=== PATIENT | female | born 1970 | race Caucasian/White ===

== ENCOUNTER → 2016-11-06 | Outpatient (REF) ==
[~2016-11-06] MED LIST: AMOX500C2; AMOX500C2 PO; BUPR150T PO; CYCL10TA9 PO; D-3; DICL75TA2 PO; DILT120C PO; ESTR-2 PO; ESTR0.5T3 PO; FLUO20CA42; FLUO40CA PO; GABA-488 PO; HCT25T; HCT25T PO; HYDR-3720 PO; HYDR1TAB; LORA0.5T PO; MELO15TA39 PO; NAPR-243; NAPR-243 PO; PRD20T; PRD20T PO; VENL75CA93 PO; VITA150T
--- NOTE | 2016-11-06 10:30 | Diagnostic Imaging Report ---
INDICATION: Right wrist pain. COMPARISON: None. FINDINGS: 3 views of the right wrist demonstrate no acute fracture or dislocation. There are no focal osseous lesions. No avascular necrosis is seen. The visualized soft tissue structures are unremarkable. The pronator fat pad is not displaced. There are no radio opaque foreign bodies. IMPRESSION: 1. No acute fracture or dislocation in the right wrist. Dictated by: Dictated on workstation # [id number]
== END | disposition home or self-care (01) ==
LOC: OCC 09:42
PROVIDERS: ATTEND Family Medicine
CPT/HCPCS: 73110

== ENCOUNTER 2017-02-06 15:11 | Outpatient (RCR) | payer OTHER | END 2017-02-19 10:50 | disposition home or self-care (01) | PROVIDERS: ATTEND Family Medicine | DX: M25.531 Pain in right wrist (principal) ==

== ENCOUNTER → 2017-02-25 | Outpatient (CLI) | payer OTHER ==
--- NOTE | 2017-02-26 12:22 | Diagnostic Imaging Report ---
EXAMINATION: Bilateral screening mammogram with a Computer Aided Detection (CAD) system. INDICATION: Screening. PERSONAL HISTORY: No current complaints stated on the questionnaire. COMPARISON: 06/28/2015. FINDINGS: The breasts are composed of scattered fibroglandular densities. There are scattered benign-appearing calcifications. Allowing for technique and positional differences, no suspicious change is seen. IMPRESSION: No significant change. ACR BI-RADS Category 2: Benign findings. Result letter will be mailed to the patient. Note: At least 10% of breast cancer is not imaged by mammography. Dictated by: Dictated on workstation # [id number]
== END ==
LOC: RAD 08:22
PROVIDERS: ATTEND Nurse Practitioner Community Health
DX: Z12.31 Encounter for screening mammogram for malignant neoplasm of breast (principal)
CPT/HCPCS: 77067

== ENCOUNTER → 2017-06-09 | Outpatient (CLI) | payer OTHER ==
[~2017-06-09] MED LIST changes: +IOHEXOL 350 MG/ML 100 ML (OMNIPAQUE 350) VIAL IV ONE; +NS 100 ML (IVPB) BAG IV ONE
--- NOTE | 2017-06-09 12:31 | Diagnostic Imaging Report ---
PROCEDURE: CT abdomen and pelvis with and without contrast. TECHNIQUE: Precontrast acquisitions were acquired through the abdomen and pelvis. Multiple contiguous axial images were obtained through the abdomen and pelvis after the administration of intravenous contrast. INDICATION: Hematuria. 100 mL of Omnipaque 350 is administered intravenously. FINDINGS: The lung bases appear clear. The liver, the spleen, the pancreas, and the adrenal glands appear unremarkable. The kidneys have symmetric enhancement and contrast excretion. The unenhanced phase demonstrates calcifications in the pelvis which appear to be related to the right adnexa and hysterectomy bed with no definite stone identified. No hydronephrosis. The urinary bladder appears unremarkable. In the left adnexa, there is a cystic lesion measuring 2.3 x 1.7 x 1.9 cm with no enhancing component evident. This is presumably a dominant follicle or simple cyst arising from the left ovary. Surgical clips and evidence of surgery utilizing a mesh seen anterior and inferior to the urinary bladder could relate to pelvic floor reinforcement surgery. Correlate with surgical history. Cholecystectomy clips are seen. The appendix is normal. There is no bowel obstruction. There is a peripherally calcified well-defined lesion seen within the anterior aspect of the omentum in the upper pelvis measuring 1.5 x 1.7 x 1.8 cm. No definite internal enhancement is seen. This could be sequela of prior injury or infection with no definite aggressive component or solid mass seen. The abdominal aorta is normal in caliber. No para-aortic significantly enlarged lymph node is seen. No pelvic lymphadenopathy. No significant free fluid or fluid collection in the abdomen or pelvis is seen. The osseous structures demonstrate degenerative changes in the lumbar spine and SI joints. IMPRESSION: 1. No urinary tract stones or hydronephrosis. No suspicious mass seen. 2. A 2.3 cm left adnexal fluid attenuation lesion is likely an ovarian cyst or dominant follicle. 3. A 1.8 cm peripherally calcified circumscribed lesion along the anterior aspect of the omentum noted in the upper pelvis is likely sequela of prior injury or fat necrosis in the omentum. Dictated by: Dictated on workstation # [id number]
== END ==
LOC: RAD 08:10
PROVIDERS: ATTEND Urology
DX: R19.09 Other intra-abdominal and pelvic swelling, mass and lump (principal); R31.9 Hematuria, unspecified
CPT/HCPCS: 74178

== ENCOUNTER → 2019-06-07 | Outpatient (CLI) | payer OTHER ==
[~2019-06-07] MED LIST changes: +BUPR100T15 PO; +ESTR0.62 PO; +HYDR-3816 PO; -IOHEXOL 350 MG/ML 100 ML (OMNIPAQUE 350) VIAL IV ONE; -NS 100 ML (IVPB) BAG IV ONE; +SERT50TA9 PO
--- NOTE | 2019-06-07 15:00 | Diagnostic Imaging Report ---
INDICATION: Routine screening. COMPARISON: 02/25/2017 and 03/01/2015. TECHNIQUE: 2D and 3D bilateral screening mammography was performed with CAD. FINDINGS: Scattered fibroglandular densities are identified bilaterally. There are benign calcifications within both breasts. No mass or malignant appearing microcalcifications are seen. The axillae are unremarkable. IMPRESSION: No mammographic features suspicious for malignancy are identified. ACR BI-RADS Category 2: Benign findings. Result letter will be mailed to the patient. Note: At least 10% of breast cancer is not imaged by mammography. Dictated by: Dictated on workstation # [id number]
== END ==
LOC: RAD 14:13
PROVIDERS: ATTEND Nurse Practitioner
DX: Z12.31 Encounter for screening mammogram for malignant neoplasm of breast (principal)
CPT/HCPCS: 77067

== ENCOUNTER 2019-06-09 05:42 | Outpatient (CLI) | payer OTHER ==
[~2019-06-09] VITALS: Ht 157.5 cm; Wt 98.6 kg
[~2019-06-09 05:42] MED LIST changes: -BUPR100T15 PO; -ESTR0.62 PO; -HYDR-3816 PO; -SERT50TA9 PO
[2019-06-09] MEDS ORDERED: SERT50TA9 PO (09:05)
[2019-06-09] MEDS ORDERED: BUPR100T15 PO (09:05)
[2019-06-09] MEDS ORDERED: HYDR-3816 PO (09:05)
[2019-06-09] MEDS ORDERED: ESTR0.62 PO (09:05)
== END 2019-06-09 09:06 | disposition home or self-care (01) ==
LOC: PREOP 05:42
PROVIDERS: ATTEND Surgery
DX: Z01.818 Encounter for other preprocedural examination (principal)

== ENCOUNTER 2019-06-11 10:16 | Day surgery (SDC) | payer OTHER ==
[~2019-06-11] VITALS: Ht 157.5 cm; Wt 98.6 kg
[2019-06-11] VITALS (13 sets, daily range): BP systolic 109–145; BP diastolic 56–85
[~2019-06-11 10:16] MED LIST changes: +BUPR100T15 PO; +ESTR0.62 PO; +HYDR-3816 PO; +SERT50TA9 PO
[2019-06-11] MEDS ORDERED: NS IV 500 ML 500 ML ONE (10:19)
--- NOTE | 2019-06-11 10:29 | Progress Note-Pre Operative ---
Pre-Operative Progress Note H&P Reviewed The H&P was reviewed, patient examined and no changes noted. Date Seen by Provider: Jun 11, 2019 Time Seen by Provider: 10:25 Date H&P Reviewed: Jun 11, 2019 Time H&P Reviewed: :25 Pre-Operative Diagnosis: diarrhea, rectal bleed ERUM BARRETO MD Jun 11, 2019 10:29
--- NOTE | 2019-06-11 10:29 | Conscious Sedation/ASA ---
Conscious Sedation Pre-Proced Time 10:25 ASA Score 2 For ASA 3 and 4: Consider anesthesia and medical clearance. Also, for patients with a history of failed moderate sedation consider anesthesia. Airway Lungs Heart ASA score ASA 1: a normal healthy patient ASA 2: a patient with a mild systemic disease (mid diabetes, controlled hypertension, obesity ASA 3: a patient with a severe systemic disease that limits activity (angina, COPD, prior Myocardial infarction) ASA 4: a patient with an incapacitating disease that is a constant threat to life (CHF, renal failure) ASA 5: a moribund patient not expected to survive 24 hrs. (ruptured aneurysm) ASA 6: a declared brain- patient whose organs are being harvested. For emergent operations, add the letter E after the classification Mallampati Classification Grade 2 Sedation Plan Analgesia, Amnesia, Plan communicated to team members, Discussed options with patient/fam, Discussed risks with patient/fam The patient is an appropriate candidate to undergo the planned procedure, sedation, and anesthesia. The patient immediately re-assessed prior to indication. ERUM BARRETO MD Jun 11, 2019 10:29
[2019-06-11] MEDS ORDERED: HYDROcodone/APAP 5 MG/325 MG (LORTAB) TAB PO PRN (10:30)
[2019-06-11] MEDS ORDERED: ACETAMINOPHEN 325 MG TABLET PO PRN (10:30)
[2019-06-11] MEDS ORDERED: ONDANSETRON 4 MG/2 ML (SDV) Z0FRAN IVP PRN (10:30)
[2019-06-11] MEDS ORDERED: morphine INJ 10 MG/ML 1ML (SYR OR VIAL) IVP PRN ×2 (10:30)
[2019-06-11] MEDS ORDERED: fentaNYL INJECTION 100 MCG/2 ML AMP IVP ONE (10:30)
--- NOTE | 2019-06-11 10:31 | Discharge Inst-Surgical ---
D/C Lap Instructions-ESTEVAN Follow Up Activity as tolerated High Fiber Diet 25g or more per day Avoid Alcohol, Caffeine, Spicy [place] and Acid foods. Drink 64 fluid oz or more of fluids per day. Symptoms to Report: Fever over 101 degree F, Nausea/Vomiting If any problems/questions: Contact your physician or go to Emergency Room ERUM BARRETO MD Jun 11, 2019 10:31
[2019-06-11] MEDS ORDERED: MIDAZOLAM 5 MG/5 ML (VERSED) VIAL ONE ×2 (10:37)
[2019-06-11] MEDS ORDERED: fentaNYL INJECTION 100 MCG/2 ML AMP ONE ×2 (10:37→11:04)
[2019-06-11] MEDS: MIDAZOLAM 5 MG/5 ML (VERSED) VIAL IV PRN ×5 (10:42→10:59)
[2019-06-11] MEDS ORDERED: NS IV 500 ML 500 ML IV SCH (10:45)
[2019-06-11] MEDS ORDERED: LIDOCAINE JELLY 2% 6 ML SYRINGE ONE (10:46)
[2019-06-11] MEDS ORDERED: ONDANSETRON 4 MG/2 ML (SDV) Z0FRAN ONE (11:50)
--- NOTE | 2019-06-11 20:45 | OPERATIVE REPORT ---
DATE OF SERVICE: 06/11/2019 ATTENDING LICENSING ANALYST: [facility]. PREOPERATIVE DIAGNOSES: Persistent diarrhea, rectal bleed. POSTOPERATIVE DIAGNOSIS: Mild acute on chronic stage II external and internal hemorrhoids, remainder of the colon and rectum were normal. There were no mucosal inflammatory changes, no polyps as well as no active bleeding identified. PROCEDURE PERFORMED: Colonoscopy. SURGEON: Erum Barreto MD. ANESTHESIA: Conscious sedation. ESTIMATED BLOOD LOSS: Minimal. FINDINGS: Mild acute on chronic stage II external and internal hemorrhoids, remainder of the colon and rectum were normal. There were no mucosal inflammatory changes, no polyps as well as no active bleeding identified. DISPOSITION: The patient tolerated the procedure well. INDICATIONS: The patient is a 49-year-old female referred over to us for a colonoscopy. She states she has had issues with diarrhea; however, she states that this occurred after her laparoscopic cholecystectomy. She reports that in the past 3-4 months, this has worsened. She has also noticed red blood per rectum, which was self-limited and in small amounts on the toilet tissue. She has not had a colonoscopy up to this point in her life. She also does not report any family history of colon cancer. She does have some risk factors for hypermotility including medications as well as a previous history of smoking. DESCRIPTION OF PROCEDURE: The patient was brought to the endoscopy suite, laid in the left lateral decubitus position. After adequate IV pain and sedative medications and conscious sedation anesthesia, a digital rectal examination was performed. There was mild acute on chronic stage II external and internal hemorrhoids, not actively edematous nor inflamed and no bleeding. Normal sphincter tone was felt and no palpable masses. The endoscope was then intubated in the anus and rectum gently insufflated. The endoscope was then advanced to the valves of [place] of the rectum with no polyps or any neoplasms identified. We then proceeded through the sigmoid colon where no diverticulosis identified. The endoscope was then advanced to the remainder of the descending, transverse and ascending colon to the cecum. These segments were normal. There were no polyps or any neoplasms identified throughout the colon or rectum as well as no mucosal inflammatory changes as well as no active bleeding. The endoscope was then slowly withdrawn while taking a second look and suctioning residual air with no additional findings. The patient tolerated the procedure well. We will recommend conservative medical therapy with the necessary lifestyle and diet accommodation including taking in small and more frequent meals, avoidance of eating at night as well as head elevation while lying supine. She also needs to avoid caffeinated beverages, spicy, greasy and acidic foods as well as to avoid spicy, greasy and acidic foods. We are unsure if this hypermotility and diarrhea secondary to post-prandial hypermotility from a bile acid secretion and we will proceed with a trial of cholestyramine 4 grams packet on a b.i.d. basis. Job ID: [id number] DocumentID: [id number] Dictated Date: 06/11/2019 11:18:54 Shot Examiner Date: 06/11/2019 20:44:56 Dictated By: ERUM BARRETO MD
== END 2019-06-11 12:20 | disposition home or self-care (01) ==
LOC: ENDO 10:16
PROVIDERS: ATTEND Surgery
DX: K64.1 Second degree hemorrhoids (principal); K64.8 Other hemorrhoids; K92.1 Melena; R19.7 Diarrhea, unspecified; F32.9 Major depressive disorder, single episode, unspecified; M19.90 Unspecified osteoarthritis, unspecified site; Z90.49 Acquired absence of other specified parts of digestive tract; Z98.51 Tubal ligation status; Z90.710 Acquired absence of both cervix and uterus; Z87.891 Personal history of nicotine dependence; Z79.891 Long term (current) use of opiate analgesic; Z79.899 Other long term (current) drug therapy; Z83.3 Family history of diabetes mellitus; Z83.2 Family history of diseases of the blood and blood-forming organs and certain disorders involving the immune mechanism; Z82.49 Family history of ischemic heart disease and other diseases of the circulatory system

== ENCOUNTER → 2019-07-22 | Outpatient (CLI) | payer OTHER ==
--- NOTE | 2019-07-22 15:31 | Diagnostic Imaging Report ---
PROCEDURE: MRI lumbar spine. TECHNIQUE: Multiplanar, multisequence MRI of the lumbar spine was performed without contrast. INDICATION: Low back pain and bilateral leg tingling and numbness. COMPARISON: No prior studies are available for comparison. FINDINGS: Curvature of the lumbar spine is normal. There is minimal retrolisthesis of L1 on L2 and L2 on L3 as well as L4 on L5 and L5 on S1. The vertebral body heights are maintained. No marrow signal abnormality or acute compression fracture is seen. There is generalized degenerative disc disease with loss of height and signal intensity of all lumbar discs compatible with degenerative change. The conus is unremarkable at the T12-L1 level. T12-L1: Central canal is widely patent. Neural foramina are patent. L1-2: Broad-based disc/osteophyte complex and facet changes are noted. Central canal remains widely patent. There does appear to be [id number] left neural foraminal narrowing due to disc/osteophyte complex. L2-L3: Broad-based disc/osteophyte complex indents the ventral thecal sac. Central canal is patent but there is significant narrowing of bilateral lateral recesses. There is also mild bilateral neural foraminal narrowing. L3-L4: Broad-based disc/osteophyte complex and facet changes are noted. Central canal is patent but there is significant narrowing of bilateral lateral recesses. Moderate bilateral neural foraminal stenosis is noted. L4-L5: Broad-based disc/osteophyte complex significantly narrows bilateral lateral recesses. Central canal is widely patent. There is moderate bilateral neural foraminal stenosis. L5-S1: Broad-based disc/osteophyte complex indents the ventral thecal sac. There is significant narrowing of bilateral lateral recesses as well as significant bilateral neural foraminal stenosis. Paraspinous tissues are unremarkable. IMPRESSION: Multilevel lumbar spondylosis with multilevel lateral recess and neural foraminal stenosis described level by level above. No central canal stenosis is seen. No acute compression fracture is identified. Dictated by: Dictated on workstation # [id number]
== END ==
LOC: RAD 14:33
PROVIDERS: ATTEND Nurse Practitioner Community Health
DX: M48.07 Spinal stenosis, lumbosacral region (principal); M47.816 Spondylosis without myelopathy or radiculopathy, lumbar region; M51.36 Other intervertebral disc degeneration, lumbar region
CPT/HCPCS: 72148

== ENCOUNTER 2019-07-25 22:24 | Emergency (ER) | payer OTHER ==
[~2019-07-25] VITALS: Ht 160 cm; Wt 96.6 kg
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
[2019-07-25] MEDS ORDERED: RX-HYDROCODONE/APAP 5/325 MG #4 TAB PK PO PRN (23:15)
[2019-07-25] MEDS ORDERED: BACITRACIN OINTMENT 28 GM TUBE ONE (23:21)
[2019-07-25 23:26] VITALS: BP 151/89
[2019-07-26] MEDS ORDERED: BACITRACIN OINTMENT 28 GM TUBE TOP SCH (09:00)
== END 2019-07-25 23:27 | disposition home or self-care (01) ==
LOC: EDUNIT# 22:24 → ER 22:25
DX: T22.232A Burn of second degree of left upper arm, initial encounter (principal); T31.0 Burns involving less than 10% of body surface; K21.9 Gastro-esophageal reflux disease without esophagitis; J45.909 Unspecified asthma, uncomplicated; F32.9 Major depressive disorder, single episode, unspecified; Z87.891 Personal history of nicotine dependence; Z90.710 Acquired absence of both cervix and uterus; Z98.51 Tubal ligation status; X15.3XXA Contact with hot saucepan or skillet, initial encounter
CPT/HCPCS: 99283

== ENCOUNTER 2020-02-24 02:52 | Emergency (ER) | payer OTHER ==
[~2020-02-24] VITALS: Ht 160 cm; Wt 104.0 kg
[~2020-02-24 02:52] MED LIST changes: +HYDR-34 PO; -HYDR-3816 PO
--- OUTSIDE RECORDS SUMMARY | 2020-02-24 03:00 | XMS REPORT | Clinical Summary ---
Author Author [facility] Organization [facility] Address Unknown Phone Unavailable Care Team Providers Care Financial Management Consultant Name Role Phone PCP Unavailable Allergies Not on File Medications Not on file Active Problems Not on file Social History Date Tobacco Use Types Packs/Day Years Used Never Assessed Sex Assigned at Date Recorded Not on file Industry Job Start Date Occupation Not on file Not on file Not on file Travel End Travel History Travel Start No recent travel history available. Last Filed Vital Signs Not on file Plan of Treatment Not on file Results Not on filefrom Last 3 Months
--- OUTSIDE RECORDS SUMMARY | 2020-02-24 03:00 | XMS REPORT ---
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 [Mass/Vol] 08:05-0500 ([id number]) Lymphocytes 2.7 10*3/uL (no code) 0.9 - 2.9 09-12-2016 Not Avai lable (Bld) [#/Vol] 10*3/uL 08:05-0500 ([id number]) Lymphocytes/100 33 % (no code) 20 - 40 % 09-12-2016 Not Av ailable WBC (Bld) 08:05-0500 ([id number]) MCH (RBC) 28.5 pg (no code) 27 - 31 pg 09-12-2016 Not Availab le [Entitic mass] 08:05-0500 ([id number]) MCV (RBC) 84 fL (no code) 80 - 100 fL 09-12-2016 Not Availa ble [Entitic vol] 08:05-0500 ([id number]) Monocytes (Bld) 0.6 10*3/uL (no code) 0.3 - 0.9 09-12-2016 Not Available [#/Vol] 10*3/uL 08:05-0500 ([id number]) Monocytes/100 8 % (no code) 2 - 8 % 09-12-2016 Not Avai lable WBC (Bld) 08:05-0500 ([id number]) Neutrophils 4.7 10*3/uL (no code) 1.7 - 7 10*3/uL 09-12-2016 No t Available (Bld) [#/Vol] 08:05-0500 ([id number]) Neutrophils/100 58 % (no code) 40 - 60 % 09-12-2016 Not Av ailable WBC (Bld) 08:05-0500 (23811) Platelets (Bld) 295 10*3/uL (no code) 150 - 450 09-12-2016 Not Available [#/Vol] 10*3/uL 08:05-0500 (80772) RBC (Bld) 4.21 10*6/uL (no code) 4.2 - 6.1 09-12-2016 Not Avail able [#/Vol] 10*6/uL 08:05-0500 (81674) WBC (Bld) 8.1 10*3/uL (no code) 3.5 - 10.5 09-12-2016 Not Avail able [#/Vol] 10*3/uL 08:05-0500 (75845) Vital Signs Vital Sign Value Interpretation Reference Date Time Care Prov ider Facility (Normalized) (Normalized) Range BMI (Body Mass 38.7 kg/m2 (no code) 15 - 25 kg/m2 11-04-2018 [facility] ENDA LILIBETH [facility]) 10:00-0500 30351 [facility] ([id number]) BMI (Body Mass 39.3 kg/m2 (no code) 15 - 25 kg/m2 12-29-2017 BR ALISHA PEARCENNAN [facility]) 11:00-0400 12498 [facility] ([id number]) BMI (Body Mass 39.13 kg/m2 (no code) 15 - 25 kg/m2 12-10-2017 B TALIA MARTINESAN Community [facility]) 11:00-0400 75715 [facility] ([id number]) Body height 162.56 cm (no code) cm 07-12-2014 [facility] 11:20-0500 63406 [facility] (71814) Body height 162.56 cm (no code) cm 11-22-2013 [facility] 16:36-0400 49225 [facility] ([id number]) Body 98.1 [degF] (no code) 97.8 - 99.0 11-04-2018 [facility] Temperature [degF] 10:00-0500 67253 [facility] ([id number]) Body 97.7 [degF] (no code) 97.8 - 99.0 12-29-2017 [facility] Temperature [degF] 11:00-0400 81072 [facility] (05772) Body 98.5 [degF] (no code) 97.8 - 99.0 12-10-2017 [facility] Temperature [degF] 11:00-0400 60008 [facility] (70355) Body 97.6 [degF] (no code) 97.8 - 99.0 07-12-2014 [facility] temperature [degF] 11:20-0500 33105 [facility] ([id number]) Body 97.7 [degF] (no code) 97.8 - 99.0 11-22-2013 [facility] temperature [degF] 16:36-0400 215[address] [facility]66[facility] Body weight 102.29 kg (no code) kg 11-04-2018 BROSOFYA MARTINES [facility] 10:00-0500 84587 [facility] ([id number]) Body weight 96.36 kg (no code) kg 07-12-2014 BRO SEARS [facility] 11:20-[address] [place] [address] (07077) Body weight 101.52 kg (no code) kg 11-22-2013 BROSOFYA MARTINES [facility] 16:36-[address] [place] [address] (38126) Height 162.56 cm (no code) cm 11-04-2018 [facility] 10[facility]-[address] [place] [address] (44541) Height 162.56 cm (no code) cm 12-29-2017 [facility] 11:00-[address] [place] [address] (41583) Height 162.56 cm (no code) cm 12-10-2017 [facility] 11:00-[address] [place] [address] ([id number]) Weight 103.87 kg (no code) kg 12-29-2017 [facility] 11[facility]-[address] [place] [address] (32346) Weight 103.42 kg (no code) kg 12-10-2017 [facility] 11[facility]-[address] [place] [address] ([id number]) Interventions No Information Plan of Treatment Normalized Care Care Detail Care Activity Date Care Provider F acility Activity (CHM) [facility] 07-13-2018 BRO SEARS N [address]62 [facility] ([id number]) (CH) [facility] 08-12-2018 BRO SEARS N 00320 [facility] (24773) [facility] 10-27-2019 [facility] MCELROY [phone] ([id number]) Patient Education no information no information [facility] [place] [facility] [address] [place] [address] ([id number]) Patient referral no information no information [facility] [place] [facility] [address] [place] [address] ([id number]) no information no information no information BRO MCELROY [phone] [facility] (87219) Goals Patient Goal Desired Goal no information no information Social History Normalized Code Original Code Date Value Tobacco smoking status Tobacco smoking status no information Ex-smoker (finding) [facility] no information no information 04-14-2015 Denies Use no information no information 03-07-2011 No no information no information 06-09-2019 Former Smoker Sex Assigned At Sex Assigned At 1970 - Female Tobacco smoking status Tobacco smoking status no information Never smoked tobacco [facility] (finding) no information no information 07-26-2019 Denies no information no information 07-26-2019 Never a Smoker Functional Status Status Assessment Result Care Provider Facility Functional status [place] Opioid-induced [facility] [place] [facility] Radha Sedation Scale (POSS) [address] [place] [address] ([id number]) Awake and alert Mental Status Status Assessment Result Care Provider Facility Cognitive function [facility] [facility] [place] [facility] Sedation Scale (POSS) [address] [place] [address] ([id number]) Awake and alert Encounters Encounter Normalized Encounter Encounter Diagnosis Care Provi roscoe Organization Date Type 01-13-2019 (fitness) Fitness no information BRO MCELROY (no [facility] Assessment and phone) (no phone) Evaluation 06-11-2019 Admission to day no information (no phone) [facility] (no phone) 06-11-2019 11-12-2019 [facility] Fever, unspecified ADAM GILR EATH (no [facility] CARE phone) CARE (no phone) 07-26-2019 Emergency department no information (no phone) [facility] - patient visit Hospital (no phone) 07-26-2019 07-25-2019 Emergency department no information no name no organization name - patient visit 07-25-2019 07-10-2016 Emergency department no information no name no organization name - patient visit 07-10-2016 05-19-2018 Patient encounter no information no name no or ganization name 02-26-2018 Patient encounter no information no name no or ganization name NEGATED Patient encounter no information no name no or ganization name 12-29-2017 12-10-2017 Patient encounter no information no name no or ganization name 11-05-2017 Patient encounter no information no name no or ganization name 06-09-2017 Patient encounter no information no name no or ganization name 02-09-2020 Patient encounter no information BRO S LILIBETH ( no [facility] (no phone) 11-12-2019 Patient encounter no information (no phone) [facility] procedure [facility] (no phone) 10-11-2019 Patient encounter Encounter for (no phone) [facility] - procedure gynecological [facility] (no phone) [facility] 10-11-2019 examination (general) [place] (no phon e) (routine) without [facility] abnormal findings (no phone) [facility] (no phone) 10-04-2019 Patient encounter no information no name no or ganization name procedure 09-29-2019 Patient encounter no information no name no or ganization name procedure 07-25-2019 Patient encounter no information no name no or ganization name procedure 07-22-2019 Patient encounter no information (no phone) [facility] (no phone) 07-22-2019 Patient encounter no information no name no or ganization name procedure 07-12-2019 Patient encounter no information no name no or ganization name procedure 06-11-2019 Patient encounter no information no name no or ganization name - procedure 06-11-2019 06-11-2019 Patient encounter no information no name no or ganization name - procedure 06-11-2019 06-09-2019 Patient encounter no information (no phone) [facility] (no phone) 06-09-2019 06-09-2019 Patient encounter no information no name no or ganization name procedure 06-09-2019 Patient encounter no information no name no or ganization name - procedure 06-09-2019 06-07-2019 Patient encounter no information (no phone) [facility] (no phone) 06-07-2019 Patient encounter no information no name no or ganization name procedure 04-05-2019 Patient encounter no information no name no or ganization name procedure 01-20-2019 Patient encounter no information no name no or ganization name procedure 12-30-2018 Patient encounter no information no name no or ganization name procedure 12-23-2018 Patient encounter no information no name no or ganization name procedure 12-07-2018 Patient encounter no information no name no or ganization name procedure 12-03-2018 Patient encounter no information no name no or ganization name procedure 11-23-2018 Patient encounter no information no name no or ganization name procedure 11-19-2018 Patient encounter no information no name no or ganization name procedure 11-16-2018 Patient encounter no information no name no or ganization name procedure 11-04-2018 Patient encounter no information no name no or ganization name procedure 10-29-2018 Patient encounter no information no name no or ganization name procedure 10-18-2018 Patient encounter no information no name no or ganization name procedure 10-12-2018 Patient encounter no information no name no or ganization name procedure 09-30-2018 Patient encounter no information no name no or ganization name procedure 07-13-2018 Patient encounter no information no name no or ganization name procedure 06-08-2018 Patient encounter no information no name no or ganization name procedure 06-09-2017 Patient encounter no information no name no or ganization name procedure 02-25-2017 Patient encounter no information no name no or ganization name procedure 02-25-2017 Patient encounter no information no name no or ganization name procedure 02-06-2017 Patient encounter no information no name no or ganization name - procedure 02-19-2017 02-04-2017 Patient encounter no information no name no or ganization name procedure 01-31-2017 Patient encounter no information no name no or ganization name procedure 01-23-2017 Patient encounter no information no name no or ganization name procedure 01-17-2017 Patient encounter no information no name no or ganization name procedure 01-07-2017 Patient encounter no information no name no or ganization name procedure 01-02-2017 Patient encounter no information no name no or ganization name procedure 11-06-2016 Patient encounter no information no name no or ganization name procedure 01-04-2016 Patient encounter no information no name no or ganization name procedure 01-07-2020 Telephone encounter Lumbago with JONG cordova (no [facility] right side phone) (no phone) 12-03-2019 Telephone encounter Lumbago with sciatica, BRO Elijah JUDD ([facility] right [facility] phone) (no phone) 11-02-2019 Telephone encounter no information BRO MCELROY ( no [facility] phone) (no phone) 10-28-2019 Telephone encounter Acute stress reaction BRO WHITE (no [facility] phone) (no phone) 10-18-2019 Telephone encounter no information BRO MCELROY ( no [facility] phone) (no phone) no information Encounter for other no name no organiz ation name preprocedural examination no information Encounter for no name no organization name gynecological examination (general) (routine) without abnormal findings Medical Equipment The data below is from unstructured sourcesNo Medical Equipment Information availableNo Medical Equipment Information availableNo Medical Equipment Information availableNo Medical Equipment Information a vailableNo Medical Equipment Information available Payers Normalized Payer Value Private Health Insurance no information ([id number]) Evaluation note Note Type Note Facility Evaluation No Assessments Information Available A scension note [facility] ([id number]) Summary Purpose eClinicalWorks SubmissioneClinicalWorks SubmissioneClinicalWorks SubmissioneClinicalWorks SubmissioneClinicalWorks SubmissioneClinicalWorks SubmissioneClinicalWorks Submission Advance Directives Directive Response Recor ded Date/Time Advance Directives No 3:51am Health Care Power of Manager Image No 04/14/15 3:51am Organ Donor Yes 04/14/15 3:51am Resuscitation Status Full Code 04/14/15 3:51am Directive Response Recor ded Date/Time Advance Directives No 9:22am Health Care Power of Manager Image No 09/10/12 9:19am Organ Donor Yes 09/10/12 9:19am Directive Response Recor ded Date/Time Advance Directives No 12:48am Health Care Power of Manager Image No 07/10/16 12:48am Organ Donor Yes 07/10/16 12:48am Advance Directive Response Recorded Date/Time Advance Directives No Oc 2018 8:52am Health Care Power of Manager Image No June 09, 2019 8:52am Organ Donor Yes June 09, 2019 8:52am Resuscitation Status Full Code June 09, 2019 8:52am Advance Directive Response Recorded Date/Time Advance Directives No Oc tober 2018 10:30am Health Care Power of Manager Image No June 11, 2019 10:30am Organ Donor Yes June 11, 2019 10:30am Resuscitation Status Full Code June 11, 2019 10:30am Advance Directive Response Recorded Date/Time Advance Directives No No [email or web address] 11:01pm Health Care Power of Manager Image No July 25, 2019 11:01pm Organ Donor Yes July 25, 2019 11:01pm Resuscitation Status Full Code July 25, 2019 11:01pm Discharge Instructions No hospital discharge instructions.No hospital discharge instructions.No hospital discharge instructions.No hospital discharge instruction information available. Additional Instructions Patient Instructions Physician Instructions Follow Up Activity as tolerated High Fiber Diet 25g or more per day Avoid Alcohol, Caffeine, Spicy [place] and Acid foods. Drink 64 fluid oz or more of fluids per day. Symptoms to Report: Fever over 101 degree F, Nausea/Vomiting If any problems/questions: Contact your physician or go to Emergency Room Assessments No Assessments Information AvailableNo Assessments Information Available Chief Complaint and Reason for Visit Chief Complaint Trauma-Non Activatio n Reason for Visit [id number] Additional Source Comments This clinical document has been generated using [employer] software that has been certified by the Office of the National Coordinator for Health Information Technology (ONC 15.99.04.3023.Diam.31.00.0.613732) and the National Committee for [employer] (NCQA, as an eMeasure certified technology). FOR RECORDS PERTAINING TO PATIENTS WHO ARE OR HAVE BEEN ENROLLED IN A CHEMICAL D EPENDENCY/SUBSTANCE ABUSE PROGRAM, SOME INFORMATION MAY BE OMITTED. This clinica l summary was aggregated from multiple sources. Caution should be exercised in using it in the provision of clinical care. This summary normalizes information from multiple sources, and as a consequence, information in this document may ma terially change the coding, format and clinical context of patient data. In kar tion, data may be omitted in some cases. CLINICAL DECISIONS SHOULD BE BASED ON T HE PRIMARY CLINICAL RECORDS. [facility]. provides no warranty or guara ntee of the accuracy or completeness of information in this document.The followi ng information is based on time limited clinical information UNRECOGNIZED CONTENT PROVIDED BELOW FOR UNRECOGNIZED SECTION MEDICAL (GENERAL) HISTORY Type Description Date Medical History Asthma Medical History Post cholecystectomy Medical History arthritis Medical History Backache Medical History Headache syndromes Medical History Depression Medical History carpal tunnel right hand Surgical History Hysterectomy 2010 Surgical History Tubal ligation Surgical History section Surgical History Orthopedic surgery Surgical History Right ear canal rec onstruction Hospitalization History child x3 Hospitalization History orthopedic surgery Hospitalization History Hysterectomy Hospitalization History Tubal ligation Type Description Date Medical History Asthma Medical History Post cholecystectomy Medical History arthritis Medical History Backache Medical History Headache syndromes Medical History Depression Medical History carpal tunnel right hand Surgical History Hysterectomy 2010 Surgical History Tubal ligation Surgical History section Surgical History Orthopedic surgery Surgical History Right ear canal rec onstruction Surgical History right knee arthroscopy 04/2018 Hospitalization History child x3 Hospitalization History orthopedic surgery Hospitalization History Hysterectomy Hospitalization History Tubal ligation UNRECOGNIZED CONTENT PROVIDED BELOW FOR UNRECOGNIZED SECTION REASON FOR VISIT order for MRI of backControlled Med Refill 07/06/18Controlled Med Refill 08/03EM [id number] Pt in for follow up, also has had pain and swelling in R knee, does not recall injury to knee Sherry, [id number] US or derU/S RT LOWER EXT NONVASC A.BOOKLESS RDMS RVTControlled 11/23back painback pain , knee pain
--- OUTSIDE RECORDS SUMMARY | 2020-02-24 03:00 | XMS REPORT | Encounter Summary ---
Author Author [facility] Organization [facility] Address Unknown Phone Unavailable Care Team Providers Care Technician Support Association Name Role Phone PCP Unavailable Encounter Details Care Team Description Date Type Department Dakota Davenport MD [address] [facility] [address] [place] [address] [phone] Unspecified otitis media 09/08/2013 [facility] al Encounter [address] [place] [address] Social History Date Tobacco Use Types Packs/Day Years Used Never Assessed Sex Assigned at Date Recorded Not on file Industry Job Start Date Occupation Not on file Not on file Not on file Travel End Travel History Travel Start No recent travel history available. documented as of this encounter H&P Notes * Dakota Davenport MD - 10/28/2013 3:40 PM TRACK REPAIR SUPERVISOR REPORT Name: SHEY VELAZQUEZ Date of : 1970 Attending Physician: Dakota Davenport MD Date of Admission: 08/14/2013 11:29:00 DATE OF DICTATION: September 02, 2013 DATE OF SURGERY: September 08, 2013 CHIEF COMPLAINT? Right hearing loss. HISTORY OF PRESENT ILLNESS: The patient is a 42-year-old with a history of chronic ear infections and past cholesteatoma. She has undergone first staged tympanoplasty and mastoidectomy surgery July 28, 2012. 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 She is now undergoing second stage surgery to rule out any residual cholesteatoma and to finish ossicular chain reconstruction. PAST MEDICAL HISTORY: The patient is otherwise in good health. MEDICATIONS: Current medications include hydrochlorothiazide for fluid retention, Ventolin, and Pristiq for some asthma that is stable. In the past, she has also been on Wellbutrin for smoking cessation. ALLERGIES: To medications none. FAMILY HISTORY: Positive for hearing loss. SOCIAL HISTORY: She lives in [place], [place]. REVIEW OF SYSTEMS: Positive for asthma and irregular heart rate which has been worked up and found to be of no significant consequence. She has also had some intermittent diarrhea, but none at this time. PHYSICAL EXAMINATION: GENERAL: Reveals well-developed and well-nourished 42-year-old in no acute distress. HEENT: Eyes normal. Ears: Left ear normal. Right ear shows reconstructed tympanic membrane. Nose, throat, and neck normal. LUNGS: Clear. HEART: Normal. EXTREMITIES: Normal. Audiogram shows moderate conductive hearing loss right side. Normal left. ASSESSMENT: Right chronic otitis media with conductive hearing loss. RECOMMENDATIONS: Right revision tympanoplasty, mastoidectomy, and ossicular chain reconstruction. The risks of the procedure and alternatives have been discussed and informed written consent obtained. Dakota Davenport MD [id number] CC: K REPAIR SUPERVISOR documented in this encounter Miscellaneous Notes * Operative Note - Dakota Davenport MD - 10/28/2013 3:37 PM TRACK REPAIR SUPERVISOR REPORT Name: SHEY VELAZQUEZ Date of : 1970 Attending Physician: Dakota Davenport MD Date of Procedure: 09/08/2013 PREOPERATIVE DIAGNOSES: 1. Right chronic otitis media. 2. Right conductive hearing loss. POSTOPERATIVE DIAGNOSES: 1. Right chronic otitis media. 2. Right conductive hearing loss. PROCEDURE: 1. Right revision tympanoplasty and mastoidectomy with ossicular chain reconstruction. 2. Ear cartilage graft. 3. Soft tissue (fascia) graft. 4. Microdissection with operating microscope. 5. Intraoperative facial nerve monitoring, 1-1/2 units. INDICATIONS: The patient is a 43-year-old with a history of cholesteatoma and past tympanoplasty and mastoidectomy surgery, first stage. She is undergoing second stage. FINDINGS AT THE TIME OF SURGERY: I found a clean middle ear and mastoid with no recurrent cholesteatoma. She has a missing incus, missing malleus head, and a mobile stapes. PROCEDURE: The patient was identified and taken to the operating room. General anesthetic was administered via LMA mask. Using the operating microscope, cerumen was cleaned from the right ear, and 2 vertical incisions were made from 12 and 6 o'clock from the annulus to the bony cartilaginous juncture. Then, I made a C-shaped postauricular incision, went through skin and subcutaneous tissue, harvested temporalis fascia, and put it in a fascial press, leaving it to dry. I incised the periosteum, elevated the mastoid cortex, and cleaned, but there had been previous mastoidectomy, so I fell into a mastoid cavity. I removed some adhesions. I removed some cortical bone that had grown back and confirmed that there was no cholesteatoma in the mastoid or epitympanum. I elevated down the posterior bony canal wall, freed up the vascular strip, lifted up the tympanic membrane, removed some adhesions, and found no cholesteatoma in the middle ear. There was a mobile stapes, missing incus, and missing malleus head. As a separate procedure, I harvested tragal cartilage from the tragus ____ small rectangle strip perichondrium off one side, and I scoured the cartilage in half, taking care not to go through the perichondrium on the other side. This created a hinged double block of cartilage. Then, I created a small depression and stacked it on top of the stapes. I laid it back to tympanic membrane, but it was slightly short not reaching to the posterior bony canal wall; so I did an underlay graft using temporalis fascia, supplementing it with Gelfoam. I then released retractors, put back to vascular strip, packed the external ear canal with the more Gelfoam soaked with Cipro HC antibiotic, and closed the postauricular wound using 2, 3 and 4-0 Vicryl on subcutaneous and subcuticular layers. Steri-Strips were applied. A mastoid pressure dressing was put on. The patient was awakened and taken to the recovery room in good condition. Dakota Davenport MD [id number] CC: K REPAIR SUPERVISOR documented in this encounter Plan of Treatment Not on filedocumented as of this encounter Visit Diagnoses Diagnosis Unspecified otitis media documented in this encounter
--- OUTSIDE RECORDS SUMMARY | 2020-02-24 03:00 | XMS REPORT ---
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 Role Phone BRO MCELROY Unavailable PROBLEMS Type Condition ICD9-CM Code MUY30-QS Code Onset Dates Condition S tatus SNOMED Code Problem Obesity E66.9 Active 193957298 Problem Knee pain M25.569 Active 91636313 Problem Rib pain R07.81 Active 342469729 Problem GERD (gastroesophageal reflux disease) K21.9 Active 382312245 Problem Weight gain R63.5 Active 2541728 Problem Right knee meniscal tear S83.206A Activ e 869247490 Problem Bone spur of foot M77.9 Active 23 [id number] Problem Carpal tunnel syndrome, unspecified laterality G56 .00 Active 60536609 Problem Continuous leakage of urine N39.45 Ac tive 976140255 Problem Rectocele N81.6 Active 907530921 Problem Fibromyalgia M79.7 Active 8717117 05 Problem Acute stress reaction F43.0 Active 86789854 Problem Dysthymia F34.1 Active 40266487 Problem Generalized anxiety disorder F41.1 A ctive 27492814 Problem Major depressive disorder, single episode, unspecified F32.9 Active 78348333 Problem Lumbago with sciatica, right side M54.41 Active 643891302 Problem Other chronic pain G89.29 Active 8 0714296 Problem Perimenopause N95.1 Active 804871 714670924 Problem Chronic fatigue R53.82 Active 5270 2002 ALLERGIES No Information ENCOUNTERS Encounter Location Date Diagnosis [facility] [address] [facility] [id number] [address] [place] [address] 03 Dec, 2019 Lumbago with sciatica, right side M54.[address] [facility] [address] [facility] [id number] [address] [place] [address] Oct, Fever, unspecified fever cau se R50.9 and Viral upper respiratory tract infection J06.9 [place] [address] [address] Oct, [place] [address] [address] Oct, Acute stress reaction F43.0 and Generalized anxiety disorder F41.1 [place] [address] [address] 17 Oct, 2019 [place] [address] [address] Oct, Well woman exam Z01.419 ; Ce rvical cancer screening Z12.4 and Encounter for immunization Z23 [address] [address] Oct, Lipid screening Z13.220 ; Ch ronic fatigue R53.82 and Myalgia M79.10 [place] [address] [address] Sep, Dysthymia F34.1 ; Other filer and sander mary pain G89.29 ; Lumbago with sciatica, right side M54.41 ; Myalgia M79.10 ; Lipid screening Z13.220 and Chronic fatigue R53.82 [place] [address] [address] Sep, Lumbago with sciatica, right side M54.41 [place] [address] [address] Aug, Lumbago with sciatica, right side M54.41 [place] [address] [address] Jul, Lumbago with sciatica, right side M54.41 [place] [address] [address] Jul, Low back pain M54.5 ; Other chronic pain G89.29 ; Weakness of both legs R29.898 and Weight loss R63.4 [place] [address] [facility] [id number] [address] [place] [address] Jun, Lumbago with sciatica, right side M54.41 [place] [address] [place] [id number] [address] [place] [address] Jun, Lumbago with sciatica, right side M54.41 [place] [address] [facility] [id number] [address] [place] [address] May, Lumbago with sciatica, right side M54.41 [place] [address] [facility] [id number] [address] [place] [address] Apr, Lumbago with sciatica, right side M54.41 [place] [address] [place] [id number] [address] [place] [address] Apr, Abnormal CBC R79.89 and Lumb ago with sciatica, right side M54.41 [place] [address] [facility] [id number] [address] [place] [address] Mar, Lumbago with sciatica, right side M54.41 [place] [address] [facility] [id number] [address] [place] [address] Jan, Lumbago with sciatica, right side M54.41 [place] [address] [facility] [id number] [address] [place] [address] December, Exercise counseling Z71.82 [place] [address] [facility] [id number] [address] [place] [address] December, Lumbago with sciatica, right side M54.41 [place] [address] [facility] [id number] [address] [place] [address] December, Exercise counseling Z71.82 [place] [address] [facility] [id number] [address] [place] [address] Nov, Colon cancer screening Z12.1 1 [facility] [address] [id number] [address] [place] [address] Nov, Exercise counseling Z71.82 [facility] [address] [id number] [address] [place] [address] Nov, Exercise counseling Z71.82 [facility] [address] [id number] [address] [place] [address] Nov, Lumbago with sciatica, right side M54.41 [facility] [address] [id number] [address] [place] [address] Nov, Exercise counseling Z71.82 [place] [address] [id number] [address] [place] [address] Nov, [place] [address] [id number] [address] [place] [address] Nov, Contusion of right knee, seq uela S80.01XS and Lumbago with sciatica, right side M54.41 [place] [address] [id number] [address] [place] [address] Nov, Exercise counseling Z71.82 [facility] [address] [id number] [address] [place] [address] Oct, Exercise counseling Z71.82 [place] [address] [id number] [address] [place] [address] Oct, Exercise counseling Z71.82 [facility] [address] [id number] [address] [place] [address] Oct, Lumbago with sciatica, right side M54.41 [facility] [address] [id number] [address] [place] [address] Oct, Exercise counseling Z71.82 [facility] [address] [id number] [address] [place] [address] Oct, Contusion of right knee, ini tial encounter S80.01XA [facility] [address] [facility] [id number] [address] [place] [address] Oct, Contusion of right knee, ini tial encounter S80.01XA [place] [address] [facility] [id number] [address] [place] [address] Oct, Contusion of right knee, ini tial encounter S80.01XA [place] [address] [place] [id number] [address] [place] [address] Oct, Exercise counseling Z71.82 [place] [address] [address] Oct, Lumbago with sciatica, right side M54.41 [facility] [address] [place] [id number] [address] [place] [address] Oct, Influenza A J10.1 and Fever R50.9 [place] [address] [address] Oct, Exercise counseling Z71.82 [place] [address] [address] Oct, [place] [address] [place] [id number] [place] [address] Sep, Perimenopause N95.1 ; Weight gain R63.5 ; BMI 40.0-44.9, adult Z68.41 and Therapeutic drug monitoring Z51.81 [place] [address] [place] [id number] [address] [place] [address] Sep, Lumbago with sciatica, right side M54.41 [place] [address] [place] [id number] [address] [place] [address] Aug, Lumbago with sciatica, right side M54.41 [place] [address] [place] [id number] [address] [place] [address] Jul, Lumbago with sciatica, right side M54.41 [place] [address] [address] Jul, Lumbago with sciatica, right side M54.41 ; Fibromyalgia M79.7 ; Cold sore B00.1 and Abnormal bruising R23.8 [place] [address] [address] Jul, Lumbago with sciatica, right side M54.41 [place] [address] [address] Jun, Lumbago with sciatica, right side M54.41 [place] [address] [address] Jun, Lumbago with sciatica, right side M54.41 ; Other chronic pain G89.29 and BMI 40.0-44.9, adult Z68.[address] [facility] [address] [address] May, Acute low back pain, unspeci fied back pain laterality, with sciatica presence unspecified M54.5 [place] [address] [address] Jan, Tear of medial meniscus of r ight knee, current, unspecified tear type, subsequent encounter S83.241D [place] [address] [address] Nov, Dysthymia F34.1 ; Weight gai n R63.5 and Acute pain of right knee M25.561 [place] [address] [address] Nov, [place] [address] [address] Nov, Viral illness B34.[address] [facility] [address] [address] Oct, Viral URI J06.9 [place] [address] [place] [id number] [address] [place] [address] Jun, Fibromyalgia M79.7 and Recto nadia N81.6 [place] [address] [place] [id number] [place] [address] May, Weak R53.1 ; Fatigue, unspec ified type R53.83 ; Arthralgia of right knee M25.561 and Hematuria, unspecified type R31.9 [place] [address] [address] Apr, Dysthymia F34.1 [place] [address] [address] Mar, Hematuria, unspecified type R31.9 ; Acute pain of left knee M25.562 ; Right knee pain M25.561 and Low back pain M54.5 [place] [address] [address] Mar, Hematuria, unspecified type R31.9 [place] [address] [address] Mar, Acute pain of left knee M25. 562 [place] [address] [address] Mar, GERD (gastroesophageal reflu x disease) K21.9 ; Continuous leakage of urine N39.45 ; Acute cystitis with hematuria N30.01 and Vaginal discharge N89.8 [place] [address] [address] Jan, [address] [address] Jan, Dysthymia F34.1 ; Sore throa t J02.9 ; Costochondritis M94.0 and Breast cancer screening Z12.39 [place] [address] [place] [address] [place] [address] December, [facility] [address] [id number] [address] [place] [address] Oct, Gastroenteritis K52.9 [facility] [address] [id number] [address] [place] [address] Oct, [facility] [address] [facility] [id number] [address] [place] [address] Sep, Weight gain R63.5 ; Major de pressive disorder, single episode, unspecified F32.9 ; Arthralgia, unspecified joint M25.50 ; GERD (gastroesophageal reflux disease) K21.9 and Swelling R60.9 [facility] [address] [id number] [address] [place] [address] Aug, [facility] [address] [id number] [address] [place] [address] Jul, [facility] [address] [facility] [id number] [address] [place] [address] Jul, Right knee meniscal tear S83 .206A [facility] [address] [id number] [address] [place] [address] Jun, [facility] [address] [place] [id number] [address] [place] [address] Jun, Plantar fasciitis M72.2 [facility] [address] [id number] [address] [place] [address] Jun, [facility] [address] [id number] [address] [place] [address] May, Plantar fasciitis M72.2 [facility] [address] [id number] [address] [place] [address] May, [facility] [address] [facility] [id number] [address] [place] [address] May, [facility] [address] [place] [id number] [address] [place] [address] Apr, [facility] [address] [facility] [id number] [address] [place] [address] Apr, [facility] [address] [place] [id number] [place] [address] Apr, Bone spur of foot M77.9 [facility] [address] [place] [id number] [place] [address] Apr, [place] [address] [place] [id number] [place] [address] Apr, [place] [address] [address] Apr, GERD (gastroesophageal reflu x disease) K21.9 ; Pain in right foot M79.671 ; Pain of left foot M79.672 and Obesity E66.9 [place] [address] [address] December, Degenerative tear of lateral meniscus of right knee M23.300 [place] [address] [address] December, [place] [address] [address] December, Weight gain R63.5 ; Right kn ee meniscal tear S83.206A ; Carpal tunnel syndrome, unspecified laterality G56.00 and Rib pain R07.81 [place] [address] [place] [id number] [address] [place] [address] Nov, Right knee meniscal tear S83 .206A [place] [address] [address] Nov, Obesity E66.9 ; Knee pain M2 5.569 and GERD (gastroesophageal reflux disease) K21.9 [place] [address] [place] [id number] [address] [place] [address] Oct, Weight gain R63.5 and Hormon e replacement therapy Z79.890 [place] [address] [address] Oct, [place] [address] [address] Oct, Right knee pain M25.561 ; Ho rmone replacement therapy Z79.890 and Weight gain R63.5 [place] [address] [address] Sep, Other chronic pain G89.29 an d Eustachian tube dysfunction, right H69.81 [place] [address] [address] Jul, Hot flashes N95.1 ; Mastodyn ia N64.4 and Sore throat J02.[address] [address] Jun, Acute cystitis with hematuri a N30.01 ; Pain in right axilla M79.601 ; Right foot pain M79.671 and Dysuria R30.0 [place] [address] [address] May, Migraines 346.[address] [address] Apr, Anxiety 300.00 ; Headache 78 4.0 and Varicose vein of leg 454.9 [place] [address] [address] Apr, Depressive disorder, not els ewhere classified [address] [address] 24 Jan, 2015 Tension type headache 339.10 and Breast cancer screening V76.[address] [address] 14 Nov, 2014 [facility] [place] [facility] [address] [id number] [address] [place] [address], [place] [address] Nov, [facility] [address] [id number] [address] [place] [address], [place] [address] Jul, [facility] [address] [id number] [address] [place] [address], [place] [address] Jul, [facility] [address] [id number] [address] [place] [address], [place] [address] Jun, [facility] [address] [id number] [address] [place] [address], [place] [address] Jun, [facility] [address] [id number] [address] [place] [address], [place] [address] Apr, [facility] [address] [id number] [address] [place] [address], [place] [address] Apr, [facility] [address] [id number] [address] [place] [address], [place] [address] Jan, [facility] [address] [id number] [address] [place] [address], [place] [address] Jan, [facility] [address] [id number] [address] [place] [address], [place] [address] December, [facility] [address] [id number] [address] [place] [address], [place] [address] December, [facility] [address] [id number] [address] [place] [address], [place] [address] December, [facility] [address] [id number] [address] [place] [address], [place] [address] December, [facility] [address] [id number] [address] [place] [address], [place] [address] Nov, [facility] [address] [id number] [address] [place] [address], [place] [address] Nov, [facility] [address] [id number] [address] [place] [address], [place] [address] Nov, [facility] [address] [id number] [address] [place] [address], [place] [address] Nov, [facility] [address] [id number] [address] [place] [address], [place] [address] Oct, [facility] [address] [id number] [address] [place] [address], [place] [address] Oct, [facility] [address] [id number] [address] [place] [address], [place] [address] Aug, [facility] [address] [id number] [address] [place] [address], [place] [address] Aug, [facility] [address] [id number] [address] [place] [address], [place] [address] Mar, [facility] [address] [id number] [address] [place] [address], [place] [address] Mar, [facility] [address] [id number] [address] [place] [address], [place] [address] Mar, [facility] [address] [id number] [address] [place] [address], [place] [address] Sep, [facility] [address] [id number] [address] [place] [address], [place] [address] Sep, [facility] [address] [id number] [address] [place] [address], [place] [address] Sep, [facility] [address] [id number] [address] [place] [address], [place] [address] Aug, [facility] [address] [id number] [address] [place] [address], [place] [address] Jun, [facility] [address] [id number] [address] [place] [address], [place] [address] December, [facility] [address] [id number] [address] [place] [address], [place] [address] Jul, [facility] [address] [id number] [address] [place] [address] 14 Apr, 2010 [facility] [address] [id number] [address] [place] [address] December, [facility] [address] [id number] [address] [place] [address] 13 Nov, 2009 [facility] [address] [id number] [address] [place] [address] Oct, [facility] [address] [id number] [address] [place] [address] Sep, [facility] [address] [id number] [address] [place] [address] Aug, [facility] [address] [id number] [address] [place] [address] 15 Nov, 2008 [facility] [address] [id number] [address] [place] [address] Oct, [facility] [address] [id number] [address] [place] [address] Oct, IMMUNIZATIONS No Known Immunizations SOCIAL HISTORY Never Assessed REASON FOR VISIT PLAN OF CARE VITAL SIGNS Height 64 in 2014-07-12 Weight 212.44 lbs 2014-07-12 Temperature 97.6 degrees Fahrenheit 2014-07-12 Heart Rate 84 bpm 2014-07-12 Respiratory Rate 18 2014-07-12 Blood pressure systolic 132 mmHg 2014-07-12 Blood pressure diastolic 74 mmHg 2014-07-12 MEDICATIONS Unknown Medications RESULTS No Results PROCEDURES No Known procedures INSTRUCTIONS MEDICATIONS ADMINISTERED No Known Medications MEDICAL (GENERAL) HISTORY Type Description Date Medical History Asthma Medical History Post cholecystectomy Medical History arthritis Medical History Backache Medical History Headache syndromes Medical History Depression Medical History carpal tunnel right hand Surgical History Hysterectomy 2010 Surgical History Tubal ligation Surgical History section Surgical History Orthopedic surgery Surgical History Right ear canal reconstruction Surgical History right knee arthroscopy 04/2018 Hospitalization History child x3 Hospitalization History orthopedic surgery Hospitalization History Hysterectomy Hospitalization History Tubal ligation
--- OUTSIDE RECORDS SUMMARY | 2020-02-24 03:00 | XMS REPORT | Encounter Summary ---
Author Author [facility] Organization [facility] Address Unknown Phone Unavailable Care Team Providers Care Traffic Rate Analyst Name Role Phone PCP Unavailable Encounter Details Care Team Description Date Type Department Sena Merrill MD [address] [facility] [address] [place] [address] [phone] Cholesteatoma of middle ear and mastoid 07/28/2012 [facility] al Encounter [address] [place] [address] Social History Date Tobacco Use Types Packs/Day Years Used Never Assessed Sex Assigned at Date Recorded Not on file Industry Job Start Date Occupation Not on file Not on file Not on file Travel End Travel History Travel Start No recent travel history available. documented as of this encounter H&P Notes * Sena Merrill MD - 10/29/2013 7:06 PM REFERRAL AND INFORMATION AIDE REPORT Name: LEILANI VELAZQUEZ Date of : 1970 Attending Physician: SENA MERRILL DATE OF PLANNED SURGERY: 07/28/2012 CHIEF COMPLAINT: Right ear infections. HISTORY OF PRESENT ILLNESS: The patient is a 42-year-old presenting with chronic right ear infections and mild hearing loss. 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 Hearing test shows a mild conductive hearing loss. She is undergoing surgical repair. PAST MEDICAL HISTORY: The patient's general health is good. She does have history of chronic ear infections as mentioned above. She is trying to stop smoking and has occasional fluid retention. CURRENT MEDICATIONS: 1. Bupropion SR 50 mg per day for smoking cessation. 2. Hydrochlorothiazide 25 mg a day for fluid retention. 3. Ventolin HFA. 4. Pristiq 50 mg. 5. Gentamicin ear drops. FAMILY HISTORY: Positive for hearing loss. SOCIAL HISTORY: She lives in [place], [place]. REVIEW OF SYSTEMS: RESPIRATORY: Positive for asthma. The patient is a smoker. CARDIAC: Also she has a history of irregular heartbeat, but this has been worked up and she has had a heart catheterization that reportedly was normal at 2011. GASTROINTESTINAL: Positive for occasional diarrhea. PHYSICAL EXAMINATION: GENERAL: A well-developed, well-nourished, 42-year-old in no acute distress. HEENT: EYES-Normal. EARS-Tympanic membranes intact. The right ear, however, shows an attic cholesteatoma. NOSE, THROAT AND NECK: Normal. LUNGS: Clear. HEART: Normal. EXTREMITIES: Normal. STUDIES: Audiogram shows a mild right conductive hearing loss with a high-frequency sensorineural hearing loss. Left ear normal. ASSESSMENT: Right chronic otitis media with cholesteatoma and hearing loss. RECOMMENDATIONS: Right tympanoplasty and mastoidectomy, possible ossicular chain reconstruction possible 2 stages. The risks, procedure, and alternatives have been discussed and informed written consent obtained. Sena Merrill MD Dictated By: Cc: RRAL AND INFORMATION AIDE documented in this encounter Miscellaneous Notes * Operative Note - Sena Merrill MD - 10/29/2013 7:03 PM REFERRAL AND INFORMATION AIDE REPORT Name: LEILANI VELAZQUEZ Date of : 1970 Attending Physician: SENA MERRILL DATE OF OPERATION: 07/28/2012 PREOPERATIVE DIAGNOSES: 1. Right chronic otitis media. 2. Right middle ear mastoid cholesteatoma. 3. Right conductive hearing loss. POSTOPERATIVE DIAGNOSES: 1. Right chronic otitis media. 2. Right middle ear mastoid cholesteatoma. 3. Right conductive hearing loss. OPERATION PERFORMED: 1. Right tympanoplasty mastoidectomy (intact canal wall). 2. Soft tissue (fascia) graft. 3. Microdissection with operating microscope. 4. Intraoperative facial nerve monitoring 1-/2 units. SURGEON: Sena Merrill MD. INDICATIONS: The patient is a 42-year-old presenting with chronic infection in the right ear, conductive hearing loss, and what appears to be middle ear mastoid cholesteatoma. FINDINGS: At the time of surgery, I confirmed cholesteatoma extensive in the middle ear in the epitympanum and mastoid involving the head of the malleus and incus body. Initially, the ossicular chain was intact. Upon disease removal, only the stapes remains in the manubrium. The chorda tympani was preserved. The fallopian canal was intact. DESCRIPTION OF PROCEDURE: The patient was identified and taken to the operating room. General anesthetic was administered with LMA mask technique. First, as a separate part to the procedure, the facial nerve integrity monitor was applied to the right face for continuous intraoperative facial nerve monitoring. Note, I also used microscope and microdissection throughout the entire case. The right ear was shaved, prepped, draped and preinjected with 1% Xylocaine with adrenaline in the ear canal and postauricular region. I began the surgery transcanal. I cut 2 vertical incisions at 12 and 6 o'clock from the annulus to the bony cartilaginous junction. I then made a C-shaped postauricular incision. I went through skin and subcutaneous tissue and harvested temporalis fascia and put the soft tissue in a fascia press leaving it to dry. I incised the periosteum, elevated the mastoid cortex clean, and retracted the ear anterior. From behind, I elevated down the posterior bony canal wall, freed up the vascular strip, and held it up with retraction. I then made a horizontal curvilinear cut at the bony cartilaginous junction, dissected out the remainder of the ear canal bony skin, and preserved it to put back in later. I then enlarged the bony ear canal using cutting and rommel burs so the entire annulus could be seen. There was an attic cholesteatoma. I then did a complete and wide mastoidectomy removing cortex and air cells finding diseased air cells and extensive mastoid cholesteatoma extending from the epitympanum and antrum region. I removed it in a piecemeal fashion. I went back to the ear canal side and cut out the entire tympanic membrane , disarticulated the incus from the stapes and malleus, removed it, and amputated the head of the malleus off as well. I preserved the chorda tympani. I then went back on the mastoid side, opened up the facial recess, drilled along the middle fossa plate, and exposed the epitympanum for disease removal. I removed all of the cholesteatoma with a gross total removal. There appeared to be an intact fallopian canal. I used a KTP laser to remove some granulation tissue off the stapes superstructure. Because of diseased ear and extensive cholesteatoma, I felt that staging was in order. I did not reconstruct the hearing ossicular chain. I proceeded with tympanoplasty reconstruction. I put Gelfoam soaked with Cipro HC antibiotic into the middle ear space, cut the fascia into an oval, split it, brought it up underneath the manubrium, rested it lateral to the annulus, and had excess come up with the posterior bony canal wall. I put back the anterior canal skin and posterior vascular strip, packed the external ear canal with more Gelfoam soaked with Cipro HC antibiotic, and closed the postauricular wound using 3-0 and 4-0 Vicryl in subcutaneous and subcuticular layers. Steri-Strips were applied. Mastoid pressure dressing was put on. The patient was awakened and taken to the recovery room in good condition. Sena Merrill MD Dictated By: cc: RRAL AND INFORMATION AIDE documented in this encounter Plan of Treatment Not on filedocumented as of this encounter Procedures Comments Procedure Name Priority Date/Time Associated Diag nosis CULTURE, WOUND WITH GRAM Routine 07/28/2012 STAIN 1:50 PM REFERRAL AND INFORMATION AIDE CULTURE, FUNGUS Routine 07/28/2012 1:50 PM REFERRAL AND INFORMATION AIDE [place] HISTOLOGY Routine 07/28/2012 12:00 AM REFERRAL AND INFORMATION AIDE documented in this encounter Results * Culture, Wound with Gram Stain (07/28/2012 1:50 PM REFERRAL AND INFORMATION AIDE) Specimen Specimen Narrative Performed At REPORT [facility] Specimen/Source: Specimen/RIGHT EAR MEAGAN IN Collected: 07/28/2012 13:50 Status: Final Last Updated: 10/2011 13:33 Gram Stain (Final) Few Polymorphonuclear leukocytes Few Gram positive cocci suggestive of Staphylococcus Many Gram Negative Rods Culture result (Final) No growth at 4 Days Performing Organization Address [facility] one Number [id number] [phone] [facility] * Culture, Fungus (07/28/2012 1:50 PM REFERRAL AND INFORMATION AIDE) Specimen Specimen Narrative Performed At REPORT [facility] Specimen/Source: Specimen/R EAR DRAINAG E Collected: 07/28/2012 13:50 Status: Final Last Updated: 10:10 Culture result Mycology (Final) No Fungus isolated at 4 weeks Performing Organization Address [facility] one Number [id number] [phone] [facility] * Pathology (07/28/2012 12:00 AM REFERRAL AND INFORMATION AIDE) Specimen Narrative [facility]formed At [facility] PATIENT: LUCAS VELAZQUEZ SEX / : F 1970 (Age: 42) 537 VISIT: [id number] SUBMITTING PHYSICIAN: Sena soto M.D. CLIENT: [facility] COLLECTED: 07/28/2012 REPORTED: 2 SURGICAL PATHOLOGY REPORT COPATH RECEIVED: 07/29/2012 ACCESSION DATE: 07/29/2012 SPECIMEN: Middle ear, right mastoid cholesteatoma FINAL PATHOLOGIC DIAGNOSIS: Right middle ear cholesteatoma: - Fragments of squamous epithelium with hyperkeratosis and surrounding chronic inflammation consis tent with cholesteatoma. Signed Electronically by: Aston Stern M.D. 07/30/2012 CLINICAL DATA: Cholesteatoma. GROSS DESCRIPTION: Received in formalin in a properly labe led container designated "middle ear right mastoid ch olesteatoma" is a 1.0 x 0.6 x 0.1 cm aggregate of off white t o pepper ragged friable tissue which is totally submitted in fi lter paper in one cassette. DA/charlie Gross performed at [facility] Gross Room, [address] [place] [address]. MICROSCOPIC DESCRIPTION: Microscopic examination performed. [place]: [facility], [address] [place] [id number] Performing Laboratory Location: [facility], Dr Alvin joyner, Industrial Energy Engineer, [address] [place] [id number] Technical processing at: [facility] Dr. Aston Stern, Industrial Energy Engineer [address] [place] [address] END OF REPORT Performing Organization Address City/State[facility] one Number [facility] [address] [place] [phone] [facility] documented in this encounter Visit Diagnoses Diagnosis Cholesteatoma of middle ear and mastoid (385.33) Cholesteatoma of middle ear and mastoid documented in this encounter
--- OUTSIDE RECORDS SUMMARY | 2020-02-24 03:00 | XMS REPORT ---
Author Author Shey Huston Doctor Organization [facility] Address Unknown Phone Unavailable Care Team Providers Care Identification Technician Name Role Phone Migration, Doctor Unavailable Unavailable PROBLEMS Type Condition ICD9-CM Code XMA59-QX Code Onset Dates Condition S tatus SNOMED Code Problem Obesity E66.9 Active 247089474 Problem Knee pain M25.569 Active 69306861 Problem Rib pain R07.81 Active 150952243 Problem GERD (gastroesophageal reflux disease) K21.9 Active 059084306 Problem Weight gain R63.5 Active 6734779 Problem Right knee meniscal tear S83.206A Activ e 145888006 Problem Bone spur of foot M77.9 Active 23 5031407833346 Problem Carpal tunnel syndrome, unspecified laterality G56 .00 Active 57325031 Problem Continuous leakage of urine N39.45 Ac tive 189523552 Problem Rectocele N81.6 Active 423005913 Problem Fibromyalgia M79.7 Active 4579904 05 Problem Acute stress reaction F43.0 Active 24394887 Problem Dysthymia F34.1 Active 93235639 Problem Generalized anxiety disorder F41.1 A ctive 95602437 Problem Major depressive disorder, single episode, unspecified F32.9 Active 00130173 Problem Lumbago with sciatica, right side M54.41 Active 558480625 Problem Other chronic pain G89.29 Active 8 8439664 Problem Perimenopause N95.1 Active 876619 200458360 Problem Chronic fatigue R53.82 Active 5270 2002 ALLERGIES No Information ENCOUNTERS Encounter Location Date Diagnosis [facility] [address] [facility] [id number] [address] [place] [id number] December, Lumbago with sciatica, right side M54.41 [facility] [address] [facility] [id number] [address] [place] [id number] Nov, Lumbago with sciatica, right side M54.41 [facility] [address] [facility] [id number] [address] [place] [id number] 13 Oct, 2019 Fever, unspecified fever cau se R50.9 and Viral upper respiratory tract infection J06.9 [place] [address] [address] Oct, [place] [address] [address] 27 Oct, 2019 Acute stress reaction F43.0 and Generalized anxiety disorder F41.1 [place] [address] [address] 17 Oct, 2019 [place] [address] [address] Oct, Well woman exam Z01.419 ; Ce rvical cancer screening Z12.4 and Encounter for immunization Z23 [address] [address] Oct, Lipid screening Z13.220 ; Ch ronic fatigue R53.82 and Myalgia M79.10 [place] [address] [address] Sep, Dysthymia F34.1 ; Other kiln car repairer mary pain G89.29 ; Lumbago with sciatica, right side M54.41 ; Myalgia M79.10 ; Lipid screening Z13.220 and Chronic fatigue R53.82 [place] [address] [place] [id number] [address] [place] [address] Sep, Lumbago with sciatica, right side M54.41 [place] [address] [place] [id number] [address] [place] [address] Aug, Lumbago with sciatica, right side M54.41 [place] [address] [place] [id number] [place] [address] Jul, Lumbago with sciatica, right side M54.41 [place] [address] [address] Jul, Low back pain M54.5 ; Other chronic pain G89.29 ; Weakness of both legs R29.898 and Weight loss R63.4 [place] [address] [id number] [address] [place] [address] Jun, Lumbago with sciatica, right side M54.41 [place] [address] [id number] [address] [place] [address] Jun, Lumbago with sciatica, right side M54.41 [place] [address] [id number] [address] [place] [address] May, Lumbago with sciatica, right side M54.41 [place] [address] [facility] [id number] [address] [place] [id number] Apr, Lumbago with sciatica, right side M54.41 [place] [address] [facility] [id number] [address] [place] [address] Apr, Abnormal CBC R79.89 and Lumb ago with sciatica, right side M54.41 [place] [address] [facility] [id number] [address] [place] [address] Mar, Lumbago with sciatica, right side M54.41 [place] [address] [facility] [id number] [address] [place] [address] Jan, Lumbago with sciatica, right side M54.41 [place] [address] [facility] [id number] [address] [place] [id number] December, Exercise counseling Z71.82 [place] [address] [facility] [id number] [address] [place] [address] December, Lumbago with sciatica, right side M54.41 [place] [address] [facility] [id number] [address] [place] [address] December, Exercise counseling Z71.82 [place] [address] [facility] [id number] [address] [place] [address] Nov, Colon cancer screening Z12.1 1 [facility] [address] [id number] [address] [place] [address] Nov, Exercise counseling Z71.82 [facility] [address] [id number] [address] [place] [address] Nov, Exercise counseling Z71.82 [facility] [address] [facility] [id number] [address] [place] [address] Nov, Lumbago with sciatica, right side M54.41 [place] [address] [facility] [id number] [address] [place] [address] Nov, Exercise counseling Z71.82 [place] [address] [facility] [id number] [address] [place] [address] Nov, [facility] [address] [facility] [id number] [address] [place] [address] Nov, Contusion of right knee, seq uela S80.01XS and Lumbago with sciatica, right side M54.41 [place] [address] [facility] [id number] [address] [place] [address] Nov, Exercise counseling Z71.82 [facility] [address] [facility] [id number] [address] [place] [address] Oct, Exercise counseling Z71.82 [facility] [address] [facility] [id number] [address] [place] [id number] Oct, Exercise counseling Z71.82 [facility] [address] [id number] [address] [place] [id number] Oct, Lumbago with sciatica, right side M54.41 [facility] [address] [facility] [id number] [address] [place] [address] Oct, Exercise counseling Z71.82 [facility] [address] [facility] [id number] [address] [place] [address] Oct, Contusion of right knee, ini tial encounter S80.01XA [place] [address] [facility] [id number] [address] [place] [address] Oct, Contusion of right knee, ini tial encounter S80.01XA [place] [address] [facility] [id number] [address] [place] [address] Oct, Contusion of right knee, ini tial encounter S80.01XA [place] [address] [facility] [id number] [address] [place] [address] Oct, Exercise counseling Z71.82 [place] [address] [place] [id number] [address] [place] [address] Oct, Lumbago with sciatica, right side M54.41 [facility] [address] [place] [id number] [address] [place] [address] Oct, Influenza A J10.1 and Fever R50.9 [place] [address] [place] [id number] [address] [place] [address] Oct, Exercise counseling Z71.82 [place] [address] [place] [id number] [address] [place] [address] Oct, [place] [address] [place] [id number] [address] [place] [address] Sep, Perimenopause N95.1 ; Weight gain R63.5 ; BMI 40.0-44.9, adult Z68.41 and Therapeutic drug monitoring Z51.81 [place] [address] [place] [id number] [address] [place] [address] Sep, Lumbago with sciatica, right side M54.41 [place] [address] [place] [id number] [address] [place] [address] Aug, Lumbago with sciatica, right side M54.41 [place] [address] [place] [id number] [address] [place] [address] Jul, Lumbago with sciatica, right side M54.41 [place] [address] [place] [id number] [address] [place] [address] Jul, Lumbago with sciatica, right side M54.41 ; Fibromyalgia M79.7 ; Cold sore B00.1 and Abnormal bruising R23.8 [place] [address] [address] Jul, Lumbago with sciatica, right side M54.41 [place] [address] [address] Jun, Lumbago with sciatica, right side M54.41 [place] [address] [address] Jun, Lumbago with sciatica, right side M54.41 ; Other chronic pain G89.29 and BMI 40.0-44.9, adult Z68.41 [facility] [address] [address] May, Acute low back pain, unspeci fied back pain laterality, with sciatica presence unspecified M54.5 [place] [address] [place] [id number] [address] [place] [address] Jan, Tear of medial meniscus of r ight knee, current, unspecified tear type, subsequent encounter S83.241D [place] [address] [place] [id number] [address] [place] [address] Nov, Dysthymia F34.1 ; Weight gai n R63.5 and Acute pain of right knee M25.561 [place] [address] [place] [id number] [address] [place] [address] Nov, [place] [address] [place] [id number] [address] [place] [address] Nov, Viral illness B34.9 [facility] [address] [address] Oct, Viral URI J06.9 [place] [address] [address] Jun, Fibromyalgia M79.7 and Recto nadia N81.6 [place] [address] [address] May, Weak R53.1 ; Fatigue, unspec ified type R53.83 ; Arthralgia of right knee M25.561 and Hematuria, unspecified type R31.9 [place] [address] [address] Apr, Dysthymia F34.1 [place] [address] [address] Mar, Hematuria, unspecified type R31.9 ; Acute pain of left knee M25.562 ; Right knee pain M25.561 and Low back pain M54.5 [place] [address] [address] Mar, Hematuria, unspecified type R31.9 [place] [address] [address] Mar, Acute pain of left knee M25. 562 [place] [address] [address] Mar, GERD (gastroesophageal reflu x disease) K21.9 ; Continuous leakage of urine N39.45 ; Acute cystitis with hematuria N30.01 and Vaginal discharge N89.8 [place] [address] [address] Jan, [place] [address] [address] 07 Jan, 2017 Dysthymia F34.1 ; Sore throa t J02.9 ; Costochondritis M94.0 and Breast cancer screening Z12.39 [facility] [address] [facility] [id number] [address] [place] [address] December, [facility] [address] [facility] [id number] [address] [place] [address] Oct, Gastroenteritis K52.9 [facility] [address] [facility] [id number] [address] [place] [address] Oct, [facility] [address] [place] [id number] [address] [place] [address] Sep, Weight gain R63.5 ; Major de pressive disorder, single episode, unspecified F32.9 ; Arthralgia, unspecified joint M25.50 ; GERD (gastroesophageal reflux disease) K21.9 and Swelling R60.9 [facility] [address] [place] [id number] [address] [place] [id number] Aug, [facility] [address] [place] [id number] [address] [place] [address] Jul, [facility] [address] [place] [id number] [address] [place] [address] Jul, Right knee meniscal tear S83 .206A [facility] [address] [facility] [id number] [address] [place] [id number] Jun, [facility] [address] [facility] [id number] [address] [place] [id number] Jun, Plantar fasciitis M72.2 [facility] [address] [id number] [address] [place] [address] Jun, [facility] [address] [id number] [address] [place] [address] May, Plantar fasciitis M72.2 [facility] [address] [facility] [id number] [address] [place] [address] May, [facility] [address] [place] [id number] [address] [place] [address] May, [facility] [address] [facility] [id number] [address] [place] [address] Apr, [facility] [address] [facility] [id number] [address] [place] [address] Apr, [facility] [address] [facility] [id number] [address] [place] [address] Apr, Bone spur of foot M77.9 [facility] [address] [facility] [id number] [address] [place] [address] Apr, [facility] [address] [facility] [id number] [address] [place] [address] Apr, [facility] [address] [facility] [id number] [address] [place] [address] Apr, GERD (gastroesophageal reflu x disease) K21.9 ; Pain in right foot M79.671 ; Pain of left foot M79.672 and Obesity E66.9 [facility] [address] [place] [id number] [address] [place] [address] December, Degenerative tear of lateral meniscus of right knee M23.300 [place] [address] [place] [id number] [address] [place] [address] December, [place] [address] [place] [id number] [place] [address] December, Weight gain R63.5 ; Right kn ee meniscal tear S83.206A ; Carpal tunnel syndrome, unspecified laterality G56.00 and Rib pain R07.81 [place] [address] [facility] [id number] [address] [place] [address] Nov, Right knee meniscal tear S83 .206A [place] [address] [facility] [id number] [address] [place] [address] Nov, Obesity E66.9 ; Knee pain M2 5.569 and GERD (gastroesophageal reflux disease) K21.9 [place] [address] [facility] [id number] [address] [place] [address] Oct, Weight gain R63.5 and Hormon e replacement therapy Z79.890 [place] [address] [facility] [id number] [address] [place] [address] Oct, [place] [address] [facility] [id number] [address] [place] [address] Oct, Right knee pain M25.561 ; Ho rmone replacement therapy Z79.890 and Weight gain R63.5 [place] [address] [place] [id number] [address] [place] [address] Sep, Other chronic pain G89.29 an d Eustachian tube dysfunction, right H69.81 [place] [address] [place] [id number] [address] [place] [address] Jul, Hot flashes N95.1 ; Mastodyn ia N64.4 and Sore throat J02.9 [place] [address] [address] Jun, Acute cystitis with hematuri a N30.01 ; Pain in right axilla M79.601 ; Right foot pain M79.671 and Dysuria R30.0 [place] [address] [place] [id number] [address] [place] [address] 14 May, [address] [address] Apr, Anxiety 300.00 ; Headache 78 4.0 and Varicose vein of leg 454.9 [place] [address] [place] [id number] [address] [place] [address] Apr, Depressive disorder, not els ewhere classified 311 [place] [address] [place] [id number] [address] [place] [address] 24 Jan, 2015 Tension type headache 339.10 and Breast cancer screening V76.[address] [address] Nov, [facility] [address] [id number] [address] [place] [address], [place] [address] Nov, [facility] [address] [id number] [address] [place] [address], [place] [address] Jul, [facility] [address] [id number] [address] [place] [address], [place] [address] Jul, [facility] [address] [id number] [address] [place] [address], [place] [address] Jun, [facility] [address] [id number] [address] [place] [address], [place] [address] Jun, [facility] [address] [id number] [address] [place] [address], [place] [address] Apr, [facility] [address] [id number] [address] [place] [address], [place] [address] Apr, [facility] [address] [id number] [address] [place] [address], [place] [address] Jan, [facility] [address] [id number] [address] [place] [address], [place] [address] Jan, [facility] [address] [id number] [address] [place] [address], [place] [address] December, [facility] [address] [id number] [address] [place] [address], [place] [address] December, [facility] [address] [id number] [address] [place] [address], [place] [address] December, [facility] [address] [id number] [address] [place] [address], [place] [address] December, [facility] [address] [id number] [address] [place] [address], [place] [address] Nov, [facility] [address] [id number] [address] [place] [address], [place] [address] Nov, [facility] [address] [id number] [address] [place] [address], [place] [address] Nov, [facility] [address] [id number] [address] [place] [address], [place] [address] Nov, [facility] [address] [id number] [address] [place] [address], [place] [address] Oct, [facility] [address] [id number] [address] [place] [address], [place] [address] Oct, [facility] [address] [id number] [address] [place] [address], [place] [address] Aug, [facility] [address] [id number] [address] [place] [address], [place] [address] Aug, [facility] [address] [id number] [address] [place] [address], [place] [address] Mar, [facility] [address] [id number] [address] [place] [address], [place] [address] Mar, [facility] [address] [id number] [address] [place] [address], [place] [address] Mar, [facility] [address] [id number] [address] [place] [address], [place] [address] Sep, [facility] [address] [id number] [address] [place] [address], [place] [address] Sep, [facility] [address] [id number] [address] [place] [address], [place] [address] Sep, [facility] [address] [id number] [address] [place] [address], [place] [phone] Aug, [facility] [address] [id number] [address] [place] [address], [place] [phone] Jun, [facility] [address] [id number] [address] [place] [address], [place] [id number] December, [facility] [address] [id number] [address] [place] [address], [place] [id number] Jul, [facility] [address] [id number] [address] [place] [phone] Apr, [facility] [address] [id number] [address] [place] [phone] December, [facility] [address] [id number] [address] [place] [phone] Nov, [facility] [address] [id number] [address] [place] [phone] Oct, [facility] [address] [id number] [address] [place] [phone] Sep, [facility] [address] [id number] [address] [place] [phone] Aug, [facility] [address] [id number] [address] [place] [phone] Nov, [facility] [address] [id number] [address] [place] [phone] Oct, [facility] [address] [id number] [address] [place] [id number] Oct, IMMUNIZATIONS No Known Immunizations SOCIAL HISTORY Never Assessed REASON FOR VISIT PLAN OF CARE VITAL SIGNS MEDICATIONS Unknown Medications RESULTS No Results PROCEDURES [...]
--- OUTSIDE RECORDS SUMMARY | 2020-02-24 03:01 | XMS REPORT ---
Author Author Shey MCELROY Organization [facility] Address [address] [place] [address] Care Team Providers Care Warehouse Trainer Name Role Phone BRO MCELROY Unavailable PROBLEMS Type Condition ICD9-CM Code EEC24-WG Code Onset Dates Condition S tatus SNOMED Code Problem Obesity E66.9 Active 891051646 Problem Knee pain M25.569 Active 40542387 Problem Rib pain R07.81 Active 136721571 Problem GERD (gastroesophageal reflux disease) K21.9 Active 051529808 Problem Weight gain R63.5 Active 2019247 Problem Right knee meniscal tear S83.206A Activ e 055759940 Problem Bone spur of foot M77.9 Active 23 [id number] Problem Carpal tunnel syndrome, unspecified laterality G56 .00 Active 59468930 Problem Continuous leakage of urine N39.45 Ac tive 997448985 Problem Rectocele N81.6 Active 892977562 Problem Fibromyalgia M79.7 Active 4321997 05 Problem Acute stress reaction F43.0 Active 10314538 Problem Dysthymia F34.1 Active 67575850 Problem Generalized anxiety disorder F41.1 A ctive 08137674 Problem Major depressive disorder, single episode, unspecified F32.9 Active 62639683 Problem Lumbago with sciatica, right side M54.41 Active 134441982 Problem Other chronic pain G89.29 Active 8 9660033 Problem Perimenopause N95.1 Active 986975 513276143 Problem Chronic fatigue R53.82 Active 5270 2002 ALLERGIES No Information ENCOUNTERS Encounter Location Date Diagnosis [facility] [address] [facility] [id number] [address] [place] [address] 13 Oct, 2019 Fever, unspecified fever cau se R50.9 and Viral upper respiratory tract infection J06.9 [facility] [address] [facility] [id number] [place] [address] Oct, [place] [address] [address] Oct, Acute stress reaction F43.0 and Generali zed anxiety disorder F41.1 [place] [address] [address] 17 Oct, 2019 [place] [address] [address] Oct, Well woman exam Z01.419 ; Cervical cance r screening Z12.4 and Encounter for immunization Z23 [address] [address] Oct, Lipid screening Z13.220 ; Chronic fatigu e R53.82 and Myalgia M79.10 [place] [address] [address] Sep, Dysthymia F34.1 ; Other chronic pain G89 .29 ; Lumbago with sciatica, right side M54.41 ; Myalgia M79.10 ; Lipid screening Z13.220 and Chronic fatigue R53.82 [place] [address] [address] Sep, Lumbago with sciatica, right side M54.41 [place] [address] [address] Aug, Lumbago with sciatica, right side M54.41 [place] [address] [address] Jul, Lumbago with sciatica, right side M54.41 [place] [address] [address] Jul, Low back pain M54.5 ; Other chronic pain G89.29 ; Weakness of both legs R29.898 and Weight loss R63.[address] [address] Jun, Lumbago with sciatica, right side M54.41 [facility] [address] [address] Jun, Lumbago with sciatica, right side M54.41 [facility] [address] [address] May, Lumbago with sciatica, right side M54.41 [place] [address] [address] Apr, Lumbago with sciatica, right side M54.41 [place] [address] [address] Apr, Abnormal CBC R79.89 and Lumbago with sci atica, right side M54.41 [place] [address] [address] Mar, Lumbago with sciatica, right side M54.41 [place] [address] [address] Jan, Lumbago with sciatica, right side M54.41 [place] [address] [address] December, Exercise counseling Z71.82 [place] [address] [address] December, Lumbago with sciatica, right side M54.41 [place] [address] [address] December, Exercise counseling Z71.82 [place] [address] [address] Nov, Colon cancer screening Z12.11 [place] [address] [address] Nov, Exercise counseling Z71.82 [place] [address] [address] Nov, Exercise counseling Z71.82 [place] [address] [place] [id number] Nov, Lumbago with sciatica, right side M54.41 [place] [address] [place] [address] Nov, Exercise counseling Z71.82 [place] [address] [place] [address] Nov, [place] [address] Nov, Contusion of right knee, sequela S80.01X S and Lumbago with sciatica, right side M54.41 [place] [address] Nov, Exercise counseling Z71.82 [place] [address] [place] [id number] Oct, Exercise counseling Z71.82 [place] [address] [address] Oct, Exercise counseling Z71.82 [place] [address] [place] [address] Oct, Lumbago with sciatica, right side M54.41 [place] [address] [address] Oct, Exercise counseling Z71.82 [place] [address] [place] [address] Oct, Contusion of right knee, initial encount er S80.01XA [place] [address] [place] [address] Oct, Contusion of right knee, initial encount er S80.01XA [place] [address] [address] Oct, Contusion of right knee, initial encount er S80.01XA [place] [address] [address] Oct, Exercise counseling Z71.82 [place] [address] [address] Oct, Lumbago with sciatica, right side M54.41 [facility] [address] [facility] [id number] [address] [place] [address] Oct, Influenza A J10.1 and Fever R50.9 [place] [address] [address] Oct, Exercise counseling Z71.82 [place] [address] [address] Oct, [place] [address] [address] Sep, Perimenopause N95.1 ; Weight gain R63.5 ; BMI 40.0-44.9, adult Z68.41 and Therapeutic drug monitoring Z51.81 [place] [address] [address] Sep, Lumbago with sciatica, right side M54.41 [place] [address] [address] Aug, Lumbago with sciatica, right side M54.41 [place] [address] [address] Jul, Lumbago with sciatica, right side M54.41 [place] [address] [address] Jul, Lumbago with sciatica, right side M54.41 ; Fibromyalgia M79.7 ; Cold sore B00.1 and Abnormal bruising R23.8 [place] [address] [address] Jul, Lumbago with sciatica, right side M54.41 [place] [address] [address] Jun, Lumbago with sciatica, right side M54.41 [place] [address] [address] Jun, Lumbago with sciatica, right side M54.41 ; Other chronic pain G89.29 and BMI 40.0-44.9, adult Z68.41 [facility] [place] [address] [address] May, Acute low back pain, unspeci fied back pain laterality, with sciatica presence unspecified M54.5 [place] [address] [address] Jan, Tear of medial meniscus of right knee, addi aguayo, unspecified tear type, subsequent encounter S83.241D [place] [address] [address] Nov, Dysthymia F34.1 ; Weight gain R63.5 and Acute pain of right knee M25.561 [place] [address] [address] Nov, [place] [address] [address] Nov, Viral illness B34.9 [facility] [place] [address] [address] Oct, Viral URI J06.9 [place] [address] [address] Jun, Fibromyalgia M79.7 and Rectocele N81.6 [place] [address] [address] May, Weak R53.1 ; Fatigue, unspecified type R 53.83 ; Arthralgia of right knee M25.561 and Hematuria, unspecified type R31.9 [place] [address] [address] Apr, Dysthymia F34.1 [place] [address] [address] Mar, Hematuria, unspecified type R31.9 ; Acut e pain of left knee M25.562 ; Right knee pain M25.561 and Low back pain M54.[address] [address] Mar, Hematuria, unspecified type R31.9 [place] [address] [address] Mar, Acute pain of left knee M25.[address] [address] Mar, GERD (gastroesophageal reflux disease) K 21.9 ; Continuous leakage of urine N39.45 ; Acute cystitis with hematuria N30.01 and Vaginal discharge N89.[address] [address] Jan, [address] [address] Jan, Dysthymia F34.1 ; Sore throat J02.9 ; Co stochondritis M94.0 and Breast cancer screening Z12.[address] [address] December, [address] [address] Oct, Gastroenteritis K52.[address] [address] Oct, [address] [address] Sep, Weight gain R63.5 ; Major depressive dis order, single episode, unspecified F32.9 ; Arthralgia, unspecified joint M25.50 ; GERD (gastroesophageal reflux disease) K21.9 and Swelling R60.[address] [id number] [place] [address] Aug, [facility] [address] [address] Jul, [facility] [address] [address] Jul, Right knee meniscal tear S83.206A [facility] [address] [address] Jun, [facility] [address] [address] Jun, Plantar fasciitis M72.2 [facility] [address] [address] Jun, [facility] [address] [address] May, Plantar fasciitis M72.2 [facility] [address] [address] May, [facility] [address] [address] May, [facility] [address] [address] Apr, [facility] [address] [address] Apr, [facility] [address] [address] Apr, Bone spur of foot M77.9 [facility] [address] [address] Apr, [facility] [address] [address] Apr, [facility] [address] [address] Apr, GERD (gastroesophageal reflux disease) K 21.9 ; Pain in right foot M79.671 ; Pain of left foot M79.672 and Obesity E66.9 [place] [address] [address] December, Degenerative tear of lateral meniscus of right knee M23.300 [place] [address] [address] December, [place] [address] [address] December, Weight gain R63.5 ; Right knee meniscal tear S83.206A ; Carpal tunnel syndrome, unspecified laterality G56.00 and Rib pain R07.81 [place] [address] [address] Nov, Right knee meniscal tear S83.206A [place] [address] [address] Nov, Obesity E66.9 ; Knee pain M25.[address] (gastroesophageal reflux disease) K21.9 [place] [address] [address] Oct, Weight gain R63.5 and Hormone replacemen t therapy Z79.890 [place] [address] [address] Oct, [place] [address] [address] Oct, Right knee pain M25.561 ; Hormone replac ement therapy Z79.890 and Weight gain R63.5 [place] [address] [address] Sep, Other chronic pain G89.29 and Eustachian tube dysfunction, right H69.81 [place] [address] [address] Jul, Hot flashes N95.1 ; Mastodynia N64.4 and Sore throat J02.9 [place] [address] [address] Jun, Acute cystitis with hematuria N30.01 ; P ain in right axilla M79.601 ; Right foot pain M79.671 and Dysuria R30.0 [facility] [address] [address] 14 May, 2015 Migraines 346.90 [facility] [address] [address] 11 Apr, 2015 Anxiety 300.00 ; Headache 784.0 and Vari cose vein of leg 454.9 [facility] [address] [address] Apr, Depressive disorder, not elsewhere class ified 311 [place] [address] [address] 24 Jan, 2015 Tension type headache 339.10 and Breast cancer screening V76.10 [facility] [address] [address] Nov, [facility] [address] [address] Nov, [facility] [address] [address] Jul, [facility] [address] [address] Jul, [facility] [address] [address] Jun, [facility] [address] [address] Jun, [facility] [address] [address] Apr, [facility] [address] [address] Apr, [facility] [address] [address] Jan, [facility] [address] [place] [address] Jan, [facility] [place] [facility] [address] [id number] [place] [address] December, [facility] [place] [facility] [address] [id number] [place] [address] December, [facility] [place] [facility] [address] [id number] [place] [address] December, [facility] [place] [facility] [address] [id number] [place] [address] December, [facility] [place] [facility] [address] [id number] [place] [address] Nov, [facility] [place] [facility] [address] [id number] [place] [address] Nov, [facility] [place] [facility] [address] [id number] [place] [address] Nov, [facility] [place] [facility] [address] [id number] [place] [address] Nov, [facility] [place] [facility] [address] [id number] [place] [address] Oct, [facility] [place] [facility] [address] [id number] [place] [address] Oct, [facility] [place] [facility] [address] [id number] [place] [address] Aug, [facility] [place] [facility] [address] [id number] [place] [address] Aug, [facility] [place] [facility] [address] [id number] [place] [address] Mar, [facility] [place] [facility] [address] [id number] [place] [address] Mar, [facility] [place] [facility] [address] [id number] [place] [address] Mar, [facility] [place] [facility] [address] [id number] [place] [address] Sep, [facility] [place] [facility] [address] [id number] [place] [address] Sep, [facility] [address] [place] [id number] [place] [address] Sep, [facility] [address] [place] [id number] [place] [address] Aug, [facility] [address] [place] [id number] [place] [address] Jun, [facility] [address] [place] [id number] [place] [address] December, [facility] [address] [place] [id number] [place] [address] Jul, [facility] [address] [place] [id number] [place] [address] Apr, [facility] [address] [place] [id number] [place] [address] December, [facility] [address] [place] [id number] [place] [address] Nov, [facility] [address] [place] [id number] [place] [address] Oct, [facility] [address] [place] [id number] [place] [address] Sep, [facility] [address] [place] [id number] [place] [address] Aug, [facility] [address] [place] [id number] [place] [address] 15 Nov, 2008 [facility] [address] [place] [id number] [place] [address] Oct, [facility] [address] [place] [id number] [place] [address] 12 Oct, 2008 IMMUNIZATIONS No Known Immunizations SOCIAL HISTORY Never Assessed REASON FOR VISIT PLAN OF CARE VITAL SIGNS Height 64 in 2013-11-22 Weight 223.8 lbs 2013-11-22 Temperature 97.7 degrees Fahrenheit 2013-11-22 Heart Rate 82 bpm 2013-11-22 Respiratory Rate 18 2013-11-22 Blood pressure systolic 142 mmHg 2013-11-22 Blood pressure diastolic 80 mmHg 2013-11-22 MEDICATIONS No Known Medications RESULTS No Results PROCEDURES No Known [...]
--- OUTSIDE RECORDS SUMMARY | 2020-02-24 03:01 | XMS REPORT ---
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 Name Role Phone BRO MCELROY Unavailable PROBLEMS Type Condition ICD9-CM Code EJM54-HG Code Onset Dates Condition S tatus SNOMED Code Problem Obesity E66.9 Active 486519156 Problem Knee pain M25.569 Active 29899068 Problem Rib pain R07.81 Active 938761800 Problem GERD (gastroesophageal reflux disease) K21.9 Active 403169428 Problem Weight gain R63.5 Active 8645787 Problem Right knee meniscal tear S83.206A Activ e 813557462 Problem Major depressive disorder, single episode, unspecified F32.9 Active 74164566 Problem Dysthymia F34.1 Active 58870926 Problem Continuous leakage of urine N39.45 Ac tive 689931521 Problem Perimenopause N95.1 Active 294952 320310898 Problem Bone spur of foot M77.9 Active 23 2303206939119 Problem Chronic fatigue R53.82 Active 5270 2003 Problem Carpal tunnel syndrome, unspecified laterality G56 .00 Active 93511126 Problem Rectocele N81.6 Active 752338781 Problem Fibromyalgia M79.7 Active 1757765 05 Problem Lumbago with sciatica, right side M54.41 Active 337711924 Problem Other chronic pain G89.29 Active 8 2175529 ALLERGIES No Information ENCOUNTERS Encounter Location Date Diagnosis [facility] [address] [id number] [place] [address] Oct, [facility] [address] [address] Oct, [facility] [address] [id number] [place] [address] Oct, Lipid screening Z13.220 ; Chronic fatigu e R53.82 and Myalgia M79.10 [place] [address] [address] Sep, Dysthymia F34.1 ; Other chronic pain G89 .29 ; Lumbago with sciatica, right side M54.41 ; Myalgia M79.10 ; Lipid screening Z13.220 and Chronic fatigue R53.82 [place] [address] [address] Sep, Lumbago with sciatica, right side M54.41 [place] [address] [address] Aug, Lumbago with sciatica, right side M54.41 [place] [address] [address] Jul, Lumbago with sciatica, right side M54.41 [place] [address] [address] Jul, Low back pain M54.5 ; Other chronic pain G89.29 ; Weakness of both legs R29.898 and Weight loss R63.4 [place] [address] [address] Jun, Lumbago with sciatica, right side M54.41 [place] [address] [address] Jun, Lumbago with sciatica, right side M54.41 [place] [address] [address] May, Lumbago with sciatica, right side M54.41 [place] [address] [address] Apr, Lumbago with sciatica, right side M54.41 [place] [address] [address] Apr, Abnormal CBC R79.89 and Lumbago with sci atica, right side M54.41 [place] [address] [address] Mar, Lumbago with sciatica, right side M54.41 [place] [address] [address] Jan, Lumbago with sciatica, right side M54.41 [place] [address] [address] December, Exercise counseling Z71.82 [place] [address] [address] December, Lumbago with sciatica, right side M54.41 [place] [address] [address] December, Exercise counseling Z71.82 [place] [address] [address] Nov, Colon cancer screening Z12.11 [place] [address] [address] Nov, Exercise counseling Z71.82 [place] [address] [address] Nov, Exercise counseling Z71.82 [place] [address] [address] Nov, Lumbago with sciatica, right side M54.41 [place] [address] [address] Nov, Exercise counseling Z71.82 [place] [address] [address] Nov, [place] [address] [address] Nov, Contusion of right knee, sequela S80.01X S and Lumbago with sciatica, right side M54.41 [place] [address] [address] Nov, Exercise counseling Z71.82 [place] [address] [address] Oct, Exercise counseling Z71.82 [place] [address] [address] Oct, Exercise counseling Z71.82 [place] [address] [address] Oct, Lumbago with sciatica, right side M54.41 [place] [address] [address] Oct, Exercise counseling Z71.82 [place] [address] [address] Oct, Contusion of right knee, initial encount er S80.01XA [place] [address] [address] Oct, Contusion of right knee, initial encount er S80.01XA [place] [address] [address] Oct, Contusion of right knee, initial encount er S80.01XA [place] [address] [address] Oct, Exercise counseling Z71.82 [place] [address] [address] Oct, Lumbago with sciatica, right side M54.41 [facility] [address] [facility] [id number] [place] [address] Oct, Influenza A J10.1 and Fever R50.9 [place] [address] [address] Oct, Exercise counseling Z71.82 [place] [address] [address] Oct, [place] [address] [address] Sep, Perimenopause N95.1 ; Weight gain R63.5 ; BMI 40.0-44.9, adult Z68.41 and Therapeutic drug monitoring Z51.81 [place] [address] [address] Sep, Lumbago with sciatica, right side M54.41 [place] [address] [address] Aug, Lumbago with sciatica, right side M54.41 [place] [address] [address] Jul, Lumbago with sciatica, right side M54.41 [place] [address] [address] Jul, Lumbago with sciatica, right side M54.41 ; Fibromyalgia M79.7 ; Cold sore B00.1 and Abnormal bruising R23.8 [place] [address] [address] Jul, Lumbago with sciatica, right side M54.41 [place] [address] [address] Jun, Lumbago with sciatica, right side M54.41 [place] [address] [address] Jun, Lumbago with sciatica, right side M54.41 ; Other chronic pain G89.29 and BMI 40.0-44.9, adult Z68.41 [facility] [address] [facility] [id number] [address] [place] [address] May, Acute low back pain, unspeci fied back pain laterality, with sciatica presence unspecified M54.5 [place] [address] [address] Jan, Tear of medial meniscus of right knee, c urrent, unspecified tear type, subsequent encounter S83.241D [place] [address] [address] Nov, Dysthymia F34.1 ; Weight gain R63.5 and Acute pain of right knee M25.561 [place] [address] [address] Nov, [place] [address] [address] Nov, Viral illness B34.9 [facility] [address] [facility] [id number] [address] [place] [address] Oct, Viral URI J06.9 [place] [address] [address] Jun, Fibromyalgia M79.7 and Rectocele N81.6 [place] [address] [address] May, Weak R53.1 ; Fatigue, unspecified type R 53.83 ; Arthralgia of right knee M25.561 and Hematuria, unspecified type R31.9 [place] [address] [address] Apr, Dysthymia F34.1 [place] [address] [address] Mar, Hematuria, unspecified type R31.9 ; Acut e pain of left knee M25.562 ; Right knee pain M25.561 and Low back pain M54.5 [place] [address] [address] Mar, Hematuria, unspecified type R31.9 [place] [address] [address] Mar, Acute pain of left knee M25.562 [place] [address] [address] Mar, GERD (gastroesophageal reflux disease) K 21.9 ; Continuous leakage of urine N39.45 ; Acute cystitis with hematuria N30.01 and Vaginal discharge N89.8 [place] [address] [address] 13 Jan, 2017 [place] [address] [address] 07 Jan, 2017 Dysthymia F34.1 ; Sore throat J02.9 ; Co stochondritis M94.0 and Breast cancer screening Z12.39 [place] [address] [address] December, [address] [address] 15 Oct, 2016 Gastroenteritis K52.[address] [address] Oct, [address] [address] Sep, Weight gain R63.5 ; Major depressive dis order, single episode, unspecified F32.9 ; Arthralgia, unspecified joint M25.50 ; GERD (gastroesophageal reflux disease) K21.9 and Swelling R60.[address] [address] Aug, [address] [address] Jul, [address] [address] Jul, Right knee meniscal tear S83.206A [address] [address] Jun, [address] [address] 07 Jun, 2016 Plantar fasciitis M72.[address] [address] Jun, [facility] [address] [address] May, Plantar fasciitis M72.2 [facility] [address] [address] May, [facility] [address] [address] May, [facility] [address] [address] Apr, [facility] [address] [address] Apr, [facility] [address] [address] Apr, Bone spur of foot M77.9 [facility] [address] [address] Apr, [facility] [address] [address] Apr, [facility] [address] [address] Apr, GERD (gastroesophageal reflux disease) K 21.9 ; Pain in right foot M79.671 ; Pain of left foot M79.672 and Obesity E66.9 [place] [address] [address] December, Degenerative tear of lateral meniscus of right knee M23.300 [facility] [address] [address] December, [facility] [address] [place] [address] December, Weight gain R63.5 ; Right knee meniscal tear S83.206A ; Carpal tunnel syndrome, unspecified laterality G56.00 and Rib pain R07.81 [facility] [address] [address] 28 Apr, 2016 Right knee meniscal tear S83.206A [place] [address] [address] 14 Dec, 2015 Obesity E66.9 ; Knee pain M25.[address] (gastroesophageal reflux disease) K21.9 [place] [address] [address] Oct, Weight gain R63.5 and Hormone replacemen t therapy Z79.890 [place] [address] [address] Oct, [place] [address] [address] Oct, Right knee pain M25.561 ; Hormone replac ement therapy Z79.890 and Weight gain R63.5 [place] [address] [address] Sep, Other chronic pain G89.29 and Eustachian tube dysfunction, right H69.81 [place] [address] [address] Jul, Hot flashes N95.1 ; Mastodynia N64.4 and Sore throat J02.9 [place] [address] [address] Jun, Acute cystitis with hematuria N30.01 ; P ain in right axilla M79.601 ; Right foot pain M79.671 and Dysuria R30.0 [place] [address] [address] 14 May, [address] [address] Apr, Anxiety 300.00 ; Headache 784.0 and Vari cose vein of leg 454.[address] [address] Apr, Depressive disorder, not elsewhere class ified [address] [place] [id number] [place] [address] 24 Jan, 2015 Tension type headache 339.10 and Breast cancer screening V76.10 [facility] [address] [place] [id number] [place] [address] 14 Nov, 2014 [facility] [address] [place] [id number] [place] [address] Nov, [facility] [address] [address] Jul, [facility] [address] [place] [id number] [place] [address] Jul, [facility] [address] [address] Jun, [facility] [address] [place] [id number] [place] [address] Jun, [facility] [address] [place] [id number] [place] [address] Apr, [facility] [address] [place] [id number] [place] [address] Apr, [facility] [address] [place] [id number] [place] [address] Jan, [facility] [address] [place] [id number] [place] [address] Jan, [facility] [address] [place] [id number] [place] [address] December, [facility] [address] [place] [id number] [place] [address] December, [facility] [address] [place] [id number] [place] [address] December, [facility] [address] [place] [id number] [place] [address] December, [facility] [address] [place] [id number] [place] [address] Nov, [facility] [address] [place] [id number] [place] [address] Nov, [facility] [address] [facility] [id number] [place] [address] Nov, [facility] [address] [id number] [place] [address] Nov, [facility] [address] [id number] [place] [address] Oct, [facility] [address] [id number] [place] [address] Oct, [facility] [address] [id number] [place] [address] Aug, [facility] [address] [id number] [place] [address] Aug, [facility] [address] [id number] [place] [address] Mar, [facility] [address] [id number] [place] [address] Mar, [facility] [address] [id number] [place] [address] Mar, [facility] [address] [id number] [place] [address] Sep, [facility] [address] [id number] [place] [address] Sep, [facility] [address] [id number] [place] [address] Sep, [facility] [address] [id number] [place] [address] Aug, [facility] [address] [id number] [place] [address] Jun, [facility] [address] [id number] [place] [address] December, [facility] [address] [id number] [place] [address] Jul, [facility] [address] [id number] [place] [address] 14 Apr, 2010 [facility] [address] [id number] [place] [address] December, [facility] [address] [id number] [place] [address] 13 Nov, 2009 [facility] [address] [id number] [place] [address] 19 Oct, 2009 [facility] [address] [id number] [place] [address] Sep, [facility] [address] [address] [id number] [place] [address] Aug, [facility] [id number] [place] [address] 15 Nov, 2008 [facility] [address] [id number] [place] [address] Oct, [facility] [address] [id number] [place] [address] 12 Oct, 2008 IMMUNIZATIONS No Known Immunizations SOCIAL HISTORY Never Assessed REASON FOR VISIT PLAN OF CARE VITAL SIGNS Height 64 in 2013-12-23 Weight 223.9 lbs 2013-12-23 Temperature 97.2 degrees Fahrenheit 2013-12-23 Heart Rate 80 bpm 2013-12-23 Respiratory Rate 16 2013-12-23 Blood pressure systolic 118 mmHg 2013-12-23 Blood pressure diastolic 72 mmHg 2013-12-23 MEDICATIONS Unknown Medications RESULTS No Results PROCEDURES Procedure Date Ordered Result Body Site COMPLETE CBC W/AUTO DIFF WBC December 23, 2013 MEASURE BLOOD OXYGEN LEVEL December 23, 2013 ASSAY THYROID STIM HORMONE December 23, 2013 LIPID PANEL December 23, 2013 COMPREHEN METABOLIC PANEL December 23, 2013 VENIPUNCT, ROUTINE* December 23, 2013 INSTRUCTIONS MEDICATIONS ADMINISTERED No Known Medications MEDICAL (GENERAL) HISTORY Type Description Date Medical History Asthma Medical History Post cholecystectomy Medical History arthritis Medical History Backache Medical History Headache syndromes Medical History Depression Medical History carpal tunnel right hand Surgical History Hysterectomy 2011 Surgical History Tubal ligation Surgical History section Surgical History Orthopedic surgery Surgical History Right ear canal reconstruction Surgical History right knee arthroscopy 04/2018 Hospitalization History child x3 Hospitalization History orthopedic surgery Hospitalization History Hysterectomy Hospitalization History Tubal ligation
--- OUTSIDE RECORDS SUMMARY | 2020-02-24 03:01 | XMS REPORT ---
Author Author Shey MCELROY Organization [facility] Address [address] [place] [address] Care Team Providers Care Vegetable Picker Name Role Phone BRO MCELROY Unavailable PROBLEMS Type Condition ICD9-CM Code UGD35-XP Code Onset Dates Condition S tatus SNOMED Code Problem Obesity E66.9 Active 112517223 Problem Knee pain M25.569 Active 22440986 Problem Rib pain R07.81 Active 106924825 Problem GERD (gastroesophageal reflux disease) K21.9 Active 110921523 Problem Weight gain R63.5 Active 3248072 Problem Right knee meniscal tear S83.206A Activ e 970360618 Problem Major depressive disorder, single episode, unspecified F32.9 Active 25884567 Problem Dysthymia F34.1 Active 05884343 Problem Continuous leakage of urine N39.45 Ac tive 295538624 Problem Perimenopause N95.1 Active 051261 429233561 Problem Bone spur of foot M77.9 Active 23 6617246368834 Problem Chronic fatigue R53.82 Active 5270 2003 Problem Carpal tunnel syndrome, unspecified laterality G56 .00 Active 93242139 Problem Rectocele N81.6 Active 709961993 Problem Fibromyalgia M79.7 Active 2875974 05 Problem Lumbago with sciatica, right side M54.41 Active 516761547 Problem Other chronic pain G89.29 Active 8 [id number] ALLERGIES No Information ENCOUNTERS Encounter Location Date Diagnosis [place] [address] [address] Oct, [place] [address] [address] Oct, Well woman exam Z01.419 ; Cervical cance r screening Z12.4 and Encounter for immunization Z23 [place] [address] [address] Oct, Lipid screening Z13.220 ; Chronic fatigu e R53.82 and Myalgia M79.10 [place] [address] [address] Sep, Dysthymia F34.1 ; Other chronic pain G89 .29 ; Lumbago with sciatica, right side M54.41 ; Myalgia M79.10 ; Lipid screening Z13.220 and Chronic fatigue R53.82 [place] [address] [address] Sep, Lumbago with sciatica, right side M54.41 [place] [address] [address] Aug, Lumbago with sciatica, right side M54.41 [place] [address] [address] Jul, Lumbago with sciatica, right side M54.41 [place] [address] [address] Jul, Low back pain M54.5 ; Other chronic pain G89.29 ; Weakness of both legs R29.898 and Weight loss R63.4 [place] [address] [address] Jun, Lumbago with sciatica, right side M54.41 [place] [address] [address] Jun, Lumbago with sciatica, right side M54.41 [place] [address] [address] May, Lumbago with sciatica, right side M54.41 [place] [address] [address] Apr, Lumbago with sciatica, right side M54.41 [place] [address] [address] Apr, Abnormal CBC R79.89 and Lumbago with sci atica, right side M54.41 [place] [address] [address] Mar, Lumbago with sciatica, right side M54.41 [place] [address] [address] Jan, Lumbago with sciatica, right side M54.41 [place] [address] [address] December, Exercise counseling Z71.82 [place] [address] [address] December, Lumbago with sciatica, right side M54.41 [place] [address] [address] December, Exercise counseling Z71.82 [place] [address] [address] Nov, Colon cancer screening Z12.11 [place] [address] [address] Nov, Exercise counseling Z71.82 [place] [address] [address] Nov, Exercise counseling Z71.82 [place] [address] [address] Nov, Lumbago with sciatica, right side M54.41 [place] [address] [address] Nov, Exercise counseling Z71.82 [place] [address] [address] Nov, [place] [address] [address] Nov, Contusion of right knee, sequela S80.01X S and Lumbago with sciatica, right side M54.41 [place] [address] [address] Nov, Exercise counseling Z71.82 [place] [address] [address] Oct, Exercise counseling Z71.82 [place] [address] [address] Oct, Exercise counseling Z71.82 [place] [address] [address] Oct, Lumbago with sciatica, right side M54.41 [place] [address] [address] Oct, Exercise counseling Z71.82 [place] [address] [address] Oct, Contusion of right knee, initial encount er S80.01XA [place] [address] [address] Oct, Contusion of right knee, initial encount er S80.01XA [place] [address] [address] Oct, Contusion of right knee, initial encount er S80.01XA [place] [address] [address] Oct, Exercise counseling Z71.82 [place] [address] [address] Oct, Lumbago with sciatica, right side M54.41 [facility] [address] [facility] [id number] [address] [place] [address] Oct, Influenza A J10.1 and Fever R50.9 [place] [address] [address] Oct, Exercise counseling Z71.82 [place] [address] [address] Oct, [place] [address] [address] Sep, Perimenopause N95.1 ; Weight gain R63.5 ; BMI 40.0-44.9, adult Z68.41 and Therapeutic drug monitoring Z51.81 [place] [address] [address] Sep, Lumbago with sciatica, right side M54.41 [place] [address] [address] Aug, Lumbago with sciatica, right side M54.41 [place] [address] [address] Jul, Lumbago with sciatica, right side M54.[address] [address] Jul, Lumbago with sciatica, right side M54.41 ; Fibromyalgia M79.7 ; Cold sore B00.1 and Abnormal bruising R23.[address] [address] Jul, Lumbago with sciatica, right side M54.41 [place] [address] [address] Jun, Lumbago with sciatica, right side M54.41 [place] [address] [address] Jun, Lumbago with sciatica, right side M54.41 ; Other chronic pain G89.29 and BMI 40.0-44.9, adult Z68.41 [facility] [place] [address] [facility] [id number] [address] [place] [address] May, Acute low back pain, unspeci fied back pain laterality, with sciatica presence unspecified M54.[id number] [place] [address] Jan, Tear of medial meniscus of right knee, c urrent, unspecified tear type, subsequent encounter S83.241D [place] [address] [address] Nov, Dysthymia F34.1 ; Weight gain R63.5 and Acute pain of right knee M25.561 [place] [address] [address] Nov, [place] [address] [address] Nov, Viral illness B34.9 [facility] [place] [address] [facility] [id number] [address] [place] [address] Oct, Viral URI J06.9 [place] [address] [address] Jun, Fibromyalgia M79.7 and Rectocele N81.6 [place] [address] [address] May, Weak R53.1 ; Fatigue, unspecified type R 53.83 ; Arthralgia of right knee M25.561 and Hematuria, unspecified type R31.9 [place] [address] [address] Apr, Dysthymia F34.1 [place] [address] [address] Mar, Hematuria, unspecified type R31.9 ; Acut e pain of left knee M25.562 ; Right knee pain M25.561 and Low back pain M54.5 [place] [address] [address] Mar, Hematuria, unspecified type R31.9 [place] [address] [address] Mar, Acute pain of left knee M25.562 [place] [address] [address] Mar, GERD (gastroesophageal reflux disease) K 21.9 ; Continuous leakage of urine N39.45 ; Acute cystitis with hematuria N30.01 and Vaginal discharge N89.8 [place] [address] [address] Jan, [place] [address] [address] Jan, Dysthymia F34.1 ; Sore throat J02.9 ; Co stochondritis M94.0 and Breast cancer screening Z12.39 [place] [address] [address] December, [place] [address] [address] 15 Oct, 2016 Gastroenteritis K52.9 [place] [address] [address] Oct, [place] [address] [address] Sep, Weight gain R63.5 ; Major depressive dis order, single episode, unspecified F32.9 ; Arthralgia, unspecified joint M25.50 ; GERD (gastroesophageal reflux disease) K21.9 and Swelling R60.9 [place] [address] [address] Aug, [place] [address] [address] Jul, [place] [address] [address] Jul, Right knee meniscal tear S83.206A [place] [address] [address] Jun, [place] [address] [address] 07 Jun, 2016 Plantar fasciitis M72.2 [facility] [address] [address] Jun, [facility] [address] [address] May, Plantar fasciitis M72.2 [facility] [address] [address] 15 May, 2016 [facility] [address] [address] May, [facility] [address] [address] Apr, [facility] [address] [address] Apr, [facility] [address] [address] Apr, Bone spur of foot M77.9 [facility] [address] [address] Apr, [facility] [address] [address] Apr, [facility] [address] [address] Apr, GERD (gastroesophageal reflux disease) K 21.9 ; Pain in right foot M79.671 ; Pain of left foot M79.672 and Obesity E66.9 [place] [address] [address] December, Degenerative tear of lateral meniscus of right knee M23.300 [facility] [address] [address] December, [place] [address] [address] December, Weight gain R63.5 ; Right knee meniscal tear S83.206A ; Carpal tunnel syndrome, unspecified laterality G56.00 and Rib pain R07.81 [place] [address] [address] Nov, Right knee meniscal tear S83.206A [place] [address] [address] Nov, Obesity E66.9 ; Knee pain M25.[address] (gastroesophageal reflux disease) K21.9 [place] [address] [address] Oct, Weight gain R63.5 and Hormone replacemen t therapy Z79.890 [place] [address] [address] Oct, [address] [address] Oct, Right knee pain M25.561 ; Hormone replac ement therapy Z79.890 and Weight gain R63.5 [place] [address] [address] Sep, Other chronic pain G89.29 and Eustachian tube dysfunction, right H69.[address] [address] Jul, Hot flashes N95.1 ; Mastodynia N64.4 and Sore throat J02.9 [place] [address] [address] Jun, Acute cystitis with hematuria N30.01 ; P ain in right axilla M79.601 ; Right foot pain M79.671 and Dysuria R30.0 [place] [address] [address] May, Migraines 346.[address] [address] Apr, Anxiety 300.00 ; Headache 784.0 and Vari cose vein of leg 454.[address] [address] Apr, Depressive disorder, not elsewhere class ified 311 [facility] [address] [place] [id number] [place] [address] Jan, Tension type headache 339.10 and Breast cancer screening V76.10 [facility] [address] [place] [id number] [place] [address] 14 Nov, 2014 [facility] [address] [place] [id number] [place] [address] Nov, [facility] [address] [place] [id number] [place] [address] Jul, [facility] [address] [place] [id number] [place] [address] Jul, [facility] [address] [address] Jun, [facility] [address] [place] [id number] [place] [address] Jun, [facility] [address] [place] [id number] [place] [address] Apr, [facility] [address] [place] [id number] [place] [address] Apr, [facility] [address] [place] [id number] [place] [address] Jan, [facility] [address] [place] [id number] [place] [address] Jan, [facility] [address] [place] [id number] [place] [address] December, [facility] [address] [place] [id number] [place] [address] December, [facility] [address] [place] [id number] [place] [address] December, [facility] [address] [place] [id number] [place] [address] December, [facility] [address] [place] [id number] [place] [address] Nov, [facility] [place] [facility] [address] [facility] [id number] [place] [address] Nov, [facility] [place] [facility] [address] [id number] [place] [address] Nov, [facility] [place] [facility] [address] [id number] [place] [address] Nov, [facility] [place] [facility] [address] [id number] [place] [address] Oct, [facility] [place] [facility] [address] [facility] [id number] [place] [address] Oct, [facility] [place] [facility] [address] [id number] [place] [address] Aug, [facility] [place] [facility] [address] [id number] [place] [address] Aug, [facility] [place] [facility] [address] [id number] [place] [address] Mar, [facility] [place] [facility] [address] [id number] [place] [address] Mar, [facility] [place] [facility] [address] [id number] [place] [address] Mar, [facility] [place] [facility] [address] [id number] [place] [address] Sep, [facility] [place] [facility] [address] [id number] [place] [address] Sep, [facility] [place] [facility] [address] [id number] [place] [address] Sep, [facility] [place] [facility] [address] [id number] [place] [address] Aug, [facility] [place] [facility] [address] [id number] [place] [address] Jun, [facility] [place] [facility] [address] [id number] [place] [address] December, [facility] [place] [facility] [address] [id number] [place] [address] Jul, [facility] [address] [id number] [place] [address] Apr, [facility] [address] [id number] [place] [address] December, [facility] [address] [id number] [place] [address] Nov, [facility] [address] [id number] [place] [address] Oct, [facility] [address] [id number] [place] [address] Sep, [facility] [address] [id number] [place] [address] Aug, [facility] [address] [id number] [place] [address] Nov, [facility] [address] [id number] [place] [address] Oct, [facility] [address] [id number] [place] [address] Oct, IMMUNIZATIONS No Known Immunizations SOCIAL HISTORY Never Assessed REASON FOR VISIT back pain, knee pain PLAN OF CARE Activity Details Follow Up 1 Week Reason: VITAL SIGNS MEDICATIONS Unknown Medications RESULTS No [...]
--- OUTSIDE RECORDS SUMMARY | 2020-02-24 03:01 | XMS REPORT ---
Author Author Shey MCELROY Organization [facility] Address [address] [place] [address] Care Team Providers Care Office Automation Clerk Name Role Phone BRO MCELROY Unavailable PROBLEMS Type Condition ICD9-CM Code YEH54-IF Code Onset Dates Condition S tatus SNOMED Code Problem Obesity E66.9 Active 136449476 Problem Knee pain M25.569 Active 58245027 Problem Rib pain R07.81 Active 330435602 Problem GERD (gastroesophageal reflux disease) K21.9 Active 205222554 Problem Weight gain R63.5 Active 6472469 Problem Right knee meniscal tear S83.206A Activ e 371653915 Problem Major depressive disorder, single episode, unspecified F32.9 Active 94985861 Problem Dysthymia F34.1 Active 55272928 Problem Continuous leakage of urine N39.45 Ac tive 768077213 Problem Perimenopause N95.1 Active 327241 957891100 Problem Bone spur of foot M77.9 Active 23 [id number] Problem Chronic fatigue R53.82 Active 5270 2003 Problem Carpal tunnel syndrome, unspecified laterality G56 .00 Active 56539205 Problem Rectocele N81.6 Active 051684043 Problem Fibromyalgia M79.7 Active 4894421 05 Problem Lumbago with sciatica, right side M54.41 Active 486479900 Problem Other chronic pain G89.29 Active 8 [id number] ALLERGIES No Information ENCOUNTERS Encounter Location Date Diagnosis [facility] [id number] [place] [address] Oct, [facility] [address] [address] Oct, [facility] [address] [id number] [place] [address] Sep, Dysthymia F34.1 ; Other chronic pain G89 .29 ; Lumbago with sciatica, right side M54.41 ; Myalgia M79.10 ; Lipid screening Z13.220 and Chronic fatigue R53.82 [address] [address] Sep, Lumbago with sciatica, right side M54.41 [address] [address] Aug, Lumbago with sciatica, right side M54.41 [address] [place] [address] [address] Jul, Lumbago with sciatica, right side M54.41 [address] [place] [address] [address] Jul, Low back pain M54.5 ; Other chronic pain G89.29 ; Weakness of both legs R29.898 and Weight loss R63.4 [address] [address] [address] Jun, Lumbago with sciatica, right side M54.41 [place] [address] [address] Jun, Lumbago with sciatica, right side M54.41 [address] [place] [address] [address] May, Lumbago with sciatica, right side M54.41 [address] [place] [address] [address] Apr, Lumbago with sciatica, right side M54.41 [place] [address] [address] Apr, Abnormal CBC R79.89 and Lumbago with sci atica, right side M54.41 [place] [place] [address] [address] Mar, Lumbago with sciatica, right side M54.41 [address] [place] [address] [address] Jan, Lumbago with sciatica, right side M54.41 [place] [address] [address] December, Exercise counseling Z71.82 [address] [place] [address] [address] December, Lumbago with sciatica, right side M54.41 [address] [place] [address] [address] December, Exercise counseling Z71.82 [address] [address] Nov, Colon cancer screening Z12.11 [place] [address] [address] Nov, Exercise counseling Z71.82 [address] [place] [address] [address] Nov, Exercise counseling Z71.82 [address] [place] [address] [address] Nov, Lumbago with sciatica, right side M54.41 [address] [address] Nov, Exercise counseling Z71.82 [address] [place] [address] Nov, [address] [place] [address] [address] Nov, Contusion of right knee, sequela S80.01X S and Lumbago with sciatica, right side M54.41 [address] [address] Nov, Exercise counseling Z71.82 [address] [address] Oct, Exercise counseling Z71.82 [address] [address] Oct, Exercise counseling Z71.82 [address] [place] [address] [address] Oct, Lumbago with sciatica, right side M54.41 [address] [address] Oct, Exercise counseling Z71.82 [address] [place] [address] [address] Oct, Contusion of right knee, initial encount er S80.01XA [place] [address] [address] Oct, Contusion of right knee, initial encount er S80.01XA [place] [place] [address] [address] Oct, Contusion of right knee, initial encount er S80.01XA [address] [place] [address] [address] Oct, Exercise counseling Z71.82 [address] [address] Oct, Lumbago with sciatica, right side M54.41 [facility] [address] [facility] [id number] [place] [address] Oct, Influenza A J10.1 and Fever R50.9 [address] [place] [address] [address] Oct, Exercise counseling Z71.82 [address] [address] Oct, [address] [place] [address] [address] Sep, Perimenopause N95.1 ; Weight gain R63.5 ; BMI 40.0-44.9, adult Z68.41 and Therapeutic drug monitoring Z51.81 [address] [place] [address] [address] Sep, Lumbago with sciatica, right side M54.41 [address] [place] [address] [address] Aug, Lumbago with sciatica, right side M54.41 [address] [place] [address] Jul, Lumbago with sciatica, right side M54.41 [address] [place] [address] [address] Jul, Lumbago with sciatica, right side M54.41 ; Fibromyalgia M79.7 ; Cold sore B00.1 and Abnormal bruising R23.8 [place] [address] [address] Jul, Lumbago with sciatica, right side M54.41 [address] [place] [address] [address] Jun, Lumbago with sciatica, right side M54.41 [address] [place] [address] [address] Jun, Lumbago with sciatica, right side M54.41 ; Other chronic pain G89.29 and BMI 40.0-44.9, adult Z68.41 [facility] [address] [facility] [id number] [address] [place] [address] May, Acute low back pain, unspeci fied back pain laterality, with sciatica presence unspecified M54.5 [address] [address] Jan, Tear of medial meniscus of right knee, addi aguayo, unspecified tear type, subsequent encounter S83.241D [place] [address] [address] Nov, Dysthymia F34.1 ; Weight gain R63.5 and Acute pain of right knee M25.561 [place] [place] [address] [address] Nov, [address] [place] [address] Nov, Viral illness B34.9 [facility] [address] [facility] [id number] [address] [place] [address] Oct, Viral URI J06.9 [address] [place] [address] [address] Jun, Fibromyalgia M79.7 and Rectocele N81.6 [address] [address] May, Weak R53.1 ; Fatigue, unspecified type R 53.83 ; Arthralgia of right knee M25.561 and Hematuria, unspecified type R31.9 [address] [place] [address] [address] Apr, Dysthymia F34.1 [address] [place] [address] [address] Mar, Hematuria, unspecified type R31.9 ; Acut e pain of left knee M25.562 ; Right knee pain M25.561 and Low back pain M54.5 [place] [place] [address] [address] Mar, Hematuria, unspecified type R31.9 [address] [place] [address] [address] Mar, Acute pain of left knee M25.562 [place] [place] [address] [address] Mar, GERD (gastroesophageal reflux disease) K 21.9 ; Continuous leakage of urine N39.45 ; Acute cystitis with hematuria N30.01 and Vaginal discharge N89.8 [place] [place] [address] [address] Jan, [facility] [address] [address] Jan, Dysthymia F34.1 ; Sore throat J02.9 ; Co stochondritis M94.0 and Breast cancer screening Z12.39 [facility] [address] [address] December, [facility] [address] [address] Oct, Gastroenteritis K52.9 [facility] [address] [address] Oct, [facility] [address] [address] Sep, Weight gain R63.5 ; Major depressive dis order, single episode, unspecified F32.9 ; Arthralgia, unspecified joint M25.50 ; GERD (gastroesophageal reflux disease) K21.9 and Swelling R60.9 [address] [address] Aug, [place] [place] [address] [address] Jul, [address] [place] [address] [address] Jul, Right knee meniscal tear S83.206A [address] [address] Jun, [facility] [address] [address] Jun, Plantar fasciitis M72.2 [address] [place] [address] [address] Jun, [facility] [address] [address] May, Plantar fasciitis M72.2 [address] [address] May, [facility] [address] [address] May, [facility] [address] [address] Apr, [facility] [address] [address] Apr, [facility] [address] [address] Apr, Bone spur of foot M77.9 [address] [address] Apr, [address] [place] [address] [address] Apr, [address] [place] [address] Apr, GERD (gastroesophageal reflux disease) K 21.9 ; Pain in right foot M79.671 ; Pain of left foot M79.672 and Obesity E66.9 [address] [address] December, Degenerative tear of lateral meniscus of right knee M23.300 [address] [place] [address] December, [address] [place] [address] [address] December, Weight gain R63.5 ; Right knee meniscal tear S83.206A ; Carpal tunnel syndrome, unspecified laterality G56.00 and Rib pain R07.81 [address] [address] Nov, Right knee meniscal tear S83.206A [address] [place] [address] Nov, Obesity E66.9 ; Knee pain M25.[address] (gastroesophageal reflux disease) K21.9 [address] [place] [address] [address] Oct, Weight gain R63.5 and Hormone replacemen t therapy Z79.890 [address] [address] Oct, [address] [place] [address] Oct, Right knee pain M25.561 ; Hormone replac ement therapy Z79.890 and Weight gain R63.5 [address] [place] [address] [address] Sep, Other chronic pain G89.29 and Eustachian tube dysfunction, right H69.81 [address] [address] Jul, Hot flashes N95.1 ; Mastodynia N64.4 and Sore throat J02.9 [address] [address] Jun, Acute cystitis with hematuria N30.01 ; P ain in right axilla M79.601 ; Right foot pain M79.671 and Dysuria R30.0 [address] [address] 14 May, 2015 [address] [address] Apr, Anxiety 300.00 ; Headache 784.0 and Vari cose vein of leg 454.[address] [address] Apr, Depressive disorder, not elsewhere class ified [address] [address] 24 Jan, 2015 Tension type headache 339.10 and Breast cancer screening V76.[address] [address] 14 Nov, 2014 [facility] [place] [facility] [address] [facility] [id number] [place] [address] Nov, [facility] [place] [facility] [address] [id number] [place] [address] Jul, [facility] [place] [facility] [address] [id number] [place] [address] Jul, [facility] [place] [facility] [address] [id number] [place] [address] Jun, [facility] [place] [facility] [address] [facility] [id number] [place] [address] Jun, [facility] [place] [facility] [address] [id number] [place] [address] Apr, [facility] [place] [facility] [address] [id number] [place] [address] Apr, [facility] [place] [facility] [address] [id number] [place] [address] Jan, [facility] [place] [facility] [address] [id number] [place] [address] Jan, [facility] [place] [facility] [address] [id number] [place] [address] December, [facility] [place] [facility] [address] [id number] [place] [address] December, [facility] [place] [facility] [address] [id number] [place] [address] December, [facility] [place] [facility] [address] [id number] [place] [address] December, [facility] [place] [facility] [address] [id number] [place] [address] Nov, [facility] [place] [facility] [address] [id number] [place] [address] Nov, [facility] [place] [facility] [address] [id number] [place] [address] Nov, [facility] [place] [facility] [address] [id number] [place] [address] Nov, [facility] [place] [facility] [address] [id number] [place] [address] Oct, [facility] [place] [facility] [address] [id number] [place] [address] Oct, [facility] [place] [facility] [address] [id number] [place] [address] Aug, [facility] [place] [facility] [address] [id number] [place] [address] Aug, [facility] [place] [facility] [address] [id number] [place] [address] Mar, [facility] [place] [facility] [address] [id number] [place] [address] Mar, [facility] [place] [facility] [address] [id number] [place] [address] Mar, [facility] [place] [facility] [address] [id number] [place] [address] Sep, [facility] [place] [facility] [address] [id number] [place] [address] Sep, [facility] [place] [facility] [address] [id number] [place] [address] Sep, [facility] [place] [facility] [address] [id number] [place] [address] Aug, [facility] [place] [facility] [address] [id number] [place] [address] Jun, [facility] [place] [facility] [address] [id number] [place] [address] December, [facility] [place] [facility] [id number] [place] [address] Jul, [facility] [place] [facility] [address] [id number] [place] [address] 14 Apr, 2010 [facility] [place] [facility] [address] [id number] [place] [address] December, [facility] [address] [id number] [place] [address] Nov, [facility] [address] [id number] [place] [address] Oct, [facility] [address] [id number] [place] [address] Sep, [facility] [address] [id number] [place] [address] Aug, [facility] [address] [id number] [place] [address] 15 Nov, 2008 [facility] [address] [id number] [place] [address] Oct, [facility] [address] [id number] [place] [address] 12 Oct, 2008 IMMUNIZATIONS No Known Immunizations [...]
--- OUTSIDE RECORDS SUMMARY | 2020-02-24 03:01 | XMS REPORT ---
Author Author Shey MCELROY Organization [facility] Address [address] [place] [address] Care Team Providers Care Shipping And Receiving Coordinator Name Role Phone BRO MCELROY Unavailable PROBLEMS Type Condition ICD9-CM Code VMO19-HK Code Onset Dates Condition S tatus SNOMED Code Problem Obesity E66.9 Active 453136802 Problem Knee pain M25.569 Active 26945035 Problem Rib pain R07.81 Active 662176968 Problem GERD (gastroesophageal reflux disease) K21.9 Active 300104970 Problem Weight gain R63.5 Active 3580613 Problem Right knee meniscal tear S83.206A Activ e 279232680 Problem Major depressive disorder, single episode, unspecified F32.9 Active 25076540 Problem Dysthymia F34.1 Active 99923148 Problem Continuous leakage of urine N39.45 Ac tive 853026817 Problem Perimenopause N95.1 Active 281000 673419167 Problem Bone spur of foot M77.9 Active 23 [id number] Problem Chronic fatigue R53.82 Active 5270 2003 Problem Carpal tunnel syndrome, unspecified laterality G56 .00 Active 07549167 Problem Rectocele N81.6 Active 392714085 Problem Fibromyalgia M79.7 Active 2182519 05 Problem Lumbago with sciatica, right side M54.41 Active 865950410 Problem Other chronic pain G89.29 Active 8 6201560 ALLERGIES No Information ENCOUNTERS Encounter Location Date Diagnosis [facility] [id number] [place] [address] Oct, [facility] [address] [address] Oct, [facility] [address] [id number] [place] [address] Oct, Well woman exam Z01.419 ; Cervical cance r screening Z12.4 and Encounter for immunization Z23 [place] [address] [address] Oct, Lipid screening Z13.220 ; Chronic fatigu e R53.82 and Myalgia M79.10 [place] [address] [address] Sep, Dysthymia F34.1 ; Other chronic pain G89 .29 ; Lumbago with sciatica, right side M54.41 ; Myalgia M79.10 ; Lipid screening Z13.220 and Chronic fatigue R53.82 [place] [address] [address] Sep, Lumbago with sciatica, right side M54.41 [place] [address] [address] Aug, Lumbago with sciatica, right side M54.41 [place] [address] [address] Jul, Lumbago with sciatica, right side M54.41 [place] [address] [address] Jul, Low back pain M54.5 ; Other chronic pain G89.29 ; Weakness of both legs R29.898 and Weight loss R63.4 [place] [address] [address] Jun, Lumbago with sciatica, right side M54.41 [place] [address] [address] Jun, Lumbago with sciatica, right side M54.41 [place] [address] [address] May, Lumbago with sciatica, right side M54.41 [place] [address] [address] Apr, Lumbago with sciatica, right side M54.41 [facility] [address] [address] Apr, Abnormal CBC R79.89 and Lumbago with sci atica, right side M54.41 [facility] [address] [address] Mar, Lumbago with sciatica, right side M54.41 [place] [address] [address] Jan, Lumbago with sciatica, right side M54.41 [place] [address] [address] December, Exercise counseling Z71.82 [place] [address] [address] December, Lumbago with sciatica, right side M54.41 [place] [address] [address] December, Exercise counseling Z71.82 [place] [address] [address] Nov, Colon cancer screening Z12.11 [place] [address] [address] Nov, Exercise counseling Z71.82 [place] [address] [address] Nov, Exercise counseling Z71.82 [place] [address] [address] Nov, Lumbago with sciatica, right side M54.41 [place] [address] [address] Nov, Exercise counseling Z71.82 [place] [address] [address] Nov, [place] [address] [address] Nov, Contusion of right knee, sequela S80.01X S and Lumbago with sciatica, right side M54.41 [place] [address] [place] [address] Nov, Exercise counseling Z71.82 [place] [address] [address] Oct, Exercise counseling Z71.82 [place] [address] [address] [address] Oct, Exercise counseling Z71.82 [place] [address] [address] Oct, Lumbago with sciatica, right side M54.41 [place] [address] [address] Oct, Exercise counseling Z71.82 [place] [address] [address] Oct, Contusion of right knee, initial encount er S80.01XA [place] [address] [address] Oct, Contusion of right knee, initial encount er S80.01XA [place] [address] [address] Oct, Contusion of right knee, initial encount er S80.01XA [place] [address] [address] Oct, Exercise counseling Z71.82 [place] [address] [address] Oct, Lumbago with sciatica, right side M54.41 [facility] [address] [facility] [id number] [place] [address] Oct, Influenza A J10.1 and Fever R50.9 [place] [address] [address] Oct, Exercise counseling Z71.82 [place] [address] [address] Oct, [place] [address] [address] Sep, Perimenopause N95.1 ; Weight gain R63.5 ; BMI 40.0-44.9, adult Z68.41 and Therapeutic drug monitoring Z51.81 [place] [address] [address] Sep, Lumbago with sciatica, right side M54.41 [place] [address] [address] Aug, Lumbago with sciatica, right side M54.41 [place] [address] [address] Jul, Lumbago with sciatica, right side M54.41 [place] [address] [address] Jul, Lumbago with sciatica, right side M54.41 ; Fibromyalgia M79.7 ; Cold sore B00.1 and Abnormal bruising R23.8 [place] [address] [address] Jul, Lumbago with sciatica, right side M54.41 [place] [address] [address] Jun, Lumbago with sciatica, right side M54.41 [place] [address] [address] Jun, Lumbago with sciatica, right side M54.41 ; Other chronic pain G89.29 and BMI 40.0-44.9, adult Z68.41 [facility] [address] [facility] [id number] [address] [place] [address] May, Acute low back pain, unspeci fied back pain laterality, with sciatica presence unspecified M54.5 [place] [address] [address] Jan, Tear of medial meniscus of right knee, c urrent, unspecified tear type, subsequent encounter S83.241D [place] [address] [address] Nov, Dysthymia F34.1 ; Weight gain R63.5 and Acute pain of right knee M25.561 [place] [address] [address] Nov, [place] [address] [address] Nov, Viral illness B34.9 [facility] [address] [facility] [id number] [address] [place] [address] Oct, Viral URI J06.9 [place] [address] [address] Jun, Fibromyalgia M79.7 and Rectocele N81.6 [place] [address] [address] May, Weak R53.1 ; Fatigue, unspecified type R 53.83 ; Arthralgia of right knee M25.561 and Hematuria, unspecified type R31.9 [place] [address] [address] Apr, Dysthymia F34.1 [place] [address] [address] Mar, Hematuria, unspecified type R31.9 ; Acut e pain of left knee M25.562 ; Right knee pain M25.561 and Low back pain M54.5 [place] [address] [address] Mar, Hematuria, unspecified type R31.9 [place] [address] [address] 12 Mar, 2017 Acute pain of left knee M25.562 [place] [address] [address] 05 Mar, 2017 GERD (gastroesophageal reflux disease) K 21.9 ; Continuous leakage of urine N39.45 ; Acute cystitis with hematuria N30.01 and Vaginal discharge N89.8 [place] [address] [address] Jan, [address] [address] 07 Jan, 2017 Dysthymia F34.1 ; Sore throat J02.9 ; Co stochondritis M94.0 and Breast cancer screening Z12.[address] [address] December, [address] [address] 15 Oct, 2016 Gastroenteritis K52.[address] [address] Oct, [address] [address] Sep, Weight gain R63.5 ; Major depressive dis order, single episode, unspecified F32.9 ; Arthralgia, unspecified joint M25.50 ; GERD (gastroesophageal reflux disease) K21.9 and Swelling R60.9 [place] [address] [address] Aug, [address] [address] Jul, [address] [address] Jul, Right knee meniscal tear S83.206A [address] [address] Jun, [address] [id number] [place] [address] Jun, Plantar fasciitis M72.2 [facility] [address] [address] Jun, [facility] [address] [address] 23 May, 2016 Plantar fasciitis M72.2 [facility] [address] [address] 15 May, 2016 [facility] [address] [address] May, [facility] [address] [address] Apr, [facility] [address] [address] Apr, [facility] [address] [address] Apr, Bone spur of foot M77.9 [facility] [address] [address] Apr, [facility] [address] [address] Apr, [facility] [address] [address] Apr, GERD (gastroesophageal reflux disease) K 21.9 ; Pain in right foot M79.671 ; Pain of left foot M79.672 and Obesity E66.9 [facility] [address] [address] December, Degenerative tear of lateral meniscus of right knee M23.300 [facility] [address] [address] December, [facility] [address] [address] December, Weight gain R63.5 ; Right knee meniscal tear S83.206A ; Carpal tunnel syndrome, unspecified laterality G56.00 and Rib pain R07.81 [place] [address] [address] Nov, Right knee meniscal tear S83.206A [place] [address] [address] Nov, Obesity E66.9 ; Knee pain M25.[address] (gastroesophageal reflux disease) K21.9 [place] [address] [address] Oct, Weight gain R63.5 and Hormone replacemen t therapy Z79.890 [place] [address] [address] Oct, [place] [address] [address] Oct, Right knee pain M25.561 ; Hormone replac ement therapy Z79.890 and Weight gain R63.5 [address] [address] [address] Sep, Other chronic pain G89.29 and Eustachian tube dysfunction, right H69.81 [address] [address] [address] Jul, Hot flashes N95.1 ; Mastodynia N64.4 and Sore throat J02.9 [place] [address] [address] Jun, Acute cystitis with hematuria N30.01 ; P ain in right axilla M79.601 ; Right foot pain M79.671 and Dysuria R30.0 [place] [address] [address] 14 May, 2015 Migraines 346.90 [place] [address] [address] Apr, Anxiety 300.00 ; Headache 784.0 and Vari cose vein of leg 454.9 [facility] [id number] [place] [address] Apr, Depressive disorder, not elsewhere class ified 311 [facility] [id number] [place] [address] 24 Jan, 2015 Tension type headache 339.10 and Breast cancer screening V76.10 [facility] [address] [address] 14 Nov, 2014 [facility] [address] [address] Nov, [facility] [address] [address] Jul, [facility] [address] [address] Jul, [facility] [address] [address] Jun, [facility] [address] [address] Jun, [facility] [address] [address] Apr, [facility] [address] [address] Apr, [facility] [address] [address] Jan, [facility] [id number] [place] [address] Jan, [facility] [address] [address] December, [facility] [id number] [place] [address] December, [facility] [id number] [place] [address] December, [facility] [id number] [place] [address] December, [facility] [place] [facility] [address] [id number] [place] [address] Nov, [facility] [place] [facility] [address] [id number] [place] [address] Nov, [facility] [place] [facility] [address] [id number] [place] [address] Nov, [facility] [place] [facility] [address] [id number] [place] [address] Nov, [facility] [place] [facility] [address] [facility] [id number] [place] [address] Oct, [facility] [place] [facility] [address] [id number] [place] [address] Oct, [facility] [place] [facility] [address] [id number] [place] [address] Aug, [facility] [place] [facility] [address] [id number] [place] [address] Aug, [facility] [place] [facility] [address] [id number] [place] [address] Mar, [facility] [place] [facility] [address] [id number] [place] [address] Mar, [facility] [place] [facility] [address] [id number] [place] [address] Mar, [facility] [place] [facility] [address] [id number] [place] [address] Sep, [facility] [place] [facility] [address] [id number] [place] [address] Sep, [facility] [place] [facility] [address] [id number] [place] [address] Sep, [facility] [place] [facility] [address] [id number] [place] [address] Aug, [facility] [place] [facility] [address] [id number] [place] [address] Jun, [facility] [place] [facility] [address] [id number] [place] [address] December, [facility] [address] [id number] [place] [address] Jul, [facility] [address] [id number] [place] [address] Apr, [facility] [address] [id number] [place] [address] December, [facility] [id number] [place] [address] Nov, [facility] [address] [id number] [place] [address] Oct, [facility] [address] [id number] [place] [address] Sep, [facility] [address] [id number] [place] [address] Aug, [facility] [address] [id number] [place] [address] Nov, [facility] [address] [id number] [place] [address] Oct, [facility] [address] [id number] [place] [address] 12 Oct, 2008 IMMUNIZATIONS No Known Immunizations [...]
--- OUTSIDE RECORDS SUMMARY | 2020-02-24 03:02 | XMS REPORT ---
Author Author Shye MCELROY Organization [facility] Address [address] [place] [address] Care Team Providers Care Sustain Engineer Name Role Phone BRO MCELROY Unavailable PROBLEMS Type Condition ICD9-CM Code ZDY93-OU Code Onset Dates Condition S tatus SNOMED Code Problem GERD (gastroesophageal reflux disease) K21.9 Active 639226528 Problem Obesity E66.9 Active 182139674 Problem Knee pain M25.569 Active 90474140 Problem Right knee meniscal tear S83.206A Activ e 578517636 Problem Rib pain R07.81 Active 840977567 Problem Bone spur of foot M77.9 Active 23 [id number] Problem Major depressive disorder, single episode, unspecified F32.9 Active 62315563 Problem Dysthymia F34.1 Active 05094842 Problem Other chronic pain G89.29 Active 8 2739634 Problem Carpal tunnel syndrome, unspecified laterality G56 .00 Active 87134606 Problem Perimenopause N95.1 Active 085795 199933161 Problem Weight gain R63.5 Active 4592526 Problem Continuous leakage of urine N39.45 Ac tive 611323556 Problem Rectocele N81.6 Active 445491961 Problem Fibromyalgia M79.7 Active 4154688 05 Problem Lumbago with sciatica, right side M54.41 Active 913492937 ALLERGIES No Information ENCOUNTERS Encounter Location Date Diagnosis [facility] [address] [facility] [id number] [address] [place] [address] Apr, [facility] [address] [facility] [id number] [address] [place] [address] Apr, Abnormal CBC R79.89 and Lumb ago with sciatica, right side M54.41 [facility] [address] [facility] [id number] [address] [place] [address] Mar, Lumbago with sciatica, right side M54.41 [facility] [address] [id number] [address] [place] [address] Jan, Lumbago with sciatica, right side M54.41 [facility] [address] [id number] [address] [place] [address] December, Exercise counseling Z71.82 [place] [address] [facility] [id number] [address] [place] [address] December, Lumbago with sciatica, right side M54.41 [place] [address] [id number] [address] [place] [address] December, Exercise counseling Z71.82 [place] [address] [facility] [id number] [address] [place] [address] Nov, Colon cancer screening Z12.1 1 [place] [address] [facility] [id number] [address] [place] [address] Nov, Exercise counseling Z71.82 [place] [address] [facility] [id number] [address] [place] [address] Nov, Exercise counseling Z71.82 [place] [address] [facility] [id number] [address] [place] [address] Nov, Lumbago with sciatica, right side M54.41 [place] [address] [facility] [id number] [address] [place] [address] Nov, Exercise counseling Z71.82 [place] [address] [facility] [id number] [address] [place] [address] Nov, [place] [address] [facility] [id number] [address] [place] [address] Nov, Contusion of right knee, seq uela S80.01XS and Lumbago with sciatica, right side M54.41 [place] [address] [facility] [id number] [address] [place] [address] Nov, Exercise counseling Z71.82 [facility] [address] [facility] [id number] [address] [place] [address] Oct, Exercise counseling Z71.82 [facility] [address] [facility] [id number] [address] [place] [address] Oct, Exercise counseling Z71.82 [facility] [address] [facility] [id number] [address] [place] [address] Oct, Lumbago with sciatica, right side M54.41 [facility] [address] [id number] [address] [place] [address] Oct, Exercise counseling Z71.82 [facility] [address] [facility] [id number] [address] [place] [address] Oct, Contusion of right knee, ini tial encounter S80.01XA [facility] [address] [facility] [id number] [address] [place] [address] Oct, Contusion of right knee, ini tial encounter S80.01XA [facility] [address] [id number] [address] [place] [address] Oct, Contusion of right knee, ini tial encounter S80.01XA [facility] [address] [facility] [id number] [address] [place] [address] Oct, Exercise counseling Z71.82 [facility] [address] [facility] [id number] [address] [place] [address] Oct, Lumbago with sciatica, right side M54.41 [facility] [address] [facility] [id number] [address] [place] [address] Oct, Influenza A J10.1 and Fever R50.9 [facility] [address] [facility] [id number] [address] [place] [address] Oct, Exercise counseling Z71.82 [facility] [address] [facility] [id number] [address] [place] [address] Oct, [facility] [address] [address] Sep, Perimenopause N95.1 ; Weight gain R63.5 ; BMI 40.0-44.9, adult Z68.41 and Therapeutic drug monitoring Z51.81 [place] [address] [address] Sep, Lumbago with sciatica, right side M54.41 [place] [address] [address] Aug, Lumbago with sciatica, right side M54.41 [place] [address] [address] Jul, Lumbago with sciatica, right side M54.41 [place] [address] [address] Jul, Lumbago with sciatica, right side M54.41 ; Fibromyalgia M79.7 ; Cold sore B00.1 and Abnormal bruising R23.8 [place] [address] [address] Jul, Lumbago with sciatica, right side M54.41 [place] [address] [address] Jun, Lumbago with sciatica, right side M54.41 [place] [address] [address] Jun, Lumbago with sciatica, right side M54.41 ; Other chronic pain G89.29 and BMI 40.0-44.9, adult Z68.41 [facility] [address] [facility] [id number] [address] [place] [address] May, Acute low back pain, unspeci fied back pain laterality, with sciatica presence unspecified M54.5 [facility] [address] [id number] [address] [place] [address] Jan, Tear of medial meniscus of r ight knee, current, unspecified tear type, subsequent encounter S83.241D [facility] [address] [id number] [address] [place] [address] 30 Nov, 2017 Dysthymia F34.1 ; Weight gai n R63.5 and Acute pain of right knee M25.561 [facility] [address] [facility] [id number] [address] [place] [address] Nov, [facility] [address] [facility] [id number] [address] [place] [address] Nov, Viral illness B34.9 [facility] [address] [facility] [id number] [address] [place] [address] Oct, Viral URI J06.9 [place] [address] [facility] [id number] [address] [place] [address] Jun, Fibromyalgia M79.7 and Recto nadia N81.6 [place] [address] [facility] [id number] [address] [place] [address] May, Weak R53.1 ; Fatigue, unspec ified type R53.83 ; Arthralgia of right knee M25.561 and Hematuria, unspecified type R31.9 [place] [address] [facility] [id number] [address] [place] [address] Apr, Dysthymia F34.1 [place] [address] [facility] [id number] [address] [place] [address] Mar, Hematuria, unspecified type R31.9 ; Acute pain of left knee M25.562 ; Right knee pain M25.561 and Low back pain M54.5 [place] [address] [facility] [id number] [address] [place] [address] Mar, Hematuria, unspecified type R31.9 [place] [address] [place] [id number] [address] [place] [address] 12 Mar, 2017 Acute pain of left knee M25. 562 [place] [address] [address] 05 Mar, 2017 GERD (gastroesophageal reflu x disease) K21.9 ; Continuous leakage of urine N39.45 ; Acute cystitis with hematuria N30.01 and Vaginal discharge N89.8 [place] [address] [address] 13 Jan, 2017 [place] [address] [address] 07 Jan, 2017 Dysthymia F34.1 ; Sore throa t J02.9 ; Costochondritis M94.0 and Breast cancer screening Z12.39 [place] [address] [address] December, [place] [address] [address] 15 Oct, 2016 Gastroenteritis K52.9 [place] [address] [address] Oct, [place] [address] [address] Sep, Weight gain R63.5 ; Major de pressive disorder, single episode, unspecified F32.9 ; Arthralgia, unspecified joint M25.50 ; GERD (gastroesophageal reflux disease) K21.9 and Swelling R60.9 [place] [address] [place] [id number] [address] [place] [address] Aug, [place] [address] [address] Jul, [place] [address] [place] [id number] [place] [address] 09 Jul, 2016 Right knee meniscal tear S83 .206A [place] [address] [place] [address] Jun, [facility] [address] [id number] [address] [place] [address] Jun, Plantar fasciitis M72.2 [facility] [address] [id number] [address] [place] [address] Jun, [facility] [address] [id number] [address] [place] [address] May, Plantar fasciitis M72.2 [facility] [address] [id number] [address] [place] [address] May, [facility] [address] [id number] [address] [place] [address] May, [facility] [address] [id number] [address] [place] [address] Apr, [facility] [address] [id number] [address] [place] [address] Apr, [facility] [address] [id number] [address] [place] [address] Apr, Bone spur of foot M77.9 [facility] [address] [id number] [address] [place] [address] Apr, [facility] [address] [id number] [address] [place] [address] Apr, [facility] [address] [facility] [id number] [address] [place] [address] Apr, GERD (gastroesophageal reflu x disease) K21.9 ; Pain in right foot M79.671 ; Pain of left foot M79.672 and Obesity E66.9 [facility] [address] [facility] [id number] [address] [place] [address] December, Degenerative tear of lateral meniscus of right knee M23.300 [facility] [address] [id number] [address] [place] [address] December, [place] [address] [facility] [id number] [address] [place] [address] December, Weight gain R63.5 ; Right kn ee meniscal tear S83.206A ; Carpal tunnel syndrome, unspecified laterality G56.00 and Rib pain R07.81 [place] [address] [facility] [id number] [address] [place] [address] Nov, Right knee meniscal tear S83 .206A [place] [address] [facility] [id number] [address] [place] [address] Nov, Obesity E66.9 ; Knee pain M2 5.569 and GERD (gastroesophageal reflux disease) K21.9 [place] [address] [place] [id number] [address] [place] [address] Oct, Weight gain R63.5 and Hormon e replacement therapy Z79.890 [place] [id number] [place] [address] Oct, [place] [address] [address] Oct, Right knee pain M25.561 ; Ho rmone replacement therapy Z79.890 and Weight gain R63.5 [place] [address] [address] Sep, Other chronic pain G89.29 an d Eustachian tube dysfunction, right H69.81 [place] [address] [place] [id number] [address] [place] [address] Jul, Hot flashes N95.1 ; Mastodyn ia N64.4 and Sore throat J02.9 [place] [address] [place] [id number] [address] [place] [address] Jun, Acute cystitis with hematuri a N30.01 ; Pain in right axilla M79.601 ; Right foot pain M79.671 and Dysuria R30.0 [place] [address] [place] [id number] [address] [place] [address] 14 May, 2015 Migraines 346.90 [facility] [address] [id number] [address] [place] [address] Apr, Anxiety 300.00 ; Headache 78 4.0 and Varicose vein of leg 454.9 [facility] [address] [id number] [address] [place] [address] Apr, Depressive disorder, not els ewhere classified 311 [facility] [address] [id number] [address] [place] [address] Jan, Tension type headache 339.10 and Breast cancer screening V76.10 [facility] [address] [id number] [address] [place] [address] Nov, [facility] [address] [id number] [address] [place] [address] Nov, [facility] [address] [id number] [address] [place] [address] Jul, [facility] [address] [id number] [address] [place] [address] Jul, [facility] [address] [facility] [id number] [address] [place] [address] Jun, [facility] [address] [id number] [address] [place] [address] Jun, [facility] [address] [id number] [address] [place] [address] Apr, [facility] [address] [id number] [address] [place] [address] Apr, [facility] [address] [id number] [address] [place] [address] Jan, [facility] [address] [id number] [address] [place] [address] Jan, [facility] [address] [id number] [address] [place] [address], [place] [address] December, [facility] [address] [id number] [address] [place] [address], [place] [address] December, [facility] [address] [id number] [address] [place] [address], [place] [address] December, [facility] [address] [id number] [address] [place] [address], [place] [address] December, [facility] [address] [id number] [address] [place] [address], [place] [address] Nov, [facility] [address] [id number] [address] [place] [address], [place] [address] Nov, [facility] [address] [id number] [address] [place] [address], [place] [address] Nov, [facility] [address] [id number] [address] [place] [address], [place] [address] Nov, [facility] [address] [id number] [address] [place] [address], [place] [address] Oct, [facility] [address] [id number] [address] [place] [address], [place] [address] Oct, [facility] [address] [id number] [address] [place] [address], [place] [address] Aug, [facility] [address] [id number] [address] [place] [address], [place] [address] Aug, [facility] [address] [id number] [address] [place] [address], [place] [address] Mar, [facility] [address] [id number] [address] [place] [address], [place] [address] Mar, [facility] [address] [id number] [address] [place] [address], [place] [address] Mar, [facility] [address] [id number] [address] [place] [address], [place] [address] Sep, [facility] [address] [id number] [address] [place] [address] Sep, [facility] [address] [id number] [address] [place] [address] Sep, [facility] [address] [id number] [address] [place] [address] Aug, [facility] [address] [id number] [address] [place] [address] Jun, [facility] [address] [id number] [address] [place] [address] December, [facility] [address] [id number] [address] [place] [address] Jul, [facility] [address] [id number] [address] [place] [address] Apr, [facility] [address] [id number] [address] [place] [address] December, [facility] [address] [id number] [address] [place] [address] Nov, [facility] [address] [id number] [address] [place] [address] Oct, [facility] [address] [id number] [address] [place] [address] Sep, [facility] [address] [id number] [address] [place] [address] Aug, [facility] [address] [id number] [address] [place] [address] 15 Nov, 2008 [facility] [address] [id number] [address] [place] [address] Oct, [facility] [address] [id number] [address] [place] [address] 12 Oct, 2008 IMMUNIZATIONS No Known Immunizations [...]
--- OUTSIDE RECORDS SUMMARY | 2020-02-24 03:02 | XMS REPORT ---
Author Author Shey MCELROY Organization [facility] Address [address] [place] [address] Care Team Providers Care Advertising Executive Name Role Phone BRO MCELROY Unavailable PROBLEMS Type Condition ICD9-CM Code XWK67-QH Code Onset Dates Condition S tatus SNOMED Code Problem GERD (gastroesophageal reflux disease) K21.9 Active 790381710 Problem Obesity E66.9 Active 380859406 Problem Knee pain M25.569 Active 92376026 Problem Right knee meniscal tear S83.206A Activ e 150764660 Problem Rib pain R07.81 Active 012564064 Problem Bone spur of foot M77.9 Active 23 9070335191128 Problem Major depressive disorder, single episode, unspecified F32.9 Active 34547288 Problem Dysthymia F34.1 Active 49135357 Problem Other chronic pain G89.29 Active 8 7172168 Problem Carpal tunnel syndrome, unspecified laterality G56 .00 Active 04871111 Problem Perimenopause N95.1 Active 934435 771476701 Problem Weight gain R63.5 Active 0114788 Problem Continuous leakage of urine N39.45 Ac tive 809504021 Problem Rectocele N81.6 Active 497705224 Problem Fibromyalgia M79.7 Active 0887542 05 Problem Lumbago with sciatica, right side M54.41 Active 421259118 ALLERGIES No Information ENCOUNTERS Encounter Location Date Diagnosis [facility] [address] [facility] [id number] [address] [place] [address] Apr, Lumbago with sciatica, right side M54.41 [facility] [address] [facility] [id number] [address] [place] [address] Apr, Abnormal CBC R79.89 and Lumb ago with sciatica, right side M54.41 [facility] [address] [facility] [id number] [address] [place] [address] Mar, Lumbago with sciatica, right side M54.41 [facility] [address] [facility] [id number] [address] [place] [address] Jan, Lumbago with sciatica, right side M54.41 [facility] [address] [facility] [id number] [address] [place] [address] December, Exercise counseling Z71.82 [facility] [address] [facility] [id number] [address] [place] [address] December, Lumbago with sciatica, right side M54.41 [place] [address] [facility] [id number] [address] [place] [address] December, Exercise counseling Z71.82 [place] [address] [place] [id number] [address] [place] [address] Nov, Colon cancer screening Z12.1 1 [place] [address] [facility] [id number] [address] [place] [address] Nov, Exercise counseling Z71.82 [place] [address] [facility] [id number] [address] [place] [address] Nov, Exercise counseling Z71.82 [place] [address] [facility] [id number] [address] [place] [address] Nov, Lumbago with sciatica, right side M54.41 [place] [address] [facility] [id number] [address] [place] [address] Nov, Exercise counseling Z71.82 [place] [address] [facility] [id number] [address] [place] [address] Nov, [place] [address] [place] [id number] [address] [place] [address] Nov, Contusion of right knee, seq uela S80.01XS and Lumbago with sciatica, right side M54.41 [facility] [address] [facility] [id number] [address] [place] [address] Nov, Exercise counseling Z71.82 [place] [address] [facility] [id number] [address] [place] [address] Oct, Exercise counseling Z71.82 [place] [address] [facility] [id number] [address] [place] [address] Oct, Exercise counseling Z71.82 [place] [address] [place] [id number] [address] [place] [address] Oct, Lumbago with sciatica, right side M54.41 [place] [address] [facility] [id number] [address] [place] [address] Oct, Exercise counseling Z71.82 [place] [address] [place] [id number] [address] [place] [address] Oct, Contusion of right knee, ini tial encounter S80.01XA [place] [address] [place] [id number] [address] [place] [address] Oct, Contusion of right knee, ini tial encounter S80.01XA [place] [address] [address] Oct, Contusion of right knee, ini tial encounter S80.01XA [place] [address] [place] [id number] [address] [place] [address] Oct, Exercise counseling Z71.82 [place] [address] [place] [id number] [address] [place] [address] Oct, Lumbago with sciatica, right side M54.41 [facility] [address] [place] [id number] [address] [place] [address] Oct, Influenza A J10.1 and Fever R50.9 [place] [address] [place] [id number] [address] [place] [address] Oct, Exercise counseling Z71.82 [place] [address] [address] Oct, [place] [address] [address] Sep, Perimenopause N95.1 ; Weight gain R63.5 ; BMI 40.0-44.9, adult Z68.41 and Therapeutic drug monitoring Z51.81 [place] [address] [address] Sep, Lumbago with sciatica, right side M54.41 [place] [address] [address] Aug, Lumbago with sciatica, right side M54.41 [place] [address] [address] Jul, Lumbago with sciatica, right side M54.41 [place] [address] [address] Jul, Lumbago with sciatica, right side M54.41 ; Fibromyalgia M79.7 ; Cold sore B00.1 and Abnormal bruising R23.8 [place] [address] [address] Jul, Lumbago with sciatica, right side M54.41 [place] [address] [address] Jun, Lumbago with sciatica, right side M54.41 [place] [address] [address] Jun, Lumbago with sciatica, right side M54.41 ; Other chronic pain G89.29 and BMI 40.0-44.9, adult Z68.41 [facility] [address] [place] [id number] [address] [place] [address] May, Acute low back pain, unspeci fied back pain laterality, with sciatica presence unspecified M54.5 [facility] [address] [id number] [address] [place] [address] Jan, Tear of medial meniscus of r ight knee, current, unspecified tear type, subsequent encounter S83.241D [place] [id number] [facility] [id number] [address] [place] [address] Nov, Dysthymia F34.1 ; Weight gai n R63.5 and Acute pain of right knee M25.561 [place] [address] [facility] [id number] [address] [place] [address] Nov, [place] [address] [facility] [id number] [address] [place] [address] Nov, Viral illness B34.9 [facility] [address] [facility] [id number] [address] [place] [address] Oct, Viral URI J06.9 [place] [address] [facility] [id number] [address] [place] [address] Jun, Fibromyalgia M79.7 and Recto nadia N81.6 [place] [address] [facility] [id number] [address] [place] [address] May, Weak R53.1 ; Fatigue, unspec ified type R53.83 ; Arthralgia of right knee M25.561 and Hematuria, unspecified type R31.9 [place] [address] [facility] [id number] [address] [place] [address] Apr, Dysthymia F34.1 [place] [address] [facility] [id number] [address] [place] [address] Mar, Hematuria, unspecified type R31.9 ; Acute pain of left knee M25.562 ; Right knee pain M25.561 and Low back pain M54.5 [place] [address] [facility] [id number] [address] [place] [address] Mar, Hematuria, unspecified type R31.9 [place] [address] [facility] [id number] [address] [place] [address] 12 Mar, 2017 Acute pain of left knee M25. 562 [place] [address] [place] [id number] [address] [place] [address] 05 Mar, 2017 GERD (gastroesophageal reflu x disease) K21.9 ; Continuous leakage of urine N39.45 ; Acute cystitis with hematuria N30.01 and Vaginal discharge N89.8 [place] [address] [place] [id number] [address] [place] [address] 13 Jan, 2017 [place] [address] [place] [id number] [place] [address] Jan, Dysthymia F34.1 ; Sore throa t J02.9 ; Costochondritis M94.0 and Breast cancer screening Z12.39 [place] [id number] [place] [address] December, [place] [address] [place] [id number] [address] [place] [address] 15 Oct, 2016 Gastroenteritis K52.9 [place] [address] [place] [id number] [address] [place] [address] Oct, [place] [address] [place] [id number] [address] [place] [address] Sep, Weight gain R63.5 ; Major de pressive disorder, single episode, unspecified F32.9 ; Arthralgia, unspecified joint M25.50 ; GERD (gastroesophageal reflux disease) K21.9 and Swelling R60.9 [place] [address] [place] [id number] [address] [place] [address] Aug, [place] [address] [place] [id number] [address] [place] [address] Jul, [place] [address] [place] [id number] [address] [place] [address] Jul, Right knee meniscal tear S83 .206A [facility] [address] [id number] [address] [place] [address] Jun, [facility] [address] [id number] [address] [place] [address] Jun, Plantar fasciitis M72.2 [facility] [address] [id number] [address] [place] [address] Jun, [facility] [address] [id number] [address] [place] [address] May, Plantar fasciitis M72.2 [facility] [address] [id number] [address] [place] [address] May, [facility] [address] [id number] [address] [place] [address] May, [facility] [address] [id number] [address] [place] [address] Apr, [facility] [address] [id number] [address] [place] [address] Apr, [facility] [address] [id number] [address] [place] [address] Apr, Bone spur of foot M77.9 [facility] [address] [id number] [address] [place] [address] Apr, [facility] [address] [id number] [address] [place] [address] Apr, [facility] [address] [id number] [address] [place] [address] Apr, GERD (gastroesophageal reflu x disease) K21.9 ; Pain in right foot M79.671 ; Pain of left foot M79.672 and Obesity E66.9 [facility] [address] [id number] [address] [place] [address] December, Degenerative tear of lateral meniscus of right knee M23.300 [facility] [address] [id number] [address] [place] [address] December, [place] [address] [facility] [id number] [place] [address] December, Weight gain R63.5 ; Right kn ee meniscal tear S83.206A ; Carpal tunnel syndrome, unspecified laterality G56.00 and Rib pain R07.81 [place] [address] [facility] [id number] [address] [place] [address] Nov, Right knee meniscal tear S83 .206A [place] [address] [facility] [id number] [place] [address] Nov, Obesity E66.9 ; Knee pain M2 5.569 and GERD (gastroesophageal reflux disease) K21.9 [place] [address] [facility] [id number] [place] [address] Oct, Weight gain R63.5 and Hormon e replacement therapy Z79.890 [place] [address] [place] [id number] [place] [address] Oct, [place] [address] [place] [id number] [place] [address] Oct, Right knee pain M25.561 ; Ho rmone replacement therapy Z79.890 and Weight gain R63.5 [place] [address] [place] [id number] [place] [address] Sep, Other chronic pain G89.29 an d Eustachian tube dysfunction, right H69.81 [place] [address] [place] [id number] [address] [place] [address] Jul, Hot flashes N95.1 ; Mastodyn ia N64.4 and Sore throat J02.9 [place] [address] [place] [id number] [address] [place] [address] Jun, Acute cystitis with hematuri a N30.01 ; Pain in right axilla M79.601 ; Right foot pain M79.671 and Dysuria R30.0 [facility] [address] [id number] [address] [place] [address] 14 May, 2015 Migraines 346.90 [facility] [address] [id number] [address] [place] [address] 11 Apr, 2015 Anxiety 300.00 ; Headache 78 4.0 and Varicose vein of leg 454.9 [facility] [address] [facility] [id number] [address] [place] [address] Apr, Depressive disorder, not els ewhere classified 311 [facility] [address] [facility] [id number] [address] [place] [address] Jan, Tension type headache 339.10 and Breast cancer screening V76.10 [facility] [address] [facility] [id number] [address] [place] [address] Nov, [facility] [address] [facility] [id number] [address] [place] [address] Nov, [facility] [address] [facility] [id number] [address] [place] [address] Jul, [facility] [address] [facility] [id number] [address] [place] [address] Jul, [facility] [address] [facility] [id number] [address] [place] [address] Jun, [facility] [address] [id number] [address] [place] [address] Jun, [facility] [address] [id number] [address] [place] [address] Apr, [facility] [address] [facility] [id number] [address] [place] [address] Apr, [facility] [address] [facility] [id number] [address] [place] [address] Jan, [facility] [address] [id number] [address] [place] [address] Jan, [facility] [address] [id number] [address] [place] [address], [place] [address] December, [facility] [address] [id number] [address] [place] [address], [place] [address] December, [facility] [address] [id number] [address] [place] [address], [place] [address] December, [facility] [address] [id number] [address] [place] [address], [place] [address] December, [facility] [address] [id number] [address] [place] [address], [place] [address] Nov, [facility] [address] [id number] [address] [place] [address], [place] [address] Nov, [facility] [address] [id number] [address] [place] [address], [place] [address] Nov, [facility] [address] [id number] [address] [place] [address], [place] [address] Nov, [facility] [address] [id number] [address] [place] [address], [place] [address] Oct, [facility] [address] [id number] [address] [place] [address], [place] [address] Oct, [facility] [address] [id number] [address] [place] [address], [place] [address] Aug, [facility] [address] [id number] [address] [place] [address], [place] [address] Aug, [facility] [address] [id number] [address] [place] [address], [place] [address] Mar, [facility] [address] [id number] [address] [place] [address], [place] [address] Mar, [facility] [address] [id number] [address] [place] [address], [place] [address] Mar, [facility] [address] [id number] [address] [place] [address] Sep, [facility] [address] [id number] [address] [place] [address] Sep, [facility] [address] [id number] [address] [place] [address] Sep, [facility] [address] [id number] [address] [place] [address] Aug, [facility] [address] [id number] [address] [place] [address] Jun, [facility] [address] [id number] [address] [place] [address], [place] [address] December, [facility] [address] [id number] [address] [place] [address] Jul, [facility] [address] [id number] [address] [place] [address] Apr, [facility] [address] [id number] [address] [place] [address] December, [facility] [address] [id number] [address] [place] [address] 13 Nov, 2009 [facility] [address] [id number] [address] [place] [address] Oct, [facility] [address] [id number] [address] [place] [address] Sep, [facility] [address] [id number] [address] [place] [address] Aug, [facility] [address] [id number] [address] [place] [address] 15 Nov, 2008 [facility] [address] [id number] [address] [place] [address] Oct, [facility] [address] [id number] [address] [place] [address] 12 Oct, 2008 IMMUNIZATIONS No Known Immunizations SOCIAL HISTORY Never Assessed REASON FOR VISIT Controlled 11/23 PLAN OF CARE VITAL SIGNS MEDICATIONS Medication Instructions Dosage Frequency Start Date End Date Duration S bisi Hydrocodone-Acetaminophen 7.5-325 MG Orally at bedtime 1 tablet Oct, 28 days Active RESULTS No Results PROCEDURES No Known procedures [...]
--- OUTSIDE RECORDS SUMMARY | 2020-02-24 03:02 | XMS REPORT ---
Author Author Shey MCELROY Organization [facility] Address [address] [place] [address] Care Team Providers [facility] Professor Name Role Phone BRO MCELROY Unavailable PROBLEMS Type Condition ICD9-CM Code LLJ40-FM Code Onset Dates Condition S tatus SNOMED Code Problem GERD (gastroesophageal reflux disease) K21.9 Active 021517644 Problem Obesity E66.9 Active 586028958 Problem Knee pain M25.569 Active 38308655 Problem Right knee meniscal tear S83.206A Activ e 726820392 Problem Rib pain R07.81 Active 717519091 Problem Bone spur of foot M77.9 Active 23 [id number] Problem Major depressive disorder, single episode, unspecified F32.9 Active 34600480 Problem Dysthymia F34.1 Active 64126158 Problem Other chronic pain G89.29 Active 8 8706837 Problem Carpal tunnel syndrome, unspecified laterality G56 .00 Active 99391521 Problem Perimenopause N95.1 Active 860753 351012756 Problem Weight gain R63.5 Active 1003833 Problem Continuous leakage of urine N39.45 Ac tive 745653354 Problem Rectocele N81.6 Active 891957497 Problem Fibromyalgia M79.7 Active 5662840 05 Problem Lumbago with sciatica, right side M54.41 Active [id number] ALLERGIES No Information ENCOUNTERS Encounter Location Date Diagnosis [facility] [id number] [place] [address] Oct, [facility] [id number] [place] [address] Oct, [facility] [id number] [place] [address] Aug, Lumbago with sciatica, right side M54.41 [place] [address] [address] Jul, Lumbago with sciatica, right side M54.41 [place] [address] [address] Jul, Low back pain M54.5 ; Other chronic pain G89.29 ; Weakness of both legs R29.898 and Weight loss R63.4 [place] [address] [address] Jun, Lumbago with sciatica, right side M54.41 [place] [address] [address] Jun, Lumbago with sciatica, right side M54.41 [place] [address] [address] May, Lumbago with sciatica, right side M54.41 [place] [address] [address] Apr, Lumbago with sciatica, right side M54.41 [place] [address] [address] Apr, Abnormal CBC R79.89 and Lumbago with sci atica, right side M54.41 [place] [address] [address] Mar, Lumbago with sciatica, right side M54.41 [place] [address] [address] Jan, Lumbago with sciatica, right side M54.41 [place] [address] [address] December, Exercise counseling Z71.[address] [address] December, Lumbago with sciatica, right side M54.41 [place] [address] [address] December, Exercise counseling Z71.82 [place] [address] [address] Nov, Colon cancer screening Z12.11 [place] [address] [address] Nov, Exercise counseling Z71.82 [place] [address] [address] Nov, Exercise counseling Z71.82 [place] [address] [address] Nov, Lumbago with sciatica, right side M54.41 [place] [address] [address] Nov, Exercise counseling Z71.82 [place] [address] [address] Nov, [place] [address] [address] Nov, Contusion of right knee, sequela S80.01X S and Lumbago with sciatica, right side M54.41 [place] [address] [address] Nov, Exercise counseling Z71.82 [place] [address] [address] Oct, Exercise counseling Z71.82 [place] [address] [address] Oct, Exercise counseling Z71.82 [place] [address] [address] Oct, Lumbago with sciatica, right side M54.41 [place] [address] [address] Oct, Exercise counseling Z71.82 [place] [address] [address] Oct, Contusion of right knee, initial encount er S80.01XA [place] [address] [address] Oct, Contusion of right knee, initial encount er S80.01XA [place] [address] [address] Oct, Contusion of right knee, initial encount er S80.01XA [place] [address] [address] Oct, Exercise counseling Z71.82 [place] [address] [address] Oct, Lumbago with sciatica, right side M54.41 [facility] WALK IN [facility] [address] [facility] [id number] [place] [address] Oct, Influenza A J10.1 and Fever R50.9 [place] [address] [address] Oct, Exercise counseling Z71.82 [address] [address] [address] Oct, [place] [address] [address] Sep, Perimenopause N95.1 ; Weight gain R63.5 ; BMI 40.0-44.9, adult Z68.41 and Therapeutic drug monitoring Z51.81 [place] [address] [address] Sep, Lumbago with sciatica, right side M54.41 [place] [address] [address] Aug, Lumbago with sciatica, right side M54.41 [place] [address] [address] Jul, Lumbago with sciatica, right side M54.41 [place] [address] [address] Jul, Lumbago with sciatica, right side M54.41 ; Fibromyalgia M79.7 ; Cold sore B00.1 and Abnormal bruising R23.8 [place] [address] [address] Jul, Lumbago with sciatica, right side M54.41 [place] [address] [address] Jun, Lumbago with sciatica, right side M54.41 [place] [address] [address] Jun, Lumbago with sciatica, right side M54.41 ; Other chronic pain G89.29 and BMI 40.0-44.9, adult Z68.41 [facility] WALK IN [address] [address] May, Acute low back pain, unspeci fied back pain laterality, with sciatica presence unspecified M54.5 [place] [address] [address] Jan, Tear of medial meniscus of right knee, addi aguayo, unspecified tear type, subsequent encounter S83.241D [place] [address] [address] Nov, Dysthymia F34.1 ; Weight gain R63.5 and Acute pain of right knee M25.561 [place] [address] [address] Nov, [place] [address] [address] Nov, Viral illness B34.9 [facility] W[facility] IN CARE [facility] [id number] [place] [address] Oct, Viral URI J06.9 [place] [address] [address] Jun, Fibromyalgia M79.7 and Rectocele N81.6 [place] [address] [address] May, Weak R53.1 ; Fatigue, unspecified type R 53.83 ; Arthralgia of right knee M25.561 and Hematuria, unspecified type R31.9 [place] [address] [address] Apr, Dysthymia F34.[address] [address] Mar, Hematuria, unspecified type R31.9 ; Acut e pain of left knee M25.562 ; Right knee pain M25.561 and Low back pain M54.[address] [address] Mar, Hematuria, unspecified type R31.9 [place] [address] [address] Mar, Acute pain of left knee M25.[address] [address] Mar, GERD (gastroesophageal reflux disease) K 21.9 ; Continuous leakage of urine N39.45 ; Acute cystitis with hematuria N30.01 and Vaginal discharge N89.8 [place] [address] [address] Jan, [address] [address] Jan, Dysthymia F34.1 ; Sore throat J02.9 ; Co stochondritis M94.0 and Breast cancer screening Z12.[address] [address] December, [address] [address] Oct, Gastroenteritis K52.9 [facility] [address] [address] Oct, [facility] [address] [address] Sep, Weight gain R63.5 ; Major depressive dis order, single episode, unspecified F32.9 ; Arthralgia, unspecified joint M25.50 ; GERD (gastroesophageal reflux disease) K21.9 and Swelling R60.9 [facility] [address] [address] Aug, [facility] [address] [address] Jul, [facility] [address] [address] Jul, Right knee meniscal tear S83.206A [facility] [address] [address] Jun, [facility] [address] [address] Jun, Plantar fasciitis M72.2 [facility] [address] [address] Jun, [facility] [address] [address] May, Plantar fasciitis M72.2 [facility] [address] [address] May, [facility] [address] [address] May, [facility] [address] [address] Apr, [facility] [address] [address] Apr, [facility] [address] [address] Apr, Bone spur of foot M77.9 [address] [address] [address] Apr, [place] [address] [address] Apr, [place] [address] [address] Apr, GERD (gastroesophageal reflux disease) K 21.9 ; Pain in right foot M79.671 ; Pain of left foot M79.672 and Obesity E66.9 [place] [address] [address] December, Degenerative tear of lateral meniscus of right knee M23.300 [address] [address] [address] December, [place] [address] [address] December, Weight gain R63.5 ; Right knee meniscal tear S83.206A ; Carpal tunnel syndrome, unspecified laterality G56.00 and Rib pain R07.81 [address] [address] [address] Nov, Right knee meniscal tear S83.206A [address] [address] [address] Nov, Obesity E66.9 ; Knee pain M25.[address] (gastroesophageal reflux disease) K21.9 [address] [address] [address] Oct, Weight gain R63.5 and Hormone replacemen t therapy Z79.890 [address] [address] [address] Oct, [address] [address] [address] Oct, Right knee pain M25.561 ; Hormone replac ement therapy Z79.890 and Weight gain R63.5 [address] [place] [address] [address] Sep, Other chronic pain G89.29 and Eustachian tube dysfunction, right H69.81 [address] [address] [address] 17 Jul, 2015 Hot flashes N95.1 ; Mastodynia N64.4 and Sore throat J02.9 [address] [address] [address] Jun, Acute cystitis with hematuria N30.01 ; P ain in right axilla M79.601 ; Right foot pain M79.671 and Dysuria R30.0 [address] [address] [address] 14 May, [address] [address] Apr, Anxiety 300.00 ; Headache 784.0 and 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 [place] [address] Jun, [facility] [address] [id number] [place] [address] Apr, [facility] [address] [id number] [place] [address] Apr, [facility] [address] [id number] [place] [address] Jan, [facility] [address] [id number] [place] [address] Jan, [facility] [address] [id number] [place] [address] December, [facility] [address] [id number] [place] [address] December, [facility] [address] [id number] [place] [address] December, [facility] [address] [id number] [place] [address] December, [facility] [address] [id number] [place] [address] Nov, [facility] [address] [id number] [place] [address] Nov, [facility] [address] [id number] [place] [address] Nov, [facility] [address] [id number] [place] [address] Nov, [facility] [address] [id number] [place] [address] Oct, [facility] [address] [id number] [place] [address] Oct, [facility] [address] [id number] [place] [address] Aug, [facility] [address] [id number] [place] [address] Aug, [facility] [address] [id number] [place] [address] Mar, [facility] [address] [id number] [place] [address] Mar, [facility] [address] [id number] [place] [address] Mar, [facility] [address] [id number] [place] [address] Sep, [facility] [address] [id number] [place] [address] Sep, [facility] [address] [id number] [place] [address] Sep, [facility] [address] [id number] [place] [address] Aug, [facility] [address] [id number] [place] [address] Jun, [facility] [address] [id number] [place] [address] December, [facility] [address] [id number] [place] [address] Jul, [facility] [address] [id number] [place] [address] Apr, [facility] [address] [id number] [place] [address] December, [facility] [address] [id number] [place] [address] Nov, [facility] [address] [id number] [place] [address] Oct, [facility] [address] [id number] [place] [address] Sep, [facility] [address] [id number] [place] [address] Aug, [facility] [address] [id number] [place] [address] 15 Nov, 2008 [facility] [address] [id number] [place] [address] Oct, [facility] [address] [id number] [place] [address] Oct, IMMUNIZATIONS No Known Immunizations SOCIAL HISTORY Never Assessed REASON FOR VISIT PLAN OF CARE VITAL SIGNS Height 64 in 2014-02-23 Weight 218.8 lbs 2014-02-23 Temperature 97.5 degrees Fahrenheit 2014-02-23 Heart Rate 80 bpm 2014-02-23 Respiratory Rate 18 2014-02-23 Blood pressure systolic 138 mmHg 2014-02-23 Blood pressure diastolic 80 mmHg 2014-02-23 MEDICATIONS Unknown Medications RESULTS No Results PROCEDURES [...]
--- OUTSIDE RECORDS SUMMARY | 2020-02-24 03:02 | XMS REPORT ---
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 Role Phone BRO MCELROY Unavailable PROBLEMS Type Condition ICD9-CM Code EUA52-UA Code Onset Dates Condition S tatus SNOMED Code Problem Obesity E66.9 Active 662171842 Problem Knee pain M25.569 Active 49630715 Problem Rib pain R07.81 Active 953057523 Problem GERD (gastroesophageal reflux disease) K21.9 Active 555489015 Problem Weight gain R63.5 Active 0873337 Problem Right knee meniscal tear S83.206A Activ e 740684040 Problem Major depressive disorder, single episode, unspecified F32.9 Active 16347928 Problem Dysthymia F34.1 Active 57803339 Problem Continuous leakage of urine N39.45 Ac tive 330614250 Problem Perimenopause N95.1 Active 547860 933598724 Problem Bone spur of foot M77.9 Active 23 6035552541001 Problem Chronic fatigue R53.82 Active 5270 2003 Problem Carpal tunnel syndrome, unspecified laterality G56 .00 Active 13507117 Problem Rectocele N81.6 Active 465925687 Problem Fibromyalgia M79.7 Active 0751978 05 Problem Lumbago with sciatica, right side M54.41 Active 296246233 Problem Other chronic pain G89.29 Active 8 [id number] ALLERGIES No Information ENCOUNTERS Encounter Location Date Diagnosis [facility] [id number] [place] [address] Oct, [facility] [address] [address] Oct, [facility] [address] [id number] [place] [address] Sep, Dysthymia F34.1 ; Other chronic pain G89 .29 ; Lumbago with sciatica, right side M54.41 ; Myalgia M79.10 ; Lipid screening Z13.220 and Chronic fatigue R53.82 [address] [place] [address] [address] Sep, Lumbago with sciatica, right side M54.41 [place] [address] [address] Aug, Lumbago with sciatica, right side M54.41 [place] [address] [address] Jul, Lumbago with sciatica, right side M54.41 [place] [address] [address] Jul, Low back pain M54.5 ; Other chronic pain G89.29 ; Weakness of both legs R29.898 and Weight loss R63.4 [place] [address] [address] Jun, Lumbago with sciatica, right side M54.41 [place] [address] [address] Jun, Lumbago with sciatica, right side M54.41 [place] [address] [address] May, Lumbago with sciatica, right side M54.41 [place] [address] [address] Apr, Lumbago with sciatica, right side M54.41 [place] [address] [address] Apr, Abnormal CBC R79.89 and Lumbago with sci atica, right side M54.41 [place] [address] [address] Mar, Lumbago with sciatica, right side M54.41 [place] [address] [address] Jan, Lumbago with sciatica, right side M54.41 [place] [address] [address] December, Exercise counseling Z71.82 [place] [address] [address] December, Lumbago with sciatica, right side M54.41 [place] [address] [address] December, Exercise counseling Z71.82 [place] [address] [address] Nov, Colon cancer screening Z12.11 [place] [address] [address] Nov, Exercise counseling Z71.82 [place] [address] [address] Nov, Exercise counseling Z71.82 [place] [address] [address] Nov, Lumbago with sciatica, right side M54.41 [place] [address] [address] Nov, Exercise counseling Z71.82 [place] [address] [address] Nov, [place] [address] [address] Nov, Contusion of right knee, sequela S80.01X S and Lumbago with sciatica, right side M54.41 [place] [address] [address] Nov, Exercise counseling Z71.82 [place] [address] [address] Oct, Exercise counseling Z71.82 [place] [address] [address] Oct, Exercise counseling Z71.82 [place] [address] [address] Oct, Lumbago with sciatica, right side M54.41 [place] [address] [address] Oct, Exercise counseling Z71.82 [place] [address] [address] Oct, Contusion of right knee, initial encount er S80.01XA [place] [address] [address] Oct, Contusion of right knee, initial encount er S80.01XA [place] [address] [address] Oct, Contusion of right knee, initial encount er S80.01XA [place] [address] [address] Oct, Exercise counseling Z71.82 [place] [address] [address] Oct, Lumbago with sciatica, right side M54.41 [facility] [address] [facility] [id number] [place] [address] Oct, Influenza A J10.1 and Fever R50.9 [place] [address] [address] Oct, Exercise counseling Z71.82 [address] [address] [address] Oct, [place] [address] [address] Sep, Perimenopause N95.1 ; Weight gain R63.5 ; BMI 40.0-44.9, adult Z68.41 and Therapeutic drug monitoring Z51.81 [place] [address] [address] Sep, Lumbago with sciatica, right side M54.41 [place] [address] [address] Aug, Lumbago with sciatica, right side M54.41 [place] [address] [address] Jul, Lumbago with sciatica, right side M54.41 [place] [address] [address] Jul, Lumbago with sciatica, right side M54.41 ; Fibromyalgia M79.7 ; Cold sore B00.1 and Abnormal bruising R23.8 [place] [address] [address] Jul, Lumbago with sciatica, right side M54.41 [place] [address] [address] Jun, Lumbago with sciatica, right side M54.41 [place] [address] [address] Jun, Lumbago with sciatica, right side M54.41 ; Other chronic pain G89.29 and BMI 40.0-44.9, adult Z68.41 [facility] [address] [facility] [id number] [place] [address] May, Acute low back pain, unspeci fied back pain laterality, with sciatica presence unspecified M54.5 [place] [address] [address] Jan, Tear of medial meniscus of right knee, addi aguayo, unspecified tear type, subsequent encounter S83.241D [place] [address] [address] Nov, Dysthymia F34.1 ; Weight gain R63.5 and Acute pain of right knee M25.561 [place] [address] [address] Nov, [place] [address] [address] Nov, Viral illness B34.9 [facility] [address] [facility] [id number] [address] [place] [address] Oct, Viral URI J06.9 [place] [address] [address] Jun, Fibromyalgia M79.7 and Rectocele N81.6 [place] [address] [address] May, Weak R53.1 ; Fatigue, unspecified type R 53.83 ; Arthralgia of right knee M25.561 and Hematuria, unspecified type R31.9 [place] [address] [address] Apr, Dysthymia F34.1 [place] [address] [address] Mar, Hematuria, unspecified type R31.9 ; Acut e pain of left knee M25.562 ; Right knee pain M25.561 and Low back pain M54.5 [place] [address] [address] Mar, Hematuria, unspecified type R31.9 [place] [address] [address] Mar, Acute pain of left knee M25.562 [place] [address] [address] Mar, GERD (gastroesophageal reflux disease) K 21.9 ; Continuous leakage of urine N39.45 ; Acute cystitis with hematuria N30.01 and Vaginal discharge N89.8 [place] [address] [address] Jan, [facility] [address] [address] Jan, Dysthymia F34.1 ; Sore throat J02.9 ; Co stochondritis M94.0 and Breast cancer screening Z12.39 [facility] [address] [address] December, [facility] [address] [address] Oct, Gastroenteritis K52.9 [facility] [address] [address] Oct, [facility] [address] [address] Sep, Weight gain R63.5 ; Major depressive dis order, single episode, unspecified F32.9 ; Arthralgia, unspecified joint M25.50 ; GERD (gastroesophageal reflux disease) K21.9 and Swelling R60.9 [place] [address] [address] Aug, [place] [address] [address] Jul, [place] [address] [address] Jul, Right knee meniscal tear S83.206A [place] [address] [address] Jun, [facility] [address] [address] Jun, Plantar fasciitis M72.2 [place] [address] [address] Jun, [facility] [address] [address] May, Plantar fasciitis M72.2 [place] [address] [address] May, [facility] [address] [address] May, [facility] [address] [address] Apr, [facility] [address] [address] Apr, [facility] [address] [address] Apr, Bone spur of foot M77.9 [address] [address] [address] Apr, [place] [address] [address] Apr, [place] [address] [address] Apr, GERD (gastroesophageal reflux disease) K 21.9 ; Pain in right foot M79.671 ; Pain of left foot M79.672 and Obesity E66.9 [place] [address] [address] December, Degenerative tear of lateral meniscus of right knee M23.300 [address] [address] [address] December, [place] [address] [address] December, Weight gain R63.5 ; Right knee meniscal tear S83.206A ; Carpal tunnel syndrome, unspecified laterality G56.00 and Rib pain R07.81 [place] [address] [address] Nov, Right knee meniscal tear S83.206A [place] [address] [address] Nov, Obesity E66.9 ; Knee pain M25.[address] (gastroesophageal reflux disease) K21.9 [address] [address] [address] Oct, Weight gain R63.5 and Hormone replacemen t therapy Z79.890 [address] [address] Oct, [place] [address] [address] Oct, Right knee pain M25.561 ; Hormone replac ement therapy Z79.890 and Weight gain R63.5 [address] [address] [address] Sep, Other chronic pain G89.29 and Eustachian tube dysfunction, right H69.81 [address] [address] Jul, Hot flashes N95.1 ; Mastodynia N64.4 and Sore throat J02.9 [address] [address] [address] Jun, Acute cystitis with hematuria N30.01 ; P ain in right axilla M79.601 ; Right foot pain M79.671 and Dysuria R30.0 [address] [address] [address] 14 May, [address] [address] Apr, Anxiety 300.00 ; Headache 784.0 and Vari cose vein of leg 454.[address] [address] Apr, Depressive disorder, not elsewhere class ified [address] [address] 24 Jan, 2015 Tension type headache 339.10 and Breast cancer screening V76.[address] [address] 14 Nov, 2014 [facility] [address] [facility] [id number] [place] [address] Nov, [facility] [address] [id number] [place] [address] Jul, [facility] [address] [id number] [place] [address] Jul, [facility] [address] [id number] [place] [address] Jun, [facility] [address] [facility] [id number] [place] [address] Jun, [facility] [address] [id number] [place] [address] Apr, [facility] [address] [id number] [place] [address] Apr, [facility] [address] [id number] [place] [address] Jan, [facility] [address] [id number] [place] [address] Jan, [facility] [address] [id number] [place] [address] December, [facility] [address] [id number] [place] [address] December, [facility] [address] [id number] [place] [address] December, [facility] [address] [id number] [place] [address] December, [facility] [address] [id number] [place] [address] Nov, [facility] [address] [id number] [place] [address] Nov, [facility] [address] [id number] [place] [address] Nov, [facility] [address] [id number] [place] [address] Nov, [facility] [address] [id number] [place] [address] Oct, [facility] [address] [id number] [place] [address] Oct, [facility] [address] [id number] [place] [address] Aug, [facility] [address] [id number] [place] [address] Aug, [facility] [address] [id number] [place] [address] Mar, [facility] [address] [id number] [place] [address] Mar, [facility] [address] [id number] [place] [address] Mar, [facility] [address] [id number] [place] [address] Sep, [facility] [address] [id number] [place] [address] Sep, [facility] [address] [id number] [place] [address] Sep, [facility] [address] [id number] [place] [address] Aug, [facility] [address] [id number] [place] [address] Jun, [facility] [address] [id number] [place] [address] December, [facility] [id number] [place] [address] Jul, [facility] [address] [id number] [place] [address] 14 Apr, 2010 [facility] [address] [id number] [place] [address] December, [facility] [address] [id number] [place] [address] Nov, [facility] [address] [id number] [place] [address] Oct, [facility] [address] [id number] [place] [address] Sep, [facility] [address] [id number] [place] [address] Aug, [facility] [address] [id number] [place] [address] 15 Nov, 2008 [facility] [address] [id number] [place] [address] Oct, [facility] [address] [id number] [place] [address] 12 Oct, 2008 IMMUNIZATIONS No Known Immunizations [...]
--- OUTSIDE RECORDS SUMMARY | 2020-02-24 03:02 | XMS REPORT ---
Author Author Shey MCELROY Organization [facility] Address [address] [place] [address] Care Team Providers Care Group Exercise Manager Name Role Phone BRO MCELROY Unavailable PROBLEMS Type Condition ICD9-CM Code IAO70-ZE Code Onset Dates Condition S tatus SNOMED Code Problem GERD (gastroesophageal reflux disease) K21.9 Active 671645979 Problem Obesity E66.9 Active 995414429 Problem Knee pain M25.569 Active 82636533 Problem Right knee meniscal tear S83.206A Activ e 796786032 Problem Rib pain R07.81 Active 798910421 Problem Bone spur of foot M77.9 Active 23 [id number] Problem Major depressive disorder, single episode, unspecified F32.9 Active 07251648 Problem Dysthymia F34.1 Active 23110074 Problem Other chronic pain G89.29 Active 8 5624019 Problem Carpal tunnel syndrome, unspecified laterality G56 .00 Active 29597983 Problem Perimenopause N95.1 Active 961154 725813650 Problem Weight gain R63.5 Active 8687062 Problem Continuous leakage of urine N39.45 Ac tive 217163387 Problem Rectocele N81.6 Active 391544607 Problem Fibromyalgia M79.7 Active 1313496 05 Problem Lumbago with sciatica, right side M54.41 Active 890506579 ALLERGIES No Information ENCOUNTERS Encounter Location Date Diagnosis [facility] [address] [facility] [id number] [address] [place] [address] May, Lumbago with sciatica, right side M54.41 [facility] [address] [facility] [id number] [address] [place] [address] Apr, Lumbago with sciatica, right side M54.41 [facility] [address] [facility] [id number] [address] [place] [id number] Apr, Abnormal CBC R79.89 and Lumb ago with sciatica, right side M54.41 [facility] [address] [id number] [address] [place] [address] Mar, Lumbago with sciatica, right side M54.41 [facility] [address] [id number] [address] [place] [address] Jan, Lumbago with sciatica, right side M54.41 [facility] [address] [id number] [address] [place] [address] December, Exercise counseling Z71.82 [place] [address] [id number] [address] [place] [phone] December, Lumbago with sciatica, right side M54.41 [place] [address] [id number] [address] [place] [address] December, Exercise counseling Z71.82 [place] [address] [id number] [address] [place] [address] Nov, Colon cancer screening Z12.1 1 [place] [address] [id number] [address] [place] [address] Nov, Exercise counseling Z71.82 [place] [address] [id number] [address] [place] [phone] Nov, Exercise counseling Z71.82 [place] [address] [id number] [address] [place] [address] Nov, Lumbago with sciatica, right side M54.41 [facility] [address] [id number] [address] [place] [address] Nov, Exercise counseling Z71.82 [facility] [address] [id number] [address] [place] [phone] Nov, [facility] [address] [facility] [id number] [address] [place] [address] Nov, Contusion of right knee, seq uela S80.01XS and Lumbago with sciatica, right side M54.41 [place] [address] [place] [id number] [address] [place], [place] [phone] Nov, Exercise counseling Z71.82 [place] [address] [facility] [id number] [address] [place] [address] Oct, Exercise counseling Z71.82 [place] [address] [facility] [id number] [address] [place] [phone] Oct, Exercise counseling Z71.82 [place] [address] [place] [id number] [address] [place] [address] Oct, Lumbago with sciatica, right side M54.41 [place] [address] [place] [id number] [address] [place] [phone] Oct, Exercise counseling Z71.82 [place] [address] [place] [id number] [address] [place] [address] Oct, Contusion of right knee, ini tial encounter S80.01XA [place] [address] [place] [id number] [address] [place] [address] Oct, Contusion of right knee, ini tial encounter S80.01XA [place] [address] [place] [id number] [address] [place] [address] Oct, Contusion of right knee, ini tial encounter S80.01XA [facility] [address] [facility] [id number] [address] [place] [address] Oct, Exercise counseling Z71.82 [place] [address] [facility] [id number] [address] [place] [address] Oct, Lumbago with sciatica, right side M54.41 [facility] [address] [facility] [id number] [address] [place] [phone] Oct, Influenza A J10.1 and Fever R50.9 [place] [id number] [place] [address] Oct, Exercise counseling Z71.82 [place] [address] [place] [id number] [address] [place] [address] Oct, [place] [address] [address] Sep, Perimenopause N95.1 ; Weight gain R63.5 ; BMI 40.0-44.9, adult Z68.41 and Therapeutic drug monitoring Z51.81 [place] [address] [address] Sep, Lumbago with sciatica, right side M54.41 [place] [address] [address] Aug, Lumbago with sciatica, right side M54.41 [place] [address] [address] Jul, Lumbago with sciatica, right side M54.41 [place] [address] [address] Jul, Lumbago with sciatica, right side M54.41 ; Fibromyalgia M79.7 ; Cold sore B00.1 and Abnormal bruising R23.8 [place] [address] [address] Jul, Lumbago with sciatica, right side M54.41 [place] [address] [place] [id number] [address] [place] [address] Jun, Lumbago with sciatica, right side M54.41 [place] [address] [place] [id number] [place] [address] Jun, Lumbago with sciatica, right side M54.41 ; Other chronic pain G89.29 and BMI 40.0-44.9, adult Z68.41 [facility] [address] [address] 18 May, 2018 Acute low back pain, unspeci fied back pain laterality, with sciatica presence unspecified M54.5 [place] [address] [address] Jan, Tear of medial meniscus of r ight knee, current, unspecified tear type, subsequent encounter S83.241D [place] [address] [address] Nov, Dysthymia F34.1 ; Weight gai n R63.5 and Acute pain of right knee M25.561 [place] [address] [address] Nov, [place] [address] [address] Nov, Viral illness B34.9 [facility] [address] [address] Oct, Viral URI J06.9 [place] [address] [address] Jun, Fibromyalgia M79.7 and Recto nadia N81.6 [place] [address] [address] May, Weak R53.1 ; Fatigue, unspec ified type R53.83 ; Arthralgia of right knee M25.561 and Hematuria, unspecified type R31.9 [place] [address] [address] Apr, Dysthymia F34.1 [place] [address] [place] [id number] [place] [address] Mar, Hematuria, unspecified type R31.9 ; Acute pain of left knee M25.562 ; Right knee pain M25.561 and Low back pain M54.5 [place] [address] [facility] [id number] [address] [place] [address] Mar, Hematuria, unspecified type R31.9 [place] [address] [facility] [id number] [address] [place] [address] Mar, Acute pain of left knee M25. 562 [place] [address] [place] [id number] [place] [address] Mar, GERD (gastroesophageal reflu x disease) K21.9 ; Continuous leakage of urine N39.45 ; Acute cystitis with hematuria N30.01 and Vaginal discharge N89.8 [place] [address] [place] [id number] [place] [address] Jan, [place] [address] [place] [id number] [place] [address] Jan, Dysthymia F34.1 ; Sore throa t J02.9 ; Costochondritis M94.0 and Breast cancer screening Z12.39 [place] [address] [address] December, [place] [address] [place] [id number] [place] [address] 15 Oct, 2016 Gastroenteritis K52.9 [place] [address] [place] [id number] [address] [place] [phone] Oct, [place] [address] [place] [id number] [place] [address] Sep, Weight gain R63.5 ; Major de pressive disorder, single episode, unspecified F32.9 ; Arthralgia, unspecified joint M25.50 ; GERD (gastroesophageal reflux disease) K21.9 and Swelling R60.9 [place] [address] [place] [id number] [address] [place] [address] Aug, [place] [address] [place] [id number] [place] [address] Jul, [facility] [address] [id number] [address] [place] [address] Jul, Right knee meniscal tear S83 .206A [facility] [address] [id number] [address] [place] [address] Jun, [facility] [address] [id number] [address] [place] [address] Jun, Plantar fasciitis M72.2 [facility] [address] [id number] [address] [place] [address] Jun, [facility] [address] [id number] [address] [place] [address] May, Plantar fasciitis M72.2 [facility] [address] [id number] [address] [place] [address] May, [facility] [address] [id number] [address] [place] [address] May, [facility] [address] [id number] [address] [place] [address] Apr, [facility] [address] [id number] [address] [place] [address] Apr, [facility] [address] [id number] [address] [place] [phone] Apr, Bone spur of foot M77.9 [facility] [address] [id number] [address] [place] [address] Apr, [facility] [address] [id number] [address] [place] [address] Apr, [facility] [address] [id number] [address] [place] [address] Apr, GERD (gastroesophageal reflu x disease) K21.9 ; Pain in right foot M79.671 ; Pain of left foot M79.672 and Obesity E66.9 [facility] [address] [place] [id number] [address] [place] [address] December, Degenerative tear of lateral meniscus of right knee M23.300 [place] [address] [place] [id number] [address] [place] [address] December, [place] [address] [place] [id number] [place] [address] December, Weight gain R63.5 ; Right kn ee meniscal tear S83.206A ; Carpal tunnel syndrome, unspecified laterality G56.00 and Rib pain R07.81 [place] [address] [place] [id number] [address] [place] [address] Nov, Right knee meniscal tear S83 .206A [place] [address] [place] [id number] [place] [address] Nov, Obesity E66.9 ; Knee pain M2 5.569 and GERD (gastroesophageal reflux disease) K21.9 [place] [id number] [place] [address] Oct, Weight gain R63.5 and Hormon e replacement therapy Z79.890 [place] [address] [address] Oct, [place] [address] [address] Oct, Right knee pain M25.561 ; Ho rmone replacement therapy Z79.890 and Weight gain R63.5 [place] [address] [facility] [id number] [address] [place] [address] Sep, Other chronic pain G89.29 an d Eustachian tube dysfunction, right H69.81 [place] [address] [place] [id number] [address] [place] [address] Jul, Hot flashes N95.1 ; Mastodyn ia N64.4 and Sore throat J02.9 [place] [address] [place] [id number] [address] [place] [address] Jun, Acute cystitis with hematuri a N30.01 ; Pain in right axilla M79.601 ; Right foot pain M79.671 and Dysuria R30.0 [facility] [address] [id number] [address] [place] [address] 14 May, 2015 Migraines 346.90 [facility] [address] [facility] [id number] [address] [place] [address] Apr, Anxiety 300.00 ; Headache 78 4.0 and Varicose vein of leg 454.9 [facility] [address] [facility] [id number] [address] [place] [address] Apr, Depressive disorder, not els ewhere classified 311 [facility] [address] [facility] [id number] [address] [place] [address] 24 Jan, 2015 Tension type headache 339.10 and Breast cancer screening V76.10 [facility] [address] [id number] [address] [place] [address] Nov, [facility] [address] [facility] [id number] [address] [place] [address] Nov, [facility] [address] [facility] [id number] [address] [place] [address] Jul, [facility] [address] [id number] [address] [place] [address] Jul, [facility] [address] [id number] [address] [place] [address] Jun, [facility] [address] [id number] [address] [place] [address] Jun, [facility] [address] [id number] [address] [place] [phone] Apr, [facility] [address] [id number] [address] [place] [phone] Apr, [facility] [address] [facility] [id number] [address] [place] [address] Jan, [facility] [address] [id number] [address] [place] [address], [place] [address] Jan, [facility] [address] [id number] [address] [place] [address], [place] [address] December, [facility] [address] [id number] [address] [place] [address], [place] [address] December, [facility] [address] [id number] [address] [place] [address], [place] [address] December, [facility] [address] [id number] [address] [place] [address], [place] [address] December, [facility] [address] [id number] [address] [place] [address], [place] [address] Nov, [facility] [address] [id number] [address] [place] [address], [place] [address] Nov, [facility] [address] [id number] [address] [place] [address], [place] [address] Nov, [facility] [address] [id number] [address] [place] [address], [place] [address] Nov, [facility] [address] [id number] [address] [place] [address], [place] [address] Oct, [facility] [address] [id number] [address] [place] [address], [place] [address] Oct, [facility] [address] [id number] [address] [place] [address], [place] [address] Aug, [facility] [address] [id number] [address] [place] [address], [place] [address] Aug, [facility] [address] [id number] [address] [place] [address], [place] [address] Mar, [facility] [address] [id number] [address] [place] [address], [place] [address] Mar, [facility] [address] [id number] [address] [place] [address], [place] [address] 11 Mar, 2012 [facility] [address] [id number] [address] [place] [address], [place] [address] 20 Sep, 2011 [facility] [address] [id number] [address] [place] [address], [place] [address] Sep, [facility] [address] [id number] [address] [place] [address], [place] [address] Sep, [facility] [address] [id number] [address] [place] [address], [place] [address] Aug, [facility] [address] [id number] [address] [place] [address], [place] [address] Jun, [facility] [address] [id number] [address] [place] [address], [place] [address] December, [facility] [address] [id number] [address] [place] [address], [place] [address] Jul, [facility] [address] [id number] [address] [place] [address], [place] [address] 14 Apr, 2010 [facility] [address] [id number] [address] [place] [address], [place] [address] December, [facility] [address] [id number] [address] [place] [address], [place] [address] 13 Nov, 2009 [facility] [address] [id number] [address] [place] [address], [place] [address] 19 Oct, 2009 [facility] [address] [id number] [address] [place] [address], [place] [address] 14 Sep, 2009 [facility] [address] [id number] [address] [place] [address], [place] [address] 09 Aug, 2009 [facility] [address] [id number] [address] [place] [address], [place] [address] 15 Nov, 2008 [facility] [address] [id number] [address] [place] [address], [place] [address] Oct, [facility] [address] [facility] [id number] [address] [place] [address] Oct, IMMUNIZATIONS No Known Immunizations SOCIAL HISTORY Never Assessed REASON FOR VISIT back pain PLAN OF CARE Activity Details Follow [...]
--- OUTSIDE RECORDS SUMMARY | 2020-02-24 03:03 | XMS REPORT ---
Author Author Shey MCELROY Organization [facility] Address [address] [place] [address] Care Team Providers Care Editor Index Name Role Phone BRO MCELROY Unavailable PROBLEMS Type Condition ICD9-CM Code XXJ25-NH Code Onset Dates Condition S tatus SNOMED Code Problem GERD (gastroesophageal reflux disease) K21.9 Active 558459831 Problem Obesity E66.9 Active 318248757 Problem Knee pain M25.569 Active 02688098 Problem Right knee meniscal tear S83.206A Activ e 495466901 Problem Rib pain R07.81 Active 733023228 Problem Bone spur of foot M77.9 Active 23 6106982426776 Problem Major depressive disorder, single episode, unspecified F32.9 Active 46833142 Problem Dysthymia F34.1 Active 24933994 Problem Other chronic pain G89.29 Active 8 2893493 Problem Carpal tunnel syndrome, unspecified laterality G56 .00 Active 49063141 Problem Perimenopause N95.1 Active 604789 757774517 Problem Weight gain R63.5 Active 5332722 Problem Continuous leakage of urine N39.45 Ac tive 622766945 Problem Rectocele N81.6 Active 492725440 Problem Fibromyalgia M79.7 Active 4273482 05 Problem Lumbago with sciatica, right side M54.41 Active 850773851 ALLERGIES No Information ENCOUNTERS Encounter Location Date Diagnosis [facility] [address] [facility] [id number] [address] [place] [phone] Apr, [facility] [id number] [place] [address] Apr, [facility] [address] [facility] [id number] [address] [place] [address] Mar, Lumbago with sciatica, right side M54.41 [place] [address] [id number] [address] [place] [phone] Jan, Lumbago with sciatica, right side M54.41 [facility] [address] [id number] [address] [place] [phone] December, Exercise counseling Z71.82 [facility] [address] [id number] [address] [place] [address] December, Lumbago with sciatica, right side M54.41 [facility] [address] [id number] [address] [place] [phone] December, Exercise counseling Z71.82 [place] [address] [id number] [address] [place] [address] Nov, Colon cancer screening Z12.1 1 [place] [address] [id number] [address] [place] [address] Nov, Exercise counseling Z71.82 [facility] [address] [id number] [address] [place] [address] Nov, Exercise counseling Z71.82 [facility] [address] [facility] [id number] [address] [place] [phone] Nov, Lumbago with sciatica, right side M54.41 [facility] [address] [facility] [id number] [address] [place] [phone] Nov, Exercise counseling Z71.82 [facility] [address] [id number] [address] [place] [phone] Nov, [facility] [address] [facility] [id number] [address] [place] [address] Nov, Contusion of right knee, seq uela S80.01XS and Lumbago with sciatica, right side M54.41 [facility] [address] [id number] [address] [place] [address] Nov, Exercise counseling Z71.82 [facility] [address] [id number] [address] [place] [phone] Oct, Exercise counseling Z71.82 [facility] [address] [facility] [id number] [address] [place] [address] Oct, Exercise counseling Z71.82 [facility] [address] [facility] [id number] [address] [place] [address] Oct, Lumbago with sciatica, right side M54.41 [facility] [address] [facility] [id number] [address] [place] [address] Oct, Exercise counseling Z71.82 [place] [address] [facility] [id number] [address] [place] [address] Oct, Contusion of right knee, ini tial encounter S80.01XA [place] [address] [place] [id number] [address] [place] [phone] Oct, Contusion of right knee, ini tial encounter S80.01XA [place] [address] [facility] [id number] [address] [place] [address] Oct, Contusion of right knee, ini tial encounter S80.01XA [facility] [address] [facility] [id number] [address] [place] [address] Oct, Exercise counseling Z71.82 [place] [address] [facility] [id number] [address] [place] [address] Oct, Lumbago with sciatica, right side M54.41 [facility] [address] [facility] [id number] [address] [place] [address] Oct, Influenza A J10.1 and Fever R50.9 [facility] [address] [facility] [id number] [address] [place] [address] Oct, Exercise counseling Z71.82 [facility] [address] [facility] [id number] [address] [place] [address] Oct, [place] [address] [address] Sep, Perimenopause N95.1 ; Weight gain R63.5 ; BMI 40.0-44.9, adult Z68.41 and Therapeutic drug monitoring Z51.81 [place] [address] [address] Sep, Lumbago with sciatica, right side M54.41 [place] [address] [address] Aug, Lumbago with sciatica, right side M54.41 [place] [address] [address] Jul, Lumbago with sciatica, right side M54.41 [place] [address] [address] Jul, Lumbago with sciatica, right side M54.41 ; Fibromyalgia M79.7 ; Cold sore B00.1 and Abnormal bruising R23.8 [place] [address] [address] Jul, Lumbago with sciatica, right side M54.41 [place] [address] [address] Jun, Lumbago with sciatica, right side M54.41 [place] [address] [address] Jun, Lumbago with sciatica, right side M54.41 ; Other chronic pain G89.29 and BMI 40.0-44.9, adult Z68.41 [facility] [address] [place] [id number] [place] [address] May, Acute low back pain, unspeci fied back pain laterality, with sciatica presence unspecified M54.5 [place] [address] [address] Jan, Tear of medial meniscus of r ight knee, current, unspecified tear type, subsequent encounter S83.241D [place] [address] [address] Nov, Dysthymia F34.1 ; Weight gai n R63.5 and Acute pain of right knee M25.561 [place] [address] [address] Nov, [place] [address] [address] Nov, Viral illness B34.9 [facility] [place] [address] [address] Oct, Viral URI J06.9 [place] [address] [address] Jun, Fibromyalgia M79.7 and Recto nadia N81.6 [place] [address] [address] May, Weak R53.1 ; Fatigue, unspec ified type R53.83 ; Arthralgia of right knee M25.561 and Hematuria, unspecified type R31.9 [place] [address] [address] Apr, Dysthymia F34.1 [place] [address] [address] Mar, Hematuria, unspecified type R31.9 ; Acute pain of left knee M25.562 ; Right knee pain M25.561 and Low back pain M54.5 [place] [address] [place] [id number] [place] [address] Mar, Hematuria, unspecified type R31.9 [place] [address] [address] Mar, Acute pain of left knee M25. 562 [place] [address] [place] [id number] [address] [place] [phone] 05 Mar, 2017 GERD (gastroesophageal reflu x disease) K21.9 ; Continuous leakage of urine N39.45 ; Acute cystitis with hematuria N30.01 and Vaginal discharge N89.8 [place] [address] [place] [id number] [place] [address] Jan, [place] [address] [id number] 07 Jan, 2017 Dysthymia F34.1 ; Sore throa t J02.9 ; Costochondritis M94.0 and Breast cancer screening Z12.39 [place] [address] [address] December, [place] [address] [id number] 15 Oct, 2016 Gastroenteritis K52.9 [place] [address] [place] [id number] [place] [address] Oct, [place] [address] [address] Sep, Weight gain R63.5 ; Major de pressive disorder, single episode, unspecified F32.9 ; Arthralgia, unspecified joint M25.50 ; GERD (gastroesophageal reflux disease) K21.9 and Swelling R60.9 [place] [address] [place] [id number] [address] [place] [address] Aug, [place] [address] [place] [id number] [address] [place] [address] Jul, [place] [address] [address] Jul, Right knee meniscal tear S83 .206A [place] [address] [place] [id number] [place] [address] Jun, [facility] [address] [id number] [address] [place] [phone] Jun, Plantar fasciitis M72.2 [facility] [address] [id number] [address] [place] [address] Jun, [facility] [address] [id number] [address] [place] [address] May, Plantar fasciitis M72.2 [facility] [address] [id number] [address] [place] [address] May, [facility] [address] [id number] [address] [place] [phone] May, [facility] [address] [id number] [address] [place] [address] Apr, [facility] [address] [id number] [address] [place] [phone] Apr, [facility] [address] [id number] [address] [place] [address] Apr, Bone spur of foot M77.9 [facility] [address] [id number] [address] [place] [phone] Apr, [facility] [address] [id number] [address] [place] [address] Apr, [facility] [address] [id number] [address] [place] [address] Apr, GERD (gastroesophageal reflu x disease) K21.9 ; Pain in right foot M79.671 ; Pain of left foot M79.672 and Obesity E66.9 [facility] [address] [id number] [address] [place] [phone] December, Degenerative tear of lateral meniscus of right knee M23.300 [facility] [address] [id number] [address] [place] [id number] December, [facility] [address] [place] [id number] [address] [place] [address] December, Weight gain R63.5 ; Right kn ee meniscal tear S83.206A ; Carpal tunnel syndrome, unspecified laterality G56.00 and Rib pain R07.81 [place] [address] [place] [id number] [address] [place] [address] Nov, Right knee meniscal tear S83 .206A [place] [address] [place] [id number] [place] [address] Nov, Obesity E66.9 ; Knee pain M2 5.569 and GERD (gastroesophageal reflux disease) K21.9 [place] [address] [facility] [id number] [address] Oct, Weight gain R63.5 and Hormon e replacement therapy Z79.890 [place] [address] [place] [id number] [place] [address] Oct, [place] [address] [address] Oct, Right knee pain M25.561 ; Ho rmone replacement therapy Z79.890 and Weight gain R63.5 [place] [address] [address] Sep, Other chronic pain G89.29 an d Eustachian tube dysfunction, right H69.81 [place] [address] [place] [id number] [address] [place] [address] Jul, Hot flashes N95.1 ; Mastodyn ia N64.4 and Sore throat J02.9 [place] [address] [address] Jun, Acute cystitis with hematuri a N30.01 ; Pain in right axilla M79.601 ; Right foot pain M79.671 and Dysuria R30.0 [place] [address] [address] May, Migraines 346.90 [facility] [address] [facility] [id number] [address] [place] [address] Apr, Anxiety 300.00 ; Headache 78 4.0 and Varicose vein of leg 454.9 [facility] [address] [id number] [address] [place] [address] Apr, Depressive disorder, not els ewhere classified 311 [facility] [address] [id number] [address] [place] [address] Jan, Tension type headache 339.10 and Breast cancer screening V76.10 [facility] [address] [id number] [address] [place] [phone] Nov, [facility] [address] [id number] [address] [place] [phone] Nov, [facility] [address] [facility] [id number] [address] [place] [phone] Jul, [facility] [address] [id number] [address] [place] [id number] Jul, [facility] [address] [facility] [id number] [address] [place] [address] Jun, [facility] [address] [facility] [id number] [address] [place] [phone] Jun, [facility] [address] [id number] [address] [place] [address] Apr, [facility] [address] [id number] [address] [place] [phone] Apr, [facility] [address] [id number] [address] [place] [phone] Jan, [facility] [address] [id number] [address] [place] [phone] Jan, [facility] [address] [id number] [address] [place] [phone] December, [facility] [address] [id number] [address] [place] [address], [place] [address] December, [facility] [address] [id number] [address] [place] [address], [place] [address] December, [facility] [address] [id number] [address] [place] [address], [place] [address] December, [facility] [address] [id number] [address] [place] [address], [place] [address] Nov, [facility] [address] [id number] [address] [place] [address], [place] [address] Nov, [facility] [address] [id number] [address] [place] [address], [place] [address] Nov, [facility] [address] [id number] [address] [place] [address], [place] [address] Nov, [facility] [address] [id number] [address] [place] [address], [place] [address] Oct, [facility] [address] [id number] [address] [place] [address], [place] [address] Oct, [facility] [address] [id number] [address] [place] [address], [place] [address] Aug, [facility] [address] [id number] [address] [place] [address], [place] [address] Aug, [facility] [address] [id number] [address] [place] [address], [place] [address] Mar, [facility] [address] [id number] [address] [place] [address], [place] [address] Mar, [facility] [address] [id number] [address] [place] [address], [place] [address] Mar, [facility] [address] [id number] [address] [place] [address], [place] [address] Sep, [facility] [address] [id number] [address] [place] [phone] Sep, [facility] [address] [id number] [address] [place] [phone] Sep, [facility] [address] [id number] [address] [place] [phone] Aug, [facility] [address] [id number] [address] [place] [phone] Jun, [facility] [address] [id number] [address] [place] [address] December, [facility] [address] [id number] [address] [place] [phone] Jul, [facility] [address] [id number] [address] [place] [id number] 14 Apr, 2010 [facility] [address] [id number] [address] [place] [phone] December, [facility] [address] [id number] [address] [place] [phone] Nov, [facility] [address] [id number] [address] [place] [phone] Oct, [facility] [address] [id number] [address] [place] [phone] 14 Sep, 2009 [facility] [address] [id number] [address] [place] [phone] Aug, [facility] [address] [id number] [address] [place] [phone] 15 Nov, 2008 [facility] [address] [id number] [address] [place] [phone] Oct, [facility] [address] [id number] [address] [place] [phone] 12 Oct, 2008 IMMUNIZATIONS No Known Immunizations SOCIAL HISTORY Never Assessed REASON FOR VISIT U/S RT LOWER EXT NONVASC A.BOOKLESS RDMS RVT PLAN OF CARE VITAL SIGNS MEDICATIONS Unknown Medications RESULTS Name Result Date Reference Range Ultrasound : LOWER EXTREMILIY NON-VASC, RIGHT (IN HOUSE) 2018-11-16 PROCEDURES Procedure Date Ordered Result Body Site US XTR NON-VASC COMPLETE November 16, 2018 INSTRUCTIONS MEDICATIONS ADMINISTERED No Known Medications MEDICAL [...]
--- OUTSIDE RECORDS SUMMARY | 2020-02-24 03:03 | XMS REPORT ---
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 Name Role Phone AMBROSE BRANNON Unavailable PROBLEMS Type Condition ICD9-CM Code GJA67-PV Code Onset Dates Condition S tatus SNOMED Code Problem GERD (gastroesophageal reflux disease) K21.9 Active 499631748 Problem Obesity E66.9 Active 300422146 Problem Knee pain M25.569 Active 59850793 Problem Right knee meniscal tear S83.206A Activ e 846079796 Problem Rib pain R07.81 Active 241147581 Problem Bone spur of foot M77.9 Active 23 2616773235281 Problem Major depressive disorder, single episode, unspecified F32.9 Active 12228485 Problem Dysthymia F34.1 Active 06185272 Problem Other chronic pain G89.29 Active 8 1729723 Problem Carpal tunnel syndrome, unspecified laterality G56 .00 Active 32421886 Problem Perimenopause N95.1 Active 539060 232994701 Problem Weight gain R63.5 Active 5293127 Problem Continuous leakage of urine N39.45 Ac tive 330732901 Problem Rectocele N81.6 Active 734621594 Problem Fibromyalgia M79.7 Active 4348940 05 Problem Lumbago with sciatica, right side M54.41 Active 843329458 ALLERGIES No Information ENCOUNTERS Encounter Location Date Diagnosis [facility] [address] [facility] [id number] [address] [place] [phone] Apr, [facility] [address] [place] [id number] [address] [place] [phone] Apr, [facility] [address] [facility] [id number] [address] [place] [id number] Mar, Lumbago with sciatica, right side M54.41 [facility] [address] [id number] [address] [place] [phone] Jan, Lumbago with sciatica, right side M54.41 [facility] [address] [id number] [address] [place] [id number] December, Exercise counseling Z71.82 [facility] [address] [facility] [id number] [address] [place] [id number] December, Lumbago with sciatica, right side M54.41 [facility] [address] [id number] [address] [place] [phone] December, Exercise counseling Z71.82 [place] [address] [facility] [id number] [address] [place] [id number] Nov, Colon cancer screening Z12.1 1 [place] [address] [facility] [id number] [address] [place] [phone] Nov, Exercise counseling Z71.82 [place] [address] [facility] [id number] [address] [place] [phone] Nov, Exercise counseling Z71.82 [place] [address] [facility] [id number] [address] [place] [id number] Nov, Lumbago with sciatica, right side M54.41 [place] [address] [facility] [id number] [address] [place] [phone] Nov, Exercise counseling Z71.82 [place] [address] [id number] [address] [place] [phone] Nov, [facility] [address] [facility] [id number] [address] [place] [id number] Nov, Contusion of right knee, seq uela S80.01XS and Lumbago with sciatica, right side M54.41 [facility] [address] [id number] [address] [place] [id number] Nov, Exercise counseling Z71.82 [facility] [address] [id number] [address] [place] [id number] Oct, Exercise counseling Z71.82 [facility] [address] [facility] [id number] [address] [place] [phone] Oct, Exercise counseling Z71.82 [facility] [address] [facility] [id number] [address] [place] [id number] Oct, Lumbago with sciatica, right side M54.41 [facility] [address] [facility] [id number] [address] [place] [id number] Oct, Exercise counseling Z71.82 [place] [address] [facility] [id number] [address] [place] [id number] Oct, Contusion of right knee, ini tial encounter S80.01XA [place] [address] [place] [id number] [address] [place] [id number] Oct, Contusion of right knee, ini tial encounter S80.01XA [place] [address] [facility] [id number] [address] [place] [phone] Oct, Contusion of right knee, ini tial encounter S80.01XA [facility] [address] [facility] [id number] [address] [place] [id number] Oct, Exercise counseling Z71.82 [place] [address] [facility] [id number] [address] [place] [phone] Oct, Lumbago with sciatica, right side M54.41 [facility] [address] [facility] [id number] [address] [place] [phone] Oct, Influenza A J10.1 and Fever R50.9 [facility] [address] [facility] [id number] [address] [place] [id number] Oct, Exercise counseling Z71.82 [facility] [address] [facility] [id number] [address] [place] [id number] Oct, [facility] [address] [address] Sep, Perimenopause N95.1 ; Weight gain R63.5 ; BMI 40.0-44.9, adult Z68.41 and Therapeutic drug monitoring Z51.81 [place] [address] [address] Sep, Lumbago with sciatica, right side M54.41 [place] [address] [phone] Aug, Lumbago with sciatica, right side M54.41 [place] [address] [address] Jul, Lumbago with sciatica, right side M54.41 [place] [address] [address] Jul, Lumbago with sciatica, right side M54.41 ; Fibromyalgia M79.7 ; Cold sore B00.1 and Abnormal bruising R23.8 [place] [address] [address] Jul, Lumbago with sciatica, right side M54.41 [place] [address] [address] Jun, Lumbago with sciatica, right side M54.41 [place] [address] [address] Jun, Lumbago with sciatica, right side M54.41 ; Other chronic pain G89.29 and BMI 40.0-44.9, adult Z68.41 [facility] [address] [place] [id number] [place] [address] May, Acute low back pain, unspeci fied back pain laterality, with sciatica presence unspecified M54.5 [place] [address] [address] Jan, Tear of medial meniscus of r ight knee, current, unspecified tear type, subsequent encounter S83.241D [place] [address] [address] Nov, Dysthymia F34.1 ; Weight gai n R63.5 and Acute pain of right knee M25.561 [place] [address] [address] Nov, [place] [address] [place] [id number] [address] [place] [phone] Nov, Viral illness B34.9 [facility] [place] [address] [address] Oct, Viral URI J06.9 [place] [address] [address] Jun, Fibromyalgia M79.7 and Recto nadia N81.6 [place] [address] [address] May, Weak R53.1 ; Fatigue, unspec ified type R53.83 ; Arthralgia of right knee M25.561 and Hematuria, unspecified type R31.9 [place] [address] [place] [id number] [address] [place] [phone] Apr, Dysthymia F34.1 [place] [address] [place] [id number] [place] [address] Mar, Hematuria, unspecified type R31.9 ; Acute pain of left knee M25.562 ; Right knee pain M25.561 and Low back pain M54.5 [place] [address] [place] [id number] [address] [place] [id number] Mar, Hematuria, unspecified type R31.9 [place] [address] [place] [id number] [address] [place] [phone] Mar, Acute pain of left knee M25. 562 [place] [address] [place] [id number] [address] [place] [phone] 05 Mar, 2017 GERD (gastroesophageal reflu x disease) K21.9 ; Continuous leakage of urine N39.45 ; Acute cystitis with hematuria N30.01 and Vaginal discharge N89.8 [place] [address] [place] [address] Jan, [place] [address] [address] Jan, Dysthymia F34.1 ; Sore throa t J02.9 ; Costochondritis M94.0 and Breast cancer screening Z12.39 [place] [address] [address] December, [place] [address] [address] 15 Oct, 2016 Gastroenteritis K52.9 [place] [address] [address] Oct, [place] [address] [address] Sep, Weight gain R63.5 ; Major de pressive disorder, single episode, unspecified F32.9 ; Arthralgia, unspecified joint M25.50 ; GERD (gastroesophageal reflux disease) K21.9 and Swelling R60.9 [place] [address] [place] [address] Aug, [place] [address] [address] Jul, [place] [address] [address] Jul, Right knee meniscal tear S83 .206A [place] [address] [address] Jun, [place] [address] [id number] [address] [place] [id number] Jun, Plantar fasciitis M72.2 [facility] [address] [id number] [address] [place] [phone] Jun, [facility] [address] [id number] [address] [place] [phone] May, Plantar fasciitis M72.2 [facility] [address] [id number] [address] [place] [id number] May, [facility] [address] [id number] [address] [place] [id number] May, [facility] [address] [id number] [address] [place] [phone] Apr, [facility] [address] [id number] [address] [place] [id number] Apr, [facility] [address] [id number] [address] [place] [phone] Apr, Bone spur of foot M77.9 [facility] [address] [id number] [address] [place] [phone] Apr, [facility] [address] [id number] [address] [place] [phone] Apr, [facility] [address] [id number] [address] [place] [id number] Apr, GERD (gastroesophageal reflu x disease) K21.9 ; Pain in right foot M79.671 ; Pain of left foot M79.672 and Obesity E66.9 [facility] [address] [id number] [address] [place] [id number] December, Degenerative tear of lateral meniscus of right knee M23.300 [facility] [address] [id number] [address] [place] [id number] December, [facility] [address] [id number] [address] [place] [id number] December, Weight gain R63.5 ; Right kn ee meniscal tear S83.206A ; Carpal tunnel syndrome, unspecified laterality G56.00 and Rib pain R07.81 [place] [address] [facility] [id number] [address] [place] [phone] Nov, Right knee meniscal tear S83 .206A [place] [address] [facility] [id number] [address] [place] [id number] Nov, Obesity E66.9 ; Knee pain M2 5.569 and GERD (gastroesophageal reflux disease) K21.9 [place] [address] [facility] [id number] [address] [place] [id number] Oct, Weight gain R63.5 and Hormon e replacement therapy Z79.890 [place] [address] [place] [id number] [address] [place] [id number] Oct, [place] [address] [place] [address] Oct, Right knee pain M25.561 ; Ho rmone replacement therapy Z79.890 and Weight gain R63.5 [place] [address] [place] [id number] [place] [address] Sep, Other chronic pain G89.29 an d Eustachian tube dysfunction, right H69.81 [place] [address] [place] [id number] [address] [place] [id number] Jul, Hot flashes N95.1 ; Mastodyn ia N64.4 and Sore throat J02.9 [place] [address] [place] [id number] [address] [place] [id number] Jun, Acute cystitis with hematuri a N30.01 ; Pain in right axilla M79.601 ; Right foot pain M79.671 and Dysuria R30.0 [place] [address] [place] [id number] [place] [address] May, Migraines 346.90 [facility] [address] [id number] [address] [place] [address] Apr, Anxiety 300.00 ; Headache 78 4.0 and Varicose vein of leg 454.9 [facility] [address] [id number] [address] [place] [address] Apr, Depressive disorder, not els ewhere classified 311 [facility] [address] [id number] [address] [place] [phone] Jan, Tension type headache 339.10 and Breast cancer screening V76.10 [facility] [address] [id number] [address] [place] [id number] Nov, [facility] [address] [id number] [address] [place] [id number] Nov, [facility] [address] [id number] [address] [place] [id number] Jul, [facility] [address] [id number] [address] [place] [phone] Jul, [facility] [address] [facility] [id number] [address] [place] [phone] Jun, [facility] [address] [facility] [id number] [address] [place] [phone] Jun, [facility] [address] [id number] [address] [place] [phone] Apr, [facility] [address] [id number] [address] [place] [phone] Apr, [facility] [address] [id number] [address] [place] [phone] Jan, [facility] [address] [facility] [id number] [address] [place] [phone] Jan, [facility] [address] [facility] [id number] [address] [place] [phone] December, [facility] [address] [id number] [address] [place] [address], [place] [address] December, [facility] [address] [id number] [address] [place] [address], [place] [address] December, [facility] [address] [id number] [address] [place] [address], [place] [address] December, [facility] [address] [id number] [address] [place] [address], [place] [address] Nov, [facility] [address] [id number] [address] [place] [address], [place] [address] Nov, [facility] [address] [id number] [address] [place] [address], [place] [address] Nov, [facility] [address] [id number] [address] [place] [address], [place] [address] Nov, [facility] [address] [id number] [address] [place] [address], [place] [address] Oct, [facility] [address] [id number] [address] [place] [address], [place] [address] Oct, [facility] [address] [id number] [address] [place] [address], [place] [address] Aug, [facility] [address] [id number] [address] [place] [address], [place] [address] Aug, [facility] [address] [id number] [address] [place] [address], [place] [address] Mar, [facility] [address] [id number] [address] [place] [address], [place] [address] Mar, [facility] [address] [id number] [address] [place] [address], [place] [address] Mar, [facility] [address] [id number] [address] [place] [address], [place] [address] Sep, [facility] [address] [id number] [address] [place] [address] [address] Sep, [facility] [address] [id number] [address] [place] [phone] Sep, [facility] [address] [id number] [address] [place] [phone] Aug, [facility] [address] [id number] [address] [place] [phone] Jun, [facility] [address] [id number] [address] [place] [phone] December, [facility] [address] [id number] [address] [place] [id number] Jul, [facility] [address] [id number] [address] [place] [id number] Apr, [facility] [address] [id number] [address] [place] [phone] December, [facility] [address] [id number] [address] [place] [id number] Nov, [facility] [address] [id number] [address] [place] [phone] Oct, [facility] [address] [id number] [address] [place] [id number] Sep, [facility] [address] [id number] [address] [place] [phone] Aug, [facility] [address] [id number] [address] [place] [id number] 15 Nov, 2008 [facility] [address] [id number] [address] [place] [id number] Oct, [facility] [address] [id number] [address] [place] [id number] 12 Oct, 2008 IMMUNIZATIONS No Known Immunizations [...]
--- OUTSIDE RECORDS SUMMARY | 2020-02-24 03:03 | XMS REPORT ---
Author Author Shey Huston Doctor Organization [facility] Address Unknown Phone Unavailable Care Team Providers Care Fruit Packer Name Role Phone Migration, Doctor Unavailable Unavailable PROBLEMS Type Condition ICD9-CM Code LDJ75-MG Code Onset Dates Condition S tatus SNOMED Code Problem GERD (gastroesophageal reflux disease) K21.9 Active 024240550 Problem Obesity E66.9 Active 726469379 Problem Knee pain M25.569 Active 61166665 Problem Right knee meniscal tear S83.206A Activ e 023165330 Problem Rib pain R07.81 Active 015869860 Problem Bone spur of foot M77.9 Active 23 [id number] Problem Major depressive disorder, single episode, unspecified F32.9 Active 77013977 Problem Dysthymia F34.1 Active 22896305 Problem Other chronic pain G89.29 Active 8 6551726 Problem Carpal tunnel syndrome, unspecified laterality G56 .00 Active 40110823 Problem Perimenopause N95.1 Active 870125 847847268 Problem Weight gain R63.5 Active 5675135 Problem Continuous leakage of urine N39.45 Ac tive 795312325 Problem Rectocele N81.6 Active 759509014 Problem Fibromyalgia M79.7 Active 3067780 05 Problem Lumbago with sciatica, right side M54.41 Active 093902248 ALLERGIES Substance Reaction Event Type Date Status [place] Unknown Drug Allergy Nov, Active ENCOUNTERS Encounter Location Date Diagnosis [place] [address] [address] [facility] [id number] [address] [place] [address] Jan, Lumbago with sciatica, right side M54.41 [place] [address] [address] [facility] [id number] [address] [place] [address] December, Exercise counseling Z71.82 [place] [address] [address] [facility] [id number] [address] [place] [address] December, Lumbago with sciatica, right side M54.41 [place] [address] [id number] [address] [place] [address] December, Exercise counseling Z71.82 [place] [address] [address] [facility] [id number] [address] [place] [address] Nov, Colon cancer screening Z12.1 1 [facility] [address] [facility] [id number] [address] [place] [address] Nov, Exercise counseling Z71.82 [place] [address] [address] [facility] [id number] [address] [place] [address] Nov, Exercise counseling Z71.82 [place] [address] [address] [facility] [id number] [address] [place] [address] Nov, Lumbago with sciatica, right side M54.41 [place] [address] [address] [facility] [id number] [address] [place] [address] Nov, Exercise counseling Z71.82 [place] [address] [address] [facility] [id number] [address] [place] [address] Nov, [place] [address] [address] [facility] [id number] [address] [place] [address] Nov, Contusion of right knee, seq uela S80.01XS and Lumbago with sciatica, right side M54.41 [place] [address] [facility] [id number] [address] [place] [address] Nov, Exercise counseling Z71.82 [place] [address] [address] [facility] [id number] [address] [place] [address] Oct, Exercise counseling Z71.82 [place] [address] [address] [facility] [id number] [address] [place] [address] Oct, Exercise counseling Z71.82 [place] [address] [address] [facility] [id number] [address] [place] [address] Oct, Lumbago with sciatica, right side M54.41 [place] [address] [address] [facility] [id number] [address] [place] [address] Oct, Exercise counseling Z71.82 [place] [address] [address] [facility] [id number] [address] [place] [address] Oct, Contusion of right knee, ini tial encounter S80.01XA [place] [address] [address] [facility] [id number] [address] [place] [address] Oct, Contusion of right knee, ini tial encounter S80.01XA [place] [address] [address] [facility] [id number] [address] [place] [address] Oct, Contusion of right knee, ini tial encounter S80.01XA [place] [address] [address] [facility] [id number] [address] [place] [address] Oct, Exercise counseling Z71.82 [place] [address] [address] [place] [id number] [address] [place] [address] Oct, Lumbago with sciatica, right side M54.41 [facility] [address] [place] [id number] [address] [place] [id number] Oct, Influenza A J10.1 and Fever R50.9 [place] [address] [address] [place] [id number] [address] [place] [address] Oct, Exercise counseling Z71.82 [place] [address] [address] [place] [id number] [address] [place] [address] Oct, [place] [address] [address] [place] [id number] [address] [place] [address] Sep, Perimenopause N95.1 ; Weight gain R63.5 ; BMI 40.0-44.9, adult Z68.41 and Therapeutic drug monitoring Z51.81 [place] [address] [address] [facility] [id number] [address] [place] [address] Sep, Lumbago with sciatica, right side M54.41 [place] [address] [address] [place] [id number] [address] [place] [address] Aug, Lumbago with sciatica, right side M54.41 [facility] [address] [address] Jul, Lumbago with sciatica, right side M54.41 [place] [address] [address] Jul, Lumbago with sciatica, right side M54.41 ; Fibromyalgia M79.7 ; Cold sore B00.1 and Abnormal bruising R23.8 [place] [address] [address] Jul, Lumbago with sciatica, right side M54.41 [place] [address] [address] Jun, Lumbago with sciatica, right side M54.41 [place] [address] [address] Jun, Lumbago with sciatica, right side M54.41 ; Other chronic pain G89.29 and BMI 40.0-44.9, adult Z68.41 [facility] [address] [address] May, Acute low back pain, unspeci fied back pain laterality, with sciatica presence unspecified M54.5 [place] [address] [address] Jan, Tear of medial meniscus of r ight knee, current, unspecified tear type, subsequent encounter S83.241D [place] [address] [address] Nov, Dysthymia F34.1 ; Weight gai n R63.5 and Acute pain of right knee M25.561 [facility] [address] [address] Nov, [place] [id number] [address] [place] [address] Nov, Viral illness B34.9 [facility] [address] [address] Oct, Viral URI J06.9 [place] [address] [address] Jun, Fibromyalgia M79.7 and Recto nadia N81.6 [place] [address] [address] May, Weak R53.1 ; Fatigue, unspec ified type R53.83 ; Arthralgia of right knee M25.561 and Hematuria, unspecified type R31.9 [place] [address] [address] Apr, Dysthymia F34.1 [place] [address] [address] Mar, Hematuria, unspecified type R31.9 ; Acute pain of left knee M25.562 ; Right knee pain M25.561 and Low back pain M54.5 [place] [address] [address] Mar, Hematuria, unspecified type R31.9 [place] [address] [address] Mar, Acute pain of left knee M25. 562 [place] [address] [address] 05 Mar, 2017 GERD (gastroesophageal reflu x disease) K21.9 ; Continuous leakage of urine N39.45 ; Acute cystitis with hematuria N30.01 and Vaginal discharge N89.8 [place] [address] [address] Jan, [place] [address] [place] [address] Jan, Dysthymia F34.1 ; Sore throa t J02.9 ; Costochondritis M94.0 and Breast cancer screening Z12.39 [facility] [address] [address] December, [facility] [address] [address] Oct, Gastroenteritis K52.9 [facility] [address] [address] Oct, [place] [address] [address] Sep, Weight gain R63.5 ; Major de pressive disorder, single episode, unspecified F32.9 ; Arthralgia, unspecified joint M25.50 ; GERD (gastroesophageal reflux disease) K21.9 and Swelling R60.9 [place] [address] [address] Aug, [place] [address] [address] Jul, [place] [address] [address] Jul, Right knee meniscal tear S83 .206A [place] [address] [address] Jun, [place] [address] [address] Jun, Plantar fasciitis M72.2 [place] [address] [address] Jun, [place] [address] [address] May, Plantar fasciitis M72.2 [place] [address] [address] May, [facility] [address] [id number] [address] [place] [address] May, [facility] [address] [facility] [id number] [address] [place] [address] Apr, [facility] [address] [facility] [id number] [address] [place] [address] Apr, [facility] [address] [facility] [id number] [address] [place] [address] Apr, Bone spur of foot M77.9 [facility] [address] [facility] [id number] [address] [place] [address] Apr, [facility] [address] [facility] [id number] [address] [place] [address] Apr, [facility] [address] [place] [id number] [address] [place] [address] Apr, GERD (gastroesophageal reflu x disease) K21.9 ; Pain in right foot M79.671 ; Pain of left foot M79.672 and Obesity E66.9 [facility] [address] [facility] [id number] [address] [place] [address] December, Degenerative tear of lateral meniscus of right knee M23.300 [place] [address] [place] [id number] [address] [place] [address] December, [facility] [address] [place] [id number] [address] [place] [address] December, Weight gain R63.5 ; Right kn ee meniscal tear S83.206A ; Carpal tunnel syndrome, unspecified laterality G56.00 and Rib pain R07.81 [facility] [address] [facility] [id number] [address] [place] [address] Nov, Right knee meniscal tear S83 .206A [facility] [address] [place] [id number] [address] [place] [address] Nov, Obesity E66.9 ; Knee pain M2 5.569 and GERD (gastroesophageal reflux disease) K21.9 [place] [address] [address] Oct, Weight gain R63.5 and Hormon e replacement therapy Z79.890 [place] [address] [address] Oct, [place] [address] [address] Oct, Right knee pain M25.561 ; Ho rmone replacement therapy Z79.890 and Weight gain R63.5 [place] [address] [address] Sep, Other chronic pain G89.29 an d Eustachian tube dysfunction, right H69.[address] [address] Jul, Hot flashes N95.1 ; Mastodyn ia N64.4 and Sore throat J02.[address] [address] Jun, Acute cystitis with hematuri a N30.01 ; Pain in right axilla M79.601 ; Right foot pain M79.671 and Dysuria R30.0 [place] [address] [address] 14 May, 2015 Migraines 346.90 [place] [address] [address] Apr, Anxiety 300.00 ; Headache 78 4.0 and Varicose vein of leg 454.9 [place] [address] [address] Apr, Depressive disorder, not els ewhere classified 311 [place] [address] [address] Jan, Tension type headache 339.10 and Breast cancer screening V76.10 [facility] [address] [id number] [address] [place] [address] 14 Nov, 2014 [facility] [address] [id number] [address] [place] [address] Nov, [facility] [address] [id number] [address] [place] [address] Jul, [facility] [address] [id number] [address] [place] [address] Jul, [facility] [address] [id number] [address] [place] [address], [place] [address] Jun, [facility] [address] [id number] [address] [place] [address] Jun, [facility] [address] [id number] [address] [place] [address], [place] [address] Apr, [facility] [address] [id number] [address] [place] [address] Apr, [facility] [address] [id number] [address] [place] [address], [place] [address] Jan, [facility] [address] [id number] [address] [place] [phone] Jan, [facility] [address] [id number] [address] [place] [address], [place] [address] December, [facility] [address] [id number] [address] [place] [phone] December, [facility] [address] [id number] [address] [place] [address] December, [facility] [address] [id number] [address] [place] [id number] December, [facility] [address] [id number] [address] [place] [address] Nov, [facility] [address] [id number] [address] [place] [address], [place] [address] Nov, [facility] [address] [id number] [address] [place] [address], [place] [address] Nov, [facility] [address] [id number] [address] [place] [address], [place] [address] Nov, [facility] [address] [id number] [address] [place] [address], [place] [address] Oct, [facility] [address] [id number] [address] [place] [address], [place] [address] Oct, [facility] [address] [id number] [address] [place] [address], [place] [address] Aug, [facility] [address] [id number] [address] [place] [address], [place] [address] Aug, [facility] [address] [id number] [address] [place] [address], [place] [address] Mar, [facility] [address] [id number] [address] [place] [address], [place] [address] Mar, [facility] [address] [id number] [address] [place] [address], [place] [address] Mar, [facility] [address] [id number] [address] [place] [address], [place] [address] Sep, [facility] [address] [id number] [address] [place] [address], [place] [address] Sep, [facility] [address] [id number] [address] [place] [address], [place] [address] Sep, [facility] [address] [id number] [address] [place] [address], [place] [address] Aug, [facility] [address] [id number] [address] [place] [address], [place] [address] Jun, [facility] [address] [id number] [address] [place] [address] December, [facility] [address] [id number] [address] [place] [address] Jul, [facility] [address] [id number] [address] [place] [address] Apr, [facility] [address] [id number] [address] [place] [id number] December, [facility] [address] [id number] [address] [place] [address] Nov, [facility] [address] [id number] [address] [place] [id number] Oct, [facility] [address] [id number] [address] [place] [id number] Sep, [facility] [address] [id number] [address] [place] [address] Aug, [facility] [address] [id number] [address] [place] [id number] Nov, [facility] [address] [id number] [address] [place] [id number] Oct, [facility] [address] [id number] [address] [place] [id number] Oct, IMMUNIZATIONS No Known Immunizations SOCIAL HISTORY Never Assessed REASON FOR VISIT [facility] OF CARE VITAL SIGNS MEDICATIONS Medication Instructions Dosage Frequency Start Date End Date Duration S tatus Meloxicam 15 mg take 1 tablet (15 mg) by oral route once d aily Jul, Active Pyridium 200 mg 1 tablet by Oral rou te 3 times per day for 3 day(s) for bladder pain Jul, Active Zithromax Z-Joe 250 mg 2 tablet by Oral route 1 time per day for 1 days then take 1 tab daily on days 2-5 Jun, Active Fluoxetine 40 mg 1 capsule by Oral route 1 time per day Jul, Active PredniSONE 20 mg SI tab(s) orally once a day fo r 5 day(s) Sep, Active Pristiq 50 mg SI tab(s) orally once a day for 30 da y(s) Sep, Active BuPROPion HCl 100 mg take 1 tablet (100 mg) by oral ro nikolski 2 times per day Oct, Active tizanidine 4 mg 1 tablet by Oral route 3 times per day 1 Jul, Active Neurontin 300 mg 1 capsule by Oral route 2 times per d ay PRN for pain Oct, Active RESULTS No Results PROCEDURES No Known [...]
--- OUTSIDE RECORDS SUMMARY | 2020-02-24 03:03 | XMS REPORT ---
Author Author Shey MCELROY Organization [facility] Address [address] [place] [address] Care Team Providers Care Older Worker Specialist Name Role Phone BRO MCELROY Unavailable PROBLEMS Type Condition ICD9-CM Code JIB88-QF Code Onset Dates Condition S tatus SNOMED Code Problem GERD (gastroesophageal reflux disease) K21.9 Active 478057476 Problem Obesity E66.9 Active 909372257 Problem Knee pain M25.569 Active 88733178 Problem Right knee meniscal tear S83.206A Activ e 678606865 Problem Rib pain R07.81 Active 636718289 Problem Bone spur of foot M77.9 Active 23 [id number] Problem Major depressive disorder, single episode, unspecified F32.9 Active 29762717 Problem Dysthymia F34.1 Active 77422236 Problem Other chronic pain G89.29 Active 8 9058400 Problem Carpal tunnel syndrome, unspecified laterality G56 .00 Active 88722978 Problem Perimenopause N95.1 Active 341351 889634595 Problem Weight gain R63.5 Active 2949246 Problem Continuous leakage of urine N39.45 Ac tive 612265145 Problem Rectocele N81.6 Active 951647005 Problem Fibromyalgia M79.7 Active 4912442 05 Problem Lumbago with sciatica, right side M54.41 Active 008499897 ALLERGIES No Information ENCOUNTERS Encounter Location Date Diagnosis [facility] [address] [facility] [id number] [place] [id number] Apr, [facility] [id number] [place] [phone] Apr, [facility] [address] [facility] [id number] [place] [address] Mar, Lumbago with sciatica, right side M54.41 [place] [address] [id number] [address] [place] [phone] Jan, Lumbago with sciatica, right side M54.41 [facility] [address] [id number] [address] [place] [address] December, Exercise counseling Z71.82 [facility] [address] [id number] [address] [place] [phone] December, Lumbago with sciatica, right side M54.41 [facility] [address] [id number] [address] [place] [phone] December, Exercise counseling Z71.82 [place] [address] [id number] [address] [place] [phone] Nov, Colon cancer screening Z12.1 1 [place] [address] [id number] [address] [place] [phone] Nov, Exercise counseling Z71.82 [facility] [address] [id number] [address] [place] [phone] Nov, Exercise counseling Z71.82 [facility] [address] [facility] [id number] [place] [phone] Nov, Lumbago with sciatica, right side M54.41 [facility] [address] [facility] [id number] [place] [phone] Nov, Exercise counseling Z71.82 [facility] [address] [id number] [address] [place] [phone] Nov, [facility] [address] [facility] [id number] [place] [phone] Nov, Contusion of right knee, seq uela S80.01XS and Lumbago with sciatica, right side M54.41 [facility] [address] [id number] [address] [place] [address] Nov, Exercise counseling Z71.82 [facility] [address] [id number] [address] [place] [phone] Oct, Exercise counseling Z71.82 [facility] [address] [facility] [id number] [place] [phone] Oct, Exercise counseling Z71.82 [facility] [address] [facility] [id number] [place] [phone] Oct, Lumbago with sciatica, right side M54.41 [facility] [address] [facility] [id number] [place] [phone] Oct, Exercise counseling Z71.82 [place] [address] [facility] [id number] [place] [phone] Oct, Contusion of right knee, ini tial encounter S80.01XA [place] [address] [place] [id number] [address] [place] [phone] Oct, Contusion of right knee, ini tial encounter S80.01XA [place] [id number] [facility] [id number] [place] [phone] Oct, Contusion of right knee, ini tial encounter S80.01XA [facility] [address] [facility] [id number] [place] [phone] Oct, Exercise counseling Z71.82 [place] [address] [facility] [id number] [place] [phone] Oct, Lumbago with sciatica, right side M54.41 [facility] [address] [facility] [id number] [place] [phone] Oct, Influenza A J10.1 and Fever R50.9 [facility] [address] [facility] [id number] [place] [phone] Oct, Exercise counseling Z71.82 [facility] [address] [facility] [id number] [place] [phone] Oct, [place] [address] [address] Sep, Perimenopause N95.1 ; Weight gain R63.5 ; BMI 40.0-44.9, adult Z68.41 and Therapeutic drug monitoring Z51.81 [place] [address] [address] Sep, Lumbago with sciatica, right side M54.41 [place] [address] [address] Aug, Lumbago with sciatica, right side M54.41 [place] [address] [address] Jul, Lumbago with sciatica, right side M54.41 [place] [address] [address] Jul, Lumbago with sciatica, right side M54.41 ; Fibromyalgia M79.7 ; Cold sore B00.1 and Abnormal bruising R23.8 [place] [address] [address] Jul, Lumbago with sciatica, right side M54.41 [place] [address] [address] Jun, Lumbago with sciatica, right side M54.41 [place] [address] [address] Jun, Lumbago with sciatica, right side M54.41 ; Other chronic pain G89.29 and BMI 40.0-44.9, adult Z68.41 [facility] [address] [place] [id number] [place] [phone] May, Acute low back pain, unspeci fied back pain laterality, with sciatica presence unspecified M54.5 [place] [address] [address] Jan, Tear of medial meniscus of r ight knee, current, unspecified tear type, subsequent encounter S83.241D [place] [address] [address] Nov, Dysthymia F34.1 ; Weight gai n R63.5 and Acute pain of right knee M25.561 [place] [address] [address] Nov, [place] [address] [address] Nov, Viral illness B34.9 [facility] [place] [address] [address] Oct, Viral URI J06.9 [place] [address] [address] Jun, Fibromyalgia M79.7 and Recto nadia N81.6 [place] [address] [address] May, Weak R53.1 ; Fatigue, unspec ified type R53.83 ; Arthralgia of right knee M25.561 and Hematuria, unspecified type R31.9 [place] [address] [address] Apr, Dysthymia F34.1 [place] [address] [address] Mar, Hematuria, unspecified type R31.9 ; Acute pain of left knee M25.562 ; Right knee pain M25.561 and Low back pain M54.5 [place] [address] [place] [id number] [place] [phone] Mar, Hematuria, unspecified type R31.9 [place] [address] [address] Mar, Acute pain of left knee M25. 562 [place] [address] [place] [id number] [address] [place] [phone] 05 Mar, 2017 GERD (gastroesophageal reflu x disease) K21.9 ; Continuous leakage of urine N39.45 ; Acute cystitis with hematuria N30.01 and Vaginal discharge N89.8 [place] [address] [place] [id number] [place] [phone] Jan, [place] [address] [id number] 07 Jan, 2017 Dysthymia F34.1 ; Sore throa t J02.9 ; Costochondritis M94.0 and Breast cancer screening Z12.39 [place] [address] [address] December, [place] [address] [address] 15 Oct, 2016 Gastroenteritis K52.9 [place] [address] [place] [id number] [place] [phone] Oct, [place] [address] [address] Sep, Weight gain R63.5 ; Major de pressive disorder, single episode, unspecified F32.9 ; Arthralgia, unspecified joint M25.50 ; GERD (gastroesophageal reflux disease) K21.9 and Swelling R60.9 [place] [address] [place] [id number] [address] [place] [phone] Aug, [place] [address] [place] [id number] [address] [place] [address] Jul, [place] [address] [address] Jul, Right knee meniscal tear S83 .206A [place] [address] [place] [id number] [place] [phone] Jun, [facility] [address] [id number] [address] [place] [phone] Jun, Plantar fasciitis M72.2 [facility] [address] [id number] [address] [place] [phone] Jun, [facility] [address] [id number] [address] [place] [phone] May, Plantar fasciitis M72.2 [facility] [address] [id number] [address] [place] [phone] May, [facility] [address] [id number] [address] [place] [phone] May, [facility] [address] [id number] [address] [place] [phone] Apr, [facility] [address] [id number] [address] [place] [phone] Apr, [facility] [address] [id number] [address] [place] [phone] Apr, Bone spur of foot M77.9 [facility] [address] [id number] [address] [place] [phone] Apr, [facility] [address] [id number] [address] [place] [phone] Apr, [facility] [address] [id number] [address] [place] [phone] Apr, GERD (gastroesophageal reflu x disease) K21.9 ; Pain in right foot M79.671 ; Pain of left foot M79.672 and Obesity E66.9 [facility] [address] [id number] [address] [place] [phone] December, Degenerative tear of lateral meniscus of right knee M23.300 [facility] [address] [id number] [address] [place] [address] December, [facility] [address] [place] [id number] [address] [place] [address] December, Weight gain R63.5 ; Right kn ee meniscal tear S83.206A ; Carpal tunnel syndrome, unspecified laterality G56.00 and Rib pain R07.81 [place] [address] [place] [id number] [address] [place] [address] Nov, Right knee meniscal tear S83 .206A [place] [address] [place] [id number] [place] [phone] Nov, Obesity E66.9 ; Knee pain M2 5.569 and GERD (gastroesophageal reflux disease) K21.9 [place] [address] [facility] [id number] [address] Oct, Weight gain R63.5 and Hormon e replacement therapy Z79.890 [place] [address] [place] [id number] [place] [address] Oct, [place] [address] [address] Oct, Right knee pain M25.561 ; Ho rmone replacement therapy Z79.890 and Weight gain R63.5 [place] [address] [address] Sep, Other chronic pain G89.29 an d Eustachian tube dysfunction, right H69.81 [place] [address] [place] [id number] [address] [place] [address] Jul, Hot flashes N95.1 ; Mastodyn ia N64.4 and Sore throat J02.9 [place] [address] [address] Jun, Acute cystitis with hematuri a N30.01 ; Pain in right axilla M79.601 ; Right foot pain M79.671 and Dysuria R30.0 [place] [address] [address] May, Migraines 346.90 [facility] [address] [facility] [id number] [place] [address] Apr, Anxiety 300.00 ; Headache 78 4.0 and Varicose vein of leg 454.9 [facility] [address] [id number] [address] [place] [phone] Apr, Depressive disorder, not els ewhere classified 311 [facility] [address] [id number] [address] [place] [phone] Jan, Tension type headache 339.10 and Breast cancer screening V76.10 [facility] [address] [id number] [address] [place] [phone] Nov, [facility] [address] [id number] [address] [place] [phone] Nov, [facility] [address] [facility] [id number] [place] [phone] Jul, [facility] [address] [id number] [address] [place] [phone] Jul, [facility] [address] [facility] [id number] [place] [phone] Jun, [facility] [address] [facility] [id number] [place] [phone] Jun, [facility] [address] [id number] [address] [place] [phone] Apr, [facility] [address] [id number] [address] [place] [phone] Apr, [facility] [address] [id number] [address] [place] [phone] Jan, [facility] [address] [id number] [address] [place] [phone] Jan, [facility] [address] [id number] [address] [place] [phone] December, [facility] [address] [id number] [address] [place] [address], [place] [address] December, [facility] [address] [id number] [address] [place] [address], [place] [address] December, [facility] [address] [id number] [address] [place] [address], [place] [address] December, [facility] [address] [id number] [address] [place] [address], [place] [address] Nov, [facility] [address] [id number] [address] [place] [address], [place] [address] Nov, [facility] [address] [id number] [address] [place] [address], [place] [address] Nov, [facility] [address] [id number] [address] [place] [address], [place] [address] Nov, [facility] [address] [id number] [address] [place] [address], [place] [address] Oct, [facility] [address] [id number] [address] [place] [address], [place] [address] Oct, [facility] [address] [id number] [address] [place] [address], [place] [address] Aug, [facility] [address] [id number] [address] [place] [address], [place] [address] Aug, [facility] [address] [id number] [address] [place] [address], [place] [address] Mar, [facility] [address] [id number] [address] [place] [address], [place] [address] Mar, [facility] [address] [id number] [address] [place] [address], [place] [address] Mar, [facility] [address] [id number] [address] [place] [address], [place] [address] Sep, [facility] [address] [id number] [address] [place] [phone] Sep, [facility] [address] [id number] [address] [place] [phone] Sep, [facility] [address] [id number] [address] [place] [phone] Aug, [facility] [address] [id number] [address] [place] [phone] Jun, [facility] [address] [id number] [address] [place] [phone] December, [facility] [address] [id number] [address] [place] [phone] Jul, [facility] [address] [id number] [address] [place] [phone] Apr, [facility] [address] [id number] [address] [place] [phone] December, [facility] [address] [id number] [address] [place] [phone] Nov, [facility] [address] [id number] [address] [place] [phone] Oct, [facility] [address] [id number] [address] [place] [phone] Sep, [facility] [address] [id number] [address] [place] [phone] Aug, [facility] [address] [id number] [address] [place] [phone] 15 Nov, 2008 [facility] [address] [id number] [address] [place] [phone] Oct, [facility] [address] [id number] [address] [place] [phone] 12 Oct, 2008 IMMUNIZATIONS No Known Immunizations SOCIAL HISTORY Never Assessed REASON FOR VISIT New order PLAN OF CARE VITAL SIGNS MEDICATIONS Unknown [...]
--- OUTSIDE RECORDS SUMMARY | 2020-02-24 03:03 | XMS REPORT ---
Author Author Shey Huston Doctor Organization [facility] Address Unknown Phone Unavailable Care Team Providers Care [employer]ator [employer] Name Role Phone Migration, Doctor Unavailable Unavailable PROBLEMS Type Condition ICD9-CM Code WVM27-WR Code Onset Dates Condition S tatus SNOMED Code Problem GERD (gastroesophageal reflux disease) K21.9 Active 533401139 Problem Obesity E66.9 Active 307886093 Problem Knee pain M25.569 Active 73865075 Problem Right knee meniscal tear S83.206A Activ e 669931818 Problem Rib pain R07.81 Active 291827446 Problem Bone spur of foot M77.9 Active 23 [id number] Problem Major depressive disorder, single episode, unspecified F32.9 Active 38434082 Problem Dysthymia F34.1 Active 00411927 Problem Other chronic pain G89.29 Active 8 8043267 Problem Carpal tunnel syndrome, unspecified laterality G56 .00 Active 59238259 Problem Perimenopause N95.1 Active 232397 124744231 Problem Weight gain R63.5 Active 6992960 Problem Continuous leakage of urine N39.45 Ac tive 089432363 Problem Rectocele N81.6 Active 101859290 Problem Fibromyalgia M79.7 Active 5300589 05 Problem Lumbago with sciatica, right side M54.41 Active 419848206 ALLERGIES No Information ENCOUNTERS Encounter Location Date Diagnosis [place] [address] [address] [facility] [id number] [address] [place] [address] Jan, [place] [address] [address] [facility] [id number] [address] [place] [address] December, Exercise counseling Z71.82 [place] [address] [address] [facility] [id number] [address] [place] [address] December, Lumbago with sciatica, right side M54.41 [place] [address] [address] [facility] [id number] [address] [place] [address] December, Exercise counseling Z71.82 [place] [address] [facility] [id number] [address] [place] [address] Nov, Colon cancer screening Z12.1 1 [place] [address] [id number] [address] [place] [address] Nov, Exercise counseling Z71.82 [place] [address] [facility] [id number] [address] [place] [address] Nov, Exercise counseling Z71.82 [place] [address] [id number] [address] [place] [address] Nov, Lumbago with sciatica, right side M54.41 [place] [address] [address] [facility] [id number] [address] [place] [address] Nov, Exercise counseling Z71.82 [place] [address] [facility] [id number] [address] [place] [address] Nov, [place] [address] [facility] [id number] [address] [place] [address] Nov, Contusion of right knee, seq uela S80.01XS and Lumbago with sciatica, right side M54.41 [place] [address] [address] [facility] [id number] [address] [place] [address] Nov, Exercise counseling Z71.82 [place] [address] [facility] [id number] [address] [place] [address] Oct, Exercise counseling Z71.82 [place] [address] [id number] [address] [place] [address] Oct, Exercise counseling Z71.82 [place] [address] [facility] [id number] [address] [place] [address] Oct, Lumbago with sciatica, right side M54.41 [place] [address] [address] [facility] [id number] [address] [place] [address] Oct, Exercise counseling Z71.82 [place] [address] [place] [id number] [address] [place] [address] Oct, Contusion of right knee, ini tial encounter S80.01XA [place] [address] [place] [id number] [address] [place] [address] Oct, Contusion of right knee, ini tial encounter S80.01XA [place] [address] [place] [id number] [address] [place] [address] Oct, Contusion of right knee, ini tial encounter S80.01XA [place] [address] [facility] [id number] [address] [place] [address] Oct, Exercise counseling Z71.82 [place] [address] [place] [id number] [address] [place] [address] Oct, Lumbago with sciatica, right side M54.41 [facility] [address] [place] [id number] [address] [place] [address] Oct, Influenza A J10.1 and Fever R50.9 [place] [address] [address] Oct, Exercise counseling Z71.82 [place] [address] [place] [id number] [address] [place] [address] Oct, [place] [address] [address] Sep, Perimenopause N95.1 ; Weight gain R63.5 ; BMI 40.0-44.9, adult Z68.41 and Therapeutic drug monitoring Z51.81 [place] [address] [place] [id number] [address] [place] [address] Sep, Lumbago with sciatica, right side M54.41 [place] [address] [place] [id number] [address] [place] [address] Aug, Lumbago with sciatica, right side M54.41 [facility] [address] [place] [id number] [address] [place] [address] Jul, Lumbago with sciatica, right side M54.41 [place] [address] [place] [id number] [place] [address] Jul, Lumbago with sciatica, right side M54.41 ; Fibromyalgia M79.7 ; Cold sore B00.1 and Abnormal bruising R23.8 [facility] [address] [address] Jul, Lumbago with sciatica, right side M54.41 [place] [address] [address] Jun, Lumbago with sciatica, right side M54.41 [place] [address] [address] Jun, Lumbago with sciatica, right side M54.41 ; Other chronic pain G89.29 and BMI 40.0-44.9, adult Z68.41 [facility] [address] [place] [id number] [place] [address] May, Acute low back pain, unspeci fied back pain laterality, with sciatica presence unspecified M54.5 [place] [address] [place] [id number] [place] [address] Jan, Tear of medial meniscus of r ight knee, current, unspecified tear type, subsequent encounter S83.241D [place] [id number] [place] [address] Nov, Dysthymia F34.1 ; Weight gai n R63.5 and Acute pain of right knee M25.561 [facility] [address] [place] [id number] [address] [place] [address] Nov, [facility] [address] [address] Nov, Viral illness B34.9 [facility] [address] [place] [id number] [address] [place] [address] Oct, Viral URI J06.9 [facility] [address] [place] [id number] [address] [place] [address] 18 Jun, 2017 Fibromyalgia M79.7 and Recto nadia N81.6 [place] [address] [address] May, Weak R53.1 ; Fatigue, unspec ified type R53.83 ; Arthralgia of right knee M25.561 and Hematuria, unspecified type R31.9 [place] [address] [address] Apr, Dysthymia F34.1 [place] [address] [address] Mar, Hematuria, unspecified type R31.9 ; Acute pain of left knee M25.562 ; Right knee pain M25.561 and Low back pain M54.5 [place] [address] [address] Mar, Hematuria, unspecified type R31.9 [place] [address] [address] Mar, Acute pain of left knee M25. 562 [place] [address] [address] 05 Mar, 2017 GERD (gastroesophageal reflu x disease) K21.9 ; Continuous leakage of urine N39.45 ; Acute cystitis with hematuria N30.01 and Vaginal discharge N89.8 [place] [address] [place] [id number] [address] [place] [address] 13 Jan, 2017 [place] [address] [address] Jan, Dysthymia F34.1 ; Sore throa t J02.9 ; Costochondritis M94.0 and Breast cancer screening Z12.39 [facility] [address] [place] [id number] [address] [place] [address] December, [facility] [address] [place] [id number] [address] [place] [address] Oct, Gastroenteritis K52.9 [facility] [address] [place] [id number] [address] [place] [address] Oct, [facility] [address] [place] [id number] [place] [address] Sep, Weight gain R63.5 ; Major de pressive disorder, single episode, unspecified F32.9 ; Arthralgia, unspecified joint M25.50 ; GERD (gastroesophageal reflux disease) K21.9 and Swelling R60.9 [facility] [address] [place] [id number] [address] [place] [address] Aug, [facility] [address] [place] [id number] [address] [place] [address] Jul, [facility] [address] [address] Jul, Right knee meniscal tear S83 .206A [facility] [address] [place] [id number] [address] [place] [address] Jun, [facility] [address] [place] [id number] [address] [place] [address] Jun, Plantar fasciitis M72.2 [facility] [address] [place] [id number] [address] [place] [address] Jun, [facility] [address] [place] [id number] [address] [place] [address] May, Plantar fasciitis M72.2 [facility] [address] [place] [id number] [address] [place] [address] May, [facility] [address] [place] [id number] [address] [place] [address] May, [facility] [address] [id number] [address] [place] [address] Apr, [facility] [address] [id number] [address] [place] [address] Apr, [facility] [address] [id number] [address] [place] [address] Apr, Bone spur of foot M77.9 [facility] [address] [id number] [address] [place] [address] Apr, [facility] [address] [facility] [id number] [address] [place] [address] Apr, [facility] [address] [facility] [id number] [address] [place] [address] Apr, GERD (gastroesophageal reflu x disease) K21.9 ; Pain in right foot M79.671 ; Pain of left foot M79.672 and Obesity E66.9 [facility] [address] [facility] [id number] [address] [place] [address] December, Degenerative tear of lateral meniscus of right knee M23.300 [facility] [address] [facility] [id number] [address] [place] [address] December, [facility] [address] [facility] [id number] [address] [place] [address] December, Weight gain R63.5 ; Right kn ee meniscal tear S83.206A ; Carpal tunnel syndrome, unspecified laterality G56.00 and Rib pain R07.81 [facility] [address] [id number] [address] [place] [address] Nov, Right knee meniscal tear S83 .206A [facility] [address] [facility] [id number] [address] [place] [address] Nov, Obesity E66.9 ; Knee pain M2 5.569 and GERD (gastroesophageal reflux disease) K21.9 [place] [address] [facility] [id number] [address] [place] [address] Oct, Weight gain R63.5 and Hormon e replacement therapy Z79.890 [place] [address] [facility] [id number] [address] [place] [address] Oct, [place] [address] [place] [id number] [place] [address] Oct, Right knee pain M25.561 ; Ho rmone replacement therapy Z79.890 and Weight gain R63.5 [place] [address] [facility] [id number] [place] [address] Sep, Other chronic pain G89.29 an d Eustachian tube dysfunction, right H69.81 [place] [address] [address] Jul, Hot flashes N95.1 ; Mastodyn ia N64.4 and Sore throat J02.9 [place] [address] [address] Jun, Acute cystitis with hematuri a N30.01 ; Pain in right axilla M79.601 ; Right foot pain M79.671 and Dysuria R30.0 [place] [address] [address] 14 May, 2015 Migraines 346.90 [place] [address] [address] Apr, Anxiety 300.00 ; Headache 78 4.0 and Varicose vein of leg 454.9 [place] [address] [address] Apr, Depressive disorder, not els ewhere classified 311 [place] [address] [place] [id number] [address] [place] [address] Jan, Tension type headache 339.10 and Breast cancer screening V76.10 [facility] [address] [id number] [address] [place] [address], [place] [address] 14 Nov, 2014 [facility] [address] [id number] [address] [place] [address], [place] [address] 13 Nov, 2014 [facility] [address] [id number] [address] [place] [address], [place] [address] Jul, [facility] [address] [id number] [address] [place] [address], [place] [address] Jul, [facility] [address] [id number] [address] [place] [address], [place] [address] Jun, [facility] [address] [id number] [address] [place] [address], [place] [address] Jun, [facility] [address] [id number] [address] [place] [address], [place] [address] Apr, [facility] [address] [id number] [address] [place] [address], [place] [address] Apr, [facility] [address] [id number] [address] [place] [address], [place] [address] Jan, [facility] [address] [id number] [address] [place] [address], [place] [address] Jan, [facility] [address] [id number] [address] [place] [address], [place] [address] December, [facility] [address] [id number] [address] [place] [address], [place] [address] December, [facility] [address] [id number] [address] [place] [address], [place] [address] December, [facility] [address] [id number] [address] [place] [address], [place] [address] December, [facility] [address] [id number] [address] [place] [address], [place] [address] Nov, [facility] [address] [id number] [address] [place] [address], [place] [address] Nov, [facility] [address] [id number] [address] [place] [address], [place] [address] Nov, [facility] [address] [id number] [address] [place] [address], [place] [address] Nov, [facility] [address] [id number] [address] [place] [address], [place] [address] Oct, [facility] [address] [id number] [address] [place] [address], [place] [address] Oct, [facility] [address] [id number] [address] [place] [address], [place] [address] Aug, [facility] [address] [id number] [address] [place] [address], [place] [address] Aug, [facility] [address] [id number] [address] [place] [address], [place] [address] Mar, [facility] [address] [id number] [address] [place] [address], [place] [address] Mar, [facility] [address] [id number] [address] [place] [address], [place] [address] Mar, [facility] [address] [id number] [address] [place] [address], [place] [address] Sep, [facility] [address] [id number] [address] [place] [address], [place] [address] Sep, [facility] [address] [id number] [address] [place] [address], [place] [address] Sep, [facility] [address] [id number] [address] [place] [address], [place] [address] Aug, [facility] [address] [id number] [address] [place] [address], [place] [address] Jun, [facility] [address] [id number] [address] [place] [address], [place] [address] December, [facility] [address] [id number] [address] [place] [address] Jul, [facility] [address] [id number] [address] [place] [address] Apr, [facility] [address] [id number] [address] [place] [address] December, [facility] [address] [id number] [address] [place] [address] Nov, [facility] [address] [id number] [address] [place] [address] Oct, [facility] [address] [id number] [address] [place] [address] Sep, [facility] [address] [id number] [address] [place] [address] Aug, [facility] [address] [id number] [address] [place] [address] 15 Nov, 2008 [facility] [address] [id number] [address] [place] [address] Oct, [facility] [address] [id number] [address] [place] [address] 12 Oct, 2008 IMMUNIZATIONS No Known Immunizations SOCIAL HISTORY Never Assessed REASON FOR VISIT EMR-[facility] PLAN OF CARE VITAL SIGNS MEDICATIONS Unknown [...]
--- OUTSIDE RECORDS SUMMARY | 2020-02-24 03:04 | XMS REPORT ---
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 Name Role Phone BRO MCELROY Unavailable PROBLEMS Type Condition ICD9-CM Code KTE52-JP Code Onset Dates Condition S tatus SNOMED Code Problem Carpal tunnel syndrome, unspecified laterality G56 .00 Active 45098280 Problem Major depressive disorder, single episode, unspecified F32.9 Active 50164954 Problem Bone spur of foot M77.9 Active 23 [id number] Problem Other chronic pain G89.29 Active 8 7035271 Problem Lumbago with sciatica, right side M54.41 Active 090661601 Problem Continuous leakage of urine N39.45 Ac tive 326973714 Problem Dysthymia F34.1 Active 35942100 Problem Fibromyalgia M79.7 Active 7696463 05 Problem Rectocele N81.6 Active 511083146 Problem Obesity E66.9 Active 290662540 Problem Rib pain R07.81 Active 618177897 Problem GERD (gastroesophageal reflux disease) K21.9 Active 317491987 Problem Right knee meniscal tear S83.206A Activ e 000076984 Problem Knee pain M25.569 Active 38297345 Problem Weight gain R63.5 Active 8816318 ALLERGIES No Information ENCOUNTERS Encounter Location Date Diagnosis [facility] [address] [facility] [id number] [address] [place] [id number] Aug, [facility] [address] [facility] [id number] [address] [place] [address] Jul, Lumbago with sciatica, right side M54.41 [facility] [address] [facility] [id number] [address] [place] [address] Jul, Lumbago with sciatica, right side M54.41 ; Fibromyalgia M79.7 ; Cold sore B00.1 and Abnormal bruising R23.8 [place] [address] [address] Jul, Lumbago with sciatica, right side M54.41 [place] [address] [address] Jun, Lumbago with sciatica, right side M54.41 [place] [address] [address] Jun, Lumbago with sciatica, right side M54.41 ; Other chronic pain G89.29 and BMI 40.0-44.9, adult Z68.41 [facility] [place] [address] [address] May, Acute low back pain, unspeci fied back pain laterality, with sciatica presence unspecified M54.5 [place] [address] [address] Jan, Tear of medial meniscus of r ight knee, current, unspecified tear type, subsequent encounter S83.241D [place] [address] [address] Nov, Dysthymia F34.1 ; Weight gai n R63.5 and Acute pain of right knee M25.561 [place] [address] [address] Nov, [place] [address] [address] Nov, Viral illness B34.9 [facility] [place] [address] [address] Oct, Viral URI J06.9 [place] [address] [address] Jun, Fibromyalgia M79.7 and Recto nadia N81.6 [place] [address] [place] [id number] [address] [place] [address] 11 May, 2017 Weak R53.1 ; Fatigue, unspec ified type R53.83 ; Arthralgia of right knee M25.561 and Hematuria, unspecified type R31.9 [place] [address] [address] Apr, Dysthymia F34.1 [place] [address] [address] Mar, Hematuria, unspecified type R31.9 ; Acute pain of left knee M25.562 ; Right knee pain M25.561 and Low back pain M54.5 [place] [address] [address] Mar, Hematuria, unspecified type R31.9 [place] [address] [address] Mar, Acute pain of left knee M25. 562 [place] [address] [address] Mar, GERD (gastroesophageal reflu x disease) K21.9 ; Continuous leakage of urine N39.45 ; Acute cystitis with hematuria N30.01 and Vaginal discharge N89.8 [place] [address] [address] Jan, [place] [address] [address] Jan, Dysthymia F34.1 ; Sore throa t J02.9 ; Costochondritis M94.0 and Breast cancer screening Z12.39 [place] [address] [address] December, [place] [address] [address] 15 Oct, 2016 Gastroenteritis K52.9 [place] [address] [id number] [address] [place] [address] Oct, [facility] [address] [id number] [address] [place] [address] Sep, Weight gain R63.5 ; Major de pressive disorder, single episode, unspecified F32.9 ; Arthralgia, unspecified joint M25.50 ; GERD (gastroesophageal reflux disease) K21.9 and Swelling R60.9 [facility] [address] [id number] [address] [place] [address] Aug, [facility] [address] [id number] [address] [place] [address] Jul, [facility] [address] [id number] [address] [place] [address] Jul, Right knee meniscal tear S83 .206A [facility] [address] [id number] [address] [place] [address] Jun, [facility] [address] [id number] [address] [place] [address] Jun, Plantar fasciitis M72.2 [facility] [address] [id number] [address] [place] [address] Jun, [facility] [address] [id number] [address] [place] [address] May, Plantar fasciitis M72.2 [facility] [address] [id number] [address] [place] [address] May, [facility] [address] [id number] [address] [place] [address] May, [facility] [address] [id number] [address] [place] [address] Apr, [facility] [address] [id number] [address] [place] [address] Apr, [facility] [address] [id number] [address] [place] [address] Apr, Bone spur of foot M77.9 [place] [address] [place] [id number] [place] [address] Apr, [place] [address] [place] [id number] [place] [address] Apr, [place] [address] [address] Apr, GERD (gastroesophageal reflu x disease) K21.9 ; Pain in right foot M79.671 ; Pain of left foot M79.672 and Obesity E66.9 [place] [address] [address] December, Degenerative tear of lateral meniscus of right knee M23.300 [place] [address] [address] December, [place] [address] [address] December, Weight gain R63.5 ; Right kn ee meniscal tear S83.206A ; Carpal tunnel syndrome, unspecified laterality G56.00 and Rib pain R07.81 [place] [address] [place] [id number] [place] [address] Nov, Right knee meniscal tear S83 .206A [place] [address] [place] [id number] [place] [address] Nov, Obesity E66.9 ; Knee pain M2 5.569 and GERD (gastroesophageal reflux disease) K21.9 [place] [address] [place] [id number] [address] [place] [address] Oct, Weight gain R63.5 and Hormon e replacement therapy Z79.890 [place] [address] [place] [id number] [address] [place] [address] Oct, [place] [address] [place] [id number] [place] [address] Oct, Right knee pain M25.561 ; Ho rmone replacement therapy Z79.890 and Weight gain R63.5 [place] [address] [address] Sep, Other chronic pain G89.29 an d Eustachian tube dysfunction, right H69.81 [place] [address] [address] Jul, Hot flashes N95.1 ; Mastodyn ia N64.4 and Sore throat J02.9 [place] [address] [address] Jun, Acute cystitis with hematuri a N30.01 ; Pain in right axilla M79.601 ; Right foot pain M79.671 and Dysuria R30.0 [place] [address] [address] 14 May, 2015 Migraines 346.90 [place] [address] [address] Apr, Anxiety 300.00 ; Headache 78 4.0 and Varicose vein of leg 454.9 [place] [address] [address] Apr, Depressive disorder, not els ewhere classified 311 [place] [address] [place] [id number] [address] [place] [address] Jan, Tension type headache 339.10 and Breast cancer screening V76.10 [place] [address] [address] Nov, [place] [address] [address] Nov, [place] [address] [place] [id number] [address] [place] [address] Jul, [facility] [address] [id number] [address] [place] [address], [place] [address] Jul, [facility] [address] [id number] [address] [place] [address], [place] [address] Jun, [facility] [address] [id number] [address] [place] [address], [place] [address] Jun, [facility] [address] [id number] [address] [place] [address], [place] [id number] Apr, [facility] [address] [id number] [address] [place] [address], [place] [address] Apr, [facility] [address] [id number] [address] [place] [address], [place] [address] Jan, [facility] [address] [id number] [address] [place] [address], [place] [address] Jan, [facility] [address] [id number] [address] [place] [address], [place] [address] December, [facility] [address] [id number] [address] [place] [address], [place] [address] December, [facility] [address] [id number] [address] [place] [address], [place] [address] December, [facility] [address] [id number] [address] [place] [address], [place] [address] December, [facility] [address] [id number] [address] [place] [address], [place] [address] Nov, [facility] [address] [id number] [address] [place] [address], [place] [address] Nov, [facility] [address] [id number] [address] [place] [address], [place] [address] Nov, [facility] [address] [id number] [address] [place] [address], [place] [address] Nov, [facility] [address] [id number] [address] [place] [address], [place] [address] Oct, [facility] [address] [id number] [address] [place] [address], [place] [address] Oct, [facility] [address] [id number] [address] [place] [address], [place] [address] Aug, [facility] [address] [id number] [address] [place] [address], [place] [address] Aug, [facility] [address] [id number] [address] [place] [address], [place] [address] Mar, [facility] [address] [id number] [address] [place] [address], [place] [address] Mar, [facility] [address] [id number] [address] [place] [address], [place] [id number] Mar, [facility] [address] [id number] [address] [place] [address], [place] [id number] Sep, [facility] [address] [id number] [address] [place] [address], [place] [address] Sep, [facility] [address] [id number] [address] [place] [address], [place] [address] Sep, [facility] [address] [id number] [address] [place] [address], [place] [id number] Aug, [facility] [address] [id number] [address] [place] [address], [place] [address] Jun, [facility] [address] [id number] [address] [place] [address], [place] [address] December, [facility] [address] [id number] [address] [place] [address], [place] [address] Jul, [facility] [address] [id number] [address] [place] [address], [place] [address] Apr, [facility] [address] [id number] [address] [place] [address], [place] [address] December, [facility] [address] [id number] [address] [place] [address] 13 Nov, 2009 [facility] [address] [facility] [id number] [address] [place] [id number] 19 Oct, 2009 [facility] [address] [facility] [id number] [address] [place] [id number] 14 Sep, 2009 [facility] [address] [facility] [id number] [address] [place] [phone] Aug, [facility] [address] [facility] [id number] [address] [place] [id number] 15 Nov, 2008 [facility] [address] [facility] [id number] [address] [place] [id number] Oct, [facility] [address] [facility] [id number] [address] [place] [address] 12 Oct, 2008 IMMUNIZATIONS No Known Immunizations SOCIAL HISTORY Never Assessed REASON FOR VISIT Controlled Med Refill 08/03 PLAN OF CARE VITAL SIGNS MEDICATIONS Medication Instructions Dosage Frequency Start Date End Date Duration S tatus Hydrocodone-Acetaminophen 7.5-325 MG Orally at bedtime 1 tablet Aug, 28 days Active RESULTS No Results PROCEDURES [...]
--- OUTSIDE RECORDS SUMMARY | 2020-02-24 03:04 | XMS REPORT ---
Author Author Shey Huston Doctor Organization [facility] Address Unknown Phone Unavailable Care Team Providers Care [employer] Worker Name Role Phone Migration, Doctor Unavailable Unavailable PROBLEMS Type Condition ICD9-CM Code DIH58-AU Code Onset Dates Condition S tatus SNOMED Code Problem GERD (gastroesophageal reflux disease) K21.9 Active 865797872 Problem Obesity E66.9 Active 651727226 Problem Knee pain M25.569 Active 88219285 Problem Right knee meniscal tear S83.206A Activ e 224843397 Problem Rib pain R07.81 Active 931533994 Problem Bone spur of foot M77.9 Active 23 [id number] Problem Major depressive disorder, single episode, unspecified F32.9 Active 74854700 Problem Dysthymia F34.1 Active 07259594 Problem Other chronic pain G89.29 Active 8 3082706 Problem Carpal tunnel syndrome, unspecified laterality G56 .00 Active 37119882 Problem Perimenopause N95.1 Active 722619 219007907 Problem Weight gain R63.5 Active 4888162 Problem Continuous leakage of urine N39.45 Ac tive 247999603 Problem Rectocele N81.6 Active 291422937 Problem Fibromyalgia M79.7 Active 9648998 05 Problem Lumbago with sciatica, right side M54.41 Active 436104496 ALLERGIES No Information ENCOUNTERS Encounter Location Date Diagnosis [place] [address] [facility] [id number] [address] [place] [id number] Jan, [place] [address] [facility] [id number] [address] [place] [address] December, Exercise counseling Z71.82 [place] [address] [facility] [id number] [address] [place] [id number] December, Lumbago with sciatica, right side M54.41 [place] [address] [facility] [id number] [address] [place] [phone] December, Exercise counseling Z71.[address] [place] [address] [facility] [id number] [address] [place] [id number] Nov, Colon cancer screening Z12.1 1 [place] [address] [id number] [address] [place] [phone] Nov, Exercise counseling Z71.82 [place] [address] [facility] [id number] [address] [place] [id number] Nov, Exercise counseling Z71.82 [place] [address] [id number] [address] [place] [id number] Nov, Lumbago with sciatica, right side M54.41 [place] [address] [facility] [id number] [address] [place] [address] Nov, Exercise counseling Z71.82 [place] [address] [facility] [id number] [address] [place] [phone] Nov, [place] [address] [facility] [id number] [address] [place] [phone] Nov, Contusion of right knee, seq uela S80.01XS and Lumbago with sciatica, right side M54.41 [place] [address] [facility] [id number] [address] [place] [id number] Nov, Exercise counseling Z71.82 [place] [address] [facility] [id number] [address] [place] [phone] Oct, Exercise counseling Z71.82 [place] [address] [id number] [address] [place] [phone] Oct, Exercise counseling Z71.82 [place] [address] [facility] [id number] [address] [place] [id number] Oct, Lumbago with sciatica, right side M54.41 [place] [address] [facility] [id number] [address] [place] [address] Oct, Exercise counseling Z71.82 [place] [address] [place] [id number] [address] [place] [id number] Oct, Contusion of right knee, ini tial encounter S80.01XA [place] [address] [place] [id number] [address] [place] [phone] Oct, Contusion of right knee, ini tial encounter S80.01XA [place] [address] [place] [id number] [address] [place] [id number] Oct, Contusion of right knee, ini tial encounter S80.01XA [place] [address] [facility] [id number] [address] [place] [phone] Oct, Exercise counseling Z71.82 [place] [address] [place] [id number] [address] [place] [phone] Oct, Lumbago with sciatica, right side M54.41 [facility] [address] [place] [id number] [address] [place] [phone] Oct, Influenza A J10.1 and Fever R50.9 [place] [address] [address] Oct, Exercise counseling Z71.82 [place] [address] [place] [id number] [address] [place] [address] Oct, [place] [address] [address] Sep, Perimenopause N95.1 ; Weight gain R63.5 ; BMI 40.0-44.9, adult Z68.41 and Therapeutic drug monitoring Z51.81 [place] [address] [place] [id number] [address] [place] [phone] Sep, Lumbago with sciatica, right side M54.41 [place] [address] [place] [id number] [address] [place] [address] Aug, Lumbago with sciatica, right side M54.41 [facility] [address] [place] [id number] [address] [place] [id number] Jul, Lumbago with sciatica, right side M54.41 [place] [address] [place] [id number] [place] [address] Jul, Lumbago with sciatica, right side M54.41 ; Fibromyalgia M79.7 ; Cold sore B00.1 and Abnormal bruising R23.8 [facility] [address] [address] Jul, Lumbago with sciatica, right side M54.41 [place] [address] [address] Jun, Lumbago with sciatica, right side M54.41 [place] [address] [address] Jun, Lumbago with sciatica, right side M54.41 ; Other chronic pain G89.29 and BMI 40.0-44.9, adult Z68.41 [facility] [address] [place] [id number] [place] [address] May, Acute low back pain, unspeci fied back pain laterality, with sciatica presence unspecified M54.5 [place] [address] [place] [id number] [place] [phone] Jan, Tear of medial meniscus of r ight knee, current, unspecified tear type, subsequent encounter S83.241D [place] [id number] [place] [phone] Nov, Dysthymia F34.1 ; Weight gai n R63.5 and Acute pain of right knee M25.561 [facility] [address] [place] [id number] [address] [place] [phone] Nov, [facility] [address] [address] Nov, Viral illness B34.9 [facility] [address] [place] [id number] [address] [place] [id number] Oct, Viral URI J06.9 [facility] [address] [place] [id number] [address] [place] [phone] 18 Jun, 2017 Fibromyalgia M79.7 and Recto nadia N81.6 [place] [address] [address] May, Weak R53.1 ; Fatigue, unspec ified type R53.83 ; Arthralgia of right knee M25.561 and Hematuria, unspecified type R31.9 [place] [address] [address] Apr, Dysthymia F34.1 [place] [address] [address] Mar, Hematuria, unspecified type R31.9 ; Acute pain of left knee M25.562 ; Right knee pain M25.561 and Low back pain M54.5 [place] [address] [address] Mar, Hematuria, unspecified type R31.9 [place] [address] [address] Mar, Acute pain of left knee M25. 562 [place] [address] [address] 05 Mar, 2017 GERD (gastroesophageal reflu x disease) K21.9 ; Continuous leakage of urine N39.45 ; Acute cystitis with hematuria N30.01 and Vaginal discharge N89.8 [place] [address] [place] [id number] [place] [id number] 13 Jan, 2017 [place] [address] [address] Jan, Dysthymia F34.1 ; Sore throa t J02.9 ; Costochondritis M94.0 and Breast cancer screening Z12.39 [facility] [address] [place] [id number] [address] [place] [phone] December, [facility] [address] [place] [id number] [address] [place] [phone] Oct, Gastroenteritis K52.9 [facility] [address] [place] [id number] [address] [place] [phone] Oct, [facility] [address] [place] [id number] [place] [address] Sep, Weight gain R63.5 ; Major de pressive disorder, single episode, unspecified F32.9 ; Arthralgia, unspecified joint M25.50 ; GERD (gastroesophageal reflux disease) K21.9 and Swelling R60.9 [facility] [address] [place] [id number] [address] [place] [id number] Aug, [facility] [address] [place] [id number] [address] [place] [id number] Jul, [facility] [address] [address] Jul, Right knee meniscal tear S83 .206A [facility] [address] [place] [id number] [address] [place] [phone] Jun, [facility] [address] [place] [id number] [address] [place] [phone] Jun, Plantar fasciitis M72.2 [facility] [address] [place] [id number] [address] [place] [id number] Jun, [facility] [address] [place] [id number] [address] [place] [phone] May, Plantar fasciitis M72.2 [facility] [address] [place] [id number] [address] [place] [phone] May, [facility] [address] [place] [id number] [address] [place] [id number] May, [facility] [address] [id number] [address] [place] [phone] Apr, [facility] [address] [id number] [address] [place] [phone] Apr, [facility] [address] [id number] [address] [place] [phone] Apr, Bone spur of foot M77.9 [facility] [address] [id number] [address] [place] [phone] Apr, [facility] [address] [facility] [id number] [address] [place] [phone] Apr, [facility] [address] [facility] [id number] [address] [place] [id number] Apr, GERD (gastroesophageal reflu x disease) K21.9 ; Pain in right foot M79.671 ; Pain of left foot M79.672 and Obesity E66.9 [facility] [address] [facility] [id number] [address] [place] [id number] December, Degenerative tear of lateral meniscus of right knee M23.300 [facility] [address] [facility] [id number] [address] [place] [phone] December, [facility] [address] [facility] [id number] [address] [place] [id number] December, Weight gain R63.5 ; Right kn ee meniscal tear S83.206A ; Carpal tunnel syndrome, unspecified laterality G56.00 and Rib pain R07.81 [facility] [address] [id number] [address] [place] [phone] Nov, Right knee meniscal tear S83 .206A [facility] [address] [facility] [id number] [address] [place] [phone] Nov, Obesity E66.9 ; Knee pain M2 5.569 and GERD (gastroesophageal reflux disease) K21.9 [place] [address] [facility] [id number] [address] [place] [address] Oct, Weight gain R63.5 and Hormon e replacement therapy Z79.890 [place] [address] [facility] [id number] [address] [place] [phone] Oct, [place] [address] [place] [id number] [place] [address] Oct, Right knee pain M25.561 ; Ho rmone replacement therapy Z79.890 and Weight gain R63.5 [place] [address] [facility] [id number] [place] [address] Sep, Other chronic pain G89.29 an d Eustachian tube dysfunction, right H69.81 [place] [address] [address] Jul, Hot flashes N95.1 ; Mastodyn ia N64.4 and Sore throat J02.9 [place] [address] [address] Jun, Acute cystitis with hematuri a N30.01 ; Pain in right axilla M79.601 ; Right foot pain M79.671 and Dysuria R30.0 [place] [address] [address] 14 May, 2015 Migraines 346.90 [place] [address] [address] Apr, Anxiety 300.00 ; Headache 78 4.0 and Varicose vein of leg 454.9 [place] [address] [address] Apr, Depressive disorder, not els ewhere classified 311 [place] [address] [place] [id number] [address] [place] [phone] Jan, Tension type headache 339.10 and Breast cancer screening V76.10 [facility] [address] [id number] [address] [place] [address], [place] [address] 14 Nov, 2014 [facility] [address] [id number] [address] [place] [address], [place] [address] 13 Nov, 2014 [facility] [address] [id number] [address] [place] [address], [place] [phone] Jul, [facility] [address] [id number] [address] [place] [address], [place] [address] Jul, [facility] [address] [id number] [address] [place] [address], [place] [address] Jun, [facility] [address] [id number] [address] [place] [address], [place] [address] Jun, [facility] [address] [id number] [address] [place] [address], [place] [address] Apr, [facility] [address] [id number] [address] [place] [address], [place] [address] Apr, [facility] [address] [id number] [address] [place] [address], [place] [address] Jan, [facility] [address] [id number] [address] [place] [address], [place] [address] Jan, [facility] [address] [id number] [address] [place] [address], [place] [address] December, [facility] [address] [id number] [address] [place] [address], [place] [address] December, [facility] [address] [id number] [address] [place] [address], [place] [address] December, [facility] [address] [id number] [address] [place] [address], [place] [address] December, [facility] [address] [id number] [address] [place] [address], [place] [address] Nov, [facility] [address] [id number] [address] [place] [address], [place] [address] Nov, [facility] [address] [id number] [address] [place] [address], [place] [address] Nov, [facility] [address] [id number] [address] [place] [address], [place] [address] Nov, [facility] [address] [id number] [address] [place] [address], [place] [address] Oct, [facility] [address] [id number] [address] [place] [address], [place] [address] Oct, [facility] [address] [id number] [address] [place] [address], [place] [address] Aug, [facility] [address] [id number] [address] [place] [address], [place] [address] Aug, [facility] [address] [id number] [address] [place] [address], [place] [address] Mar, [facility] [address] [id number] [address] [place] [address], [place] [address] Mar, [facility] [address] [id number] [address] [place] [address], [place] [address] Mar, [facility] [address] [id number] [address] [place] [address], [place] [address] Sep, [facility] [address] [id number] [address] [place] [address], [place] [address] Sep, [facility] [address] [id number] [address] [place] [address], [place] [address] Sep, [facility] [address] [id number] [address] [place] [address], [place] [address] Aug, [facility] [address] [id number] [address] [place] [address], [place] [address] Jun, [facility] [address] [id number] [address] [place] [address], [place] [address] December, [facility] [address] [id number] [address] [place] [phone] Jul, [facility] [address] [id number] [address] [place] [phone] Apr, [facility] [address] [id number] [address] [place] [phone] December, [facility] [address] [id number] [address] [place] [id number] Nov, [facility] [address] [id number] [address] [place] [phone] Oct, [facility] [address] [id number] [address] [place] [phone] Sep, [facility] [address] [id number] [address] [place] [id number] Aug, [facility] [address] [id number] [address] [place] [id number] 15 Nov, 2008 [facility] [address] [id number] [address] [place] [id number] Oct, [facility] [address] [id number] [address] [place] [id number] 12 Oct, 2008 IMMUNIZATIONS No Known Immunizations SOCIAL HISTORY Never Assessed REASON FOR VISIT EMR-[facility] PLAN OF CARE VITAL SIGNS MEDICATIONS Unknown [...]
--- OUTSIDE RECORDS SUMMARY | 2020-02-24 03:04 | XMS REPORT ---
Author Author Shey Huston Doctor Organization [facility] Address Unknown Phone Unavailable Care Team Providers Care Music Mixer Name Role Phone Migration, Doctor Unavailable Unavailable PROBLEMS Type Condition ICD9-CM Code MCA67-UX Code Onset Dates Condition S tatus SNOMED Code Problem GERD (gastroesophageal reflux disease) K21.9 Active 240234618 Problem Obesity E66.9 Active 758290621 Problem Knee pain M25.569 Active 41402601 Problem Right knee meniscal tear S83.206A Activ e 006638171 Problem Rib pain R07.81 Active 168035645 Problem Bone spur of foot M77.9 Active 23 [id number] Problem Major depressive disorder, single episode, unspecified F32.9 Active 27262289 Problem Dysthymia F34.1 Active 10952141 Problem Other chronic pain G89.29 Active 8 7467806 Problem Carpal tunnel syndrome, unspecified laterality G56 .00 Active 81559611 Problem Perimenopause N95.1 Active 203265 415456279 Problem Weight gain R63.5 Active 4850353 Problem Continuous leakage of urine N39.45 Ac tive 061595114 Problem Rectocele N81.6 Active 123996727 Problem Fibromyalgia M79.7 Active 9952210 05 Problem Lumbago with sciatica, right side M54.41 Active 938714017 ALLERGIES No Information ENCOUNTERS Encounter Location Date Diagnosis [place] [address] [facility] [id number] [address] [place] [address] December, [place] [address] [facility] [id number] [address] [place] [address] December, Exercise counseling Z71.82 [place] [address] [facility] [id number] [address] [place] [address] Nov, Colon cancer screening Z12.1 1 [place] [address] [facility] [id number] [address] [place] [address] Nov, Exercise counseling Z71.82 [facility] [address] [id number] [address] [place] [address] Nov, Exercise counseling Z71.82 [facility] [address] [id number] [address] [place] [address] Nov, Lumbago with sciatica, right side M54.41 [place] [address] [id number] [address] [place] [address] Nov, Exercise counseling Z71.82 [place] [address] [id number] [address] [place] [address] Nov, [place] [address] [facility] [id number] [address] [place] [address] Nov, Contusion of right knee, seq uela S80.01XS and Lumbago with sciatica, right side M54.41 [place] [address] [facility] [id number] [address] [place] [address] Nov, Exercise counseling Z71.82 [place] [address] [id number] [address] [place] [address] Oct, Exercise counseling Z71.82 [place] [address] [id number] [address] [place] [address] Oct, Exercise counseling Z71.82 [place] [address] [id number] [address] [place] [address] Oct, Lumbago with sciatica, right side M54.41 [place] [address] [id number] [address] [place] [address] Oct, Exercise counseling Z71.82 [place] [address] [facility] [id number] [address] [place] [address] Oct, Contusion of right knee, ini tial encounter S80.01XA [facility] [address] [id number] [address] [place] [address] Oct, Contusion of right knee, ini tial encounter S80.01XA [place] [address] [place] [id number] [address] [place] [address] Oct, Contusion of right knee, ini tial encounter S80.01XA [facility] [address] [place] [id number] [address] [place] [address] Oct, Exercise counseling Z71.82 [place] [address] [place] [id number] [place] [address] Oct, Lumbago with sciatica, right side M54.41 [facility] [address] [place] [id number] [place] [address] Oct, Influenza A J10.1 and Fever R50.9 [place] [address] [place] [id number] [place] [address] Oct, Exercise counseling Z71.82 [place] [address] [address] Oct, [place] [address] [address] Sep, Perimenopause N95.1 ; Weight gain R63.5 ; BMI 40.0-44.9, adult Z68.41 and Therapeutic drug monitoring Z51.81 [place] [address] [place] [id number] [address] [place] [address] Sep, Lumbago with sciatica, right side M54.41 [place] [address] [place] [id number] [address] [place] [address] Aug, Lumbago with sciatica, right side M54.41 [place] [address] [place] [id number] [address] [place] [address] Jul, Lumbago with sciatica, right side M54.41 [place] [address] [place] [id number] [address] [place] [address] Jul, Lumbago with sciatica, right side M54.41 ; Fibromyalgia M79.7 ; Cold sore B00.1 and Abnormal bruising R23.8 [place] [address] [address] Jul, Lumbago with sciatica, right side M54.41 [place] [address] [address] Jun, Lumbago with sciatica, right side M54.41 [place] [address] [address] Jun, Lumbago with sciatica, right side M54.41 ; Other chronic pain G89.29 and BMI 40.0-44.9, adult Z68.41 [facility] [place] [address] [address] May, Acute low back pain, unspeci fied back pain laterality, with sciatica presence unspecified M54.5 [place] [address] [address] Jan, Tear of medial meniscus of r ight knee, current, unspecified tear type, subsequent encounter S83.241D [place] [address] [address] 30 Nov, 2017 Dysthymia F34.1 ; Weight gai n R63.5 and Acute pain of right knee M25.561 [place] [id number] [place] [address] Nov, [place] [address] [address] Nov, Viral illness B34.9 [facility] [place] [address] [place] [id number] [address] [place] [address] Oct, Viral URI J06.9 [place] [address] [address] Jun, Fibromyalgia M79.7 and Recto nadia N81.6 [place] [address] [place] [id number] [address] [place] [address] May, Weak R53.1 ; Fatigue, unspec ified type R53.83 ; Arthralgia of right knee M25.561 and Hematuria, unspecified type R31.9 [place] [address] [place] [address] Apr, Dysthymia F34.1 [place] [address] [place] [id number] [place] [address] Mar, Hematuria, unspecified type R31.9 ; Acute pain of left knee M25.562 ; Right knee pain M25.561 and Low back pain M54.5 [place] [address] [address] Mar, Hematuria, unspecified type R31.9 [place] [address] [address] Mar, Acute pain of left knee M25. [address] [address] Mar, GERD (gastroesophageal reflu x disease) K21.9 ; Continuous leakage of urine N39.45 ; Acute cystitis with hematuria N30.01 and Vaginal discharge N89.8 [place] [address] [address] Jan, [place] [id number] [place] [address] Jan, Dysthymia F34.1 ; Sore throa t J02.9 ; Costochondritis M94.0 and Breast cancer screening Z12.39 [place] [address] [place] [id number] [address] [place] [address] December, [place] [address] [address] Oct, Gastroenteritis K52.9 [facility] [address] [id number] [address] [place] [address] Oct, [facility] [address] [id number] [address] [place] [address] Sep, Weight gain R63.5 ; Major de pressive disorder, single episode, unspecified F32.9 ; Arthralgia, unspecified joint M25.50 ; GERD (gastroesophageal reflux disease) K21.9 and Swelling R60.9 [facility] [address] [id number] [address] [place] [address] Aug, [facility] [address] [id number] [address] [place] [address] Jul, [facility] [address] [id number] [address] [place] [address] Jul, Right knee meniscal tear S83 .206A [facility] [address] [id number] [address] [place] [address] Jun, [facility] [address] [id number] [address] [place] [address] Jun, Plantar fasciitis M72.2 [facility] [address] [id number] [address] [place] [address] Jun, [facility] [address] [id number] [address] [place] [address] May, Plantar fasciitis M72.2 [facility] [address] [id number] [address] [place] [address] May, [facility] [address] [id number] [address] [place] [address] May, [facility] [address] [id number] [address] [place] [address] Apr, [facility] [address] [id number] [address] [place] [address] Apr, [place] [address] [place] [id number] [address] [place] [address] Apr, Bone spur of foot M77.9 [place] [address] [place] [id number] [address] [place] [address] Apr, [place] [address] [place] [id number] [place] [address] Apr, [place] [address] [address] Apr, GERD (gastroesophageal reflu x disease) K21.9 ; Pain in right foot M79.671 ; Pain of left foot M79.672 and Obesity E66.9 [place] [address] [place] [id number] [place] [address] December, Degenerative tear of lateral meniscus of right knee M23.300 [place] [address] [address] December, [place] [address] [address] December, Weight gain R63.5 ; Right kn ee meniscal tear S83.206A ; Carpal tunnel syndrome, unspecified laterality G56.00 and Rib pain R07.81 [place] [address] [place] [id number] [place] [address] Nov, Right knee meniscal tear S83 .206A [place] [address] [address] Nov, Obesity E66.9 ; Knee pain M2 5.569 and GERD (gastroesophageal reflux disease) K21.9 [place] [address] [place] [id number] [address] [place] [address] Oct, Weight gain R63.5 and Hormon e replacement therapy Z79.890 [place] [address] [place] [id number] [address] [place] [address] Oct, [place] [address] [address] Oct, Right knee pain M25.561 ; Ho rmone replacement therapy Z79.890 and Weight gain R63.[address] [address] Sep, Other chronic pain G89.29 an d Eustachian tube dysfunction, right H69.[address] [address] Jul, Hot flashes N95.1 ; Mastodyn ia N64.4 and Sore throat J02.[address] [address] Jun, Acute cystitis with hematuri a N30.01 ; Pain in right axilla M79.601 ; Right foot pain M79.671 and Dysuria R30.[address] [address] May, Migraines 346.[address] [address] Apr, Anxiety 300.00 ; Headache 78 4.0 and Varicose vein of leg 454.[address] [address] Apr, Depressive disorder, not els ewhere classified [address] [address] Jan, Tension type headache 339.10 and Breast cancer screening V76.[address] [address] 14 Nov, [address] [address] 13 Nov, [address] [address] Jul, [facility] [address] [id number] [address] [place] [address], [place] [address] Jul, [facility] [address] [id number] [address] [place] [address], [place] [address] Jun, [facility] [address] [id number] [address] [place] [address], [place] [address] Jun, [facility] [address] [id number] [address] [place] [address], [place] [address] Apr, [facility] [address] [id number] [address] [place] [address], [place] [address] Apr, [facility] [address] [id number] [address] [place] [address], [place] [address] Jan, [facility] [address] [id number] [address] [place] [address], [place] [address] Jan, [facility] [address] [id number] [address] [place] [address], [place] [address] December, [facility] [address] [id number] [address] [place] [address], [place] [address] December, [facility] [address] [id number] [address] [place] [address], [place] [address] December, [facility] [address] [id number] [address] [place] [address], [place] [address] December, [facility] [address] [id number] [address] [place] [address], [place] [address] Nov, [facility] [address] [id number] [address] [place] [address], [place] [address] Nov, [facility] [address] [id number] [address] [place] [address], [place] [address] Nov, [facility] [address] [id number] [address] [place] [address], [place] [address] Nov, [facility] [address] [id number] [address] [place] [address], [place] [address] Oct, [facility] [address] [id number] [address] [place] [address], [place] [address] Oct, [facility] [address] [id number] [address] [place] [address], [place] [address] Aug, [facility] [address] [id number] [address] [place] [address], [place] [address] Aug, [facility] [address] [id number] [address] [place] [address], [place] [address] Mar, [facility] [address] [id number] [address] [place] [address], [place] [address] Mar, [facility] [address] [id number] [address] [place] [address], [place] [address] Mar, [facility] [address] [id number] [address] [place] [address], [place] [address] Sep, [facility] [address] [id number] [address] [place] [address], [place] [address] Sep, [facility] [address] [id number] [address] [place] [address], [place] [address] Sep, [facility] [address] [id number] [address] [place] [address], [place] [address] Aug, [facility] [address] [id number] [address] [place] [address], [place] [address] Jun, [facility] [address] [id number] [address] [place] [address], [place] [address] December, [facility] [address] [id number] [address] [place] [address], [place] [address] Jul, [facility] [address] [id number] [address] [place] [address], [place] [address] 14 Apr, 2010 [facility] [address] [id number] [address] [place] [address], [place] [address] December, [facility] [address] [id number] [address] [place] [address] 13 Nov, 2009 [facility] [address] [id number] [address] [place] [address] Oct, [facility] [address] [id number] [address] [place] [address] Sep, [facility] [address] [facility] [id number] [address] [place] [address] Aug, [facility] [address] [id number] [address] [place] [address] 15 Nov, 2008 [facility] [address] [id number] [address] [place] [address] Oct, [facility] [address] [facility] [id number] [address] [place] [address] 12 Oct, 2008 IMMUNIZATIONS No Known Immunizations SOCIAL HISTORY Never Assessed REASON FOR VISIT [facility] PLAN OF CARE VITAL SIGNS MEDICATIONS Unknown [...]
--- OUTSIDE RECORDS SUMMARY | 2020-02-24 03:04 | XMS REPORT ---
Author Author Shey Huston Doctor Organization [facility] Address Unknown Phone Unavailable Care Team Providers Care Tooth Cutter Clutch Name Role Phone Migration, Doctor Unavailable Unavailable PROBLEMS Type Condition ICD9-CM Code IBQ43-WO Code Onset Dates Condition S tatus SNOMED Code Problem GERD (gastroesophageal reflux disease) K21.9 Active 977660317 Problem Obesity E66.9 Active 426299307 Problem Knee pain M25.569 Active 86829815 Problem Right knee meniscal tear S83.206A Activ e 886515038 Problem Rib pain R07.81 Active 819330697 Problem Bone spur of foot M77.9 Active 23 [id number] Problem Major depressive disorder, single episode, unspecified F32.9 Active 91513825 Problem Dysthymia F34.1 Active 73804717 Problem Other chronic pain G89.29 Active 8 5801477 Problem Carpal tunnel syndrome, unspecified laterality G56 .00 Active 25881412 Problem Perimenopause N95.1 Active 853316 273781184 Problem Weight gain R63.5 Active 9181246 Problem Continuous leakage of urine N39.45 Ac tive 521049553 Problem Rectocele N81.6 Active 219015368 Problem Fibromyalgia M79.7 Active 0047760 05 Problem Lumbago with sciatica, right side M54.41 Active [id number] ALLERGIES No Information ENCOUNTERS Encounter Location Date Diagnosis [place] [address] [address] [facility] [id number] [address] [place] [address] December, [place] [address] [address] [facility] [id number] [address] [place] [address] December, Exercise counseling Z71.82 [place] [address] [address] [facility] [id number] [address] [place] [address] Nov, Colon cancer screening Z12.1 1 [place] [address] [address] [facility] [id number] [address] [place] [address] Nov, Exercise counseling Z71.82 [facility] [address] [id number] [address] [place] [address] Nov, Exercise counseling Z71.82 [facility] [address] [id number] [address] [place] [address] Nov, Lumbago with sciatica, right side M54.41 [place] [address] [id number] [address] [place] [address] Nov, Exercise counseling Z71.82 [place] [address] [id number] [address] [place] [address] Nov, [place] [address] [address] [facility] [id number] [address] [place] [address] Nov, Contusion of right knee, seq uela S80.01XS and Lumbago with sciatica, right side M54.41 [place] [address] [address] [facility] [id number] [address] [place] [address] Nov, Exercise counseling Z71.82 [place] [address] [id number] [address] [place] [address] Oct, Exercise counseling Z71.82 [place] [address] [id number] [address] [place] [address] Oct, Exercise counseling Z71.82 [place] [address] [id number] [address] [place] [address] Oct, Lumbago with sciatica, right side M54.41 [place] [address] [id number] [address] [place] [address] Oct, Exercise counseling Z71.82 [place] [address] [address] [facility] [id number] [address] [place] [address] Oct, Contusion of right knee, ini tial encounter S80.01XA [facility] [address] [id number] [address] [place] [address] Oct, Contusion of right knee, ini tial encounter S80.01XA [place] [address] [address] [place] [id number] [address] [place] [address] Oct, Contusion of right knee, ini tial encounter S80.01XA [facility] [address] [place] [id number] [address] [place] [address] Oct, Exercise counseling Z71.82 [place] [address] [address] [place] [id number] [place] [address] Oct, Lumbago with sciatica, right side M54.41 [facility] [address] [place] [id number] [place] [address] Oct, Influenza A J10.1 and Fever R50.9 [place] [address] [address] [place] [id number] [place] [address] Oct, Exercise counseling Z71.82 [place] [address] [address] Oct, [place] [address] [address] Sep, Perimenopause N95.1 ; Weight gain R63.5 ; BMI 40.0-44.9, adult Z68.41 and Therapeutic drug monitoring Z51.81 [place] [address] [place] [id number] [address] [place] [address] Sep, Lumbago with sciatica, right side M54.41 [place] [address] [address] [place] [id number] [address] [place] [address] Aug, Lumbago with sciatica, right side M54.41 [place] [address] [address] [place] [id number] [address] [place] [address] Jul, Lumbago with sciatica, right side M54.41 [place] [address] [place] [id number] [address] [place] [address] Jul, Lumbago with sciatica, right side M54.41 ; Fibromyalgia M79.7 ; Cold sore B00.1 and Abnormal bruising R23.8 [place] [address] [address] Jul, Lumbago with sciatica, right side M54.41 [place] [address] [address] Jun, Lumbago with sciatica, right side M54.41 [place] [address] [address] Jun, Lumbago with sciatica, right side M54.41 ; Other chronic pain G89.29 and BMI 40.0-44.9, adult Z68.41 [facility] [place] [address] [address] May, Acute low back pain, unspeci fied back pain laterality, with sciatica presence unspecified M54.5 [place] [address] [address] Jan, Tear of medial meniscus of r ight knee, current, unspecified tear type, subsequent encounter S83.241D [place] [address] [address] 30 Nov, 2017 Dysthymia F34.1 ; Weight gai n R63.5 and Acute pain of right knee M25.561 [place] [address] [id number] [place] [address] Nov, [place] [address] [address] Nov, Viral illness B34.9 [facility] [place] [address] [address] [place] [id number] [address] [place] [address] Oct, Viral URI J06.9 [place] [address] [address] Jun, Fibromyalgia M79.7 and Recto nadia N81.6 [place] [address] [address] [place] [id number] [address] [place] [address] May, Weak R53.1 ; Fatigue, unspec ified type R53.83 ; Arthralgia of right knee M25.561 and Hematuria, unspecified type R31.9 [place] [address] [id number] [place] [address] Apr, Dysthymia F34.1 [place] [address] [address] [place] [id number] [place] [address] Mar, Hematuria, unspecified type R31.9 ; Acute pain of left knee M25.562 ; Right knee pain M25.561 and Low back pain M54.5 [place] [address] [address] Mar, Hematuria, unspecified type R31.9 [place] [address] [address] Mar, Acute pain of left knee M25. [address] [address] Mar, GERD (gastroesophageal reflu x disease) K21.9 ; Continuous leakage of urine N39.45 ; Acute cystitis with hematuria N30.01 and Vaginal discharge N89.8 [place] [address] [address] Jan, [place] [id number] [place] [address] Jan, Dysthymia F34.1 ; Sore throa t J02.9 ; Costochondritis M94.0 and Breast cancer screening Z12.39 [place] [address] [place] [id number] [address] [place] [address] December, [place] [address] [address] Oct, Gastroenteritis K52.9 [facility] [address] [id number] [address] [place] [address] Oct, [facility] [address] [id number] [address] [place] [address] Sep, Weight gain R63.5 ; Major de pressive disorder, single episode, unspecified F32.9 ; Arthralgia, unspecified joint M25.50 ; GERD (gastroesophageal reflux disease) K21.9 and Swelling R60.9 [facility] [address] [id number] [address] [place] [address] Aug, [facility] [address] [id number] [address] [place] [address] Jul, [facility] [address] [id number] [address] [place] [address] Jul, Right knee meniscal tear S83 .206A [facility] [address] [id number] [address] [place] [address] Jun, [facility] [address] [id number] [address] [place] [address] Jun, Plantar fasciitis M72.2 [facility] [address] [id number] [address] [place] [address] Jun, [facility] [address] [id number] [address] [place] [address] May, Plantar fasciitis M72.2 [facility] [address] [id number] [address] [place] [address] May, [facility] [address] [id number] [address] [place] [address] May, [facility] [address] [id number] [address] [place] [address] Apr, [facility] [address] [id number] [address] [place] [address] Apr, [place] [address] [address] [place] [id number] [address] [place] [address] Apr, Bone spur of foot M77.9 [place] [address] [address] [place] [id number] [address] [place] [address] Apr, [place] [address] [address] [place] [id number] [place] [address] Apr, [place] [address] [address] Apr, GERD (gastroesophageal reflu x disease) K21.9 ; Pain in right foot M79.671 ; Pain of left foot M79.672 and Obesity E66.9 [place] [address] [place] [id number] [place] [address] December, Degenerative tear of lateral meniscus of right knee M23.300 [place] [address] [address] December, [place] [address] [address] December, Weight gain R63.5 ; Right kn ee meniscal tear S83.206A ; Carpal tunnel syndrome, unspecified laterality G56.00 and Rib pain R07.81 [place] [address] [place] [id number] [place] [address] Nov, Right knee meniscal tear S83 .206A [place] [address] [address] Nov, Obesity E66.9 ; Knee pain M2 5.569 and GERD (gastroesophageal reflux disease) K21.9 [place] [address] [place] [id number] [address] [place] [address] Oct, Weight gain R63.5 and Hormon e replacement therapy Z79.890 [place] [address] [place] [id number] [address] [place] [address] Oct, [place] [address] [address] Oct, Right knee pain M25.561 ; Ho rmone replacement therapy Z79.890 and Weight gain R63.[address] [address] Sep, Other chronic pain G89.29 an d Eustachian tube dysfunction, right H69.[address] [address] Jul, Hot flashes N95.1 ; Mastodyn ia N64.4 and Sore throat J02.[address] [address] Jun, Acute cystitis with hematuri a N30.01 ; Pain in right axilla M79.601 ; Right foot pain M79.671 and Dysuria R30.[address] [address] May, Migraines 346.[address] [address] Apr, Anxiety 300.00 ; Headache 78 4.0 and Varicose vein of leg 454.[address] [address] Apr, Depressive disorder, not els ewhere classified [address] [address] Jan, Tension type headache 339.10 and Breast cancer screening V76.[address] [address] 14 Nov, [address] [address] 13 Nov, [address] [address] Jul, [facility] [address] [id number] [address] [place] [address], [place] [address] Jul, [facility] [address] [id number] [address] [place] [address], [place] [address] Jun, [facility] [address] [id number] [address] [place] [address], [place] [address] Jun, [facility] [address] [id number] [address] [place] [address], [place] [address] Apr, [facility] [address] [id number] [address] [place] [address], [place] [address] Apr, [facility] [address] [id number] [address] [place] [address], [place] [address] Jan, [facility] [address] [id number] [address] [place] [address], [place] [address] Jan, [facility] [address] [id number] [address] [place] [address], [place] [address] December, [facility] [address] [id number] [address] [place] [address], [place] [address] December, [facility] [address] [id number] [address] [place] [address], [place] [address] December, [facility] [address] [id number] [address] [place] [address], [place] [address] December, [facility] [address] [id number] [address] [place] [address], [place] [address] Nov, [facility] [address] [id number] [address] [place] [address], [place] [address] Nov, [facility] [address] [id number] [address] [place] [address], [place] [address] Nov, [facility] [address] [id number] [address] [place] [address], [place] [address] Nov, [facility] [address] [id number] [address] [place] [address], [place] [address] Oct, [facility] [address] [id number] [address] [place] [address], [place] [address] Oct, [facility] [address] [id number] [address] [place] [address], [place] [address] Aug, [facility] [address] [id number] [address] [place] [address], [place] [address] Aug, [facility] [address] [id number] [address] [place] [address], [place] [address] Mar, [facility] [address] [id number] [address] [place] [address], [place] [address] Mar, [facility] [address] [id number] [address] [place] [address], [place] [address] Mar, [facility] [address] [id number] [address] [place] [address], [place] [address] Sep, [facility] [address] [id number] [address] [place] [address], [place] [address] Sep, [facility] [address] [id number] [address] [place] [address], [place] [address] Sep, [facility] [address] [id number] [address] [place] [address], [place] [address] Aug, [facility] [address] [id number] [address] [place] [address], [place] [address] Jun, [facility] [address] [id number] [address] [place] [address], [place] [address] December, [facility] [address] [id number] [address] [place] [address], [place] [address] Jul, [facility] [address] [id number] [address] [place] [address], [place] [address] 14 Apr, 2010 [facility] [address] [id number] [address] [place] [address], [place] [address] December, [facility] [address] [id number] [address] [place] [address] 13 Nov, 2009 [facility] [address] [id number] [address] [place] [address] Oct, [facility] [address] [id number] [address] [place] [address] Sep, [facility] [address] [facility] [id number] [address] [place] [address] Aug, [facility] [address] [id number] [address] [place] [address] 15 Nov, 2008 [facility] [address] [id number] [address] [place] [address] Oct, [facility] [address] [facility] [id number] [address] [place] [address] 12 Oct, 2008 IMMUNIZATIONS No Known Immunizations SOCIAL HISTORY Never Assessed REASON FOR VISIT [facility] [place] [facility] [place]ARE VITAL SIGNS MEDICATIONS Unknown [...]
--- OUTSIDE RECORDS SUMMARY | 2020-02-24 03:04 | XMS REPORT ---
Author Author Shey MCELROY Organization [facility] Address [address] [place] [address] Care Team Providers Care Director Behavioral Health Name Role Phone BRO MCELROY Unavailable PROBLEMS Type Condition ICD9-CM Code ZWP19-RI Code Onset Dates Condition S tatus SNOMED Code Problem Carpal tunnel syndrome, unspecified laterality G56 .00 Active 02503353 Problem Major depressive disorder, single episode, unspecified F32.9 Active 06230395 Problem Bone spur of foot M77.9 Active 23 [id number] Problem Other chronic pain G89.29 Active 8 3354718 Problem Lumbago with sciatica, right side M54.41 Active 535995045 Problem Continuous leakage of urine N39.45 Ac tive 805913031 Problem Dysthymia F34.1 Active 49369740 Problem Fibromyalgia M79.7 Active 9226782 05 Problem Rectocele N81.6 Active 982575738 Problem Obesity E66.9 Active 861743404 Problem Rib pain R07.81 Active 106891837 Problem GERD (gastroesophageal reflux disease) K21.9 Active 898317637 Problem Right knee meniscal tear S83.206A Activ e 015965527 Problem Knee pain M25.569 Active 18003829 Problem Weight gain R63.5 Active 0188411 ALLERGIES No Information ENCOUNTERS Encounter Location Date Diagnosis [facility] [address] [place] [id number] [place] [address] Jul, [place] [address] [id number] [place] [address] Jul, Lumbago with sciatica, right side M54.41 [place] [address] [place] [id number] [place] [address] Jun, Lumbago with sciatica, right side M54.41 [place] [address] [place] [id number] [place] [address] Jun, Lumbago with sciatica, right side M54.41 ; Other chronic pain G89.29 and BMI 40.0-44.9, adult Z68.41 [facility] [address] [place] [id number] [place] [address] May, Acute low back pain, unspeci fied back pain laterality, with sciatica presence unspecified M54.5 [place] [address] [address] Jan, Tear of medial meniscus of r ight knee, current, unspecified tear type, subsequent encounter S83.241D [place] [address] [address] Nov, Dysthymia F34.1 ; Weight gai n R63.5 and Acute pain of right knee M25.561 [place] [address] [address] Nov, [place] [address] [address] Nov, Viral illness B34.9 [facility] [place] [address] [address] Oct, Viral URI J06.9 [place] [address] [address] Jun, Fibromyalgia M79.7 and Recto nadia N81.6 [place] [address] [place] [id number] [place] [address] May, Weak R53.1 ; Fatigue, unspec ified type R53.83 ; Arthralgia of right knee M25.561 and Hematuria, unspecified type R31.9 [place] [address] [place] [id number] [place] [address] Apr, Dysthymia F34.1 [place] [address] [address] Mar, Hematuria, unspecified type R31.9 ; Acute pain of left knee M25.562 ; Right knee pain M25.561 and Low back pain M54.5 [place] [address] [address] Mar, Hematuria, unspecified type R31.9 [place] [address] [address] Mar, Acute pain of left knee M25. 562 [place] [address] [address] Mar, GERD (gastroesophageal reflu x disease) K21.9 ; Continuous leakage of urine N39.45 ; Acute cystitis with hematuria N30.01 and Vaginal discharge N89.8 [place] [address] [address] Jan, [place] [address] [address] 07 Jan, 2017 Dysthymia F34.1 ; Sore throa t J02.9 ; Costochondritis M94.0 and Breast cancer screening Z12.39 [place] [address] [address] December, [place] [address] [address] Oct, Gastroenteritis K52.9 [place] [address] [address] Oct, [address] [address] Sep, Weight gain R63.5 ; Major de pressive disorder, single episode, unspecified F32.9 ; Arthralgia, unspecified joint M25.50 ; GERD (gastroesophageal reflux disease) K21.9 and Swelling R60.9 [place] [address] [id number] [address] [place] [address] Aug, [facility] [address] [id number] [address] [place] [address] Jul, [facility] [address] [id number] [address] [place] [address] Jul, Right knee meniscal tear S83 .206A [facility] [address] [id number] [address] [place] [address] Jun, [facility] [address] [id number] [address] [place] [address] Jun, Plantar fasciitis M72.2 [facility] [address] [id number] [address] [place] [address] Jun, [facility] [address] [id number] [address] [place] [address] May, Plantar fasciitis M72.2 [facility] [address] [id number] [address] [place] [address] May, [facility] [address] [id number] [address] [place] [address] May, [facility] [address] [id number] [address] [place] [address] Apr, [facility] [address] [id number] [address] [place] [address] Apr, [facility] [address] [id number] [address] [place] [address] Apr, Bone spur of foot M77.9 [facility] [address] [id number] [address] [place] [address] Apr, [facility] [address] [id number] [address] [place] [address] Apr, [facility] [address] [id number] [address] [place] [address] Apr, GERD (gastroesophageal reflu x disease) K21.9 ; Pain in right foot M79.671 ; Pain of left foot M79.672 and Obesity E66.9 [place] [address] [facility] [id number] [address] [place] [address] December, Degenerative tear of lateral meniscus of right knee M23.300 [place] [address] [facility] [id number] [address] [place] [address] December, [place] [address] [facility] [id number] [address] [place] [address] December, Weight gain R63.5 ; Right kn ee meniscal tear S83.206A ; Carpal tunnel syndrome, unspecified laterality G56.00 and Rib pain R07.81 [place] [address] [facility] [id number] [address] [place] [address] Nov, Right knee meniscal tear S83 .206A [place] [address] [facility] [id number] [address] [place] [address] Nov, Obesity E66.9 ; Knee pain M2 5.569 and GERD (gastroesophageal reflux disease) K21.9 [place] [address] [facility] [id number] [address] [place] [address] Oct, Weight gain R63.5 and Hormon e replacement therapy Z79.890 [place] [address] [facility] [id number] [address] [place] [address] Oct, [place] [address] [facility] [id number] [address] [place] [address] Oct, Right knee pain M25.561 ; Ho rmone replacement therapy Z79.890 and Weight gain R63.5 [place] [address] [facility] [id number] [address] [place] [address] Sep, Other chronic pain G89.29 an d Eustachian tube dysfunction, right H69.81 [place] [address] [facility] [id number] [address] [place] [address] 17 Jul, 2015 Hot flashes N95.1 ; Mastodyn ia N64.4 and Sore throat J02.9 [facility] [address] [address] Jun, Acute cystitis with hematuri a N30.01 ; Pain in right axilla M79.601 ; Right foot pain M79.671 and Dysuria R30.0 [facility] [address] [address] 14 May, [address] [address] Apr, Anxiety 300.00 ; Headache 78 4.0 and Varicose vein of leg 454.9 [place] [address] [address] Apr, Depressive disorder, not els ewhere classified 311 [facility] [address] [address] 24 Jan, 2015 Tension type headache 339.10 and Breast cancer screening V76.10 [facility] [address] [address] Nov, [facility] [address] [address] Nov, [facility] [address] [address] Jul, [facility] [address] [place] [id number] [place] [address] Jul, [facility] [address] [address] Jun, [facility] [address] [place] [id number] [address] [place] [address] Jun, [facility] [address] [address] Apr, [facility] [address] [id number] [address] [place] [address], [place] [address] Apr, [facility] [address] [id number] [address] [place] [address], [place] [address] Jan, [facility] [address] [id number] [address] [place] [address], [place] [address] Jan, [facility] [address] [id number] [address] [place] [address], [place] [address] December, [facility] [address] [id number] [address] [place] [address], [place] [address] December, [facility] [address] [id number] [address] [place] [address], [place] [address] December, [facility] [address] [id number] [address] [place] [address], [place] [address] December, [facility] [address] [id number] [address] [place] [address], [place] [address] Nov, [facility] [address] [id number] [address] [place] [address], [place] [address] Nov, [facility] [address] [id number] [address] [place] [address], [place] [address] Nov, [facility] [address] [id number] [address] [place] [address], [place] [address] Nov, [facility] [address] [id number] [address] [place] [address], [place] [address] Oct, [facility] [address] [id number] [address] [place] [address], [place] [address] Oct, [facility] [address] [id number] [address] [place] [address], [place] [address] Aug, [facility] [address] [id number] [address] [place] [address], [place] [address] Aug, [facility] [address] [id number] [address] [place] [address], [place] [address] 17 Mar, 2012 [facility] [address] [id number] [address] [place] [address], [place] [address] 12 Mar, 2012 [facility] [address] [id number] [address] [place] [address], [place] [address] Mar, [facility] [address] [id number] [address] [place] [address], [place] [address] Sep, [facility] [address] [id number] [address] [place] [address], [place] [address] Sep, [facility] [address] [id number] [address] [place] [address], [place] [address] Sep, [facility] [address] [id number] [address] [place] [address], [place] [address] Aug, [facility] [address] [id number] [address] [place] [address], [place] [address] Jun, [facility] [address] [id number] [address] [place] [address], [place] [address] December, [facility] [address] [id number] [address] [place] [address], [place] [address] Jul, [facility] [address] [id number] [address] [place] [address], [place] [address] Apr, [facility] [address] [id number] [address] [place] [address], [place] [address] December, [facility] [address] [id number] [address] [place] [address], [place] [address] Nov, [facility] [address] [id number] [address] [place] [address], [place] [address] Oct, [facility] [address] [id number] [address] [place] [address], [place] [address] 14 Sep, 2009 [facility] [address] [id number] [address] [place] [address], [place] [address] Aug, [facility] [address] [facility] [id number] [address] [place] [phone] Nov, [facility] [address] [facility] [id number] [address] [place] [id number] Oct, [facility] [address] [facility] [id number] [address] [place] [address] Oct, IMMUNIZATIONS No Known Immunizations SOCIAL HISTORY Never Assessed REASON FOR VISIT Controlled Med Refill 07/06/18 PLAN OF CARE VITAL SIGNS MEDICATIONS Medication Instructions Dosage Frequency Start Date End Date Duration S tatus Hydrocodone-Acetaminophen 7.5-325 MG Orally at bedtime 1 tablet Jul, 28 days Active RESULTS No Results PROCEDURES [...]
--- OUTSIDE RECORDS SUMMARY | 2020-02-24 03:04 | XMS REPORT ---
Author Author Shey MCELROY Organization [facility] Address [address] [place] [address] Care Team Providers Care Collar Folder Operator Name Role Phone BRO MCELROY Unavailable PROBLEMS Type Condition ICD9-CM Code SOQ72-VK Code Onset Dates Condition S tatus SNOMED Code Problem GERD (gastroesophageal reflux disease) K21.9 Active 694200377 Problem Obesity E66.9 Active 448198994 Problem Knee pain M25.569 Active 17234379 Problem Right knee meniscal tear S83.206A Activ e 266930605 Problem Rib pain R07.81 Active 516301670 Problem Bone spur of foot M77.9 Active 23 6930681239048 Problem Major depressive disorder, single episode, unspecified F32.9 Active 13642423 Problem Dysthymia F34.1 Active 93873010 Problem Other chronic pain G89.29 Active 8 5818127 Problem Carpal tunnel syndrome, unspecified laterality G56 .00 Active 58496930 Problem Perimenopause N95.1 Active 864695 945165883 Problem Weight gain R63.5 Active 7333004 Problem Continuous leakage of urine N39.45 Ac tive 723659598 Problem Rectocele N81.6 Active 385598671 Problem Fibromyalgia M79.7 Active 1483028 05 Problem Lumbago with sciatica, right side M54.41 Active 619236791 ALLERGIES Substance Reaction Event Type Date Status [place] Unknown Drug Allergy Oct, Active ENCOUNTERS Encounter Location Date Diagnosis [facility] [address] [facility] [id number] [address] [place] [address] December, [facility] [address] [facility] [id number] [address] [place] [address] December, Exercise counseling Z71.82 [facility] [address] [facility] [id number] [address] [place] [address] Nov, Colon cancer screening Z12.1 1 [facility] [address] [id number] [address] [place] [address] Nov, Exercise counseling Z71.82 [facility] [address] [id number] [address] [place] [address] Nov, Exercise counseling Z71.82 [facility] [address] [id number] [address] [place] [address] Nov, Lumbago with sciatica, right side M54.41 [place] [address] [id number] [address] [place] [address] Nov, Exercise counseling Z71.82 [place] [address] [id number] [address] [place] [address] Nov, [place] [address] [facility] [id number] [address] [place] [address] Nov, Contusion of right knee, seq uela S80.01XS and Lumbago with sciatica, right side M54.41 [place] [address] [id number] [address] [place] [address] Nov, Exercise counseling Z71.82 [place] [address] [facility] [id number] [address] [place] [address] Oct, Exercise counseling Z71.82 [place] [address] [facility] [id number] [address] [place] [address] Oct, Exercise counseling Z71.82 [place] [address] [id number] [address] [place] [address] Oct, Lumbago with sciatica, right side M54.41 [facility] [address] [id number] [address] [place] [address] Oct, Exercise counseling Z71.82 [place] [address] [facility] [id number] [address] [place] [address] Oct, Contusion of right knee, ini tial encounter S80.01XA [facility] [address] [facility] [id number] [address] [place] [address] Oct, Contusion of right knee, ini tial encounter S80.01XA [place] [address] [place] [id number] [address] [place] [address] Oct, Contusion of right knee, ini tial encounter S80.01XA [place] [id number] [place] [address] Oct, Exercise counseling Z71.82 [place] [address] [place] [id number] [address] [place] [address] Oct, Lumbago with sciatica, right side M54.41 [facility] [address] [place] [id number] [address] [place] [address] 17 Oct, 2018 Influenza A J10.1 and Fever R50.9 [place] [address] [address] Oct, Exercise counseling Z71.82 [place] [address] [address] Oct, [place] [address] [address] Sep, Perimenopause N95.1 ; Weight gain R63.5 ; BMI 40.0-44.9, adult Z68.41 and Therapeutic drug monitoring Z51.81 [place] [address] [place] [id number] [address] [place] [address] Sep, Lumbago with sciatica, right side M54.41 [place] [address] [place] [id number] [address] [place] [address] Aug, Lumbago with sciatica, right side M54.41 [place] [address] [place] [id number] [address] [place] [address] Jul, Lumbago with sciatica, right side M54.41 [place] [address] [address] Jul, Lumbago with sciatica, right side M54.41 ; Fibromyalgia M79.7 ; Cold sore B00.1 and Abnormal bruising R23.8 [place] [address] [address] Jul, Lumbago with sciatica, right side M54.41 [place] [address] [address] Jun, Lumbago with sciatica, right side M54.41 [place] [address] [address] Jun, Lumbago with sciatica, right side M54.41 ; Other chronic pain G89.29 and BMI 40.0-44.9, adult Z68.41 [facility] [address] [address] May, Acute low back pain, unspeci fied back pain laterality, with sciatica presence unspecified M54.5 [place] [address] [address] Jan, Tear of medial meniscus of r ight knee, current, unspecified tear type, subsequent encounter S83.241D [place] [address] [address] Nov, Dysthymia F34.1 ; Weight gai n R63.5 and Acute pain of right knee M25.561 [place] [address] [address] Nov, [place] [address] [address] Nov, Viral illness B34.9 [facility] [address] [address] Oct, Viral URI J06.9 [place] [address] [place] [id number] [address] [place] [address] Jun, Fibromyalgia M79.7 and Recto nadia N81.6 [place] [address] [address] May, Weak R53.1 ; Fatigue, unspec ified type R53.83 ; Arthralgia of right knee M25.561 and Hematuria, unspecified type R31.9 [place] [address] [address] Apr, Dysthymia F34.1 [place] [address] [address] Mar, Hematuria, unspecified type R31.9 ; Acute pain of left knee M25.562 ; Right knee pain M25.561 and Low back pain M54.5 [place] [address] [address] Mar, Hematuria, unspecified type R31.9 [place] [address] [address] Mar, Acute pain of left knee M25. 562 [place] [address] [address] Mar, GERD (gastroesophageal reflu x disease) K21.9 ; Continuous leakage of urine N39.45 ; Acute cystitis with hematuria N30.01 and Vaginal discharge N89.8 [place] [id number] [place] [address] Jan, [address] [address] Jan, Dysthymia F34.1 ; Sore throa t J02.9 ; Costochondritis M94.0 and Breast cancer screening Z12.39 [place] [address] [address] December, [facility] [address] [id number] [address] [place] [address] Oct, Gastroenteritis K52.9 [facility] [address] [id number] [address] [place] [address] Oct, [facility] [address] [facility] [id number] [address] [place] [address] Sep, Weight gain R63.5 ; Major de pressive disorder, single episode, unspecified F32.9 ; Arthralgia, unspecified joint M25.50 ; GERD (gastroesophageal reflux disease) K21.9 and Swelling R60.9 [facility] [address] [id number] [address] [place] [address] Aug, [facility] [address] [id number] [address] [place] [address] Jul, [facility] [address] [facility] [id number] [address] [place] [address] Jul, Right knee meniscal tear S83 .206A [facility] [address] [id number] [address] [place] [address] Jun, [facility] [address] [id number] [address] [place] [address] Jun, Plantar fasciitis M72.2 [facility] [address] [id number] [address] [place] [address] Jun, [facility] [address] [id number] [address] [place] [address] May, Plantar fasciitis M72.2 [facility] [address] [id number] [address] [place] [address] May, [facility] [address] [id number] [address] [place] [address] May, [facility] [address] [facility] [id number] [address] [place] [address] Apr, [facility] [address] [id number] [address] [place] [address] Apr, [place] [address] [facility] [id number] [address] [place] [address] Apr, Bone spur of foot M77.9 [facility] [address] [id number] [address] [place] [address] Apr, [place] [address] [id number] [address] [place] [address] Apr, [place] [address] [id number] [address] [place] [address] Apr, GERD (gastroesophageal reflu x disease) K21.9 ; Pain in right foot M79.671 ; Pain of left foot M79.672 and Obesity E66.9 [place] [address] [facility] [id number] [address] [place] [address] December, Degenerative tear of lateral meniscus of right knee M23.300 [place] [address] [facility] [id number] [address] [place] [address] December, [place] [address] [facility] [id number] [address] [place] [address] December, Weight gain R63.5 ; Right kn ee meniscal tear S83.206A ; Carpal tunnel syndrome, unspecified laterality G56.00 and Rib pain R07.81 [place] [address] [facility] [id number] [address] [place] [address] Nov, Right knee meniscal tear S83 .206A [place] [address] [facility] [id number] [address] [place] [address] Nov, Obesity E66.9 ; Knee pain M2 5.569 and GERD (gastroesophageal reflux disease) K21.9 [place] [address] [facility] [id number] [address] [place] [address] Oct, Weight gain R63.5 and Hormon e replacement therapy Z79.890 [place] [address] [place] [id number] [address] [place] [address] Oct, [place] [address] [address] Oct, Right knee pain M25.561 ; Ho rmone replacement therapy Z79.890 and Weight gain R63.5 [place] [address] [address] Sep, Other chronic pain G89.29 an d Eustachian tube dysfunction, right H69.81 [place] [address] [address] Jul, Hot flashes N95.1 ; Mastodyn ia N64.4 and Sore throat J02.[address] [address] Jun, Acute cystitis with hematuri a N30.01 ; Pain in right axilla M79.601 ; Right foot pain M79.671 and Dysuria R30.0 [place] [address] [address] 14 May, 2015 [address]ines [address] [address] Apr, Anxiety 300.00 ; Headache 78 4.0 and Varicose vein of leg 454.9 [place] [address] [place] [id number] [address] [place] [address] Apr, Depressive disorder, not els ewhere classified [address] [address] 24 Jan, 2015 Tension type headache 339.10 and Breast cancer screening V76.10 [place] [address] [address] 14 Nov, 2014 [place] [address] [place] [address] Nov, [facility] [address] [id number] [address] [place] [address], [place] [address] Jul, [facility] [address] [id number] [address] [place] [address], [place] [address] Jul, [facility] [address] [id number] [address] [place] [address], [place] [address] Jun, [facility] [place] [facility] [address] [id number] [address] [place] [address], [place] [address] Jun, [facility] [address] [id number] [address] [place] [address], [place] [address] Apr, [facility] [address] [id number] [address] [place] [address], [place] [address] Apr, [facility] [address] [id number] [address] [place] [address], [place] [address] Jan, [facility] [address] [id number] [address] [place] [address], [place] [address] Jan, [facility] [place] [facility] [address] [id number] [address] [place] [address], [place] [address] December, [facility] [address] [id number] [address] [place] [address], [place] [address] December, [facility] [facility] [address] [id number] [address] [place] [address], [place] [address] December, [facility] [address] [id number] [address] [place] [address], [place] [address] December, [facility] [address] [id number] [address] [place] [address], [place] [address] Nov, [facility] [address] [id number] [address] [place] [address], [place] [address] Nov, [facility] [address] [id number] [address] [place] [address], [place] [address] Nov, [facility] [address] [id number] [address] [place] [address], [place] [address] Nov, [facility] [address] [id number] [address] [place] [address], [place] [address] Oct, [facility] [address] [id number] [address] [place] [address], [place] [address] Oct, [facility] [address] [id number] [address] [place] [address], [place] [address] Aug, [facility] [address] [id number] [address] [place] [address], [place] [address] Aug, [facility] [address] [id number] [address] [place] [address], [place] [address] Mar, [facility] [address] [id number] [address] [place] [address], [place] [address] Mar, [facility] [address] [id number] [address] [place] [address], [place] [address] Mar, [facility] [address] [id number] [address] [place] [address], [place] [address] Sep, [facility] [address] [id number] [address] [place] [address], [place] [address] Sep, [facility] [address] [id number] [address] [place] [address], [place] [address] Sep, [facility] [address] [id number] [address] [place] [address], [place] [address] Aug, [facility] [address] [id number] [address] [place] [address], [place] [address] Jun, [facility] [address] [id number] [address] [place] [address], [place] [address] December, [facility] [address] [id number] [address] [place] [address], [place] [address] Jul, [facility] [address] [id number] [address] [place] [address] Apr, [facility] [address] [id number] [address] [place] [address] December, [facility] [address] [id number] [address] [place] [address] Nov, [facility] [address] [id number] [address] [place] [address] Oct, [facility] [address] [id number] [address] [place] [address] Sep, [facility] [address] [id number] [address] [place] [address] Aug, [facility] [address] [id number] [address] [place] [address] Nov, [facility] [address] [id number] [address] [place] [address] Oct, [facility] [address] [id number] [address] [place] [address] Oct, IMMUNIZATIONS No Known Immunizations SOCIAL HISTORY Never Assessed REASON FOR VISIT fibromyalgia Pt in for follow up, also has had pain and swelling in R knee, sanchez s not recall injury to knee KAREN Powell PLAN OF CARE Activity Details Follow Up 4 Weeks Reason:contused knee VITAL SIGNS Height 64 in 2018-11-04 Weight 225.5 lbs 2018-11-04 Temperature 98.1 degrees Fahrenheit 2018-11-04 Heart Rate 78 bpm 2018-11-04 Respiratory Rate 18 2018-11-04 BMI 38.70 kg/m2 2018-11-04 Blood pressure systolic 138 mmHg 2018-11-04 Blood pressure diastolic 72 mmHg 2018-11-04 MEDICATIONS Medication Instructions Dosage Frequency Start Date End Date Duration S tatus Neurontin 800 MG Orally Three times a day 1 capsule 8h Oct, 30 days Active Acyclovir 5 % Externally Five times a day 1 application to affected area Jul, 7 days Active Meloxicam 15 MG Orally Once a day 1 tablet 24h Jul, 30 days Active Tizanidine HCl 4 MG Orally 3 times a day 1 tablet as needed 8h Apr, 30 days Active Prevacid 30 MG Orally Once a day 1 capsule 24h Apr, 90 days Active Hydrocodone-Acetaminophen 7.5-325 MG Orally at bedtime 1 tablet Oct, 28 days Active Iron (Ferrous Sulfate) 142 (45 Fe) MG Orally Once a day 1 tablet 24h Active Glucosamine Chondroit-Collagen - as directed May, 7 Active Wellbutrin SR 200 MG Orally Twice a day 1 tablet 12h 18 Jun, 2017 30 day(s) Active Premarin 0.625 MG by oral route Once a day 1 tab 24h Sep, 30 days Active Sertraline HCl 50 mg Orally Once a day 1/2 tablet for 4 days th en 1 tablet 24h 30 day(s) Active RESULTS No Results PROCEDURES Procedure Date Ordered Result Body Site US XTR NON-VASC COMPLETE November 04, 2018 INSTRUCTIONS MEDICATIONS ADMINISTERED No Known Medications [...]
--- OUTSIDE RECORDS SUMMARY | 2020-02-24 03:05 | XMS REPORT ---
Author Author Shey LANIER Organization [facility] Address [address] [place] [address] Care Team Providers Care Bilingual Spanish Inbound Sales Name Role Phone MYLES LANIER Unavailable PROBLEMS Type Condition ICD9-CM Code LTW22-BF Code Onset Dates Condition S tatus SNOMED Code Problem Right knee meniscal tear S83.206A Activ e 162610893 Problem Carpal tunnel syndrome, unspecified laterality G56 .00 Active 35688885 Problem Weight gain R63.5 Active 3333721 Problem GERD (gastroesophageal reflux disease) K21.9 Active 926362364 Problem Knee pain M25.569 Active 61635376 Problem Obesity E66.9 Active 766437562 Problem Rib pain R07.81 Active 581373134 Problem Fibromyalgia M79.7 Active 0287294 05 Problem Rectocele N81.6 Active 721516173 Problem Major depressive disorder, single episode, unspecified F32.9 Active 73226060 Problem Bone spur of foot M77.9 Active 23 [id number] Problem Continuous leakage of urine N39.45 Ac tive 815817020 Problem Dysthymia F34.1 Active 54367612 ALLERGIES No Information ENCOUNTERS Encounter Location Date Diagnosis [facility] [address] [facility] [id number] [address] [place] [phone] Jan, Tear of medial meniscus of r ight knee, current, unspecified tear type, subsequent encounter S83.241D [facility] [address] [facility] [id number] [address] [place] [phone] Nov, Dysthymia F34.1 ; Weight gai n R63.5 and Acute pain of right knee M25.561 [facility] [address] [place] [id number] [address] [place] [id number] Nov, [facility] [address] [place] [id number] [address] [place] [phone] Nov, Viral illness B34.[address] [facility] [address] [place] [id number] [address] [place] [phone] Oct, Viral URI J06.9 [facility] [address] [place] [id number] [address] [place] [phone] Jun, Fibromyalgia M79.7 and Recto nadia N81.6 [place] [address] [address] May, Weak R53.1 ; Fatigue, unspec ified type R53.83 ; Arthralgia of right knee M25.561 and Hematuria, unspecified type R31.9 [place] [address] [place] [id number] [address] [place] [id number] Apr, Dysthymia F34.1 [place] [address] [address] Mar, Hematuria, unspecified type R31.9 ; Acute pain of left knee M25.562 ; Right knee pain M25.561 and Low back pain M54.5 [place] [address] [address] Mar, Hematuria, unspecified type R31.9 [place] [address] [address] Mar, Acute pain of left knee M25. 562 [place] [address] [address] Mar, GERD (gastroesophageal reflu x disease) K21.9 ; Continuous leakage of urine N39.45 ; Acute cystitis with hematuria N30.01 and Vaginal discharge N89.8 [place] [address] [place] [id number] [address] [place] [phone] Jan, [place] [address] [id number] 07 Jesus Manuel, 2017 Dysthymia F34.1 ; Sore throa t J02.9 ; Costochondritis M94.0 and Breast cancer screening Z12.39 [facility] [address] [address] December, [facility] [address] [place] [id number] [address] [place] [id number] Oct, Gastroenteritis K52.9 [facility] [address] [address] Oct, [facility] [address] [address] Sep, Weight gain R63.5 ; Major de pressive disorder, single episode, unspecified F32.9 ; Arthralgia, unspecified joint M25.50 ; GERD (gastroesophageal reflux disease) K21.9 and Swelling R60.9 [place] [address] [address] Aug, [facility] [address] [address] Jul, [place] [address] [address] Jul, Right knee meniscal tear S83 .206A [place] [address] [address] Jun, [facility] [address] [address] Jun, Plantar fasciitis M72.2 [facility] [address] [place] [id number] [address] [place] [phone] Jun, [facility] [address] [address] May, Plantar fasciitis M72.2 [facility] [address] [place] [id number] [address] [place] [phone] May, [place] [address] [id number] [address] [place] [id number] May, [facility] [address] [id number] [address] [place] [id number] Apr, [facility] [address] [id number] [address] [place] [phone] Apr, [facility] [address] [id number] [address] [place] [address] Apr, Bone spur of foot M77.9 [facility] [address] [id number] [address] [place] [phone] Apr, [facility] [address] [facility] [id number] [address] [place] [address] Apr, [facility] [address] [facility] [id number] [address] [place] [phone] Apr, GERD (gastroesophageal reflu x disease) K21.9 ; Pain in right foot M79.671 ; Pain of left foot M79.672 and Obesity E66.9 [facility] [address] [facility] [id number] [address] [place] [id number] December, Degenerative tear of lateral meniscus of right knee M23.300 [facility] [address] [facility] [id number] [address] [place] [id number] December, [facility] [address] [facility] [id number] [address] [place] [id number] December, Weight gain R63.5 ; Right kn ee meniscal tear S83.206A ; Carpal tunnel syndrome, unspecified laterality G56.00 and Rib pain R07.81 [facility] [address] [facility] [id number] [address] [place] [address] Nov, Right knee meniscal tear S83 .206A [facility] [address] [facility] [id number] [address] [place] [id number] Nov, Obesity E66.9 ; Knee pain M2 5.569 and GERD (gastroesophageal reflux disease) K21.9 [place] [address] [facility] [id number] [address] [place] [address] Oct, Weight gain R63.5 and Hormon e replacement therapy Z79.890 [place] [address] [facility] [id number] [address] [place] [address] Oct, [place] [address] [address] Oct, Right knee pain M25.561 ; Ho rmone replacement therapy Z79.890 and Weight gain R63.5 [place] [address] [facility] [id number] [place] [address] Sep, Other chronic pain G89.29 an d Eustachian tube dysfunction, right H69.81 [place] [address] [address] Jul, Hot flashes N95.1 ; Mastodyn ia N64.4 and Sore throat J02.9 [place] [address] [address] Jun, Acute cystitis with hematuri a N30.01 ; Pain in right axilla M79.601 ; Right foot pain M79.671 and Dysuria R30.0 [place] [address] [place] [id number] [place] [address] May, Migraines 346.90 [place] [address] [address] Apr, Anxiety 300.00 ; Headache 78 4.0 and Varicose vein of leg 454.[address] [address] Apr, Depressive disorder, not els ewhere classified 311 [place] [address] [place] [id number] [address] [place] [phone] Jan, Tension type headache 339.10 and Breast cancer screening V76.10 [facility] [address] [id number] [address] [place] [address], [place] [address] 14 Nov, 2014 [facility] [address] [id number] [address] [place] [address], [place] [address] Nov, [facility] [address] [id number] [address] [place] [address], [place] [address] Jul, [facility] [address] [id number] [address] [place] [address], [place] [address] Jul, [facility] [address] [id number] [address] [place] [address], [place] [address] Jun, [facility] [address] [id number] [address] [place] [address], [place] [address] Jun, [facility] [address] [id number] [address] [place] [address], [place] [address] Apr, [facility] [address] [id number] [address] [place] [address], [place] [address] Apr, [facility] [address] [id number] [address] [place] [address], [place] [address] Jan, [facility] [address] [id number] [address] [place] [address], [place] [address] Jan, [facility] [address] [id number] [address] [place] [address], [place] [address] December, [facility] [address] [id number] [address] [place] [address], [place] [address] December, [facility] [address] [id number] [address] [place] [address], [place] [address] December, [facility] [address] [id number] [address] [place] [address], [place] [address] December, [facility] [address] [id number] [address] [place] [address], [place] [address] Nov, [facility] [address] [id number] [address] [place] [address], [place] [address] Nov, [facility] [address] [id number] [address] [place] [address], [place] [address] Nov, [facility] [address] [id number] [address] [place] [address], [place] [address] Nov, [facility] [address] [id number] [address] [place] [address], [place] [address] Oct, [facility] [address] [id number] [address] [place] [address], [place] [address] Oct, [facility] [address] [id number] [address] [place] [address], [place] [address] Aug, [facility] [address] [id number] [address] [place] [address], [place] [address] Aug, [facility] [address] [id number] [address] [place] [address], [place] [address] Mar, [facility] [address] [id number] [address] [place] [address], [place] [address] Mar, [facility] [address] [id number] [address] [place] [address], [place] [address] Mar, [facility] [address] [id number] [address] [place] [address], [place] [address] Sep, [facility] [address] [id number] [address] [place] [address], [place] [address] Sep, [facility] [address] [id number] [address] [place] [address], [place] [address] Sep, [facility] [address] [id number] [address] [place] [address], [place] [address] Aug, [facility] [address] [id number] [address] [place] [address], [place] [address] Jun, [facility] [address] [id number] [address] [place] [address], [place] [address] December, [facility] [address] [id number] [address] [place] [phone] Jul, [facility] [address] [id number] [address] [place] [phone] Apr, [facility] [address] [id number] [address] [place] [phone] December, [facility] [address] [id number] [address] [place] [phone] Nov, [facility] [address] [id number] [address] [place] [phone] Oct, [facility] [address] [id number] [address] [place] [phone] Sep, [facility] [address] [id number] [address] [place] [address] Aug, [facility] [address] [id number] [address] [place] [phone] Nov, [facility] [address] [id number] [address] [place] [phone] Oct, [facility] [address] [id number] [address] [place] [phone] Oct, IMMUNIZATIONS No Known Immunizations SOCIAL HISTORY Never Assessed REASON FOR VISIT right shoulder pain-xray done. Consult. Myles Lanier--KAREN Powell PLAN OF CARE Activity Details Follow Up prn Reason: VITAL SIGNS Height 64 in 2018-02-26 Blood pressure systolic 138 mmHg 2018-02-26 Blood pressure diastolic 82 mmHg 2018-02-26 MEDICATIONS Unknown Medications RESULTS No Results PROCEDURES [...] surgery Surgical History Right ear canal reconstruction Hospitalization History child x3 Hospitalization History orthopedic surgery Hospitalization History Hysterectomy Hospitalization History Tubal ligation
--- OUTSIDE RECORDS SUMMARY | 2020-02-24 03:05 | XMS REPORT ---
Author Author Shey ROMAN Organization [facility] Address [address] [place] [address] Care Team Providers Care Pocketed Spring Machine Operator Name Role Phone LEXX ROMAN Unavailable PROBLEMS Type Condition ICD9-CM Code DEM45-VF Code Onset Dates Condition S tatus SNOMED Code Problem Right knee meniscal tear S83.206A Activ e 033712465 Problem Carpal tunnel syndrome, unspecified laterality G56 .00 Active 76789070 Problem Weight gain R63.5 Active 4925012 Problem GERD (gastroesophageal reflux disease) K21.9 Active 407689314 Problem Knee pain M25.569 Active 79949151 Problem Obesity E66.9 Active 663832669 Problem Rib pain R07.81 Active 532389930 Problem Fibromyalgia M79.7 Active 5483475 05 Problem Rectocele N81.6 Active 090745668 Problem Major depressive disorder, single episode, unspecified F32.9 Active 87551891 Problem Bone spur of foot M77.9 Active 23 [id number] Problem Continuous leakage of urine N39.45 Ac tive 530971326 Problem Dysthymia F34.1 Active 98929297 ALLERGIES Substance Reaction Event Type Date Status [place] Unknown Drug Allergy Oct, Active ENCOUNTERS Encounter Location Date Diagnosis [place] [address] [address] [facility] [id number] [address] [place] [id number] Apr, [place] [address] [address] [facility] [id number] [address] [place] [id number] Jan, Tear of medial meniscus of r ight knee, current, unspecified tear type, subsequent encounter S83.241D [place] [address] [address] [facility] [id number] [address] [place] [phone] Nov, Dysthymia F34.1 ; Weight gai n R63.5 and Acute pain of right knee M25.561 [place] [address] [address] [place] [id number] [address] [place] [phone] Nov, [facility] [address] [address] Nov, Viral illness B34.9 [facility] [address] [place] [id number] [address] [place] [id number] Oct, Viral URI J06.9 [facility] [address] [address] Jun, Fibromyalgia M79.7 and Recto nadia N81.6 [place] [address] [address] May, Weak R53.1 ; Fatigue, unspec ified type R53.83 ; Arthralgia of right knee M25.561 and Hematuria, unspecified type R31.9 [place] [address] [address] Apr, Dysthymia F34.1 [place] [address] [address] Mar, Hematuria, unspecified type R31.9 ; Acute pain of left knee M25.562 ; Right knee pain M25.561 and Low back pain M54.5 [place] [address] [address] Mar, Hematuria, unspecified type R31.9 [place] [address] [place] [id number] [address] [place] [id number] Mar, Acute pain of left knee M25. 562 [place] [address] [address] Mar, GERD (gastroesophageal reflu x disease) K21.9 ; Continuous leakage of urine N39.45 ; Acute cystitis with hematuria N30.01 and Vaginal discharge N89.8 [place] [address] [address] Jan, [facility] [address] [place] [id number] [address] [place] [address] Jan, Dysthymia F34.1 ; Sore throa t J02.9 ; Costochondritis M94.0 and Breast cancer screening Z12.39 [facility] [address] [place] [id number] [address] [place] [id number] December, [facility] [address] [place] [id number] [address] [place] [phone] Oct, Gastroenteritis K52.9 [facility] [address] [place] [id number] [place] [phone] Oct, [facility] [address] [address] Sep, Weight gain R63.5 ; Major de pressive disorder, single episode, unspecified F32.9 ; Arthralgia, unspecified joint M25.50 ; GERD (gastroesophageal reflux disease) K21.9 and Swelling R60.9 [facility] [id number] [place] [id number] Aug, [facility] [address] [place] [id number] [place] [phone] Jul, [facility] [address] [place] [id number] [place] [phone] Jul, Right knee meniscal tear S83 .206A [facility] [address] [place] [id number] [address] [place] [id number] Jun, [facility] [address] [place] [id number] [address] [place] [id number] Jun, Plantar fasciitis M72.2 [facility] [address] [place] [id number] [address] [place] [phone] Jun, [facility] [address] [place] [id number] [address] [place] [phone] May, Plantar fasciitis M72.2 [facility] [address] [id number] [address] [place] [address] 15 May, 2016 [facility] [address] [id number] [address] [place] [id number] May, [facility] [address] [id number] [address] [place] [id number] Apr, [facility] [address] [id number] [address] [place] [phone] Apr, [facility] [address] [id number] [address] [place] [address] Apr, Bone spur of foot M77.9 [facility] [address] [id number] [address] [place] [id number] Apr, [facility] [address] [id number] [address] [place] [address] Apr, [facility] [address] [id number] [address] [place] [address] Apr, GERD (gastroesophageal reflu x disease) K21.9 ; Pain in right foot M79.671 ; Pain of left foot M79.672 and Obesity E66.9 [facility] [address] [facility] [id number] [address] [place] [phone] December, Degenerative tear of lateral meniscus of right knee M23.300 [facility] [address] [id number] [address] [place] [address] December, [facility] [address] [id number] [address] [place] [address] December, Weight gain R63.5 ; Right kn ee meniscal tear S83.206A ; Carpal tunnel syndrome, unspecified laterality G56.00 and Rib pain R07.81 [facility] [address] [id number] [address] [place] [id number] Nov, Right knee meniscal tear S83 .206A [facility] [address] [address] Nov, Obesity E66.9 ; Knee pain M2 5.569 and GERD (gastroesophageal reflux disease) K21.9 [place] [address] [address] Oct, Weight gain R63.5 and Hormon e replacement therapy Z79.890 [place] [address] [address] Oct, [place] [address] [address] Oct, Right knee pain M25.561 ; Ho rmone replacement therapy Z79.890 and Weight gain R63.5 [place] [address] [address] Sep, Other chronic pain G89.29 an d Eustachian tube dysfunction, right H69.81 [place] [address] [address] Jul, Hot flashes N95.1 ; Mastodyn ia N64.4 and Sore throat J02.9 [place] [address] [address] Jun, Acute cystitis with hematuri a N30.01 ; Pain in right axilla M79.601 ; Right foot pain M79.671 and Dysuria R30.0 [place] [address] [address] 14 May, 2015 [address] [address] [address] Apr, Anxiety 300.00 ; Headache 78 4.0 and Varicose vein of leg 454.[address] [address] Apr, Depressive disorder, not els ewhere classified [address] [place] [address] [id number] [address] [place] [address] Jan, Tension type headache 339.10 and Breast cancer screening V76.10 [facility] [address] [id number] [address] [place] [id number] Nov, [facility] [address] [id number] [address] [place] [phone] Nov, [facility] [address] [id number] [address] [place] [phone] Jul, [facility] [address] [id number] [address] [place] [address] Jul, [facility] [address] [id number] [address] [place] [id number] Jun, [facility] [address] [id number] [address] [place] [id number] Jun, [facility] [address] [id number] [address] [place] [phone] Apr, [facility] [address] [id number] [address] [place] [id number] Apr, [facility] [address] [id number] [address] [place] [id number] Jan, [facility] [address] [id number] [address] [place] [phone] Jan, [facility] [address] [id number] [address] [place] [id number] December, [facility] [address] [id number] [address] [place] [phone] December, [facility] [address] [id number] [address] [place] [phone] December, [facility] [address] [id number] [address] [place] [phone] December, [facility] [place] [facility] [address] [id number] [address] [place] [address], [place] [address] Nov, [facility] [address] [id number] [address] [place] [address], [place] [address] Nov, [facility] [address] [id number] [address] [place] [address], [place] [address] Nov, [facility] [address] [id number] [address] [place] [address], [place] [address] Nov, [facility] [address] [id number] [address] [place] [address], [place] [address] Oct, [facility] [address] [id number] [address] [place] [address], [place] [address] Oct, [facility] [address] [id number] [address] [place] [address], [place] [address] Aug, [facility] [address] [id number] [address] [place] [address], [place] [address] Aug, [facility] [address] [id number] [address] [place] [address], [place] [address] Mar, [facility] [address] [id number] [address] [place] [address], [place] [address] Mar, [facility] [address] [id number] [address] [place] [address], [place] [address] Mar, [facility] [address] [id number] [address] [place] [address], [place] [address] Sep, [facility] [address] [id number] [address] [place] [address], [place] [address] Sep, [facility] [address] [id number] [address] [place] [address], [place] [address] Sep, [facility] [address] [id number] [address] [place] [address], [place] [address] Aug, [facility] [address] [id number] [address] [place] [address], [place] [address] Jun, [facility] [address] [id number] [address] [place] [phone] December, [facility] [address] [id number] [address] [place] [phone] Jul, [facility] [address] [id number] [address] [place] [phone] Apr, [facility] [address] [id number] [address] [place] [id number] December, [facility] [address] [id number] [address] [place] [id number] Nov, [facility] [address] [id number] [address] [place] [id number] Oct, [facility] [address] [id number] [address] [place] [id number] Sep, [facility] [address] [id number] [address] [place] [id number] Aug, [facility] [address] [id number] [address] [place] [id number] Nov, [facility] [address] [id number] [address] [place] [id number] Oct, [facility] [address] [id number] [address] [place] [phone] Oct, IMMUNIZATIONS No Known Immunizations SOCIAL HISTORY Never Assessed REASON FOR VISIT flu symptoms Pt c/o cough, chest tightness, body aches, fatigue and fever for 4 days Sherry JONES PLAN OF CARE VITAL SIGNS Height 64 in 2017-11-05 Weight 232.6 lbs 2017-11-05 Temperature 97.9 degrees Fahrenheit 2017-11-05 Heart Rate 88 bpm 2017-11-05 Respiratory Rate 20 2017-11-05 BMI 39.92 kg/m2 2017-11-05 Blood pressure systolic 140 mmHg 2017-11-05 Blood pressure diastolic 80 mmHg 2017-11-05 MEDICATIONS Medication Instructions Dosage Frequency Start Date End Date Duration S xiaous Meloxicam 15 MG Orally Once a day 1 tablet 24h Jul, 30 days Active Tizanidine HCl 4 MG Orally 3 times a day 1 tablet as needed 8h Apr, 30 days Active PredniSONE 20 mg Orally Once a day 2 tablets 24h Oct, Oct, 05 days Active Prevacid 30 MG Orally Once a day 1 capsule 24h Apr, 90 days Active Glucosamine Chondroit-Collagen - as directed May, Active Iron (Ferrous Sulfate) 142 (45 Fe) MG Orally Once a day 1 tablet 24h Active Neurontin 400 MG Orally Three times a day 1 capsule 8h 24 Oct, 2013 30 days Active Wellbutrin SR 200 MG Orally Twice a day 1 tablet 12h 18 Jun, 2017 30 day(s) Active RESULTS No Results PROCEDURES No Known [...]
--- OUTSIDE RECORDS SUMMARY | 2020-02-24 03:05 | XMS REPORT ---
Author Author Shey MCELROY Organization [facility] Address [address] [place] [address] Care Team Providers Care Security Control Room Officer Name Role Phone BRO MCELROY Unavailable PROBLEMS Type Condition ICD9-CM Code FWV09-PT Code Onset Dates Condition S tatus SNOMED Code Problem Right knee meniscal tear S83.206A Activ e 001410066 Problem Carpal tunnel syndrome, unspecified laterality G56 .00 Active 53075947 Problem Weight gain R63.5 Active 4672876 Problem GERD (gastroesophageal reflux disease) K21.9 Active 780416947 Problem Knee pain M25.569 Active 45810614 Problem Obesity E66.9 Active 297668305 Problem Rib pain R07.81 Active 182058797 Problem Fibromyalgia M79.7 Active 6570734 05 Problem Rectocele N81.6 Active 755462251 Problem Major depressive disorder, single episode, unspecified F32.9 Active 30824166 Problem Bone spur of foot M77.9 Active 23 [id number] Problem Continuous leakage of urine N39.45 Ac tive 144123741 Problem Dysthymia F34.1 Active 29501826 ALLERGIES Substance Reaction Event Type Date Status [place] Unknown Drug Allergy Nov, Active ENCOUNTERS Encounter Location Date Diagnosis [place] [address] [address] [facility] [id number] [address] [place] [id number] Jan, Tear of medial meniscus of r ight knee, current, unspecified tear type, subsequent encounter S83.241D [place] [address] [address] [place] [id number] [address] [place] [address] Nov, Dysthymia F34.1 ; Weight gai n R63.5 and Acute pain of right knee M25.561 [place] [address] [address] [place] [id number] [address] [place] [address] Nov, [place] [address] [address] Nov, Viral illness B34.9 [facility] [address] [address] 07 Oct, 2017 Viral URI J06.9 [facility] [address] [address] 18 Jun, 2017 Fibromyalgia M79.7 and Recto nadia N81.6 [place] [address] [address] 11 May, 2017 Weak R53.1 ; Fatigue, unspec ified type R53.83 ; Arthralgia of right knee M25.561 and Hematuria, unspecified type R31.9 [place] [address] [address] Apr, Dysthymia F34.1 [place] [address] [address] Mar, Hematuria, unspecified type R31.9 ; Acute pain of left knee M25.562 ; Right knee pain M25.561 and Low back pain M54.5 [place] [address] [address] Mar, Hematuria, unspecified type R31.9 [place] [address] [address] Mar, Acute pain of left knee M25. 562 [place] [address] [address] 05 Mar, 2017 GERD (gastroesophageal reflu x disease) K21.9 ; Continuous leakage of urine N39.45 ; Acute cystitis with hematuria N30.01 and Vaginal discharge N89.8 [place] [address] [address] 13 Jan, 2017 [place] [address] [address] Jan, Dysthymia F34.1 ; Sore throa t J02.9 ; Costochondritis M94.0 and Breast cancer screening Z12.39 [place] [address] [address] December, [facility] [address] [address] Oct, Gastroenteritis K52.9 [facility] [address] [address] Oct, [place] [address] [address] Sep, Weight gain R63.5 ; Major de pressive disorder, single episode, unspecified F32.9 ; Arthralgia, unspecified joint M25.50 ; GERD (gastroesophageal reflux disease) K21.9 and Swelling R60.9 [place] [address] [address] Aug, [place] [address] [address] Jul, [place] [address] [address] Jul, Right knee meniscal tear S83 .206A [place] [address] [address] Jun, [place] [address] [address] Jun, Plantar fasciitis M72.2 [place] [address] [address] Jun, [place] [address] [place] [id number] [place] [address] May, Plantar fasciitis M72.2 [place] [address] [address] May, [facility] [address] [id number] [address] [place] [address] May, [facility] [address] [id number] [address] [place] [address] Apr, [facility] [address] [id number] [address] [place] [address] Apr, [facility] [address] [id number] [address] [place] [address] Apr, Bone spur of foot M77.9 [facility] [address] [id number] [address] [place] [address] Apr, [facility] [address] [facility] [id number] [address] [place] [address] Apr, [facility] [address] [facility] [id number] [address] [place] [address] Apr, GERD (gastroesophageal reflu x disease) K21.9 ; Pain in right foot M79.671 ; Pain of left foot M79.672 and Obesity E66.9 [facility] [address] [facility] [id number] [address] [place] [address] December, Degenerative tear of lateral meniscus of right knee M23.300 [facility] [address] [facility] [id number] [address] [place] [address] December, [facility] [address] [facility] [id number] [address] [place] [address] December, Weight gain R63.5 ; Right kn ee meniscal tear S83.206A ; Carpal tunnel syndrome, unspecified laterality G56.00 and Rib pain R07.81 [facility] [address] [facility] [id number] [address] [place] [address] Nov, Right knee meniscal tear S83 .206A [facility] [address] [facility] [id number] [address] [place] [address] Nov, Obesity E66.9 ; Knee pain M2 5.569 and GERD (gastroesophageal reflux disease) K21.9 [place] [address] [address] Oct, Weight gain R63.5 and Hormon e replacement therapy Z79.890 [place] [address] [address] Oct, [place] [address] [address] Oct, Right knee pain M25.561 ; Ho rmone replacement therapy Z79.890 and Weight gain R63.5 [place] [address] [address] Sep, Other chronic pain G89.29 an d Eustachian tube dysfunction, right H69.81 [place] [address] [address] Jul, Hot flashes N95.1 ; Mastodyn ia N64.4 and Sore throat J02.9 [place] [address] [address] Jun, Acute cystitis with hematuri a N30.01 ; Pain in right axilla M79.601 ; Right foot pain M79.671 and Dysuria R30.0 [place] [address] [address] 14 May, 2015 Migraines 346.90 [place] [address] [address] Apr, Anxiety 300.00 ; Headache 78 4.0 and Varicose vein of leg 454.9 [place] [address] [address] Apr, Depressive disorder, not els ewhere classified 311 [place] [address] [address] Jan, Tension type headache 339.10 and Breast cancer screening V76.10 [facility] [address] [id number] [address] [place] [address] Nov, [facility] [address] [id number] [address] [place] [address] Nov, [facility] [address] [id number] [address] [place] [address] Jul, [facility] [address] [id number] [address] [place] [address] Jul, [facility] [address] [id number] [address] [place] [address] Jun, [facility] [address] [id number] [address] [place] [address] Jun, [facility] [address] [id number] [address] [place] [phone] Apr, [facility] [address] [id number] [address] [place] [address] Apr, [facility] [address] [id number] [address] [place] [address] Jan, [facility] [address] [id number] [address] [place] [phone] Jan, [facility] [address] [id number] [address] [place] [address] December, [facility] [address] [id number] [address] [place] [address] December, [facility] [address] [id number] [address] [place] [address] December, [facility] [address] [id number] [address] [place] [address] December, [facility] [address] [id number] [address] [place] [address] Nov, [facility] [address] [id number] [address] [place] [address], [place] [address] Nov, [facility] [address] [id number] [address] [place] [address], [place] [address] Nov, [facility] [address] [id number] [address] [place] [address], [place] [address] Nov, [facility] [address] [id number] [address] [place] [address], [place] [address] Oct, [facility] [address] [id number] [address] [place] [address], [place] [address] Oct, [facility] [address] [id number] [address] [place] [address], [place] [address] Aug, [facility] [address] [id number] [address] [place] [address], [place] [address] Aug, [facility] [address] [id number] [address] [place] [address], [place] [address] Mar, [facility] [address] [id number] [address] [place] [address], [place] [address] Mar, [facility] [address] [id number] [address] [place] [address], [place] [address] Mar, [facility] [address] [id number] [address] [place] [address], [place] [address] Sep, [facility] [address] [id number] [address] [place] [address], [place] [address] Sep, [facility] [address] [id number] [address] [place] [address], [place] [address] Sep, [facility] [address] [id number] [address] [place] [address], [place] [address] Aug, [facility] [address] [id number] [address] [place] [address], [place] [address] Jun, [facility] [address] [id number] [address] [address] December, [facility] [address] [id number] [address] [place] [address] Jul, [facility] [address] [id number] [address] [place] [address] Apr, [facility] [address] [id number] [address] [place] [phone] December, [facility] [address] [id number] [address] [place] [address] Nov, [facility] [address] [id number] [address] [place] [address] Oct, [facility] [address] [id number] [address] [place] [phone] Sep, [facility] [address] [id number] [address] [place] [address] Aug, [facility] [address] [id number] [address] [place] [address] Nov, [facility] [address] [id number] [address] [place] [address] Oct, [facility] [address] [id number] [address] [place] [address] Oct, IMMUNIZATIONS No Known Immunizations SOCIAL HISTORY Never Assessed REASON FOR VISIT flu symptoms PLAN OF CARE Activity Details Follow Up prn Reason: VITAL SIGNS Height 64 in 2017-12-10 Weight 228 lbs 2017-12-10 Temperature 98.5 degrees Fahrenheit 2017-12-10 Heart Rate 90 bpm 2017-12-10 Respiratory Rate 20 2017-12-10 BMI 39.13 kg/m2 2017-12-10 Blood pressure systolic 128 mmHg 2017-12-10 Blood pressure diastolic 78 mmHg 2017-12-10 MEDICATIONS Medication Instructions Dosage Frequency Start Date End Date Duration S bisi Iron (Ferrous Sulfate) 142 (45 Fe) MG Orally Once a day 1 tablet 24h Active Glucosamine Chondroit-Collagen - as directed May, 201 7 Active Prevacid 30 MG [place] Once a day 1 capsule 24h 04 Aug, 2016 90 days Active Neurontin 400 MG Orally Three times a day 1 capsule 8h 24 Oct, 2013 30 days Active Wellbutrin SR 200 MG [place] Twice a day 1 tablet 12h 18 Jun, 2017 30 day(s) Active Meloxicam 15 MG Orally Once a day 1 tablet 24h Jul, 30 days Active Tizanidine HCl 4 MG Orally 3 times a day 1 tablet as needed 8h Apr, 30 days Active RESULTS No Results PROCEDURES No [...]
--- OUTSIDE RECORDS SUMMARY | 2020-02-24 03:05 | XMS REPORT ---
Author Author Shey MCELROY Organization [facility] Address [address] [place] [address] Care Team Providers Care Software Development Advisor Name Role Phone BRO MCELROY Unavailable PROBLEMS Type Condition ICD9-CM Code QAD90-YD Code Onset Dates Condition S tatus SNOMED Code Problem Right knee meniscal tear S83.206A Activ e 585345694 Problem Carpal tunnel syndrome, unspecified laterality G56 .00 Active 58683557 Problem Weight gain R63.5 Active 1777466 Problem GERD (gastroesophageal reflux disease) K21.9 Active 431398486 Problem Knee pain M25.569 Active 00477349 Problem Obesity E66.9 Active 575980851 Problem Rib pain R07.81 Active 358032322 Problem Fibromyalgia M79.7 Active 5730580 05 Problem Rectocele N81.6 Active 742750439 Problem Major depressive disorder, single episode, unspecified F32.9 Active 85400985 Problem Bone spur of foot M77.9 Active 23 [id number] Problem Continuous leakage of urine N39.45 Ac tive 450377480 Problem Dysthymia F34.1 Active 57856872 ALLERGIES Substance Reaction Event Type Date Status [place] Unknown Drug Allergy Nov, Active ENCOUNTERS Encounter Location Date Diagnosis [place] [address] [address] [facility] [id number] [address] [place] [address] Jan, Tear of medial meniscus of r ight knee, current, unspecified tear type, subsequent encounter S83.241D [place] [address] [address] [place] [id number] [address] [place] [address] Nov, Dysthymia F34.1 ; Weight gai n R63.5 and Acute pain of right knee M25.561 [place] [address] [address] [place] [id number] [address] [place] [address] Nov, [place] [address] [address] Nov, Viral illness B34.9 [facility] [address] [address] 07 Oct, 2017 Viral URI J06.9 [facility] [address] [address] 18 Jun, 2017 Fibromyalgia M79.7 and Recto nadia N81.6 [place] [address] [address] 11 May, 2017 Weak R53.1 ; Fatigue, unspec ified type R53.83 ; Arthralgia of right knee M25.561 and Hematuria, unspecified type R31.9 [place] [address] [address] Apr, Dysthymia F34.1 [place] [address] [address] Mar, Hematuria, unspecified type R31.9 ; Acute pain of left knee M25.562 ; Right knee pain M25.561 and Low back pain M54.5 [place] [address] [address] Mar, Hematuria, unspecified type R31.9 [place] [address] [address] Mar, Acute pain of left knee M25. 562 [place] [address] [address] 05 Mar, 2017 GERD (gastroesophageal reflu x disease) K21.9 ; Continuous leakage of urine N39.45 ; Acute cystitis with hematuria N30.01 and Vaginal discharge N89.8 [place] [address] [address] 13 Jan, 2017 [place] [address] [address] Jan, Dysthymia F34.1 ; Sore throa t J02.9 ; Costochondritis M94.0 and Breast cancer screening Z12.39 [place] [address] [address] December, [facility] [address] [address] Oct, Gastroenteritis K52.9 [facility] [address] [address] Oct, [place] [address] [address] Sep, Weight gain R63.5 ; Major de pressive disorder, single episode, unspecified F32.9 ; Arthralgia, unspecified joint M25.50 ; GERD (gastroesophageal reflux disease) K21.9 and Swelling R60.9 [place] [address] [address] Aug, [place] [address] [address] Jul, [place] [address] [address] Jul, Right knee meniscal tear S83 .206A [place] [address] [address] Jun, [place] [address] [address] Jun, Plantar fasciitis M72.2 [place] [address] [address] Jun, [place] [address] [place] [id number] [place] [address] May, Plantar fasciitis M72.2 [place] [address] [address] May, [facility] [address] [id number] [address] [place] [address] May, [facility] [address] [id number] [address] [place] [address] Apr, [facility] [address] [id number] [address] [place] [address] Apr, [facility] [address] [id number] [address] [place] [address] Apr, Bone spur of foot M77.9 [facility] [address] [id number] [address] [place] [address] Apr, [facility] [address] [facility] [id number] [address] [place] [address] Apr, [facility] [address] [facility] [id number] [address] [place] [address] Apr, GERD (gastroesophageal reflu x disease) K21.9 ; Pain in right foot M79.671 ; Pain of left foot M79.672 and Obesity E66.9 [facility] [address] [facility] [id number] [address] [place] [address] December, Degenerative tear of lateral meniscus of right knee M23.300 [facility] [address] [facility] [id number] [address] [place] [address] December, [facility] [address] [facility] [id number] [address] [place] [address] December, Weight gain R63.5 ; Right kn ee meniscal tear S83.206A ; Carpal tunnel syndrome, unspecified laterality G56.00 and Rib pain R07.81 [facility] [address] [facility] [id number] [address] [place] [address] Nov, Right knee meniscal tear S83 .206A [facility] [address] [facility] [id number] [address] [place] [address] Nov, Obesity E66.9 ; Knee pain M2 5.569 and GERD (gastroesophageal reflux disease) K21.9 [place] [address] [address] Oct, Weight gain R63.5 and Hormon e replacement therapy Z79.890 [place] [address] [address] Oct, [place] [address] [address] Oct, Right knee pain M25.561 ; Ho rmone replacement therapy Z79.890 and Weight gain R63.5 [place] [address] [address] Sep, Other chronic pain G89.29 an d Eustachian tube dysfunction, right H69.81 [place] [address] [address] Jul, Hot flashes N95.1 ; Mastodyn ia N64.4 and Sore throat J02.9 [place] [address] [address] Jun, Acute cystitis with hematuri a N30.01 ; Pain in right axilla M79.601 ; Right foot pain M79.671 and Dysuria R30.0 [place] [address] [address] 14 May, 2015 Migraines 346.90 [place] [address] [address] Apr, Anxiety 300.00 ; Headache 78 4.0 and Varicose vein of leg 454.9 [place] [address] [address] Apr, Depressive disorder, not els ewhere classified 311 [place] [address] [address] Jan, Tension type headache 339.10 and Breast cancer screening V76.10 [facility] [address] [id number] [address] [place] [address] Nov, [facility] [address] [id number] [address] [place] [address] Nov, [facility] [address] [id number] [address] [place] [address] Jul, [facility] [address] [id number] [address] [place] [address] Jul, [facility] [address] [id number] [address] [place] [address] Jun, [facility] [address] [id number] [address] [place] [address] Jun, [facility] [address] [id number] [address] [place] [address] Apr, [facility] [address] [id number] [address] [place] [address] Apr, [facility] [address] [id number] [address] [place] [address] Jan, [facility] [address] [id number] [address] [place] [address] Jan, [facility] [address] [id number] [address] [place] [address] December, [facility] [address] [id number] [address] [place] [address] December, [facility] [address] [id number] [address] [place] [address] December, [facility] [address] [id number] [address] [place] [address] December, [facility] [address] [id number] [address] [place] [address] Nov, [facility] [address] [id number] [address] [place] [address], [place] [address] Nov, [facility] [address] [id number] [address] [place] [address], [place] [address] Nov, [facility] [address] [id number] [address] [place] [address], [place] [address] Nov, [facility] [address] [id number] [address] [place] [address], [place] [address] Oct, [facility] [address] [id number] [address] [place] [address], [place] [address] Oct, [facility] [address] [id number] [address] [place] [address], [place] [address] Aug, [facility] [address] [id number] [address] [place] [address], [place] [address] Aug, [facility] [address] [id number] [address] [place] [address], [place] [address] Mar, [facility] [address] [id number] [address] [place] [address], [place] [address] Mar, [facility] [address] [id number] [address] [place] [address], [place] [address] Mar, [facility] [address] [id number] [address] [place] [address], [place] [address] Sep, [facility] [address] [id number] [address] [place] [address], [place] [address] Sep, [facility] [address] [id number] [address] [place] [address], [place] [address] Sep, [facility] [address] [id number] [address] [place] [address], [place] [address] Aug, [facility] [address] [id number] [address] [place] [address], [place] [address] Jun, [facility] [address] [id number] [address] [place] [address] December, [facility] [address] [id number] [address] [place] [address] Jul, [facility] [address] [id number] [address] [place] [address] Apr, [facility] [address] [id number] [address] [place] [address] December, [facility] [address] [id number] [address] [place] [address] Nov, [facility] [address] [id number] [address] [place] [address] Oct, [facility] [address] [id number] [address] [place] [address] Sep, [facility] [address] [id number] [address] [place] [address] Aug, [facility] [address] [id number] [address] [place] [address] Nov, [facility] [address] [id number] [address] [place] [address] Oct, [facility] [address] [id number] [address] [place] [address] Oct, IMMUNIZATIONS No Known Immunizations SOCIAL HISTORY Never Assessed REASON FOR VISIT fibromyalgia----Christa, weight gain PLAN OF CARE Activity Details Follow Up 4 Weeks Reason:depression VITAL SIGNS Height 64 in 2017-12-29 Weight 229 lbs 2017-12-29 Temperature 97.7 degrees Fahrenheit 2017-12-29 Heart Rate 80 bpm 2017-12-29 Respiratory Rate 20 2017-12-29 BMI 39.30 kg/m2 2017-12-29 Blood pressure systolic 136 mmHg 2017-12-29 Blood pressure diastolic 82 mmHg 2017-12-29 MEDICATIONS Medication Instructions Dosage Frequency Start Date End Date Duration S tatus Meloxicam 15 MG Orally Once a day 1 tablet 24h Jul, 30 days Active Prevacid 30 MG Orally Once a day 1 capsule 24h Apr, 90 days Active Tizanidine HCl 4 MG Orally 3 times a day 1 tablet as needed 8h 11 Apr, 2015 30 days Active Wellbutrin SR 200 MG Orally Twice a day 1 tablet 12h Jun, 30 day(s) Active Iron (Ferrous Sulfate) 142 (45 Fe) MG Orally Once a day 1 tablet 24h Active Glucosamine Chondroit-Collagen - as directed May, 7 Active Neurontin 400 MG Orally Three times a day 1 capsule 8h 24 Oct, 2013 30 days Active Sertraline HCl 50 mg Orally Once a day 1/2 tablet for 4 days en 1 tablet 24h 30 Nov, 2017 30 day(s) Active RESULTS Name Result Date Reference Range Xray : Knee, Right 1-2 views (IN HOUSE) PROCEDURES Procedure Date Ordered Result Body Site X-RAY EXAM OF KNEE, 1 OR 2 December 29, 2017 INSTRUCTIONS MEDICATIONS ADMINISTERED No Known Medications MEDICAL [...]
--- OUTSIDE RECORDS SUMMARY | 2020-02-24 03:05 | XMS REPORT ---
Author Author Shey MCELROY Organization [facility] Address [address] [place] [address] Care Team Providers Care Environmental Auditor Name Role Phone BRO MCELROY Unavailable PROBLEMS Type Condition ICD9-CM Code VJO98-VP Code Onset Dates Condition S tatus SNOMED Code Problem Right knee meniscal tear S83.206A Activ e 583596376 Problem Carpal tunnel syndrome, unspecified laterality G56 .00 Active 53564749 Problem Weight gain R63.5 Active 1537477 Problem GERD (gastroesophageal reflux disease) K21.9 Active 630283967 Problem Knee pain M25.569 Active 96921068 Problem Obesity E66.9 Active 959095981 Problem Rib pain R07.81 Active 581282160 Problem Fibromyalgia M79.7 Active 5131496 05 Problem Rectocele N81.6 Active 918510307 Problem Major depressive disorder, single episode, unspecified F32.9 Active 92561535 Problem Bone spur of foot M77.9 Active 23 [id number] Problem Continuous leakage of urine N39.45 Ac tive 171051888 Problem Dysthymia F34.1 Active 47942654 ALLERGIES No Information ENCOUNTERS Encounter Location Date Diagnosis [facility] [address] [facility] [id number] [address] [place] [address] Jan, Tear of medial meniscus of r ight knee, current, unspecified tear type, subsequent encounter S83.241D [facility] [address] [facility] [id number] [address] [place] [address] Nov, Dysthymia F34.1 ; Weight gai n R63.5 and Acute pain of right knee M25.561 [facility] [address] [facility] [id number] [address] [place] [address] Nov, [facility] [address] [facility] [id number] [address] [place] [address] Nov, Viral illness B34.9 [facility] [id number] [place] [address] Oct, Viral URI J06.9 [facility] [address] [place] [id number] [address] [place] [address] 18 Jun, 2017 Fibromyalgia M79.7 and Recto nadia N81.6 [place] [address] [address] May, Weak R53.1 ; Fatigue, unspec ified type R53.83 ; Arthralgia of right knee M25.561 and Hematuria, unspecified type R31.9 [place] [address] [address] Apr, Dysthymia F34.1 [place] [address] [address] Mar, Hematuria, unspecified type R31.9 ; Acute pain of left knee M25.562 ; Right knee pain M25.561 and Low back pain M54.5 [place] [address] [address] Mar, Hematuria, unspecified type R31.9 [place] [address] [place] [id number] [address] [place] [address] Mar, Acute pain of left knee M25. 562 [place] [address] [address] Mar, GERD (gastroesophageal reflu x disease) K21.9 ; Continuous leakage of urine N39.45 ; Acute cystitis with hematuria N30.01 and Vaginal discharge N89.8 [place] [address] [place] [id number] [address] [place] [address] 13 Jan, 2017 [place] [address] [address] Jan, Dysthymia F34.1 ; Sore throa t J02.9 ; Costochondritis M94.0 and Breast cancer screening Z12.39 [facility] [address] [address] December, [facility] [address] [address] Oct, Gastroenteritis K52.9 [place] [address] [address] Oct, [place] [address] [address] Sep, Weight gain R63.5 ; Major de pressive disorder, single episode, unspecified F32.9 ; Arthralgia, unspecified joint M25.50 ; GERD (gastroesophageal reflux disease) K21.9 and Swelling R60.9 [place] [address] [address] Aug, [place] [address] [address] Jul, [place] [address] [address] Jul, Right knee meniscal tear S83 .206A [place] [address] [address] Jun, [place] [address] [address] Jun, Plantar fasciitis M72.2 [place] [address] [address] Jun, [place] [address] [address] May, Plantar fasciitis M72.2 [facility] [address] [address] May, [facility] [address] [id number] [address] [place] [address] May, [facility] [address] [id number] [address] [place] [address] Apr, [facility] [address] [id number] [address] [place] [address] Apr, [facility] [address] [id number] [address] [place] [address] Apr, Bone spur of foot M77.9 [facility] [address] [id number] [address] [place] [address] Apr, [facility] [address] [id number] [address] [place] [address] Apr, [facility] [address] [id number] [address] [place] [address] Apr, GERD (gastroesophageal reflu x disease) K21.9 ; Pain in right foot M79.671 ; Pain of left foot M79.672 and Obesity E66.9 [facility] [address] [facility] [id number] [address] [place] [address] December, Degenerative tear of lateral meniscus of right knee M23.300 [facility] [address] [facility] [id number] [address] [place] [address] December, [facility] [address] [facility] [id number] [address] [place] [address] December, Weight gain R63.5 ; Right kn ee meniscal tear S83.206A ; Carpal tunnel syndrome, unspecified laterality G56.00 and Rib pain R07.81 [facility] [address] [facility] [id number] [address] [place] [address] Nov, Right knee meniscal tear S83 .206A [facility] [address] [facility] [id number] [address] [place] [address] Nov, Obesity E66.9 ; Knee pain M2 5.569 and GERD (gastroesophageal reflux disease) K21.9 [place] [address] [facility] [id number] [address] [place] [address] Oct, Weight gain R63.5 and Hormon e replacement therapy Z79.890 [place] [address] [facility] [id number] [address] [place] [address] Oct, [place] [address] [place] [id number] [place] [address] Oct, Right knee pain M25.561 ; Ho rmone replacement therapy Z79.890 and Weight gain R63.5 [place] [address] [address] Sep, Other chronic pain G89.29 an d Eustachian tube dysfunction, right H69.81 [place] [address] [address] Jul, Hot flashes N95.1 ; Mastodyn ia N64.4 and Sore throat J02.9 [place] [address] [address] Jun, Acute cystitis with hematuri a N30.01 ; Pain in right axilla M79.601 ; Right foot pain M79.671 and Dysuria R30.0 [place] [address] [address] May, Migraines 346.90 [place] [address] [address] Apr, Anxiety 300.00 ; Headache 78 4.0 and Varicose vein of leg 454.[address] [address] Apr, Depressive disorder, not els ewhere classified [address] [place] [address] [place] [id number] [address] [place] [address] Jan, Tension type headache 339.10 and Breast cancer screening V76.10 [facility] [address] [id number] [address] [place] [address], [place] [address] 14 Nov, 2014 [facility] [address] [id number] [address] [place] [address], [place] [address] Nov, [facility] [address] [id number] [address] [place] [address], [place] [address] Jul, [facility] [address] [id number] [address] [place] [address], [place] [address] Jul, [facility] [address] [id number] [address] [place] [address], [place] [address] Jun, [facility] [address] [id number] [address] [place] [address], [place] [address] Jun, [facility] [address] [id number] [address] [place] [address], [place] [address] Apr, [facility] [address] [id number] [address] [place] [address], [place] [address] Apr, [facility] [address] [id number] [address] [place] [address], [place] [address] Jan, [facility] [address] [id number] [address] [place] [address], [place] [address] Jan, [facility] [address] [id number] [address] [place] [address], [place] [address] December, [facility] [address] [id number] [address] [place] [address] December, [facility] [address] [id number] [address] [place] [address], [place] [address] December, [facility] [address] [id number] [address] [place] [address], [place] [address] December, [facility] [address] [id number] [address] [place] [address], [place] [address] Nov, [facility] [address] [id number] [address] [place] [address], [place] [address] Nov, [facility] [address] [id number] [address] [place] [address], [place] [address] Nov, [facility] [address] [id number] [address] [place] [address], [place] [address] Nov, [facility] [address] [id number] [address] [place] [address], [place] [address] Oct, [facility] [address] [id number] [address] [place] [address], [place] [address] Oct, [facility] [address] [id number] [address] [place] [address], [place] [address] Aug, [facility] [address] [id number] [address] [place] [address], [place] [address] Aug, [facility] [address] [id number] [address] [place] [address], [place] [address] Mar, [facility] [address] [id number] [address] [place] [address], [place] [address] Mar, [facility] [address] [id number] [address] [place] [address], [place] [address] Mar, [facility] [address] [id number] [address] [place] [address], [place] [address] Sep, [facility] [address] [id number] [address] [place] [address], [place] [address] Sep, [facility] [address] [id number] [address] [place] [address], [place] [address] Sep, [facility] [address] [id number] [address] [place] [address], [place] [address] Aug, [facility] [address] [id number] [address] [place] [address], [place] [address] Jun, [facility] [address] [id number] [address] [place] [address], [place] [address] December, [facility] [address] [id number] [address] [place] [address] 30 Jul, 2010 [facility] [address] [id number] [address] [place] [address] 14 Apr, 2010 [facility] [address] [id number] [address] [place] [address] December, [facility] [address] [id number] [address] [place] [address] Nov, [facility] [address] [id number] [address] [place] [address] Oct, [facility] [address] [id number] [address] [place] [address] Sep, [facility] [address] [id number] [address] [place] [address] Aug, [facility] [address] [id number] [address] [place] [address] 15 Nov, 2008 [facility] [address] [id number] [address] [place] [address] Oct, [facility] [address] [id number] [address] [place] [address] 12 Oct, 2008 IMMUNIZATIONS No Known Immunizations SOCIAL HISTORY Never Assessed REASON FOR VISIT Prior Authorization Request PLAN OF CARE VITAL SIGNS MEDICATIONS Unknown [...]
--- OUTSIDE RECORDS SUMMARY | 2020-02-24 03:05 | XMS REPORT ---
Author Shey Unger Organization [employer] Address Unknown Phone Unavailable Care Team Providers Care Trampoline Team Coach Name Role Phone BRO MCELROY CP Unavailable Allergies No Known Allergies Problems Problem Type Condition Code Onset Dates Condition Statu s Problem Right knee meniscal tear S83.206A Act radha Problem Carpal tunnel syndrome, unspecified laterality G56.00 Active Problem Weight gain R63.5 Active Problem Knee pain M25.569 Active Problem GERD (gastroesophageal reflux disease) K21.9 Active Problem Rib pain R07.81 Active Problem Obesity E66.9 Active Medications No Known Medications Results No Known Results Summary Purpose [employer] Submission
--- OUTSIDE RECORDS SUMMARY | 2020-02-24 03:05 | XMS REPORT ---
Author Author Shey MCELROY Organization [facility] Address [address] [place] [address] Care Team Providers Care Tongue Stitcher Name Role Phone BRO MCELROY Unavailable PROBLEMS Type Condition ICD9-CM Code CCT05-JK Code Onset Dates Condition S tatus SNOMED Code Problem Carpal tunnel syndrome, unspecified laterality G56 .00 Active 81229483 Problem Major depressive disorder, single episode, unspecified F32.9 Active 10352891 Problem Bone spur of foot M77.9 Active 23 [id number] Problem Other chronic pain G89.29 Active 8 3023259 Problem Lumbago with sciatica, right side M54.41 Active 498999936 Problem Continuous leakage of urine N39.45 Ac tive 031837237 Problem Dysthymia F34.1 Active 89181196 Problem Fibromyalgia M79.7 Active 3352770 05 Problem Rectocele N81.6 Active 528995949 Problem Obesity E66.9 Active 218488441 Problem Rib pain R07.81 Active 442838758 Problem GERD (gastroesophageal reflux disease) K21.9 Active 529439119 Problem Right knee meniscal tear S83.206A Activ e 215310569 Problem Knee pain M25.569 Active 69311854 Problem Weight gain R63.5 Active 1292501 ALLERGIES No Information ENCOUNTERS Encounter Location Date Diagnosis [facility] [address] [facility] [id number] [address] [place] [address] Jul, [facility] [address] [facility] [id number] [address] [place] [address] Jun, Lumbago with sciatica, right side M54.41 [facility] [address] [facility] [id number] [address] [place] [address] Jun, Lumbago with sciatica, right side M54.41 ; Other chronic pain G89.29 and BMI 40.0-44.9, adult Z68.41 [facility] [address] [facility] [id number] [address] [place] [address] 18 May, 2018 Acute low back pain, unspeci fied back pain laterality, with sciatica presence unspecified M54.5 [place] [address] [place] [id number] [address] [place] [address] Jan, Tear of medial meniscus of r ight knee, current, unspecified tear type, subsequent encounter S83.241D [place] [address] [place] [id number] [place] [address] Nov, Dysthymia F34.1 ; Weight gai n R63.5 and Acute pain of right knee M25.561 [place] [address] [address] Nov, [place] [address] [address] Nov, Viral illness B34.9 [facility] [address] [place] [id number] [address] [place] [address] Oct, Viral URI J06.9 [place] [address] [place] [id number] [address] [place] [address] Jun, Fibromyalgia M79.7 and Recto nadia N81.6 [place] [address] [address] May, Weak R53.1 ; Fatigue, unspec ified type R53.83 ; Arthralgia of right knee M25.561 and Hematuria, unspecified type R31.9 [place] [address] [place] [id number] [address] [place] [address] Apr, Dysthymia F34.1 [place] [address] [place] [id number] [address] [place] [address] Mar, Hematuria, unspecified type R31.9 ; Acute pain of left knee M25.562 ; Right knee pain M25.561 and Low back pain M54.5 [place] [address] [facility] [id number] [address] [place] [address] Mar, Hematuria, unspecified type R31.9 [place] [address] [facility] [id number] [address] [place] [address] Mar, Acute pain of left knee M25. 562 [place] [address] [place] [id number] [address] [place] [address] Mar, GERD (gastroesophageal reflu x disease) K21.9 ; Continuous leakage of urine N39.45 ; Acute cystitis with hematuria N30.01 and Vaginal discharge N89.8 [place] [address] [place] [id number] [address] [place] [address] Jan, [place] [address] [address] Jan, Dysthymia F34.1 ; Sore throa t J02.9 ; Costochondritis M94.0 and Breast cancer screening Z12.39 [place] [id number] [place] [address] December, [place] [address] [place] [id number] [address] [place] [address] 15 Oct, 2016 Gastroenteritis K52.9 [place] [address] [place] [id number] [address] [place] [address] Oct, [place] [address] [place] [id number] [address] [place] [address] Sep, Weight gain R63.5 ; Major de pressive disorder, single episode, unspecified F32.9 ; Arthralgia, unspecified joint M25.50 ; GERD (gastroesophageal reflux disease) K21.9 and Swelling R60.9 [place] [address] [place] [id number] [address] [place] [address] Aug, [place] [address] [place] [id number] [place] [address] [place] [address] Jul, [facility] [address] [id number] [address] [place] [address] Jul, Right knee meniscal tear S83 .206A [facility] [address] [id number] [address] [place] [address] Jun, [facility] [address] [id number] [address] [place] [address] Jun, Plantar fasciitis M72.2 [facility] [address] [id number] [address] [place] [address] Jun, [facility] [address] [id number] [address] [place] [address] May, Plantar fasciitis M72.2 [facility] [address] [id number] [address] [place] [address] May, [facility] [address] [id number] [address] [place] [address] May, [facility] [address] [id number] [address] [place] [address] Apr, [facility] [address] [id number] [address] [place] [address] Apr, [facility] [address] [id number] [address] [place] [address] Apr, Bone spur of foot M77.9 [facility] [address] [id number] [address] [place] [address] Apr, [facility] [address] [id number] [address] [place] [address] Apr, [facility] [address] [id number] [address] [place] [address] Apr, GERD (gastroesophageal reflu x disease) K21.9 ; Pain in right foot M79.671 ; Pain of left foot M79.672 and Obesity E66.9 [place] [address] [facility] [id number] [address] [place] [address] December, Degenerative tear of lateral meniscus of right knee M23.300 [place] [address] [id number] [address] [place] [address] December, [place] [address] [facility] [id number] [address] [place] [address] December, Weight gain R63.5 ; Right kn ee meniscal tear S83.206A ; Carpal tunnel syndrome, unspecified laterality G56.00 and Rib pain R07.81 [place] [address] [facility] [id number] [address] [place] [address] Nov, Right knee meniscal tear S83 .206A [place] [address] [facility] [id number] [address] [place] [address] Nov, Obesity E66.9 ; Knee pain M2 5.569 and GERD (gastroesophageal reflux disease) K21.9 [place] [address] [facility] [id number] [address] [place] [address] Oct, Weight gain R63.5 and Hormon e replacement therapy Z79.890 [place] [address] [facility] [id number] [address] [place] [address] Oct, [place] [address] [facility] [id number] [address] [place] [address] Oct, Right knee pain M25.561 ; Ho rmone replacement therapy Z79.890 and Weight gain R63.5 [place] [address] [facility] [id number] [address] [place] [address] Sep, Other chronic pain G89.29 an d Eustachian tube dysfunction, right H69.81 [place] [id number] [facility] [id number] [address] [place] [address] 17 Jul, 2015 Hot flashes N95.1 ; Mastodyn ia N64.4 and Sore throat J02.9 [place] [address] [place] [id number] [address] [place] [address] Jun, Acute cystitis with hematuri a N30.01 ; Pain in right axilla M79.601 ; Right foot pain M79.671 and Dysuria R30.0 [facility] [address] [place] [id number] [address] [place] [address] 14 May, 2015 Migraines 346.90 [facility] [address] [address] Apr, Anxiety 300.00 ; Headache 78 4.0 and Varicose vein of leg 454.9 [facility] [address] [address] Apr, Depressive disorder, not els ewhere classified 311 [facility] [address] [address] Jan, Tension type headache 339.10 and Breast cancer screening V76.10 [facility] [address] [place] [id number] [address] [place] [address] Nov, [facility] [address] [address] Nov, [facility] [address] [place] [id number] [address] [place] [address] Jul, [facility] [address] [place] [id number] [address] [place] [address] Jul, [facility] [address] [place] [id number] [address] [place] [address] Jun, [facility] [address] [place] [id number] [address] [place] [address] Jun, [facility] [address] [place] [id number] [address] [place] [address] Apr, [facility] [address] [place] [id number] [address] [place] [address] Apr, [facility] [address] [id number] [address] [place] [address], [place] [address] Jan, [facility] [address] [id number] [address] [place] [address], [place] [address] Jan, [facility] [address] [id number] [address] [place] [address], [place] [address] December, [facility] [address] [id number] [address] [place] [address], [place] [address] December, [facility] [address] [id number] [address] [place] [address], [place] [address] December, [facility] [address] [id number] [address] [place] [address], [place] [address] December, [facility] [address] [id number] [address] [place] [address], [place] [address] Nov, [facility] [address] [id number] [address] [place] [address], [place] [address] Nov, [facility] [address] [id number] [address] [place] [address], [place] [address] Nov, [facility] [address] [id number] [address] [place] [address], [place] [address] Nov, [facility] [address] [id number] [address] [place] [address], [place] [address] Oct, [facility] [address] [id number] [address] [place] [address], [place] [address] Oct, [facility] [address] [id number] [address] [place] [address], [place] [address] Aug, [facility] [address] [id number] [address] [place] [address], [place] [address] Aug, [facility] [address] [id number] [address] [place] [address], [place] [address] Mar, [facility] [address] [id number] [address] [place] [address], [place] [address] 12 Mar, 2012 [facility] [address] [id number] [address] [place] [address], [place] [address] 11 Mar, 2012 [facility] [address] [id number] [address] [place] [address], [place] [address] Sep, [facility] [address] [id number] [address] [place] [address], [place] [address] Sep, [facility] [address] [id number] [address] [place] [address], [place] [address] Sep, [facility] [address] [id number] [address] [place] [address], [place] [address] Aug, [facility] [address] [id number] [address] [place] [address], [place] [address] Jun, [facility] [address] [id number] [address] [place] [address], [place] [address] December, [facility] [address] [id number] [address] [place] [address], [place] [address] Jul, [facility] [address] [id number] [address] [place] [address], [place] [address] Apr, [facility] [address] [id number] [address] [place] [address], [place] [address] December, [facility] [address] [id number] [address] [place] [address], [place] [address] 13 Nov, 2009 [facility] [address] [id number] [address] [place] [address], [place] [address] Oct, [facility] [address] [id number] [address] [place] [address], [place] [address] 14 Sep, 2009 [facility] [address] [id number] [address] [place] [address], [place] [address] 09 Aug, 2009 [facility] [address] [id number] [address] [place] [address], [place] [address] 15 Nov, 2008 [facility] [address] [id number] [address] [place] [address] 11 Oct, 2008 [facility] [address] [facility] [id number] [address] [place] [address] 12 Oct, 2008 IMMUNIZATIONS No Known Immunizations SOCIAL HISTORY Never Assessed REASON FOR VISIT order for MRI of back PLAN OF CARE Activity Details Pending Test MRI : Lumbar w/o contrast VITAL SIGNS MEDICATIONS Unknown Medications RESULTS No [...]
--- OUTSIDE RECORDS SUMMARY | 2020-02-24 03:06 | XMS REPORT ---
Author Shey Joe [facility] eClinical[employer] Address Unknown Phone Unavailable Care Team Providers Care Basting Machine Operator Name Role Phone BETTIE CUEVAS CP Unavailable Allergies No Known Allergies Problems Problem Type Condition Code Onset Dates Condition Statu s Problem GERD (gastroesophageal reflux disease) K21.9 Active Assessment Plantar fasciitis M72.2 Active Problem Weight gain R63.5 Active Problem Right knee meniscal tear S83.206A Act radha Problem Bone spur of foot M77.9 Active Problem Obesity E66.9 Active Problem Knee pain M25.569 Active Problem Carpal tunnel syndrome, unspecified laterality G56.00 Active Problem Rib pain R07.81 Active Medications No Known Medications Procedures Procedure Coding System Code Date Office Visit, Est Pt., Level 3 CPT-[address] 2015 Vital Signs Date/Time: Jun 07, 2016 Blood Pressure Diastolic 70 mmHg Blood Pressure Systolic 126 mmHg Height 64 in Results No Known Results Summary Purpose eClinicalWorks Submission
--- OUTSIDE RECORDS SUMMARY | 2020-02-24 03:06 | XMS REPORT ---
Author Author Shey MCELROY [facility] Address [address] [place] [address] Care Team Providers Care Chainstitch Binder Name Role Phone BRO MCELROY Unavailable PROBLEMS Type Condition ICD9-CM Code [id number] Code Onset Dates Condition S tatus SNOMED Code Problem Knee pain M25.569 Active 39013871 Problem GERD (gastroesophageal reflux disease) K21.9 Active 446963906 Problem Bone spur of foot M77.9 Active 23 6090749471732 Problem Weight gain R63.5 Active 2580917 Problem Rib pain R07.81 Active 386706402 Problem Obesity E66.9 Active 173338192 Problem Right knee meniscal tear S83.206A Activ e 785773013 Problem Carpal tunnel syndrome, unspecified laterality G56 .00 Active 08977769 ALLERGIES Unknown Allergies SOCIAL HISTORY No smoking Hx information available PLAN OF CARE VITAL SIGNS MEDICATIONS Unknown Medications RESULTS No Results PROCEDURES No Known procedures IMMUNIZATIONS No Known Immunizations
--- OUTSIDE RECORDS SUMMARY | 2020-02-24 03:06 | XMS REPORT ---
Author Author Shey MCELROY [facility] Address [address] [place] [address] Care Team Providers Care Harnessmaker Name Role Phone BRO MCELROY Unavailable PROBLEMS Type Condition ICD9-CM Code [id number] Code Onset Dates Condition S tatus SNOMED Code Problem Knee pain M25.569 Active 66982717 Problem GERD (gastroesophageal reflux disease) K21.9 Active 566277459 Problem Bone spur of foot M77.9 Active 23 6843831237664 Problem Weight gain R63.5 Active 6688532 Problem Rib pain R07.81 Active 341720484 Problem Obesity E66.9 Active 181562486 Problem Right knee meniscal tear S83.206A Activ e 731409034 Problem Carpal tunnel syndrome, unspecified laterality G56 .00 Active 66410612 ALLERGIES Unknown Allergies SOCIAL HISTORY No smoking Hx information available PLAN OF CARE VITAL SIGNS MEDICATIONS Unknown Medications RESULTS No Results PROCEDURES No Known procedures IMMUNIZATIONS No Known Immunizations
--- OUTSIDE RECORDS SUMMARY | 2020-02-24 03:06 | XMS REPORT ---
Author Shey Unger Organization [employer] Address Unknown Phone Unavailable Care Team Providers Care Escrow Officer Name Role Phone BRO MCELROY CP Unavailable Allergies No Known Allergies Problems Problem Type Condition Code Onset Dates Condition Statu s Problem GERD (gastroesophageal reflux disease) K21.9 Active Problem Weight gain R63.5 Active Problem Right knee meniscal tear S83.206A Act radha Problem Bone spur of foot M77.9 Active Problem Obesity E66.9 Active Problem Knee pain M25.569 Active Problem Carpal tunnel syndrome, unspecified laterality G56.00 Active Problem Rib pain R07.81 Active Medications No Known Medications Results No Known Results Summary Purpose eClinicalWorks Submission
--- OUTSIDE RECORDS SUMMARY | 2020-02-24 03:06 | XMS REPORT ---
Author Author Shey MCELROY [facility] Address [address] [place] [address] Care Team Providers Care Muck Miner Name Role Phone BRO MCELROY Unavailable PROBLEMS Type Condition ICD9-CM Code VQK81-GP Code Onset Dates Condition S tatus SNOMED Code Problem GERD (gastroesophageal reflux disease) K21.9 Active 455485076 Problem Right knee meniscal tear S83.206A Activ e 036262069 Problem Rib pain R07.81 Active 704949701 Problem Knee pain M25.569 Active 38467443 Problem Obesity E66.9 Active 137623213 Problem Continuous leakage of urine N39.45 Ac tive 741511544 Problem Dysthymia F34.1 Active 78965195 Problem Carpal tunnel syndrome, unspecified laterality G56 .00 Active 80625796 Problem Weight gain R63.5 Active 8139349 Problem Major depressive disorder, single episode, unspecified F32.9 Active 26937375 Problem Bone spur of foot M77.9 Active 23 3989539847105 ALLERGIES No Known Allergies SOCIAL HISTORY No smoking Hx information available PLAN OF CARE VITAL SIGNS MEDICATIONS No Known Medications RESULTS No Results PROCEDURES No Known procedures IMMUNIZATIONS No Known Immunizations
--- OUTSIDE RECORDS SUMMARY | 2020-02-24 03:06 | XMS REPORT ---
Author Shey Unger [facility] eClinicalWorks Address Unknown Phone Unavailable Care Team Providers Care Weigher And Grader Name Role Phone BRO MCELROY CP Unavailable Allergies, Adverse Reactions, Alerts Substance Reaction Event Type Toco Info Not Available Drug Allergy Problems Problem Type Condition Code Onset Dates Condition Statu s Problem Asymptomatic varicose veins 454.9 Active Problem Dietary surveillance and counseling V65.3 Active Problem Routine general medical examination at [facility] V70.0 Active Problem Anxiety state, unspecified 300.00 A ctive Problem Unspecified otalgia 388.70 Active Problem Depressive disorder, not elsewhere classified 311 Active Problem Screening examination for venereal disease V74.5 Active Problem Contact with or exposure to unspecified communicable d isease V01.9 Active Problem Dysfunction of Eustachian tube 381.81 Active Problem Cough 786.2 Active Assessment Sore throat J02.9 Active Assessment Mastodynia N64.4 Active Assessment Hot flashes N95.1 Active Problem Carpal tunnel syndrome 354.0 Activ e Medications Medication Code System Code Instructions Start Date End Date Status Dosage Verapamil HCl [facility] [address]-42 80 MG Orally Onc e a day X7 days then 2 tiimes a day x 7 days then tid. May 15, 2015 1 tablet Tizanidine HCl [facility] [address]-41 4 MG Orally 3 times a day Apr 11 015 1 tablet as needed BuPROPion HCl [facility] [address]-65 100 MG November 22, 2013 take 1 tablet (100 mg) by oral route 3 times per day Ativan [facility] [address]-29 0.5 MG Orally Twice a day February 22, 2015 1 tablet as needed Neurontin [facility] [address]-70 300 MG November 22, 2013 1 capsule by Oral route 3 times per day PRN for pain Fluoxetine [facility] [address]-69 40 mg Jul 12, 2014 1 capsule by Oral route 1 time per day Meloxicam [facility] [address]-00 15 MG Jul 12, 2014 javy e 1 tablet (15 mg) by oral route once daily Estradiol [facility] [address]-49 0.5 MG Orally Once a day Jul 18, 2015 1 tablet Procedures Procedure Coding System Code Date Office Visit, Est Pt., Level 3 CPT-4 30653 N 2014 Vital Signs Date/Time: Jul 18, 2015 Temperature 98.0 F Weight 215.7 lbs Height 64 in BMI 37.02 Index Blood Pressure Diastolic 86 mmHg Blood Pressure Systolic 138 mmHg Cardiac Monitoring Heart Rate 82 bpm Results No Known Results Summary Purpose eClinicalWorks Submission
--- OUTSIDE RECORDS SUMMARY | 2020-02-24 03:06 | XMS REPORT ---
Author Author Shey MCELROY [facility] Address [address] [place] [address] Care Team Providers Care Intelligence Specialist Name Role Phone BRO MCELROY Unavailable PROBLEMS Type Condition ICD9-CM Code [id number] Code Onset Dates Condition S tatus SNOMED Code Problem Knee pain M25.569 Active 11939125 Problem GERD (gastroesophageal reflux disease) K21.9 Active 587644935 Problem Bone spur of foot M77.9 Active 23 3376050276917 Problem Weight gain R63.5 Active 3842621 Problem Rib pain R07.81 Active 246940948 Problem Obesity E66.9 Active 399853180 Problem Right knee meniscal tear S83.206A Activ e 260293681 Problem Carpal tunnel syndrome, unspecified laterality G56 .00 Active 30413124 ALLERGIES Unknown Allergies SOCIAL HISTORY No smoking Hx information available PLAN OF CARE VITAL SIGNS MEDICATIONS Unknown Medications RESULTS No Results PROCEDURES No Known procedures IMMUNIZATIONS No Known Immunizations
--- OUTSIDE RECORDS SUMMARY | 2020-02-24 03:06 | XMS REPORT ---
Author Shey Unger Organization [employer] Address Unknown Phone Unavailable Care Team Providers Care Solar Designer/Installer Name Role Phone BRO MCELROY CP Unavailable [...]
--- OUTSIDE RECORDS SUMMARY | 2020-02-24 03:06 | XMS REPORT ---
Author Author Shey MCELROY [facility] [employer] Address Unknown Phone Unavailable Care Team Providers Care Aoc Operations Intelligence Officer Name Role Phone BRO MCELROY Unavailable Allergies, Adverse Reactions, Alerts Substance Reaction Event Type [place] Info Not Available Drug Allergy Problems Problem Type Condition Code Onset Dates Condition Statu s Problem Asymptomatic varicose veins 454.9 Active Problem Dietary surveillance and counseling V65.3 Active Problem Routine general medical examination at [facility] V70.0 Active Problem Anxiety state, unspecified 300.00 A ctive Problem Unspecified otalgia 388.70 Active Problem Depressive disorder, not elsewhere classified 311 Active Problem Screening examination for venereal disease V74.5 Active Problem Contact with or exposure to unspecified communicable d isease V01.9 Active Problem Dysfunction of Eustachian tube 381.81 Active Problem Cough 786.2 Active Assessment Right foot pain M79.671 Active Assessment Pain in right axilla M79.601 Active Assessment Acute cystitis with hematuria N30.01 Active Assessment Dysuria R30.0 Active Problem Carpal tunnel syndrome 354.0 Activ e Medications Medication Code System Code Instructions Start Date End Date Status Dosage Verapamil HCl [facility] [address]-07 80 MG Orally Onc e a day X7 days then 2 tiimes a day x 7 days then tid. May 15, 2015 1 tablet BuPROPion HCl [facility] [address]-15 100 MG November 22, 2013 take 1 tablet (100 mg) by oral route 3 times per day Neurontin [facility] [address]-62 300 MG November 22, 2013 1 capsule by Oral route 3 times per day PRN for pain Fluoxetine [facility] [address]-26 40 mg Jul 12, 2014 1 capsule by Oral route 1 time per day Ativan [facility] [address]-23 0.5 MG Orally Twice a day February 22, 2015 1 tablet as needed Tizanidine HCl [facility] [address]-39 4 MG Orally 3 times a day Apr 11 015 1 tablet as needed Meloxicam [facility] [address]-55 15 MG Jul 12, 2014 javy e 1 tablet (15 mg) by oral route once daily Bactrim DS [facility] [address]-59 800-160 MG Orally 2 times a day O ct 2014Jun 28, 2015 1 tablet Procedures Procedure Coding System Code Date X-RAY EXAM OF FOOT CPT-4 17526 Jun 21, 2015 Office Visit, Est Pt., Level 3 CPT-4 14906 O 2014 URINALYSIS, AUTO, W/O SCOPE CPT-4 92956 Jun 21, 2015 Vital Signs Date/Time: Jun 21, 2015 Temperature 98.2 F Weight 220.9 lbs Height 64 in BMI 37.91 Index Blood Pressure Diastolic 90 mmHg Blood Pressure Systolic 146 mmHg Cardiac Monitoring Heart Rate 84 bpm Results Name Result Date Reference Range Unit Abnormali ty Flag UA LONG DIP (IN HOUSE) Summary Purpose [employer]Clinical[employer] Submission
--- OUTSIDE RECORDS SUMMARY | 2020-02-24 03:06 | XMS REPORT ---
Author Author Shey MCELROY Organization [facility] Address [address] [place] [address] Care Team Providers Care Manager Study Name Role Phone BRO MCELROY Unavailable PROBLEMS Type Condition ICD9-CM Code ROI17-LS Code Onset Dates Condition S tatus SNOMED Code Problem Right knee meniscal tear S83.206A Activ e 149996171 Problem Carpal tunnel syndrome, unspecified laterality G56 .00 Active 20024143 Problem Weight gain R63.5 Active 9508924 Problem GERD (gastroesophageal reflux disease) K21.9 Active 218915341 Problem Knee pain M25.569 Active 84340237 Problem Obesity E66.9 Active 080290414 Problem Rib pain R07.81 Active 402573148 Problem Fibromyalgia M79.7 Active 6259290 05 Problem Rectocele N81.6 Active 410794230 Problem Major depressive disorder, single episode, unspecified F32.9 Active 17051007 Problem Bone spur of foot M77.9 Active 23 6100644309715 Problem Continuous leakage of urine N39.45 Ac tive 232301696 Problem Dysthymia F34.1 Active 20340743 ALLERGIES Substance Reaction Event Type Date Status Florien Unknown Drug Allergy Mar, Active ENCOUNTERS Encounter Location Date Diagnosis [facility] [address] [facility] [place] [id number] [address] [place] [phone] Nov, [facility] [address] [facility] [place] [id number] [address] [place] [phone] Oct, Viral URI J06.9 [facility] [address] [facility] [place] [id number] [address] [place] [phone] Jun, Fibromyalgia M79.7 and Recto nadia N81.6 [facility] [address] [facility] [place] [id number] [address] [place] [phone] May, Weak R53.1 ; Fatigue, unspec ified type R53.83 ; Arthralgia of right knee M25.561 and Hematuria, unspecified type R31.9 [place] [address] [facility] [place] [id number] [address] [place] [phone] Apr, Dysthymia F34.1 [place] [address] [facility] [place] [id number] [address] [place] [phone] Mar, Hematuria, unspecified type R31.9 ; Acute pain of left knee M25.562 ; Right knee pain M25.561 and Low back pain M54.5 [place] [address] [facility] [place] [id number] [address] [place] [address] Mar, Hematuria, unspecified type R31.9 [place] [address] [place] [id number] [address] [place] [address] Mar, Acute pain of left knee M25. 562 [place] [address] [place] [id number] [address] [place] [phone] Mar, GERD (gastroesophageal reflu x disease) K21.9 ; Continuous leakage of urine N39.45 ; Acute cystitis with hematuria N30.01 and Vaginal discharge N89.8 [place] [address] [place] [id number] [address] [place] [phone] Jan, [place] [address] [place] [id number] [address] [place] [phone] Jan, Dysthymia F34.1 ; Sore throa t J02.9 ; Costochondritis M94.0 and Breast cancer screening Z12.39 [place] [address] [place] [id number] [address] [place] [phone] December, [place] [address] [place] [id number] [address] [place] [phone] 15 Oct, 2016 Gastroenteritis K52.9 [place] [address] [place] [id number] [address] [place] [phone] Oct, [place] [address] [id number] [address] [place] [phone] Sep, Weight gain R63.5 ; Major de pressive disorder, single episode, unspecified F32.9 ; Arthralgia, unspecified joint M25.50 ; GERD (gastroesophageal reflux disease) K21.9 and Swelling R60.9 [facility] [address] [id number] [address] [place] [phone] Aug, [facility] [address] [id number] [address] [place] [phone] Jul, [facility] [address] [id number] [address] [place] [phone] Jul, Right knee meniscal tear S83 .206A [facility] [address] [id number] [address] [place] [phone] Jun, [facility] [address] [id number] [address] [place] [phone] Jun, Plantar fasciitis M72.2 [facility] [address] [id number] [address] [place] [phone] Jun, [facility] [address] [id number] [address] [place] [phone] May, Plantar fasciitis M72.2 [facility] [address] [id number] [address] [place] [phone] May, [facility] [address] [id number] [address] [place] [phone] May, [facility] [address] [id number] [address] [place] [phone] Apr, [facility] [address] [id number] [address] [place] [phone] Apr, [facility] [address] [id number] [address] [place] [phone] Apr, Bone spur of foot M77.9 [facility] [address] [id number] [address] [place] [phone] Apr, [facility] [address] [id number] [address] [place] [phone] Apr, [facility] [address] [id number] [address] [place] [phone] Apr, GERD (gastroesophageal reflu x disease) K21.9 ; Pain in right foot M79.671 ; Pain of left foot M79.672 and Obesity E66.9 [facility] [address] [id number] [address] [place] [address] December, Degenerative tear of lateral meniscus of right knee M23.300 [place] [address] [facility] [place] [id number] [address] [place] [address] December, [place] [address] [facility] [place] [id number] [address] [place] [address] December, Weight gain R63.5 ; Right kn ee meniscal tear S83.206A ; Carpal tunnel syndrome, unspecified laterality G56.00 and Rib pain R07.81 [place] [address] [id number] [address] [place] [phone] Nov, Right knee meniscal tear S83 .206A [place] [address] [facility] [place] [id number] [address] [place] [address] Nov, Obesity E66.9 ; Knee pain M2 5.569 and GERD (gastroesophageal reflux disease) K21.9 [facility] [address] [id number] [address] [place] [phone] Oct, Weight gain R63.5 and Hormon e replacement therapy Z79.890 [place] [address] [id number] [address] [place] [address] Oct, [place] [address] [facility] [place] [id number] [address] [place] [address] Oct, Right knee pain M25.561 ; Ho rmone replacement therapy Z79.890 and Weight gain R63.5 [facility] [id number] [place] [address] Sep, Other chronic pain G89.29 an d Eustachian tube dysfunction, right H69.81 [place] [address] [place] [id number] [address] [place] [address] 17 Jul, 2015 Hot flashes N95.1 ; Mastodyn ia N64.4 and Sore throat J02.9 [place] [address] [place] [id number] [place] [address] Jun, Acute cystitis with hematuri a N30.01 ; Pain in right axilla M79.601 ; Right foot pain M79.671 and Dysuria R30.0 [place] [address] [address] 14 May, 2015 Migraines 346.90 [place] [address] [address] Apr, Anxiety 300.00 ; Headache 78 4.0 and Varicose vein of leg 454.9 [place] [address] [address] Apr, Depressive disorder, not els ewhere classified 311 [place] [address] [phone] 24 Jan, 2015 Tension type headache 339.10 and Breast cancer screening V76.10 [place] [address] [place] [id number] [address] [place] [phone] 14 Nov, 2014 [place] [address] [id number] 13 Nov, 2014 [place] [address] [place] [id number] [place] [address] Jul, [place] [address] [address] Jul, [facility] [address] [id number] [address] [place] [address], [place] [address] Jun, [facility] [address] [id number] [address] [place] [address], [place] [address] Jun, [facility] [address] [id number] [address] [place] [address], [place] [address] Apr, [facility] [address] [id number] [address] [place] [address], [place] [address] Apr, [facility] [address] [id number] [address] [place] [address], [place] [address] Jan, [facility] [address] [id number] [address] [place] [address], [place] [address] Jan, [facility] [address] [id number] [address] [place] [address], [place] [address] December, [facility] [address] [id number] [address] [place] [address], [place] [address] December, [facility] [address] [id number] [address] [place] [address], [place] [address] December, [facility] [address] [id number] [address] [place] [address], [place] [address] December, [facility] [address] [id number] [address] [place] [address], [place] [address] Nov, [facility] [address] [id number] [address] [place] [address], [place] [address] Nov, [facility] [address] [id number] [address] [place] [address], [place] [address] Nov, [facility] [address] [id number] [address] [place] [address], [place] [address] Nov, [facility] [address] [id number] [address] [place] [address], [place] [address] Oct, [facility] [address] [id number] [address] [place] [address], [place] [address] Oct, [facility] [address] [id number] [address] [place] [address], [place] [address] Aug, [facility] [address] [id number] [address] [place] [address], [place] [address] Aug, [facility] [address] [id number] [address] [place] [address], [place] [address] Mar, [facility] [address] [id number] [address] [place] [address], [place] [address] Mar, [facility] [address] [id number] [address] [place] [address], [place] [address] Mar, [facility] [address] [id number] [address] [place] [address], [place] [address] Sep, [facility] [address] [id number] [address] [place] [address], [place] [address] Sep, [facility] [address] [id number] [address] [place] [address], [place] [address] Sep, [facility] [address] [id number] [address] [place] [address], [place] [address] Aug, [facility] [address] [id number] [address] [place] [address], [place] [address] Jun, [facility] [address] [id number] [address] [place] [address], [place] [address] December, [facility] [address] [id number] [address] [place] [address], [place] [address] Jul, [facility] [address] [id number] [address] [place] [address], [place] [address] Apr, [facility] [address] [id number] [address] [place] [address], [place] [address] December, [facility] [address] [id number] [address] [place] [address], [place] [address] Nov, [facility] [address] [id number] [address] [place] [phone] Oct, [facility] [address] [facility] [id number] [address] [place] [phone] Sep, [facility] [address] [facility] [place] [id number] [address] [place] [address] Aug, [facility] [address] [facility] [place] [id number] [address] [place] [phone] Nov, [facility] [address] [facility] [place] [id number] [address] [place] [phone] Oct, [facility] [address] [facility] [place] [id number] [address] [place] [address] Oct, IMMUNIZATIONS No Known Immunizations SOCIAL HISTORY Never Assessed REASON FOR VISIT Knee pain f/u, Low back pain - patient reports she prevously had a bulging disc, ABoggsLPN PLAN OF CARE Activity Details Follow Up 4 Weeks Reason:hematuria VITAL SIGNS Height 64 in 2017-03-19 Weight 226.3 lbs 2017-03-19 Temperature 98.1 degrees Fahrenheit 2017-03-19 Heart Rate 76 bpm 2017-03-19 Respiratory Rate 18 2017-03-19 BMI 38.84 kg/m2 2017-03-19 Blood pressure systolic 122 mmHg 2017-03-19 Blood pressure diastolic 90 mmHg 2017-03-19 MEDICATIONS Medication Instructions Dosage Frequency Start Date End Date Duration S tatus Prevacid 30 MG Orally Once a day 1 capsule 24h Apr, 90 days Active Trintellix 10 mg orally once a day 1 tablet 24h Jan, Apr, 30 days Active Carafate 1 GM Orally 4 times a day 30 min before meals and hs 1 tablet on an empty stomach Mar, May, 30 day(s) Active Meloxicam 15 MG Orally Once a day 1 tablet 24h Jul, 30 days Active Neurontin 300 MG Orally Three times a day 1 capsule 8h Oct, 30 days Active Tizanidine HCl 4 MG Orally 3 times a day 1 tablet as needed 8h Apr, 30 days Active RESULTS Name Result Date Reference Range UA LONG DIP (IN HOUSE) 2017-03-19 Lot # [id number] Exp date 11/2017 Clarity clear Color yellow Odor none GLU negative JAQUELIN negative KET negative SG 1.025 BLO 2+ pH 6.0 Protein negative URO 0.2 NIT negative ELLIOTT negative Lot # Exp date PROCEDURES Procedure Date Ordered Result Body Site URINALYSIS, AUTO, W/O SCOPE March 19, 2017 INSTRUCTIONS MEDICATIONS ADMINISTERED No Known Medications [...]
--- OUTSIDE RECORDS SUMMARY | 2020-02-24 03:06 | XMS REPORT ---
Author Author Shey MCELROY [facility] Address [address] [place] [address] Care Team Providers Care Sample Body Builder Name Role Phone BRO MCELROY Unavailable PROBLEMS Type Condition ICD9-CM Code AMN08-VA Code Onset Dates Condition S tatus SNOMED Code Problem Right knee meniscal tear S83.206A Activ e 153811701 Problem Carpal tunnel syndrome, unspecified laterality G56 .00 Active 98005455 Problem Weight gain R63.5 Active 4847843 Problem GERD (gastroesophageal reflux disease) K21.9 Active 093897936 Problem Knee pain M25.569 Active 34515860 Problem Obesity E66.9 Active 463966023 Problem Rib pain R07.81 Active 679949326 Problem Fibromyalgia M79.7 Active 3952637 05 Problem Rectocele N81.6 Active 553885407 Problem Major depressive disorder, single episode, unspecified F32.9 Active 71997702 Problem Bone spur of foot M77.9 Active 23 7977694292147 Problem Continuous leakage of urine N39.45 Ac tive 154818852 Problem Dysthymia F34.1 Active 71635423 ALLERGIES No Information SOCIAL HISTORY Never Assessed PLAN OF CARE VITAL SIGNS MEDICATIONS No Known Medications RESULTS No Results PROCEDURES No Known procedures IMMUNIZATIONS No Known Immunizations MEDICAL (GENERAL) HISTORY Type Description Date Medical [...]
--- OUTSIDE RECORDS SUMMARY | 2020-02-24 03:06 | XMS REPORT ---
Author Author Shey MCELROY [facility] Address [address] [place] [address] Care Team Providers Care Warp Changer Name Role Phone BRO MCELROY Unavailable PROBLEMS Type Condition ICD9-CM Code END55-OL Code Onset Dates Condition S tatus SNOMED Code Problem GERD (gastroesophageal reflux disease) K21.9 Active 570845657 Problem Right knee meniscal tear S83.206A Activ e 766111176 Problem Rib pain R07.81 Active 070169163 Problem Knee pain M25.569 Active 24500569 Problem Obesity E66.9 Active 009901268 Problem Continuous leakage of urine N39.45 Ac tive 270784752 Problem Dysthymia F34.1 Active 58340279 Problem Carpal tunnel syndrome, unspecified laterality G56 .00 Active 51530775 Problem Weight gain R63.5 Active 3680242 Problem Major depressive disorder, single episode, unspecified F32.9 Active 04200085 Problem Bone spur of foot M77.9 Active 23 5088433526611 ALLERGIES Substance Reaction Event Type Date Status Konterra Unknown Drug Allergy Sep, Active SOCIAL HISTORY No smoking Hx information available PLAN OF CARE VITAL SIGNS Height 64 in 2016-09-11 Weight 235.2 lbs 2016-09-11 Temperature 98.1 degrees Fahrenheit 2016-09-11 Heart Rate 84 bpm 2016-09-11 Respiratory Rate 20 2016-09-11 BMI 40.37 kg/m2 2016-09-11 Blood pressure systolic 102 mmHg 2016-09-11 Blood pressure diastolic 68 mmHg 2016-09-11 MEDICATIONS Medication Instructions Dosage Frequency Start Date End Date Duration S tatus Neurontin 300 MG 1 capsule by Oral route 3 times per d ay PRN for pain Oct, 30 Active Pristiq 50 mg Orally Once a day 1 tablet 24h Sep, 30 day(s) Active Prevacid 30 MG Orally Once a day 1 capsule 24h Apr, 90 days Active Meloxicam 15 MG take 1 tablet (15 mg) by oral route once d aily Jul, 90 Active Tizanidine HCl 4 MG Orally 3 times a day 1 tablet as needed 8h Apr, 30 Active Celebrex 200 mg Orally Once a day 1 capsule 24h Sep, Oct, 30 day(s) Active RESULTS Name Result Date Reference Range TSH 2016-09-11 TSH 0.983 0.450-4.500 CBC 2016-09-11 WBC 8.1 3.4-10.8 RBC 4.21 3.77-5.28 Hemoglobin 12.0 11.1-15.9 Hematocrit 35.3 34.0-46.6 MCV 84 79-97 MCH 28.5 26.6-33.0 MCHC 34.0 31.5-35.7 RDW 13.6 12.3-15.4 Platelets 295 150-379 Neutrophils 58 Lymphs 33 Monocytes 8 Eos 1 Basos 0 Neutrophils (Absolute) 4.7 1.4-7.0 Lymphs (Absolute) 2.7 0.7-3.1 Monocytes(Absolute) 0.6 0.1-0.9 Eos (Absolute) 0.1 0.0-0.4 Baso (Absolute) 0.0 0.0-0.2 Immature Granulocytes 0 Immature Grans (Abs) 0.0 0.0-0.1 CMP 2016-09-11 Glucose, Serum 89 65-99 BUN 14 6-24 Creatinine, Serum 0.76 0.57-1.00 eGFR If NonAfricn Am 93 >59 eGFR If Africn Am 107 >59 BUN/Creatinine Ratio 18 9-23 Sodium, Serum 141 134-144 Potassium, Serum 4.3 3.5-5.2 Chloride, Serum 100 96-106 Carbon Dioxide, Total 24 18-29 Calcium, Serum 9.1 8.7-10.2 Protein, Total, Serum 6.7 6.0-8.5 Albumin, Serum 4.0 3.5-5.5 Globulin, Total 2.7 1.5-4.5 A/G Ratio 1.5 1.1-2.5 Bilirubin, Total 0.2 0.0-1.2 Alkaline Phosphatase, S 87 39-117 AST (SGOT) 21 0-40 ALT (SGPT) 26 0-32 PROCEDURES Procedure Date Ordered Related Diagnosis Body Site ASSAY THYROID STIM HORMONE Sep 11, 2016 COMPREHEN METABOLIC PANEL Sep 11, 2016 Office Visit, Est Pt., Level 3 Sep 11, 2016 COMPLETE CBC W/AUTO DIFF WBC Sep 11, 2016 VENIPUNCT, ROUTINE* Sep 11, 2016 IMMUNIZATIONS No Known Immunizations
--- OUTSIDE RECORDS SUMMARY | 2020-02-24 03:06 | XMS REPORT ---
Author Author Shey MCELROY Organization [facility] Address [address] [place] [address] Care Team Providers Care Music Artist Name Role Phone BRO MCELROY Unavailable PROBLEMS Type Condition ICD9-CM Code SAA66-XR Code Onset Dates Condition S tatus SNOMED Code Problem Right knee meniscal tear S83.206A Activ e 517995762 Problem Carpal tunnel syndrome, unspecified laterality G56 .00 Active 54652582 Problem Weight gain R63.5 Active 8650340 Problem GERD (gastroesophageal reflux disease) K21.9 Active 939028222 Problem Knee pain M25.569 Active 04161122 Problem Obesity E66.9 Active 130790383 Problem Rib pain R07.81 Active 663080996 Problem Fibromyalgia M79.7 Active 7610921 05 Problem Rectocele N81.6 Active 353411034 Problem Major depressive disorder, single episode, unspecified F32.9 Active 19015018 Problem Bone spur of foot M77.9 Active 23 [id number] Problem Continuous leakage of urine N39.45 Ac tive 519940196 Problem Dysthymia F34.1 Active 48452161 ALLERGIES Substance Reaction Event Type Date Status [place] Unknown Drug Allergy May, Active ENCOUNTERS Encounter Location Date Diagnosis [facility] [address] [facility] [id number] [address] [place] [phone] Jan, [facility] [address] [facility] [id number] [address] [place] [id number] Jan, [facility] [address] [facility] [id number] [address] [place] [address] Nov, Dysthymia F34.1 ; Weight gai n R63.5 and Acute pain of right knee M25.561 [facility] [address] [facility] [id number] [address] [place] [address] Nov, [facility] [address] [place] [id number] [address] [place] [address] Nov, Viral illness B34.9 [facility] [address] [place] [id number] [address] [place] [address] Oct, Viral URI J06.9 [place] [address] [place] [id number] [address] [place] [address] Jun, Fibromyalgia M79.7 and Recto nadia N81.6 [place] [address] [address] May, Weak R53.1 ; Fatigue, unspec ified type R53.83 ; Arthralgia of right knee M25.561 and Hematuria, unspecified type R31.9 [place] [address] [address] Apr, Dysthymia F34.1 [place] [address] [address] Mar, Hematuria, unspecified type R31.9 ; Acute pain of left knee M25.562 ; Right knee pain M25.561 and Low back pain M54.5 [place] [address] [address] Mar, Hematuria, unspecified type R31.9 [place] [address] [address] Mar, Acute pain of left knee M25. 562 [place] [address] [address] Mar, GERD (gastroesophageal reflu x disease) K21.9 ; Continuous leakage of urine N39.45 ; Acute cystitis with hematuria N30.01 and Vaginal discharge N89.8 [place] [address] [address] Jan, [place] [address] [address] Jan, Dysthymia F34.1 ; Sore throa t J02.9 ; Costochondritis M94.0 and Breast cancer screening Z12.39 [place] [address] [address] December, [place] [address] [address] Oct, Gastroenteritis K52.9 [place] [address] [address] Oct, [place] [address] [address] Sep, Weight gain R63.5 ; Major de pressive disorder, single episode, unspecified F32.9 ; Arthralgia, unspecified joint M25.50 ; GERD (gastroesophageal reflux disease) K21.9 and Swelling R60.9 [place] [address] [address] Aug, [place] [address] [address] Jul, [place] [address] [address] Jul, Right knee meniscal tear S83 .206A [place] [address] [address] Jun, [place] [address] [address] Jun, Plantar fasciitis M72.2 [place] [address] [address] Jun, [place] [address] [address] May, Plantar fasciitis M72.2 [place] [address] [place] [address] May, [facility] [address] [id number] [address] [place] [address] May, [facility] [address] [id number] [address] [place] [address] Apr, [facility] [address] [id number] [address] [place] [id number] Apr, [facility] [address] [facility] [id number] [address] [place] [address] Apr, Bone spur of foot M77.9 [facility] [address] [facility] [id number] [address] [place] [address] Apr, [facility] [address] [facility] [id number] [address] [place] [address] Apr, [facility] [address] [facility] [id number] [place] [address] Apr, GERD (gastroesophageal reflu x disease) K21.9 ; Pain in right foot M79.671 ; Pain of left foot M79.672 and Obesity E66.9 [facility] [address] [place] [id number] [address] [place] [address] December, Degenerative tear of lateral meniscus of right knee M23.300 [facility] [address] [place] [id number] [address] [place] [address] December, [facility] [address] [place] [id number] [place] [address] December, Weight gain R63.5 ; Right kn ee meniscal tear S83.206A ; Carpal tunnel syndrome, unspecified laterality G56.00 and Rib pain R07.81 [facility] [address] [facility] [id number] [address] [place] [address] 28 Dec, 2015 Right knee meniscal tear S83 .206A [facility] [address] [place] [id number] [address] [place] [address] Nov, Obesity E66.9 ; Knee pain M2 5.569 and GERD (gastroesophageal reflux disease) K21.9 [place] [address] [address] Oct, Weight gain R63.5 and Hormon e replacement therapy Z79.890 [place] [address] [address] Oct, [place] [address] [address] Oct, Right knee pain M25.561 ; Ho rmone replacement therapy Z79.890 and Weight gain R63.5 [place] [address] [address] Sep, Other chronic pain G89.29 an d Eustachian tube dysfunction, right H69.[address] [address] Jul, Hot flashes N95.1 ; Mastodyn ia N64.4 and Sore throat J02.[address] [address] Jun, Acute cystitis with hematuri a N30.01 ; Pain in right axilla M79.601 ; Right foot pain M79.671 and Dysuria R30.0 [place] [address] [address] May, Migraines 346.[address] [address] Apr, Anxiety 300.00 ; Headache 78 4.0 and Varicose vein of leg 454.[address] [address] Apr, Depressive disorder, not els ewhere classified [address] [place] [address] [address] Jan, Tension type headache 339.10 and Breast cancer screening V76.10 [facility] [address] [id number] [address] [place] [address] Nov, [facility] [address] [id number] [address] [place] [address] Nov, [facility] [address] [id number] [address] [place] [address] Jul, [facility] [address] [id number] [address] [place] [address] Jul, [facility] [address] [id number] [address] [place] [address] Jun, [facility] [address] [id number] [address] [place] [address] Jun, [facility] [address] [id number] [address] [place] [address] Apr, [facility] [address] [id number] [address] [place] [address] Apr, [facility] [address] [id number] [address] [place] [address] Jan, [facility] [address] [id number] [address] [place] [address] Jan, [facility] [address] [id number] [address] [place] [id number] December, [facility] [address] [id number] [address] [place] [address] December, [facility] [address] [id number] [address] [place] [address] December, [facility] [address] [id number] [address] [place] [phone] December, [facility] [address] [id number] [address] [place] [phone] Nov, [facility] [address] [id number] [address] [place] [address], [place] [address] Nov, [facility] [address] [id number] [address] [place] [address], [place] [address] Nov, [facility] [address] [id number] [address] [place] [address], [place] [address] Nov, [facility] [address] [id number] [address] [place] [address], [place] [address] Oct, [facility] [address] [id number] [address] [place] [address], [place] [address] Oct, [facility] [address] [id number] [address] [place] [address], [place] [address] Aug, [facility] [address] [id number] [address] [place] [address], [place] [address] Aug, [facility] [address] [id number] [address] [place] [address], [place] [address] Mar, [facility] [address] [id number] [address] [place] [address], [place] [address] Mar, [facility] [address] [id number] [address] [place] [address], [place] [address] Mar, [facility] [address] [id number] [address] [place] [address], [place] [address] Sep, [facility] [address] [id number] [address] [place] [address], [place] [address] Sep, [facility] [address] [id number] [address] [place] [address], [place] [address] Sep, [facility] [address] [id number] [address] [place] [address], [place] [address] Aug, [facility] [address] [id number] [address] [place] [address], [place] [address] Jun, [facility] [address] [id number] [address] [place] [address] December, [facility] [address] [id number] [address] [place] [address] Jul, [facility] [address] [id number] [address] [place] [phone] Apr, [facility] [address] [id number] [address] [place] [address] December, [facility] [address] [id number] [address] [place] [phone] Nov, [facility] [address] [id number] [address] [place] [address] Oct, [facility] [address] [id number] [address] [place] [phone] Sep, [facility] [address] [id number] [address] [place] [phone] Aug, [facility] [address] [id number] [address] [place] [address] Nov, [facility] [address] [id number] [address] [place] [address] Oct, [facility] [address] [id number] [address] [place] [address] Oct, IMMUNIZATIONS No Known Immunizations SOCIAL HISTORY Never Assessed REASON FOR VISIT hematuria- Michael JONES, PT is requesting lab work, She says she has not been feel ing right PLAN OF CARE Activity Details Follow Up 4 Weeks Reason:fatigue VITAL SIGNS Height 64 in 2017-05-12 Weight 223.7 lbs 2017-05-12 Temperature 98.4 degrees Fahrenheit 2017-05-12 Heart Rate 76 bpm 2017-05-12 Respiratory Rate 20 2017-05-12 BMI 38.39 kg/m2 2017-05-12 Blood pressure systolic 142 mmHg 2017-05-12 Blood pressure diastolic 80 mmHg 2017-05-12 MEDICATIONS Medication Instructions Dosage Frequency Start Date End Date Duration S tatus Prevacid 30 MG Orally Once a day 1 capsule 24h Apr, 90 days Active Glucosamine Chondroit-Collagen - as directed May, 7 Active Tizanidine HCl 4 MG Orally 3 times a day 1 tablet as needed 8h Apr, 30 days Active Neurontin 300 MG Orally Three times a day 1 capsule 8h Oct, 30 days Active Meloxicam 15 MG Orally Once a day 1 tablet 24h Jul, 30 days Active BuPROPion HCl 100 MG Orally 3 times a day 1 tablet 8h Oct, 30 days Active RESULTS Name Result Date Reference Range UA LONG DIP (IN HOUSE) 2017-05-12 Lot # [id number] Exp date 04/2018 Clarity slightly cloudy Color yellow Odor none GLU negative JAQUELIN negative KET negative SG 1.025 BLO 2+ pH 6.0 Protein 1+ URO 0.2 NIT negative ELLIOTT negative Lot # Exp date TSH 2017-05-12 TSH 1.300 0.450-4.500 CBC 2017-05-12 WBC 7.9 3.4-10.8 RBC 4.01 3.77-5.28 Hemoglobin 11.4 11.1-15.9 Hematocrit 34.8 34.0-46.6 MCV 87 79-97 MCH 28.4 26.6-33.0 MCHC 32.8 31.5-35.7 RDW 13.6 12.3-15.4 Platelets 288 150-379 Neutrophils 63 Lymphs 25 Monocytes 8 Eos 4 Basos 0 Neutrophils (Absolute) 5.0 1.4-7.0 Lymphs (Absolute) 2.0 0.7-3.1 Monocytes(Absolute) 0.6 0.1-0.9 Eos (Absolute) 0.4 0.0-0.4 Baso (Absolute) 0.0 0.0-0.2 Immature Granulocytes 0 Immature Grans (Abs) 0.0 0.0-0.1 CMP 2017-05-12 Glucose, Serum 76 65-99 BUN 10 6-24 Creatinine, Serum 0.70 0.57-1.00 eGFR If NonAfricn Am 102 >59 eGFR If Africn Am 118 >59 BUN/Creatinine Ratio 14 9-23 Sodium, Serum 145 134-144 Potassium, Serum 3.9 3.5-5.2 Chloride, Serum 104 96-106 Carbon Dioxide, Total 28 18-29 Calcium, Serum 9.0 8.7-10.2 Protein, Total, Serum 6.3 6.0-8.5 Albumin, Serum 3.7 3.5-5.5 Globulin, Total 2.6 1.5-4.5 A/G Ratio 1.4 1.2-2.2 Bilirubin, Total 0.3 0.0-1.2 Alkaline Phosphatase, S 92 39-117 AST (SGOT) 17 0-40 ALT (SGPT) 17 0-32 ESR/SED RATE (IN HOUSE) 2017-05-12 SED/ESR RATE 32 mm/hr Lot # [id number] Exp Date 29 Jan 2018 0 - 20 mm PROCEDURES Procedure Date Ordered Result Body Site COMPLETE CBC W/AUTO DIFF WBC May 12, 2017 COMPREHEN METABOLIC PANEL May 12, 2017 VENIPUNCT, ROUTINE* May 12, 2017 RBC SED RATE, NONAUTOMATED May 12, 2017 ASSAY THYROID STIM HORMONE May 12, 2017 URINE CULTURE/COLONY COUNT May 12, 2017 URINALYSIS, AUTO, W/O SCOPE May 12, 2017 INSTRUCTIONS MEDICATIONS ADMINISTERED No Known Medications [...]
--- OUTSIDE RECORDS SUMMARY | 2020-02-24 03:06 | XMS REPORT ---
Author Shey Unger [facility] eClinicalWorks Address Unknown Phone Unavailable Care Team Providers Care Water Rights Specialist Name Role Phone BRO MCELROY CP Unavailable Allergies, Adverse Reactions, Alerts Substance Reaction Event Type [place] Info Not Available Drug Allergy Problems Problem Type Condition Code Onset Dates Condition Statu s Problem Contact with or exposure to unspecified communicable d isease V01.9 Active Problem Cough 786.2 Active Problem Screening examination for venereal disease V74.5 Active Problem Knee pain M25.569 Active Problem GERD (gastroesophageal reflux disease) K21.9 Active Problem Obesity E66.9 Active Problem Unspecified otalgia 388.70 Active Problem Dysfunction of Eustachian tube 381.81 Active Problem Depressive disorder, not elsewhere classified 311 Active Problem Anxiety state, unspecified 300.00 A ctive Assessment GERD (gastroesophageal reflux disease) K21.9 Active Problem Carpal tunnel syndrome 354.0 Activ e Problem Asymptomatic varicose veins 454.9 Active Assessment Knee pain M25.569 Active Problem Routine general medical examination at [facility] V70.0 Active Assessment Obesity E66.9 Active Problem Dietary surveillance and counseling V65.3 Active Medications Medication Code System Code Instructions Start Date End Date Status Dosage Meloxicam [facility] [address]-77 15 MG Jul 12, 2014 javy e 1 tablet (15 mg) by oral route once daily Verapamil HCl [facility] [address]-64 80 MG Orally Onc e a day X7 days then 2 tiimes a day x 7 days then tid. May 15, 2015 1 tablet Valerian Root Plus [facility] [address] Orally not defined Tizanidine HCl [facility] [address]-86 4 MG Orally 3 times a day Apr 11 015 1 tablet as needed Ativan [facility] [address]-16 0.5 MG Orally Twice a day February 22, 2015 1 tablet as needed Estradiol [facility] [address]-51 0.5 MG Orally Once a day Jul 18, 2015 1/2 tablet Fluticasone Propionate [facility] [address]-82 50 MCG/ACT Nasall y Twice a day Sep 25, 2015 1 spray in each nost ril Ranitidine HCl [facility] [address]-07 150 MG Orally Twice a day December 14, 2015 1 tablet Vitamin B-Complex [facility] 37455-[address] Orally n ot defined Effexor XR [facility] [address]-39 75 MG Orally Once a day Oct 26, 2015 1 capsule with food Contrave [facility] [address]-38 8-90 MG Orally o nce a week, then1 twice a day X 1 week, then 2 in the AM and 1 in the PM X 1 week then 2 tabs twice a day December 14, 2015 1 tablet Neurontin [facility] [address]-74 300 MG November 22, 2013 1 capsule by Oral route 3 times per day PRN for pain [place] [facility] [address]-38 3 MG Orally not d efined Procedures Procedure Coding System Code Date Office Visit, Est Pt., Level 3 CPT-4 33231 A [facility] [place] 2015 Vital Signs Date/Time: December 14, 2015 Temperature 98.0 F Weight 224.0 lbs Height 64 in BMI 38.45 Index Blood Pressure Diastolic 80 mmHg Blood Pressure Systolic 136 mmHg Cardiac Monitoring Heart Rate 80 bpm Results No Known Results Summary Purpose eClinicalWorks Submission
--- OUTSIDE RECORDS SUMMARY | 2020-02-24 03:07 | XMS REPORT ---
Author Shey Unger Organization [employer] Address Unknown Phone Unavailable Care Team Providers Care Invoice Classification Clerk Name Role Phone BRO MCELROY CP Unavailable Allergies No Known Allergies Problems Problem Type Condition Code Onset Dates Condition Statu s Problem GERD (gastroesophageal reflux disease) K21.9 Active Assessment Right knee meniscal tear S83.206A Act radha Problem Weight gain R63.5 Active Problem Right knee meniscal tear S83.206A Act radha Problem Bone spur of foot M77.9 Active Problem Obesity E66.9 Active Problem Knee pain M25.569 Active Problem Carpal tunnel syndrome, unspecified laterality G56.00 Active Problem Rib pain R07.81 Active Medications No Known Medications Results No Known Results Summary Purpose eClinicalWorks Submission
--- OUTSIDE RECORDS SUMMARY | 2020-02-24 03:07 | XMS REPORT ---
Author Shey Unger Organization [employer] Address Unknown Phone Unavailable Care Team Providers Care Butter Grader Name Role Phone BRO MCELROY CP [...]
--- OUTSIDE RECORDS SUMMARY | 2020-02-24 03:07 | XMS REPORT | Continuity of Care Document ---
Demographics Preferred Language Unknown Marital Status Unknown Pentecostal Affiliation Unknown Race Unknown Ethnic Group Unknown Author Organization Unknown Address Unknown Phone Unavailable Allergies Active Description Code Type Severity Reaction Onset Reported/Identified Relationship to Patient Clinical Status Yes Ultram Drug Allergy N/A N/A 11/29/2008 Yes No Known Drug Allergies [id number] Drug Allergy Mild N/A 12/12/2008 Yes lithium Drug Allergy N/A N/A 09/06/2011 Medications There is no data. Problems Date Dx Coded Attending Type Code Diagnosis Diagnosed By 10/13/2008 AMBROSE BRANNON DO 616.10 VAGINITIS 10/13/2008 AMBROSE BRANNON DO V72.31 Pelvic Exam (Internal) 10/13/2008 BRO MCELROY APRN S 616.10 VAGINITIS 10/13/2008 BRO MCELROY APRN S V72.31 Pelvic Exam (Internal) 10/13/2008 AMBROSE BRANNON DO K 616.10 VAGINITIS 10/13/2008 AMBROSE BRANNON DO K V72.31 Pelvic Exam (Internal) 10/13/2008 AMBROSE BRANNON DO K 616.10 VAGINITIS 10/13/2008 AMBROSE BRANNON DO K V72.31 PELVIC EXAM (INTERNAL) 10/13/2008 BRYON BRAY APRNIA R 616.10 VAGINITIS 10/13/2008 DON BRAY APRNRICIA R V72.31 PELVIC EXAM (INTERNAL) 10/13/2008 RAMSES MCELROY APRNNDA S 616.10 VAGINITIS 10/13/2008 RAMSES MCELROY APRNNDA S V72.31 PELVIC EXAM (INTERNAL) 11/09/2008 AMBROSE BRANNON DO 719.41 joint pain, localized in the shoulder 11/09/2008 BRO MCELROY APRN S 719.41 joint pain, localized in the shoulder 11/09/2008 AMBROSE BRANNON DO 719.41 joint pain, localized in the shoulder 11/09/2008 AMBROSE BRANNON DO 719.41 JOINT PAIN, LOCALIZED IN THE SHOULDER 11/09/2008 BRYON BRAY APRNIA R 719.41 JOINT PAIN, LOCALIZED IN THE SHOULDER 11/09/2008 BRO MCELROY APRN S 719.41 JOINT PAIN, LOCALIZED IN THE SHOULDER 01/06/2009 SALUD DO AMBROSE K 733.6 COSTOCHONDRITIS (TIETZE'S SYNDROME) 01/06/2009 JUNE MCELROY APRNA S 733.6 COSTOCHONDRITIS (TIETZE'S SYNDROME) 01/06/2009 BRANNON DO AMBROSE K 733.6 COSTOCHONDRITIS (TIETZE'S SYNDROME) 01/06/2009 BRANNON DO, AMBROSE K 733.6 COSTOCHONDRITIS (TIETZE'S SYNDROME) 01/06/2009 GODWIN BRAY APRN R 733.6 COSTOCHONDRITIS (TIETZE'S SYNDROME) 01/06/2009 JUNE MCELROY APRNA S 733.6 COSTOCHONDRITIS (TIETZE'S SYNDROME) 01/27/2009 SALUD COOK AMBROSE K 715.90 OSTEOARTHROSIS UNSPECIFIED WHETHER GENERALIZED OR LOCALIZED INVOLVING UNSPECIFIED SITE 01/27/2009 BRO MCELROY APRN S 715.90 OSTEOARTHROSIS UNSPECIFIED WHETHER GENER ALIZED OR LOCALIZED INVOLVING UNSPECIFIED SITE 01/27/2009 BRANNON DO AMBROSE K 715.90 OSTEOARTHROSIS UNSPECIFIED WHETHER GENERALIZED OR LOCALIZED INVOLVING UNSPECIFIED SITE 01/27/2009 BRANNON DO AMBROSE K 715.90 OSTEOARTHROSIS UNSPECIFIED WHETHER GENERALIZED OR LOCALIZED INVOLVING UNSPECIFIED SITE 01/27/2009 GODWIN BRAY APRN R 715.90 OSTEOARTHROSIS UNSPECIFIED WHETHER GENER ALIZED OR LOCALIZED INVOLVING UNSPECIFIED SITE 01/27/2009 JUNE MCELROY APRNA S 715.90 OSTEOARTHROSIS UNSPECIFIED WHETHER GENER ALIZED OR LOCALIZED INVOLVING UNSPECIFIED SITE 03/22/2009 SALUD DO AMBROSE K 719.47 PAIN IN JOINT INVOLVING ANKLE AND FOOT 03/22/2009 BRO MCELROY APRN S 719.47 PAIN IN JOINT INVOLVING ANKLE AND FOOT 03/22/2009 BRANNON DO AMBROSE K 719.47 PAIN IN JOINT INVOLVING ANKLE AND FOOT 03/22/2009 BRANNON DO AMBROSE K 719.47 PAIN IN JOINT INVOLVING ANKLE AND FOOT 03/22/2009 GODWIN BRAY APRN R 719.47 PAIN IN JOINT INVOLVING ANKLE AND FOOT 03/22/2009 RAMSES MCELROY APRNNDA S 719.47 PAIN IN JOINT INVOLVING ANKLE AND FOOT 05/10/2009 BRANNON DO, AMBROSE K 618.00 CYSTOCELE 05/10/2009 BRANNON DO, AMBROSE K 618.04 RECTOCELE 05/10/2009 BRANNON DO, AMBROSE K 625.0 FEMALE DYSPAREUNIA DUE TO A PHYSICAL CONDITION 05/10/2009 BRANNON DO AMBROSE K 625.6 FEMALE STRESS INCONTINENCE 05/10/2009 LILIBETH EDUCATION AND TRAINING MANAGER, BRO S 618.00 CYSTOCELE 05/10/2009 LILIBETH MAKNRAMSESBRO S 618.04 RECTOCELE 05/10/2009 RAMSES MCELROY APRNNDA S 625.0 FEMALE DYSPAREUNIA DUE TO A PHYSICAL CONDITION 05/10/2009 RAMSES MCELROY APRNNDA S 625.6 FEMALE STRESS INCONTINENCE 05/10/2009 BRANNON DO, AMBROSE K 618.00 CYSTOCELE 05/10/2009 BRANNON DO AMBROSE K 618.04 RECTOCELE 05/10/2009 BRANNON DO AMBROSE K 625.0 FEMALE DYSPAREUNIA DUE TO A PHYSICAL CONDITION 05/10/2009 BRANNON DO AMBROSE K 625.6 FEMALE STRESS INCONTINENCE 05/10/2009 BRANNON DO AMBROSE K 618.00 CYSTOCELE 05/10/2009 BRANNON DO AMBROSE K 618.04 RECTOCELE 05/10/2009 BRANNON DO, AMBROSE K 625.0 FEMALE DYSPAREUNIA DUE TO A PHYSICAL CONDITION 05/10/2009 BRANNON DO AMBROSE K 625.6 FEMALE STRESS INCONTINENCE 05/10/2009 BRAY EDUCATION AND TRAINING MANAGER, GODWIN R 618.00 CYSTOCELE 05/10/2009 BRAY EDUCATION AND TRAINING MANAGER GODWIN R 618.04 RECTOCELE 05/10/2009 BRAY EDUCATION AND TRAINING MANAGER, GODWIN R 625.0 FEMALE DYSPAREUNIA DUE TO A PHYSICAL CONDITION 05/10/2009 KATARINA EDUCATION AND TRAINING MANAGER, GODWIN R 625.6 FEMALE STRESS INCONTINENCE 05/10/2009 LILIBETH EDUCATION AND TRAINING MANAGER, BRO S 618.00 CYSTOCELE 05/10/2009 LILIBETH EDUCATION AND TRAINING MANAGER, BRO S 618.04 RECTOCELE 05/10/2009 RAMSES MCELROY APRNNDA S 625.0 FEMALE DYSPAREUNIA DUE TO A PHYSICAL CONDITION 05/10/2009 JUNE MCELROY APRNA S 625.6 FEMALE STRESS INCONTINENCE 08/09/2009 BRANNON DO, AMBROSE K 465.9 ACUTE UPPER RESPIRATORY INFECTIONS OF UNSPECIFIED SITE 08/09/2009 BRANNON DO, AMBROSE K 796.2 ELEVATED BLOOD PRESSURE READING WITHOUT DIAGNOSIS OF HYPERTENSION 08/09/2009 LILIBETH MAKNRAMSESBRO S 465.9 ACUTE UPPER RESPIRATORY INFECTIONS OF UNSPECIFIED SITE 08/09/2009 LILIBETH JUAN BRO S 796.2 ELEVATED BLOOD PRESSURE READING WITHOUT DIAGNOSIS OF H YPERTENSION 08/09/2009 BRANNON DO, AMBROSE K 465.9 ACUTE UPPER RESPIRATORY INFECTIONS OF UNSPECIFIED SITE 08/09/2009 BRANNON DO, AMBROSE K 796.2 ELEVATED BLOOD PRESSURE READING WITHOUT DIAGNOSIS OF HYPERTENSION 08/09/2009 BRANNON DO, AMBROSE K 465.9 ACUTE UPPER RESPIRATORY INFECTIONS OF UNSPECIFIED SITE 08/09/2009 BRANNON DO, AMBROSE K 796.2 ELEVATED BLOOD PRESSURE READING WITHOUT DIAGNOSIS OF HYPERTENSION 08/09/2009 BRYON BRAY APRNIA R 465.9 ACUTE UPPER RESPIRATORY INFECTIONS OF UNSPECIFIED SITE 08/09/2009 DON BRAY APRNRICIA R 796.2 ELEVATED BLOOD PRESSURE READING WITHOUT DIAGNOSIS OF H YPERTENSION 08/09/2009 RAMSES MCELROY APRNNDA S 465.9 ACUTE UPPER RESPIRATORY INFECTIONS OF UNSPECIFIED SITE 08/09/2009 RAMSES MCELROY APRNNDA S 796.2 ELEVATED BLOOD PRESSURE READING WITHOUT DIAGNOSIS OF H YPERTENSION 09/14/2009 SALUD COOK AMBROSE K 305.1 NONDEPENDENT ABUSE OF DRUGS, TOBACCO USE DISORDER 09/14/2009 SALUD COOK AMBROSE K 599.0 URINARY TRACT INFECTION, SITE NOT SPECIFIED 09/14/2009 RAMSES MCELROY APRNNDA S 305.1 NONDEPENDENT ABUSE OF DRUGS, TOBACCO USE DISORDER 09/14/2009 RAMSES MCELROY APRNNDA S 599.0 URINARY TRACT INFECTION, SITE NOT SPECIFIED 09/14/2009 SALUD COOK AMBROSE K 305.1 NONDEPENDENT ABUSE OF DRUGS, TOBACCO USE DISORDER 09/14/2009 BRANNON DO AMBROSE K 599.0 URINARY TRACT INFECTION, SITE NOT SPECIFIED 09/14/2009 BRANNON DO AMBROSE K 305.1 NONDEPENDENT ABUSE OF DRUGS, TOBACCO USE DISORDER 09/14/2009 BRANNON DO AMBROSE K 599.0 URINARY TRACT INFECTION, SITE NOT SPECIFIED 09/14/2009 BRAY EDUCATION AND TRAINING MANAGER, GODWIN R 305.1 NONDEPENDENT ABUSE OF DRUGS, TOBACCO USE DISORDER 09/14/2009 BRAY EDUCATION AND TRAINING MANAGER, GODWIN R 599.0 URINARY TRACT INFECTION, SITE NOT SPECIFIED 09/14/2009 LILIBETH EDUCATION AND TRAINING MANAGER, BRO S 305.1 NONDEPENDENT ABUSE OF DRUGS, TOBACCO USE DISORDER 09/14/2009 LILIBETH EDUCATION AND TRAINING MANAGER, BRO S 599.0 URINARY TRACT INFECTION, SITE NOT SPECIFIED 10/20/2009 BRANNON DO, AMBROSE K 296.99 OTHER SPECIFIED EPISODIC MOOD DISORDER 10/20/2009 BRANNON DO, AMBROSE K 627.4 SYMPTOMATIC STATES ASSOCIATED WITH ARTIFICIAL MENOPAUSE 10/20/2009 BRANNON DO, AMBROSE K 780.79 feeling weak 10/20/2009 BRANNON DO, AMBROSE K 799.81 DECREASED LIBIDO 10/20/2009 LILIBETH EDUCATION AND TRAINING MANAGER BRO S 296.99 OTHER SPECIFIED EPISODIC MOOD DISORDER 10/20/2009 LILIBETH EDUCATION AND TRAINING MANAGER, BRO S 627.4 SYMPTOMATIC STATES ASSOCIATED WITH ARTIFICIAL MENOPAUS E 10/20/2009 LILIBETH EDUCATION AND TRAINING MANAGER, BRO S 780.79 feeling weak 10/20/2009 LILIBETH EDUCATION AND TRAINING MANAGER, BRO S 799.81 DECREASED LIBIDO 10/20/2009 BRANNON DO, AMBROSE K 296.99 OTHER SPECIFIED EPISODIC MOOD DISORDER 10/20/2009 BRANNON DO, AMBROSE K 627.4 SYMPTOMATIC STATES ASSOCIATED WITH ARTIFICIAL MENOPAUSE 10/20/2009 BRANNON DO, AMBROSE K 780.79 feeling weak 10/20/2009 BRANNON DO, AMBROSE K 799.81 DECREASED LIBIDO 10/20/2009 BRANNON DO, AMBROSE K 296.99 OTHER SPECIFIED EPISODIC MOOD DISORDER 10/20/2009 BRANNON DO, AMBROSE K 627.4 SYMPTOMATIC STATES ASSOCIATED WITH ARTIFICIAL MENOPAUSE 10/20/2009 BRANNON DO, AMBROSE K 780.79 feeling weak 10/20/2009 BRANNON DO, AMBROSE K 799.81 DECREASED LIBIDO 10/20/2009 BRAY EDUCATION AND TRAINING MANAGER, GODWIN R 296.99 OTHER SPECIFIED EPISODIC MOOD DISORDER 10/20/2009 BRAY EDUCATION AND TRAINING MANAGER, GODWIN R 627.4 SYMPTOMATIC STATES ASSOCIATED WITH ARTIFICIAL MENOPAUS E 10/20/2009 BRAY EDUCATION AND TRAINING MANAGER, GODWIN R 780.79 feeling weak 10/20/2009 GODWIN BRAY APRN R 799.81 DECREASED LIBIDO 10/20/2009 JUNE MCELROY APRNA S 296.99 OTHER SPECIFIED EPISODIC MOOD DISORDER 10/20/2009 BRO MCELROY APRN S 627.4 SYMPTOMATIC STATES ASSOCIATED WITH ARTIFICIAL MENOPAUS E 10/20/2009 JUNE MCELROY APRNA S 780.79 feeling weak 10/20/2009 BRO MCELROY APRN S 799.81 DECREASED LIBIDO 10/27/2009 SALUD DO AMBROSE K 780.99 ANHEDONIA 10/27/2009 RAMSES MCELROY APRNNDA S 780.99 ANHEDONIA 10/27/2009 BRANNON DO, AMBROSE K 780.99 ANHEDONIA 10/27/2009 SALUD DO, AMBROSE K 780.99 ANHEDONIA 10/27/2009 BRYON BRAY APRNIA R 780.99 ANHEDONIA 10/27/2009 JUNE MCELROY APRNA S 780.99 ANHEDONIA 12/12/2009 SALUD COOK AMBROSE K 382.00 OTITIS MEDIA ACUTE WITHOUT SPONTANEOUS RUPTURE EARDRUM 12/12/2009 JUNE MCELROY APRNA S 382.00 OTITIS MEDIA ACUTE WITHOUT SPONTANEOUS RUPTURE EARDRU M 12/12/2009 BRANNON DO, AMBROSE K 382.00 OTITIS MEDIA ACUTE WITHOUT SPONTANEOUS RUPTURE EARDRUM 12/12/2009 BRANNON DO, AMBROSE K 382.00 OTITIS MEDIA ACUTE WITHOUT SPONTANEOUS RUPTURE EARDRUM 12/12/2009 BRYON BRAY APRNIA R 382.00 OTITIS MEDIA ACUTE WITHOUT SPONTANEOUS RUPTURE EARDRU M 12/12/2009 JUNE MCELROY APRNA S 382.00 OTITIS MEDIA ACUTE WITHOUT SPONTANEOUS RUPTURE EARDRU M 01/17/2010 SALUD DO AMBROSE K 786.2 COUGH 01/17/2010 RAMSES MCELROY APRNNDA S 786.2 COUGH 01/17/2010 BRANNON DO, AMBROSE K 786.2 COUGH 01/17/2010 BRANNON DO, AMBROSE K 786.2 COUGH 01/17/2010 BRYON BRAY APRNIA R 786.2 COUGH 01/17/2010 RAMSES MCELROY APRNNDA S 786.2 COUGH 04/14/2010 SALUD COOK AMBROSE K V65.42 COUNSELING ON SUBSTANCE USE AND ABUSE 04/14/2010 BRO MCELROY APRN S V65.42 COUNSELING ON SUBSTANCE USE AND ABUSE 04/14/2010 BRANNON DO, AMBROSE K V65.42 COUNSELING ON SUBSTANCE USE AND ABUSE 04/14/2010 BRANNON DO, AMBROSE K V65.42 COUNSELING ON SUBSTANCE USE AND ABUSE 04/14/2010 GODWIN BRAY APRN V65.42 COUNSELING ON SUBSTANCE USE AND ABUSE 04/14/2010 JUNE MCELROY APRNA S V65.42 COUNSELING ON SUBSTANCE USE AND ABUSE 07/31/2010 BRANNON DO, AMBROSE K 724.2 LUMBAGO 07/31/2010 RAMSES MCELROY APRNNDA S 724.2 LUMBAGO 07/31/2010 BRANNON DO, AMBROSE K 724.2 LUMBAGO 07/31/2010 BRANNON DO, AMBROSE K 724.2 LUMBAGO 07/31/2010 GODWIN BRAY APRN R 724.2 LUMBAGO 07/31/2010 RAMSES MCELROY APRNNDA S 724.2 LUMBAGO 09/25/2010 BRANNON DO, AMBROSE K 723.1 PAIN NECK 09/25/2010 RAMSES MCELROY APRNNDA S 723.1 PAIN NECK 09/25/2010 BRANNON DO, AMBROSE K 723.1 PAIN NECK 09/25/2010 BRANNON DO, AMBROSE K 723.1 PAIN NECK 09/25/2010 GODWIN BRAY APRN R 723.1 PAIN NECK 09/25/2010 RAMSES MCELROY APRNNDA S 723.1 PAIN NECK 10/08/2010 BRANNON DO, AMBROSE K 278.00 OBESITY UNSPECIFIED 10/08/2010 BRANNON DO, AMBROSE K 786.05 SHORTNESS OF BREATH 10/08/2010 LILIBETH JUAN BRO S 278.00 OBESITY UNSPECIFIED 10/08/2010 LILIBETH UJAN BRO S 786.05 SHORTNESS OF BREATH 10/08/2010 BRANNON DO, AMBROSE K 278.00 OBESITY UNSPECIFIED 10/08/2010 BRANNON DO, AMBROSE K 786.05 SHORTNESS OF BREATH 10/08/2010 BRANNON DO, AMBROSE K 278.00 OBESITY UNSPECIFIED 10/08/2010 BRANNON DO, AMBROSE K 786.05 SHORTNESS OF BREATH 10/08/2010 GODWIN BRAY APRN R 278.00 OBESITY UNSPECIFIED 10/08/2010 GODWIN BRAY APRN R 786.05 SHORTNESS OF BREATH 10/08/2010 LILIBETH EDUCATION AND TRAINING MANAGERRAMSESBRO S 278.00 OBESITY UNSPECIFIED 10/08/2010 LILIBETH EDUCATION AND TRAINING MANAGER BRO S 786.05 SHORTNESS OF BREATH 11/20/2010 BRANNON DO AMBROSE K 719.46 PAIN IN JOINT INVOLVING LOWER LEG 11/20/2010 LILIBETH EDUCATION AND TRAINING MANAGER BRO S 719.46 PAIN IN JOINT INVOLVING LOWER LEG 11/20/2010 BRANNON DO, AMBROSE K 719.46 PAIN IN JOINT INVOLVING LOWER LEG 11/20/2010 BRANNON DO, AMBROSE K 719.46 PAIN IN JOINT INVOLVING LOWER LEG 11/20/2010 GODWIN BRAY APRN R 719.46 PAIN IN JOINT INVOLVING LOWER LEG 11/20/2010 LILIBETH EDUCATION AND TRAINING MANAGER BRO S 719.46 PAIN IN JOINT INVOLVING LOWER LEG 01/16/2011 BRANNON DO, AMBROSE K 493.90 ASTHMA UNSPECIFIED 01/16/2011 RAMSES MCELROY APRNNDA S 493.90 ASTHMA UNSPECIFIED 01/16/2011 BRANNON DO, AMBROSE K 493.90 ASTHMA UNSPECIFIED 01/16/2011 BRANONN DO, AMBROSE K 493.90 ASTHMA UNSPECIFIED 01/16/2011 GODWIN BRAY APRN R 493.90 ASTHMA UNSPECIFIED 01/16/2011 RAMSES MCELROY APRNNDA S 493.90 ASTHMA UNSPECIFIED 04/09/2011 BRANNON DO, AMBROSE K 296.90 EPISODIC MOOD DISORDERS 04/09/2011 BRANNON DO, AMBROSE K 300.02 GENERALIZED ANXIETY DISORDER 04/09/2011 BRANNON DO, AMBROSE K 799.22 highly irritable 04/09/2011 LILIBETH MAKN BRO S 296.90 EPISODIC MOOD DISORDERS 04/09/2011 LILIBETH EDUCATION AND TRAINING MANAGER BRO S 300.02 GENERALIZED ANXIETY DISORDER 04/09/2011 LILIBETH EDUCATION AND TRAINING MANAGER, BRO S 799.22 highly irritable 04/09/2011 BRANNON DO, AMBROSE K 296.90 EPISODIC MOOD DISORDERS 04/09/2011 BRANNON DO, AMBROSE K 300.02 GENERALIZED ANXIETY DISORDER 04/09/2011 BRANNON DO, AMBROSE K 799.22 highly irritable 04/09/2011 BRANNON DO, AMBROSE K 296.90 EPISODIC MOOD DISORDERS 04/09/2011 BRANNON DO, AMBROSE K 300.02 GENERALIZED ANXIETY DISORDER 04/09/2011 BRANNON DO AMBROSE K 799.22 HIGHLY IRRITABLE 04/09/2011 KATARINA EDUCATION AND TRAINING MANAGERDON GarciaGODWIN R 296.90 EPISODIC MOOD DISORDERS 04/09/2011 DON BRAY APRNRICIA R 300.02 GENERALIZED ANXIETY DISORDER 04/09/2011 KATARINA EDUCATION AND TRAINING MANAGERDON GarciaGODWIN R 799.22 HIGHLY IRRITABLE 04/09/2011 RAMSES MCELROY APRNNDA S 296.90 EPISODIC MOOD DISORDERS 04/09/2011 RAMSES MCELROY APRNNDA S 300.02 GENERALIZED ANXIETY DISORDER 04/09/2011 LILIBETH EDUCATION AND TRAINING MANAGER BRO S 799.22 HIGHLY IRRITABLE 06/04/2011 BRANNON DO AMBROSE K V58.69 LONG-TERM (CURRENT) USE OF OTHER MEDICATIONS 06/04/2011 RAMSES MCELROY APRNNDA S V58.69 LONG-TERM (CURRENT) USE OF OTHER MEDICATIONS 06/04/2011 SALUD COOK AMBROSE K V58.69 LONG-TERM (CURRENT) USE OF OTHER MEDICATIONS 06/04/2011 SALUD COOK AMBROSE K V58.69 LONG-TERM (CURRENT) USE OF OTHER MEDICATIONS 06/04/2011 BRYON BRAY APRNIA R V58.69 LONG-TERM (CURRENT) USE OF OTHER MEDICATIONS 06/04/2011 RAMSES MCELROY APRNNDA S V58.69 LONG-TERM (CURRENT) USE OF OTHER MEDICATIONS 09/06/2011 SALUD DO AMBROSE K 300.00 ANXIETY UNSPEC 09/06/2011 SALUD COOK AMBROSE K 381.81 EUSTACHIAN TUBE DYSFUNCTION 09/06/2011 SALUD COOK AMBROSE K 388.70 OTALGIA 09/06/2011 RAMSES MCELROY APRNNDA S 300.00 ANXIETY UNSPEC 09/06/2011 RAMSES MCELROY APRNNDA S 381.81 EUSTACHIAN TUBE DYSFUNCTION 09/06/2011 RAMSES MCELROY APRNNDA S 388.70 OTALGIA 09/06/2011 BRANNON DO AMBROSE K 300.00 ANXIETY UNSPEC 09/06/2011 BRANNON DO AMBROSE K 381.81 EUSTACHIAN TUBE DYSFUNCTION 09/06/2011 BRANNON DO AMBROSE K 388.70 OTALGIA 09/06/2011 BRANNON DO AMBROSE K 300.00 ANXIETY UNSPEC 09/06/2011 BRANNON DO, AMBROSE K 381.81 EUSTACHIAN TUBE DYSFUNCTION 09/06/2011 BRANNON DO, AMBROSE K 388.70 OTALGIA 09/06/2011 DON BRAY APRNRICIA R 300.00 ANXIETY UNSPEC 09/06/2011 BRAY EDUCATION AND TRAINING MANAGER, GODWIN R 381.81 EUSTACHIAN TUBE DYSFUNCTION 09/06/2011 KATARINA EDUCATION AND TRAINING MANAGER, GODWIN R 388.70 OTALGIA 09/06/2011 JUNE MCELROY APRNA S 300.00 ANXIETY UNSPEC 09/06/2011 JUNE MCELROY APRNA S 381.81 EUSTACHIAN TUBE DYSFUNCTION 09/06/2011 RAMSES MCELROY APRNNDA S 388.70 OTALGIA 03/11/2012 BRANNON DO, AMBROSE K V01.9 EXPOSURE TO CONTAGIOUS DISEASE 03/11/2012 BRANNON DO, AMBROSE K V65.3 COUNSELING - DIETARY 03/11/2012 BRANNON DO, AMBROSE K V74.5 STD SCREEN 03/11/2012 JUNE MCELROY APRNA S V01.9 EXPOSURE TO CONTAGIOUS DISEASE 03/11/2012 JUNE MCELROY APRNA S V65.3 COUNSELING - DIETARY 03/11/2012 JUNE MCELROY APRNA S V74.5 STD SCREEN 03/11/2012 BRANNON DO, AMBROSE K V01.9 EXPOSURE TO CONTAGIOUS DISEASE 03/11/2012 BRANNON DO, AMBROSE K V65.3 COUNSELING - DIETARY 03/11/2012 BRANNON DO, AMBROSE K V74.5 STD SCREEN 03/11/2012 BRANNON DO, AMBROSE K V01.9 EXPOSURE TO CONTAGIOUS DISEASE 03/11/2012 BRANNON DO, AMBROSE K V65.3 COUNSELING - DIETARY 03/11/2012 BRANNON DO, AMBROSE K V74.5 STD SCREEN 03/11/2012 DON BRAY APRNRICIA R V01.9 EXPOSURE TO CONTAGIOUS DISEASE 03/11/2012 DON BRAY APRNRICIA R V65.3 COUNSELING - DIETARY 03/11/2012 DON BRAY APRNRICIA R V74.5 STD SCREEN 03/11/2012 JUNE MCELROY APRNA S V01.9 EXPOSURE TO CONTAGIOUS DISEASE 03/11/2012 JUNE MCELROY APRNA S V65.3 COUNSELING - DIETARY 03/11/2012 BRO MCELROY APRN V74.5 STD SCREEN 09/10/2012 Ot 297.9 09/10/2012 Ot 780.97 11/22/2013 BRO MCELROY APRN S 354.0 CARPAL TUNNEL SYNDROME 11/22/2013 BRANNON AYALA COOKA K 354.0 CARPAL TUNNEL SYNDROME 11/22/2013 BRANNON DO AMBROSE K 354.0 CARPAL TUNNEL SYNDROME 11/22/2013 DON BRAY APRNRICIA R 354.0 CARPAL TUNNEL SYNDROME 11/22/2013 BRO MCELROY APRN S 354.0 CARPAL TUNNEL SYNDROME 12/23/2013 BRANNON DO AMBROSE K 454.9 ASYMPTOMATIC VARICOSE VEINS 12/23/2013 BRANNON DO AMBROSE K V70.0 EXAM - ROUTINE H&P 12/23/2013 BRANNON DO AMBROSE K 454.9 ASYMPTOMATIC VARICOSE VEINS 12/23/2013 BRANNON DO AMBROSE K V70.0 EXAM - ROUTINE H&P 12/23/2013 BRYON BRAY APRNIA R 454.9 ASYMPTOMATIC VARICOSE VEINS 12/23/2013 BRYON BRAY APRNIA R V70.0 EXAM - ROUTINE H&P 12/23/2013 BRO MCELROY APRN S 454.9 ASYMPTOMATIC VARICOSE VEINS 12/23/2013 BRO MCELROY APRN S V70.0 EXAM - ROUTINE H&P 06/08/2014 GODWIN BRAY APRN R 786.2 COUGH 06/08/2014 BRO MCELROY APRN S 786.2 COUGH 07/15/2014 BRO RICHEY MD Ot 719.45 09/13/2014 ИВАН MCNEIL DO Ot 722.4 09/13/2014 BRO RICHEY MD Ot 719.45 10/03/2014 CAROLINA FARMER MD Ot 722.4 10/03/2014 CAROLINA FARMER MD Ot V57.1 10/20/2014 CAROLINA FARMER MD Ot 722.4 10/20/2014 CAROLINA FARMER MD Ot V57.1 12/13/2014 CAROLINA FARMER MD Ot 722.4 12/13/2014 CAROLINA FARMER MD Ot V57.1 03/17/2015 BRO MCELROY Ot V76.12 04/14/2015 ИВАН MCNEIL DO Ot 722.4 04/14/2015 BRO RICHEY MD Ot 719.45 04/14/2015 BRO MCELROY Ot V76.12 04/14/2015 LEXX REED DO Ot 339.10 04/14/2015 LEXX REED DO Ot 784.0 06/28/2015 ИВАН CMNEIL DO Ot 722.4 06/28/2015 BRO RICHEY MD Ot 719.45 06/28/2015 BRO MCELROY Ot V76.12 07/13/2015 BRO MCELROY Ot M79.601 01/05/2016 SALIMA LANIER Ot M71. 21 SYNOVIAL CYST OF POPLITEAL SPACE [MCMAHON] 01/25/2016 SALIMA LANIER Ot M71. 21 SYNOVIAL CYST OF POPLITEAL SPACE [MCMAHON] 07/10/2016 SANG MUELLER MD Ot F17.210 NICOTINE DEPENDENCE, CIGARETTES, UNCOMPL 07/10/2016 SANG MUELLER MD Ot M23.91 UNSPECIFIED INTERNAL DERANGEMENT OF RIGH 07/10/2016 SANG MUELLER MD Ot M79.661 PAIN IN RIGHT LOWER LEG 07/10/2016 SANG MUELLER MD Ot S80.01XA CONTUSION OF RIGHT KNEE, INITIAL ENCOUNT 07/10/2016 SANG MUELLER MD Ot W22.8XXA STRIKING AGAINST OR STRUCK BY OTHER OBJE 07/10/2016 SANG MUELLER MD Ot Y92.59 [facility] TRADE AREAS PL[facility] 07/10/2016 SANG MUELLER MD Ot Y93.9 ACTIVITY, UNSPECIFIED 07/10/2016 SANG MUELLER MD Ot Y99.0 CIVILIAN ACTIVITY DONE FOR INCOME OR PAY 07/10/2016 SANG MUELLER MD Ot Z79.899 OTHER CUSTODIAL (CURRENT) DRUG THERAPY 07/10/2016 SANG MUELLER MD Ot F17.210 NICOTINE DEPENDENCE, CIGARETTES, UNCOMPL 07/10/2016 SANG MUELLER MD Ot M23.91 UNSPECIFIED INTERNAL DERANGEMENT OF RIGH 07/10/2016 SANG MUELLER MD Ot M79.661 PAIN IN RIGHT LOWER LEG 07/10/2016 SANG MUELLER MD Ot S80.01XA CONTUSION OF RIGHT KNEE, INITIAL ENCOUNT 07/10/2016 SANG MUELLER MD, Ot W22.8XXA STRIKING AGAINST OR STRUCK BY OTHER OBJE 07/10/2016 SANG MUELLER MD Ot Y92.[address] 07/10/2016 SANG MUELLER MD Ot Y93.9 ACTIVITY, UNSPECIFIED 07/10/2016 SAGN MUELLER MD Ot Y99.0 CIVILIAN ACTIVITY DONE FOR INCOME OR PAY 07/10/2016 SANG MUELLER MD Ot Z79.899 OTHER CUSTODIAL (CURRENT) DRUG THERAPY 01/01/2017 SALIMA LANIER Ot M71. 21 SYNOVIAL CYST OF POPLITEAL SPACE [MCMAHON] 01/01/2017 SALIMA LANIER GLOBAL SALES DIRECTOR Ot M71. 21 SYNOVIAL CYST OF POPLITEAL SPACE [MCMAHON] 01/03/2017 COLTHARP DO, CHRIS A Ot M25.531 PAIN IN RIGHT WRIST 01/06/2017 COLTHARP DO, CHRIS A Ot M25.531 PAIN IN RIGHT WRIST 02/19/2017 COLTHARP DO, CHRIS A Ot M25.531 PAIN IN RIGHT WRIST 02/25/2017 SALIMA LANIER GLOBAL SALES DIRECTOR Ot M71. 21 SYNOVIAL CYST OF POPLITEAL SPACE [MCMAHON] 02/26/2017 BRO MCELROY Ot Z12.31 ENCNTR SCREEN MAMMOGRAM FOR MALIGNANT NE 03/10/2017 BRO MCELROY Ot Z12.31 ENCNTR SCREEN MAMMOGRAM FOR MALIGNANT NE 06/20/2017 CROW SHANNON MD Ot R19.0 9 OTHER INTRA-ABDOMINAL AND PELVIC SWELLIN 06/20/2017 CROW SHANNON MD Ot R31.9 HEMATURIA, UNSPECIFIED 06/09/2019 ERUM BARRETO MD, Ot Z01.81 8 ENCOUNTER FOR OTHER PREPROCEDURAL EXAMIN 06/10/2019 ERUM BARRETO MD Ot Z01.81 8 ENCOUNTER FOR OTHER PREPROCEDURAL EXAMIN 06/11/2019 ERUM BARRETO MD, Ot F32.9 MAJOR DEPRESSIVE DISORDER, SINGLE EPISOD 06/11/2019 ERUM BARRETO MD Ot K64.1 SECOND DEGREE HEMORRHOIDS 06/11/2019 ERUM BARRETO MD Ot K64.8 OTHER HEMORRHOIDS 06/11/2019 ERUM BARRETO MD Ot K92.1 MELENA 06/11/2019 ERUM BARRETO MD Ot M19.90 UNSPECIFIED OSTEOARTHRITIS, UNSPECIFIED 06/11/2019 ERUM BARRETO MD Ot R19.7 DIARRHEA, UNSPECIFIED 06/11/2019 ERUM BARRETO MD Ot 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 ANALGE 06/11/2019 ERUM BARRETO MD Ot Z79.89 9 OTHER CUSTODIAL (CURRENT) DRUG THERAPY 06/11/2019 ERUM BARRETO MD Ot Z82.49 FAMILY HX OF ISCHEM HEART DIS AND OTH DI 06/11/2019 ERUM BARRETO MD, Ot Z83.2 FAMILY HISTORY OF DIS OF THE BLD/BLD-FOR 06/11/2019 ERUM BARRETO MD Ot Z83.3 FAMILY HISTORY OF DIABETES MELLITUS 06/11/2019 ERUM BARRETO MD Ot Z87.89 1 PERSONAL HISTORY OF NICOTINE DEPENDENCE 06/11/2019 ERUM BARRETO MD, Ot Z90.49 ACQUIRED ABSENCE OF OTHER SPECIFIED PART 06/11/2019 ERUM BARRETO MD Ot Z90.71 0 ACQUIRED ABSENCE OF BOTH CERVIX AND UTER 06/11/2019 ERUM BARRETO MD Ot Z98.51 TUBAL LIGATION STATUS 06/16/2019 ERUM BARRETO MD, Ot F32.9 MAJOR DEPRESSIVE DISORDER, SINGLE EPISOD 06/16/2019 ERUM BARRETO MD Ot K64.1 SECOND DEGREE HEMORRHOIDS 06/16/2019 ERUM BARRETO MD Ot K64.8 OTHER HEMORRHOIDS 06/16/2019 ERUM BARRETO MD Ot K92.1 MELENA 06/16/2019 ERUM BARRETO MD Ot M19.90 UNSPECIFIED OSTEOARTHRITIS, UNSPECIFIED 06/16/2019 ERUM BARRETO MD Ot R19.7 DIARRHEA, UNSPECIFIED 06/16/2019 ERUM BARRETO MD Ot 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 ANALGE 06/16/2019 ERUM BARRETO MD Ot Z79.89 9 OTHER SENIOR MECHANICAL TECHNICIAN (CURRENT) DRUG THERAPY 06/16/2019 ERUM BARRETO MD Ot Z82.49 FAMILY HX OF ISCHEM HEART DIS AND OTH DI 06/16/2019 ERUM BARRETO MD Ot Z83.2 FAMILY HISTORY OF DIS OF THE BLD/BLD-FOR 06/16/2019 ERUM BARRETO MD Ot Z83.3 FAMILY HISTORY OF DIABETES MELLITUS 06/16/2019 ERUM BARRETO MD Ot Z87.89 1 PERSONAL HISTORY OF NICOTINE DEPENDENCE 06/16/2019 ERUM BARRETO MD Ot Z90.49 ACQUIRED ABSENCE OF OTHER SPECIFIED PART 06/16/2019 ERUM BARRETO MD Ot Z90.71 0 ACQUIRED ABSENCE OF BOTH CERVIX AND UTER 06/16/2019 ERUM BARRETO MD Ot Z98.51 TUBAL LIGATION STATUS 06/18/2019 ERUM BARRETO MD Ot F32.9 MAJOR DEPRESSIVE DISORDER, SINGLE EPISOD 06/18/2019 ERUM BARRETO MD Ot K64.1 SECOND DEGREE HEMORRHOIDS 06/18/2019 ERUM BARRETO MD Ot K64.8 OTHER HEMORRHOIDS 06/18/2019 ERUM BARRETO MD Ot K92.1 MELENA 06/18/2019 ERUM BARRETO MD Ot M19.90 UNSPECIFIED OSTEOARTHRITIS, UNSPECIFIED 06/18/2019 ERUM BARRETO MD Ot R19.7 DIARRHEA, UNSPECIFIED 06/18/2019 ERUM BARRETO MD Ot 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 ANALGE 06/18/2019 ERUM BARRETO MD Ot Z79.89 9 OTHER SENIOR MECHANICAL TECHNICIAN (CURRENT) DRUG THERAPY 06/18/2019 ERUM BARRETO MD Ot Z82.49 FAMILY HX OF ISCHEM HEART DIS AND OTH DI 06/18/2019 ERUM BARRETO MD Ot Z83.2 FAMILY HISTORY OF DIS OF THE BLD/BLD-FOR 06/18/2019 ERUM BARRETO MD Ot Z83.3 FAMILY HISTORY OF DIABETES MELLITUS 06/18/2019 ERUM BARRETO MD Ot Z87.89 1 PERSONAL HISTORY OF NICOTINE DEPENDENCE 06/18/2019 ERUM BARRETO MD Ot Z90.49 ACQUIRED ABSENCE OF OTHER SPECIFIED PART 06/18/2019 ERUM BARRETO MD Ot Z90.71 0 ACQUIRED ABSENCE OF BOTH CERVIX AND UTER 06/18/2019 ERUM BARRETO MD Ot Z98.51 TUBAL LIGATION STATUS 07/19/2019 BRO MCELROY Ot Z12.31 ENCNTR SCREEN MAMMOGRAM FOR MALIGNANT NE 07/19/2019 CROW SHANNON MD Ot R19.0 9 OTHER INTRA-ABDOMINAL AND PELVIC SWELLIN 07/19/2019 CROW SHANNON MD Ot R31.9 HEMATURIA, UNSPECIFIED 07/19/2019 NWAGWU, ISIDORE O YESSICA Ot Z12.31 ENCNTR SCREEN MAMMOGRAM FOR MALIGNANT NE 07/25/2019 LISA PA APRN Ot F32 .9 MAJOR DEPRESSIVE DISORDER, SINGLE EPISOD 07/25/2019 LISA PA APRN Ot J45.909 UNSPECIFIED ASTHMA, UNCOMPLICATED 07/25/2019 LISA PA APRN Ot K21 .9 GASTRO-ESOPHAGEAL REFLUX DISEASE WITHOUT 07/25/2019 LISA PA APRN Ot M79.602 PAIN IN LEFT ARM 07/25/2019 LISA PA APRN Ot T22.232A BURN OF SECOND DEGREE OF LEFT UPPER ARM, 07/25/2019 LISA PA APRN Ot T31 .0 GONZALEZ INVOLVING LESS THAN 10% OF BODY GANN 07/25/2019 LISA PA APRN Ot X15.3XXA CONTACT WITH HOT SAUCEPAN OR SKILLET, IN 07/25/2019 LISA PA APRN Ot Z87.891 PERSONAL HISTORY OF NICOTINE DEPENDENCE 07/25/2019 LISA PA APRN Ot Z90.710 ACQUIRED ABSENCE OF BOTH CERVIX AND UTER 07/25/2019 LISA PA APRN Ot Z98.51 TUBAL LIGATION STATUS 07/26/2019 BRO MCELROY Ot M47.816 SPONDYLOSIS W/O MYELOPATHY OR RADICULOPA 07/26/2019 BRO MCELROY Ot M48.07 SPINAL STENOSIS, LUMBOSACRAL REGION 07/26/2019 BRO MCELROY Ot M51.36 OTHER INTERVERTEBRAL DISC DEGENERATION, 07/28/2019 LISA PA APRN Ot F32 .9 MAJOR DEPRESSIVE DISORDER, SINGLE EPISOD 07/28/2019 LISA PA APRN Ot J45.909 UNSPECIFIED ASTHMA, UNCOMPLICATED 07/28/2019 LISA PA APRN Ot K21 .9 GASTRO-ESOPHAGEAL REFLUX DISEASE WITHOUT 07/28/2019 LISA PA APRN Ot M79.602 PAIN IN LEFT ARM 07/28/2019 LISA PA APRN Ot T22.232A BURN OF SECOND DEGREE OF LEFT UPPER ARM, 07/28/2019 LISA PA APRN Ot T31 .0 GONZALEZ INVOLVING LESS THAN 10% OF BODY GANN 07/28/2019 LISA PA APRN Ot X15.3XXA CONTACT WITH HOT SAUCEPAN OR SKILLET, IN 07/28/2019 LISA PA APRN Ot Z87.891 PERSONAL HISTORY OF NICOTINE DEPENDENCE 07/28/2019 LISA PA APRN Ot Z90.710 ACQUIRED ABSENCE OF BOTH CERVIX AND UTER 07/28/2019 LISA PA APRN Ot Z98.51 TUBAL LIGATION STATUS 08/03/2019 ERUM BARRETO MD, Ot F32.9 MAJOR DEPRESSIVE DISORDER, SINGLE EPISOD 08/03/2019 ERUM BARRETO MD Ot K64.1 SECOND DEGREE HEMORRHOIDS 08/03/2019 ERUM BARRETO MD, Ot K64.8 OTHER HEMORRHOIDS 08/03/2019 ERUM BARRETO MD, Ot K92.1 MELENA 08/03/2019 ERUM BARRETO MD Ot M19.90 UNSPECIFIED OSTEOARTHRITIS, UNSPECIFIED 08/03/2019 ERUM BARRETO MD Ot R19.7 DIARRHEA, UNSPECIFIED 08/03/2019 ERUM BARRETO MD, Ot 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 ANALGE 08/03/2019 ERUM BARRETO MD, Ot Z79.89 9 OTHER SENIOR MECHANICAL TECHNICIAN (CURRENT) DRUG THERAPY 08/03/2019 ERUM BARRETO MD, Ot Z82.49 FAMILY HX OF ISCHEM HEART DIS AND OTH DI 08/03/2019 ERUM BARRETO MD, Ot Z83.2 FAMILY HISTORY OF DIS OF THE BLD/BLD-FOR 08/03/2019 ERUM BARRETO MD, Ot Z83.3 FAMILY HISTORY OF DIABETES MELLITUS 08/03/2019 ERUM BARRETO MD, Ot Z87.89 1 PERSONAL HISTORY OF NICOTINE DEPENDENCE 08/03/2019 ERUM BARRETO MD, Ot Z90.49 ACQUIRED ABSENCE OF OTHER SPECIFIED PART 08/03/2019 ERUM BARRETO MD, Ot Z90.71 0 ACQUIRED ABSENCE OF BOTH CERVIX AND UTER 08/03/2019 ERUM BARRETO MD, Ot Z98.51 TUBAL LIGATION STATUS 08/06/2019 BRO MCELROY Ot M47.816 SPONDYLOSIS W/O MYELOPATHY OR RADICULOPA 08/06/2019 BRO MCELROY Ot M48.07 SPINAL STENOSIS, LUMBOSACRAL REGION 08/06/2019 BRO MCELROY Ot M51.36 OTHER INTERVERTEBRAL DISC DEGENERATION, Procedures Code Description [place] [address] ROUT INE VENIPUNCTURE 12/23/2013 59216 CBC 12/23/2013 1079875 GF R CALC (RESULT ONLY) 12/23/2013 04141 CMP 12/23/2013 66492 LIPI D PANEL 12/23/2013 87025 TSH 12/23/2013 51089 OXIMETRY 12/29/2013 Results Test Result Range CBC With Differential/Platelet - 7 14:48 WBC 8.1 x10E3/uL 3.4-10.8 RBC 4.21 x10E6/uL 3.77-5.28 Hemoglobin 12.0 g/dL 11.1-15.9 Hematocrit 35.3 % 34.0-46.6 MCV 84 fL 79-97 MCH 28.5 pg 26.6-33.0 MCHC 34.0 g/dL 31.5-35.7 RDW 13.6 % 12.3-15.4 Platelets 295 x10E3/uL 150-379 Neutrophils 58 % Lymphs 33 % Monocytes 8 % Eos 1 % Basos 0 % Neutrophils (Absolute) 4.7 x10E3/uL 1.4- 7.0 Lymphs (Absolute) 2.7 x10E3/uL 0.7-3.1 Monocytes(Absolute) 0.6 x10E3/uL 0.1-0.9 Eos (Absolute) 0.1 x10E3/uL 0.0-0.4 Baso (Absolute) 0.0 x10E3/uL 0.0-0.2 Immature Granulocytes 0 % Immature Grans (Abs) 0.0 x10E3/uL 0.0-0. 1 Comp. Metabolic Panel (14) - 09/11/16 14 :48 Glucose, Serum 89 mg/dL 65-99 BUN 14 mg/dL 6-24 Creatinine, Serum 0.76 mg/dL 0.57-1.00 eGFR If NonAfricn Am 93 mL/min/1.73 >59 eGFR If Africn Am 107 mL/min/1.73 >5 9 BUN/Creatinine Ratio 18 9-23 Sodium, Serum 141 mmol/L 134-144 Potassium, Serum 4.3 mmol/L 3.5-5.2 Chloride, Serum 100 mmol/L 96-106 Carbon Dioxide, Total 24 mmol/L 18-29 Calcium, Serum 9.1 mg/dL 8.7-10.2 Protein, Total, Serum 6.7 g/dL 6.0-8.5 Albumin, Serum 4.0 g/dL 3.5-5.5 Globulin, Total 2.7 g/dL 1.5-4.5 A/G Ratio 1.5 1.1-2.5 Bilirubin, Total 0.2 mg/dL 0.0-1.2 Alkaline Phosphatase, S 87 IU/L 39-117 AST (SGOT) 21 IU/L 0-40 ALT (SGPT) 26 IU/L 0-32 TSH - 09/11/16 14:48 TSH 0.983 uIU/mL 0.450-4.500 Genital Culture, Routine - 03/05/17 16:2 9 Genital Culture, Routine Note CBC With Differential/Platelet - 7 09:41 WBC 7.9 x10E3/uL 3.4-10.8 RBC 4.01 x10E6/uL 3.77-5.28 Hemoglobin 11.4 g/dL 11.1-15.9 Hematocrit 34.8 % 34.0-46.6 MCV 87 fL 79-97 MCH 28.4 pg 26.6-33.0 MCHC 32.8 g/dL 31.5-35.7 RDW 13.6 % 12.3-15.4 Platelets 288 x10E3/uL 150-379 Neutrophils 63 % Lymphs 25 % Monocytes 8 % Eos 4 % Basos 0 % Neutrophils (Absolute) 5.0 x10E3/uL 1.4- 7.0 Lymphs (Absolute) 2.0 x10E3/uL 0.7-3.1 Monocytes(Absolute) 0.6 x10E3/uL 0.1-0.9 Eos (Absolute) 0.4 x10E3/uL 0.0-0.4 Baso (Absolute) 0.0 x10E3/uL 0.0-0.2 Immature Granulocytes 0 % Immature Grans (Abs) 0.0 x10E3/uL 0.0-0. 1 Comp. Metabolic Panel (14) - 05/12/17 09 :41 Glucose, Serum 76 mg/dL 65-99 BUN 10 mg/dL 6-24 Creatinine, Serum 0.70 mg/dL 0.57-1.00 eGFR If NonAfricn Am 102 mL/min/1.73 >59 eGFR If Africn Am 118 mL/min/1.73 >5 9 BUN/Creatinine Ratio 14 9-23 Sodium, Serum 145 mmol/L 134-144 Potassium, Serum 3.9 mmol/L 3.5-5.2 Chloride, Serum 104 mmol/L 96-106 Carbon Dioxide, Total 28 mmol/L 18-29 Calcium, Serum 9.0 mg/dL 8.7-10.2 Protein, Total, Serum 6.3 g/dL 6.0-8.5 Albumin, Serum 3.7 g/dL 3.5-5.5 Globulin, Total 2.6 g/dL 1.5-4.5 A/G Ratio 1.4 1.2-2.2 Bilirubin, Total 0.3 mg/dL 0.0-1.2 Alkaline Phosphatase, S 92 IU/L 39-117 AST (SGOT) 17 IU/L 0-40 ALT (SGPT) 17 IU/L 0-32 TSH - 05/12/17 09:41 TSH 1.300 uIU/mL 0.450-4.500 CMP - 05/12/17 09:41 Glucose, Serum 76 mg/dL 65-99 BUN 10 mg/dL 6-24 Creatinine, Serum 0.70 mg/dL 0.57-1.00 eGFR If NonAfricn Am 102 mL/min/1.73 >59 eGFR If Africn Am 118 mL/min/1.73 >5 9 BUN/Creatinine Ratio 14 9-23 Sodium, Serum 145 mmol/L 134-144 Potassium, Serum 3.9 mmol/L 3.5-5.2 Chloride, Serum 104 mmol/L 96-106 Carbon Dioxide, Total 28 mmol/L 18-29 Calcium, Serum 9.0 mg/dL 8.7-10.2 Protein, Total, Serum 6.3 g/dL 6.0-8.5 Albumin, Serum 3.7 g/dL 3.5-5.5 Globulin, Total 2.6 g/dL 1.5-4.5 A/G Ratio 1.4 1.2-2.2 Bilirubin, Total 0.3 mg/dL 0.0-1.2 Alkaline Phosphatase, S 92 IU/L 39-117 AST (SGOT) 17 IU/L 0-40 ALT (SGPT) 17 IU/L 0-32 Urine Culture, Routine - 05/12/17 09:41 Urine Culture, Routine Note CBC - 07/13/18 11:05 WHITE BLOOD CELL COUNT 7.5 Thousand/uL 3 .8-10.8 RED BLOOD CELL COUNT 4.45 Million/uL 3.8 0-5.10 HEMOGLOBIN 12.5 g/dL 11.7-15.5 HEMATOCRIT 38.0 % 35.0-45.0 MCV 85.4 fL 80.0-100.0 MCH 28.1 pg 27.0-33.0 MCHC 32.9 g/dL 32.0-36.0 RDW 12.5 % 11.0-15.0 PLATELET COUNT 281 Thousand/uL 140-400 MPV 10.7 fL 7.5-12.5 ABSOLUTE NEUTROPHILS 4043 cells/uL 1500- 7800 ABSOLUTE LYMPHOCYTES 2618 cells/uL 850-3 900 ABSOLUTE MONOCYTES 600 cells/uL 200-950 ABSOLUTE EOSINOPHILS 188 cells/uL 15-500 ABSOLUTE BASOPHILS 53 cells/uL 0-200 NEUTROPHILS 53.9 % NRG LYMPHOCYTES 34.9 % NRG MONOCYTES 8.0 % NRG EOSINOPHILS 2.5 % NRG BASOPHILS 0.7 % NRG CMP - 10/04/19 10:30 GLUCOSE 95 mg/dL 65-99 UREA NITROGEN (BUN) 12 mg/dL 7-25 CREATININE 0.70 mg/dL 0.50-1.05 eGFR NON-AFR. KENYAN 100 mL/min/1.73m2 > OR = 60 eGFR 116 mL/min/1.73m2 > OR = 60 BUN/CREATININE RATIO NOT APPLICABLE (calc) 6-22 SODIUM 142 mmol/L 135-146 POTASSIUM 4.4 mmol/L 3.5-5.3 CHLORIDE 106 mmol/L 98-110 CARBON DIOXIDE 30 mmol/L 20-32 CALCIUM 9.0 mg/dL 8.6-10.4 PROTEIN, TOTAL 6.6 g/dL 6.1-8.1 ALBUMIN 4.1 g/dL 3.6-5.1 GLOBULIN 2.5 g/dL (calc) 1.9-3.7 ALBUMIN/GLOBULIN RATIO 1.6 (calc) 1.0-2. 5 BILIRUBIN, TOTAL 0.4 mg/dL 0.2-1.2 ALKALINE PHOSPHATASE 95 U/L 37-153 AST 15 U/L 10-35 ALT 17 U/L 6-29 CBC - 10/04/19 10:30 WHITE BLOOD CELL COUNT 5.7 Thousand/uL 3 .8-10.8 RED BLOOD CELL COUNT 4.39 Million/uL 3.8 0-5.10 HEMOGLOBIN 12.7 g/dL 11.7-15.5 HEMATOCRIT 38.5 % 35.0-45.0 MCV 87.7 fL 80.0-100.0 MCH 28.9 pg 27.0-33.0 MCHC 33.0 g/dL 32.0-36.0 RDW 12.8 % 11.0-15.0 PLATELET COUNT 288 Thousand/uL 140-400 MPV 10.2 fL 7.5-12.5 ABSOLUTE NEUTROPHILS 3095 cells/uL 1500- 7800 ABSOLUTE LYMPHOCYTES 2081 cells/uL 850-3 900 ABSOLUTE MONOCYTES 365 cells/uL 200-950 ABSOLUTE EOSINOPHILS 108 cells/uL 15-500 ABSOLUTE BASOPHILS 51 cells/uL 0-200 NEUTROPHILS 54.3 % NRG LYMPHOCYTES 36.5 % NRG MONOCYTES 6.4 % NRG EOSINOPHILS 1.9 % NRG BASOPHILS 0.9 % NRG CRP - 10/04/19 10:30 C-REACTIVE PROTEIN 3.9 mg/L <8.0 TSH - 10/04/19 10:30 TSH 1.39 mIU/L NRG INSULIN LEVEL - 10/04/19 10:31 INSULIN 6.7 uIU/mL 2.0-19.6 SUREPATH PAP AND HPV mRNA E6/E7 - 13:54 CLINICAL INFORMATION: NRG LMP: NRG PREV. PAP: NORMAL NRG PREV. BX: N/A NRG SOURCE: NRG STATEMENT OF ADEQUACY: NRG INTERPRETATION/RESULT: NRG PIANO REGULATOR INSPECTOR: NRG HPV mRNA E6/E7, SUREPATH VIAL Not Detected NOT DETECTED COMMENT NRG PDM - 09 PANEL (PROFILE 1) - 02/09/20 12 :34 Prescribed Drug 1 Hydrocodone NRG Creatinine 161.2 mg/dL > or = 20.0 pH 6.4 4.5-9.0 Oxidant NEGATIVE mcg/mL <200 Amphetamines NEGATIVE ng/mL <500 medMATCH Amphetamines CONSISTENT NRG Benzodiazepines NEGATIVE ng/mL <100 medMATCH Benzodiazepines CONSISTENT NRG Marijuana Metabolite NEGATIVE ng/mL <20 medMATCH Marijuana Metab CONSISTENT NRG Cocaine Metabolite NEGATIVE ng/mL <150 medMATCH Cocaine Metab CONSISTENT NRG Opiates POSITIVE ng/mL <100 Oxycodone NEGATIVE ng/mL <100 medMATCH Oxycodone CONSISTENT NRG COMMENT NRG Codeine NEGATIVE ng/mL <50 medMATCH Codeine CONSISTENT NRG Hydrocodone 325 ng/mL <50 medMATCH Hydrocodone CONSISTENT NRG Hydromorphone 209 ng/mL <50 medMATCH Hydromorphone CONSISTENT NRG Morphine NEGATIVE ng/mL <50 medMATCH Morphine CONSISTENT NRG Norhydrocodone 373 ng/mL <50 medMATCH Norhydrocodone CONSISTENT NRG Barbiturates NEGATIVE ng/mL <300 medMATCH Barbiturates CONSISTENT NRG Methadone Metabolite NEGATIVE ng/mL <100 medMATCH Methadone Metab CONSISTENT NRG Phencyclidine NEGATIVE ng/mL <25 medMATCH Phencyclidine CONSISTENT NRG Encounters ACCT No. Visit Date/Time Discharge Status Pt. Type Provider Facility Loc./Unit Complaint [id number] 09/12/2016 13:06:00 Document Registration [id number] 05/13/2017 11:08:00 Document Registration [id number] 07/25/2019 22:25:00 23:27:00 DIS Emergency LISA PA APRN [facility] ER L ARM BURN [id number] 07/22/2019 14:33:00 23:59:59 CLS Outpatient BRO MCELROYP [facility] RAD LOW BACK PAIN [id number] 06/11/2019 10:16:00 10/11/2 019 12:20:00 DIS Outpatient ERUM BARRETO MD [facility] ENDO SCREENING/+BLOOD IN STO OLS [id number] 06/09/2019 05:42:00 019 09:06:00 DIS Outpatient ERUM BARRETO MD [facility] PREOP COLONOSCOPY [id number] 06/07/2019 14:13:00 019 23:59:59 CLS Outpatient HAZEL MORENO APRN [facility] RAD SCREENING [id number] 06/09/2017 08:10:00 017 23:59:59 CLS Outpatient CROW SHANNON MD [facility] RAD HEMATURIA [id number] 02/25/2017 08:22:00 017 23:59:59 CLS Outpatient BRO MCELROY [facility] RAD SCREENING Z12.39 [id number] 02/06/2017 15:11:00 017 10:50:00 DIS Outpatient COLTHARP CHRIS COOK [facility] REHAB R HAND AND WRIST PAIN/S PRAIN [id number] 11/06/2016 09:42:00 017 23:59:59 CLS Outpatient CHRIS SULTANA DO [facility] OCC RT WRIST PAIN [id number] 07/10/2016 00:39:00 016 23:59:59 CLS Emergency SANG MUELLER MD [facility] ER R KNEE PAIN,SWE LLING [id number] 01/04/2016 13:22:00 016 23:59:59 CLS Outpatient SALIMA LANIER GLOBAL SALES DIRECTOR [facility] RAD RIGHT KNEE MENISCAL TEA R [id number] 06/28/2015 13:07:00 015 23:59:59 CLS Outpatient BRO MCELROY [facility] RAD [id number] 04/14/2015 03:41:00 015 06:44:00 DIS Emergency LEXX REED DO [facility] ER [id number] 03/01/2015 08:28:00 015 23:59:59 CLS Outpatient BRO MCELROY [facility] RAD [id number] 11/16/2014 13:41:00 015 08:51:00 DIS Outpatient CAROLINA FARMER MD [facility] REHAB [id number] 06/28/2014 12:15:00 014 23:59:59 CLS Outpatient BRO RICHEY MD [facility] RAD [id number] 01/21/2014 14:48:00 014 23:59:59 CLS Outpatient ИВАН MCNEIL DO [facility] RAD [id number] 09/13/2014 12:20:00 Document Registration [id number] 09/10/2012 08:55:00 Document Registration [id number] 02/16/2020 09:40:00 02/16/2020 23:59:5 9 CLS Outpatient BRO MCELROY APRN [facility] [id number] 02/09/2020 11:40:00 Document Registration [id number] 10/11/2019 10:00:00 Document Registration [id number] 10/04/2019 10:40:00 Document Registration [id number] 07/13/2018 10:20:00 Document Registration [id number] 05/12/2017 09:00:00 Document Registration [id number] 03/09/2017 11:05:00 Document Registration [id number] 07/12/2014 11:20:00 07/12/2014 23:59: 59 CLS Outpatient BRO MCELROY APRN [id number] 06/08/2014 12:59:00 06/08/2014 23:59: 59 CLS Outpatient GODWIN BRAY APRN [id number] 02/23/2014 10:47:00 02/23/2014 23:59: 59 CLS Outpatient AMBROSE BRANNON DO [id number] 12/23/2013 11:51:00 12/23/2013 23:59: 59 CLS Outpatient AMBROSE BRANNON DO [id number] 11/22/2013 15:36:00 11/22/2013 23:59: 59 CLS Outpatient BRO MCELROY APRN [id number] 03/11/2012 13:22:00 03/11/2012 23:59: 59 CLS Outpatient AMBROSE BRANNON DO [id number] 05/14/2017 03:07:00 Document Registration
--- OUTSIDE RECORDS SUMMARY | 2020-02-24 03:07 | XMS REPORT ---
Author Author Shey MCELROY [facility] eClinicalWorks Address Unknown Phone Unavailable Care Team Providers Care Flumer Name Role Phone BRO MCELROY CP Unavailable Allergies, Adverse Reactions, Alerts Substance Reaction Event Type Annona Info Not Available Drug Allergy Problems Problem Type Condition ICD-9 Code Onset Dates Condition Statu s Problem Asymptomatic varicose veins 454.9 Active Problem Dietary surveillance and counseling V65.3 Active Problem Routine general medical examination at [facility] V70.0 Active Assessment Migraines 346.90 Active Problem Carpal tunnel syndrome 354.0 Activ e Problem Anxiety state, unspecified 300.00 A ctive Problem Unspecified otalgia 388.70 Active Problem Depressive disorder, not elsewhere classified 311 Active Problem Screening examination for venereal disease V74.5 Active Problem Contact with or exposure to unspecified communicable d isease V01.9 Active Problem Dysfunction of Eustachian tube 381.81 Active Problem Cough 786.2 Active Medications Medication Code System Code Instructions Start Date End Date Status Dosage Meloxicam [facility] [address]-90 15 MG Jul 12, 2014 javy e 1 tablet (15 mg) by oral route once daily Fluoxetine [facility] [address]-92 40 mg Jul 12, 2014 1 capsule by Oral route 1 time per day Ativan [facility] [address]-27 0.5 MG Orally Twice a day February 22, 2015 1 tablet as needed Neurontin [facility] [address]-57 300 MG November 22, 2013 1 capsule by Oral route 3 times per day PRN for pain Tizanidine HCl [facility] [address]-85 4 MG Orally 3 times a day Apr 11 015 1 tablet as needed Verapamil HCl [facility] [address]-90 80 MG Orally Onc e a day X7 days then 2 tiimes a day x 7 days then tid. May 15, 2015 1 tablet BuPROPion HCl [facility] [address]-01 100 MG November 22, 2013 take 1 tablet (100 mg) by oral route 3 times per day Procedures Procedure Coding System Code Date Office Visit, Est Pt., Level 3 CPT-4 69564 S ept 2014 Vital Signs Date/Time: May 15, 2015 Temperature 97.7 F Weight 220.5 lbs Height 64 in BMI 37.84 Index Blood Pressure Diastolic 90 mmHg Blood Pressure Systolic 142 mmHg Cardiac Monitoring Heart Rate 82 bpm Results No Known Results Summary Purpose eClinicalWorks Submission
[2020-02-24] MEDS ORDERED: ASPIRIN 81 MG CHEW (CHILDREN'S ASA) ONE (03:08)
[2020-02-24] MEDS ORDERED: NITROGLYCERIN 0.4 MG SL TABS BTL 25'S SL ONE (03:08)
[2020-02-24] MEDS ORDERED: NS IV 1000 ML 1,000 ML ONE (03:09)
[2020-02-24] MEDS: NITROGLYCERIN 0.4 MG SL TABS BTL 25'S SL PRN ×3 (03:10→03:20)
[2020-02-24] MEDS ORDERED: NS IV 1000 ML 1,000 ML IV SCH (03:10)
[2020-02-24 03:15] LABS: BASOPHILS % (AUTO) 0 % (0-10); EOSINOPHILS # (AUTO) 0.1 10^3/uL (0.0-0.3); EOSINOPHILS % (AUTO) 1 % (0-10); HEMATOCRIT 37 % (35-52); HEMOGLOBIN 12.2 G/DL (11.5-16.0); LYMPHOCYTES # (AUTO) 2.2 X 10^3 (1.0-4.0); LYMPHOCYTES % (AUTO) 26 % (12-44); MEAN CORPUSCULAR HEMOGLOBIN 29 PG (25-34); MEAN CORPUSCULAR HGB CONC 33 G/DL (32-36); MEAN CORPUSCULAR VOLUME 87 FL (80-99); MEAN PLATELET VOLUME 9.4 FL (7.4-10.4); MONOCYTES # (AUTO) 0.6 X 10^3 (0.0-1.0); MONOCYTES % (AUTO) 7 % (0-12); NEUTROPHILS # (AUTO) 5.3 X 10^3 (1.8-7.8); NEUTROPHILS % (AUTO) 66 % (42-75); PLATELET COUNT 275 10^3/uL (130-400); RED CELL DISTRIBUTION WIDTH 12.7 % (10.0-14.5); WHITE BLOOD COUNT 8.1 10^3/uL (4.3-11.0)
[2020-02-24] MEDS ORDERED: ASPIRIN 81 MG CHEW (CHILDREN'S ASA) PO ONE (03:15)
--- NOTE | 2020-02-24 03:16 | ED Chest Pain ---
General Chief Complaint: Chest Pain Stated Complaint: CP Source: patient Exam Limitations: no limitations History of Present Illness Date Seen by Provider: Feb 24, 2020 Time Seen by Provider: 02:58 Initial Comments Patient presents ER by private conveyance from work at [employer] where she was having some dizziness and chest pain starting about 2 hours ago at 1:00. Chest pain substernal, reproducible to deep inspiration and nonradiating. No paresthesias. No nausea fevers chills cough shortness of breath. She says she had a negative coronavirus test on Friday one week ago because she was having some nausea vomiting and diarrhea for about a day. She went to [facility] in the test her for COVID-19. She's having no fevers chills body aches or malaise. No history of coronary disease. She had a heart catheterization in 2010 demonstrating normal coronary angiogram. She does have a history of GERD but does not routinely take anything for it has not been bothering her lately. She did not take anything for her discomfort tonight because she was at work and did not have anything to take. She quit smoking more than 3 years ago. She does not have diabetes, hyperlipidemia, hypertension or primary or personal family co ronary medical history. Allergies and Home Medications Allergies Coded Allergies: No Known Drug Allergies (Unverified , 12/12/08) Home Medications Bupropion HCl 100 Mg Tablet, 100 MG PO TID, (Reported) Hydrocodone Bit/Acetaminophen 1 Each Tablet, 1 TAB PO DAILY, (Reported) Meloxicam 15 Mg Tablet, 15 MG PO DAILY, (Reported) Sertraline HCl 50 Mg Tablet, 50 MG PO DAILY, (Reported) Patient Home Medication List Home Medication List Reviewed: Yes Review of Systems Review of Systems Constitutional: No chills, No diaphoresis EENTM: No Blurred Vision, No Double Vision Respiratory: Denies Cough, Denies Shortness of Air Cardiovascular: See HPI, Chest Pain; Denies Edema, Denies Lightheadedness Gastrointestinal: Denies Constipated, Denies Diarrhea, Denies Nausea Genitourinary: Denies Burning, Denies Discharge Musculoskeletal: No back pain, No joint pain Skin: No pruritus, No rash Psychiatric/Neurological: Denies Headache, Denies Numbness, Denies Paresthesia All Other Systems Reviewed Negative Unless Noted: Yes Past Bswygfm-Gmokuz-Ccbuon Hx Patient Social History Alcohol Use: Denies Use Recreational Drug Use: No Smoking Status: Former Smoker Type Used: Cigarettes Former Smoker, Quit: Jun 09, 2011 2nd Hand Smoke Exposure: No Recent Foreign Travel: No Contact w/Someone Who Travel: No Recent Hopitalizations: No Immunizations Up To Date Tetanus Booster (TDap): Unknown Seasonal Allergies Seasonal Allergies: Yes Past Medical History Surgeries: Yes (knee scope, ) Gallbladder, Hysterectomy, Tubal Ligation Respiratory: Yes Asthma Cardiac: No Neurological: No 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 oz. 99.152146fn; 37.00 BMI Method:Stated General Appearance: WD/WN, Anxious, Mild Distress HEENT: PERRL/EOMI, TMs Normal, Normal ENT Inspection, Pharynx Normal, Moist Mucous Membranes Neck: Full Range of Motion, Normal Inspection, Non Tender Respiratory: Chest Non Tender, Lungs Clear, Normal Breath Sounds, No Accessory Muscle Use, No Respiratory Distress Cardiovascular: Regular Rate, Rhythm, No Edema, Normal Peripheral Pulses Gastrointestinal: Normal Bowel Sounds, Non Tender, Soft Extremity: Normal Capillary Refill, Normal Inspection, Normal Range of Motion, Non Tender, No Calf Tenderness, No Pedal Edema Neurologic/Psychiatric: Alert, Oriented x3 Skin: Normal Color, Warm/Dry Progress/Results/Core Measures Results/Orders Lab Results Laboratory Tests Test 02/24/20 03:05 02/24/20 05:00 Range/Units White Blood Count 8.1 4.3-11.0 10^3/uL Red Blood Count 4.22 L 4.35-5.85 10^6/uL Hemoglobin 12.2 11.5-16.0 G/DL Hematocrit 37 35-52 % Mean Corpuscular Volume 87 80-99 FL Mean Corpuscular Hemoglobin 29 25-34 PG Mean Corpuscular Hemoglobin Concent 33 32-36 G/DL Red Cell Distribution Width 12.7 10.0-14.5 % Platelet Count 275 130-400 10^3/uL Mean Platelet Volume 9.4 7.4-10.4 FL Neutrophils (%) (Auto) 66 42-75 % Lymphocytes (%) (Auto) 26 12-44 % Monocytes (%) (Auto) 7 0-12 % Eosinophils (%) (Auto) 1 0-10 % Basophils (%) (Auto) 0 0-10 % Neutrophils # (Auto) 5.3 1.8-7.8 X 10^3 Lymphocytes # (Auto) 2.2 1.0-4.0 X 10^3 Monocytes # (Auto) 0.6 0.0-1.0 X 10^3 Eosinophils # (Auto) 0.1 0.0-0.3 10^3/uL Basophils # (Auto) 0.0 0.0-0.1 10^3/uL Prothrombin Time 12.4 12.2-14.7 SEC INR Comment 0.9 0.8-1.4 Activated Partial Thromboplast Time 26 24-35 SEC D-Dimer 0.54 H 0.00-0.49 UG/ML Sodium Level 140 135-145 MMOL/L Potassium Level 3.8 3.6-5.0 MMOL/L Chloride Level 104 98-107 MMOL/L Carbon Dioxide Level 23 21-32 MMOL/L Anion Gap 13 5-14 MMOL/L Blood Urea Nitrogen 15 7-18 MG/DL Creatinine 0.84 0.60-1.30 MG/DL Estimat Glomerular Filtration Rate > 60 BUN/Creatinine Ratio 18 Glucose Level 124 H 70-105 MG/DL Calcium Level 9.3 8.5-10.1 MG/DL Corrected Calcium 9.1 8.5-10.1 MG/DL Magnesium Level 1.7 1.6-2.4 MG/DL Total Bilirubin 0.5 0.1-1.0 MG/DL Aspartate Amino Transf (AST/SGOT) 20 5-34 U/L Alanine Aminotransferase (ALT/SGPT) 21 0-55 U/L Alkaline Phosphatase 92 40-136 U/L Myoglobin 62.3 10.0-92.0 NG/ML Troponin I < 0.028 < 0.028 <0.028 NG/ML B-Type Natriuretic Peptide 19.1 <100.0 PG/ML Total Protein 7.3 6.4-8.2 GM/DL Albumin 4.3 3.2-4.5 GM/DL Lipase 20 8-78 U/L My Orders Orders - AUGUSTO,[place] J Cbc With Automated Diff (02/24/20 03:08) Magnesium (02/24/20 03:08) Chest 1 View, Ap/Pa Only (02/24/20 03:08) Ekg Tracing (02/24/20 03:08) Comprehensive Metabolic Panel (02/24/20 03:08) Myoglobin Serum (02/24/20 03:08) Protime With Inr (02/24/20 03:08) Partial Thromboplastin Time (02/24/20 03:08) O2 (02/24/20 03:08) Monitor-Rhythm Ecg Trace Only (02/24/20 03:08) Lipid Panel (02/25/20 06:00) Ed Iv/Invasive Line Start (02/24/20 03:08) Lipase (02/24/20 03:08) BNP (02/24/20 03:08) Fibrin Degradation Products (02/24/20 03:08) Troponin I (02/24/20 03:08) Nitroglycerin 0.4 Mg Btl 25's (Nitrostat (02/24/20 03:15) Aspirin Chewable Tablet (Baby Aspirin Ch (02/24/20 03:15) Nitroglycerin 0.4 Mg Btl 25's (Nitrostat (02/24/20 03:08) Aspirin Chewable Tablet (Baby Aspirin Ch (02/24/20 03:08) Ed Iv/Invasive Line Start (02/24/20 03:10) Ns Iv 1000 Ml (Sodium Chloride 0.9%) (02/24/20 03:10) Ns Iv 1000 Ml (Sodium Chloride 0.9%) (02/24/20 03:09) Ct Angio Chest W (02/24/20 03:35) Troponin I (02/24/20 05:10) Iohexol Injection (Omnipaque 350 Mg/Ml 1 (02/24/20 04:30) Received Contrast (Hold Metformin- Contr (02/24/20 04:30) Ns (Ivpb) (Sodium Chloride 0.9% Ivpb Bag (02/24/20 04:30) Lidocaine 2% Viscous 15 Ml (Xylocaine Vi (02/24/20 05:45) Famotidine Tablet (Pepcid Tablet) (02/24/20 05:38) Antacid Suspension (Mylanta Suspension (02/24/20 05:45) Medications Given in ED Current Medications Medications Dose Ordered Sig/Shon Route Start Time Stop Time Status Last Admin Dose Admin Al Hydrox/Mg Hydrox/Simethicone 30 ml ONCE ONCE PO 02/24/20 05:45 02/24/20 05:46 DC 02/24/20 05:55 30 ML Aspirin 324 mg ONCE ONCE PO 02/24/20 03:15 02/24/20 03:16 DC 02/24/20 03:10 324 MG Iohexol 150 ml ONCE ONCE IV 02/24/20 04:30 02/24/20 04:31 DC 02/24/20 05:06 125 ML Lidocaine HCl 15 ml ONCE ONCE PO 02/24/20 05:45 02/24/20 05:46 DC 02/24/20 05:55 15 ML Nitroglycerin 0.4 mg UD PRN SL 02/24/20 03:15 02/24/20 03:22 DC 02/24/20 03:20 0.4 MG Vital Signs/I&O 02/24/20 02/24/20 02/24/20 03:00 03:00 03:00 Temp 37.1 Pulse 83 Resp 20 B/P (MAP) 167/89 (115) Pulse Ox 98 98 O2 Delivery Room Air Room Air Room Air Progress Progress Note #1: Time: 03:14 Progress Note GERD, pleurisy, coronary disease, pulmonary embolism?. She has no evidence of AAA or coronary artery disease on her angiogram from 2010. Well score for pulmonary embolism: 0.0 points; Low risk group: 1.3% chance of PE in an ED population. PERC score 1 criteria; If any criteria are positive, the PERC rule cannot be used to rule out PE in this patient. Aspirin 325 mg followed by nitroglycerin. If this does not help try GI cocktail. EKG does not show any changes significant. Chest x-ray labs to include d-dimer, lipase. Progress Note #2: Time: 03:32 Progress Note After 3 doses nitroglycerin the patient's pain went from 8 out of 10 down to 4. The blood pressure went from 160 systolic down to 109 systolic. The patient is resting comfortably. The patient failed to rule out by PERC criteria or d-dimer. She still having 4 out of 10 pain so we're going to get a CT angiogram of her chest. This will also was for pneumonia. Her chest x-ray has been canceled. Progress Note #3: Time: 06:02 Progress Note GI cocktail helped her symptoms. 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 Initial ECG Impression Date: Feb 24, 2020 Initial ECG Impression Time: 03:01 Initial ECG Rate: 74 Initial ECG Rhythm: Normal Sinus Initial ECG Intervals: Normal Initial ECG Impression: Normal Initial ECG Comparisson: Unchanged Comment Normal sinus rhythm without clinically relevant ST elevation or depression. Diagnostic Imaging Diagonstic Imaging: CT (angiogram) Plain Films/CT/US/NM/MRI: chest (1v) Comments No acute intrathoracic findings. NAME: LEILANI VELAZQUEZ [facility] REC#: [id number] PT STATUS: REG ER : 1970 PHYSICIAN: [place] CASAS MD ADMIT DATE: 02/24/20/ER Draft Date of Exam:02/24/20 CT ANGIO CHEST W PROCEDURE: CT angiography of the chest with contrast. TECHNIQUE: Multiple contiguous axial images were obtained through the chest after uneventful bolus administration of intravenous contrast. 3D reconstructed CTA MIP acquisitions were also performed. Auto Exposure Controls were utilized during the CT exam to meet ALARA standards for radiation dose reduction. INDICATION: Chest pain, tightness, and dizziness. FINDINGS: There are no primary nodules, masses, or infiltrates. There is no pleural or pericardial fluid. There is no pneumothorax. There is no pathologically enlarged adenopathy in the chest. The thoracic aorta is normal in caliber and without evidence of dissection. There are no filling defects seen within the pulmonary arteries to suggest a pulmonary embolism. The visualized intraabdominal structures are unremarkable. The osseous structures are unremarkable. IMPRESSION: No acute abnormality in the chest. Specifically, there is no evidence of a pulmonary embolism or aortic dissection. Dictated on workstation # [id number] Dict: 02/24/20 0542 Trans: 02/24/20 0546 [facility] [id number] Interpreted by: ALEXANDRO SELLERS MD Electronically signed by: Reviewed: [facility] Reviewed by Me Diagonstic Imaging: Xray Plain Films/CT/US/NM/MRI: chest Comments No acute cardiopulmonary processes on one view chest x-ray. NAME: LEILANI VELAZQUEZ [facility] REC#: [id number] PT STATUS: REG ER : 1970 PHYSICIAN: [place] CASAS MD ADMIT DATE: 02/24/20/ER Draft Date of Exam:02/24/20 CHEST 1 VIEW, AP/PA ONLY INDICATION: Dizziness and chest pain. Comparison made with prior examination 03/07/2011 FINDINGS: The heart size, mediastinal configuration, and pulmonary vascularity are within normal limits. There is no pleural effusion, pneumothorax, or pneumonia. The osseous structures are unremarkable. IMPRESSION: No acute cardiopulmonary abnormality. Dictated on workstation # [id number] Dict: 02/24/20 0417 Trans: 02/24/20 0534 [id number] Interpreted by: ALEXANDRO SELLERS MD Electronically signed by: Reviewed: Reviewed by Me Departure Impression Primary Impression: Chest pain Qualified Codes: R07.9 - Chest pain, unspecified Additional Impression: GERD with esophagitis Disposition: HOME, SELF-CARE Condition: Stable Departure-Patient Inst. Decision time for Depature: 05:36 [place] [facility] [place] Primary Care Physician Patient Instructions: Acid Reflux and Gastroesophageal Reflux Disease in Adults, Chest Pain (DC) Add. Discharge Instructions: Start taking Carafate half an hour before meals and at bedtime for the next 2 weeks. Start taking omeprazole 40 mg daily. Follow-up with Marleny Erickson in the next 2-4 weeks to discuss GERD/gastritis and appropriate workup. Follow-up with Dr. Andrade by calling for an appointment today sometime in the next week if possible to discuss risk stratification for heart disease. Promptly return to the ER if you have persistent chest pain that does not respond to Tums, Rolaids, Maalox, Mylanta etc. All discharge instructions reviewed with patient and/or family. Voiced understanding. Scripts Sucralfate (Carafate) 1 Gm Tablet 1 GM PO QIDACHS for 14 Days, #56 TAB 0 Refills Prov: [place] CASAS 02/24/20 Omeprazole (Omeprazole) 40 Mg Capsule. 40 MG PO DAILY for 30 Days, #30 CAP 0 Refills Prov: [place] CASAS 02/24/20 Work/School Note: Work Release Form Date Seen in the Emergency Department: Feb 24, 2020 Return to Work: Feb 24, 2020 Restrictions: No Restrictions Copy Copies To 1: Maru ANDRADE MD, TITUS J Feb 24, 2020 03:16
[2020-02-24 03:26] LABS: ALBUMIN 4.3 GM/DL (3.2-4.5); CHLORIDE 104 MMOL/L (98-107); INR 0.9 (0.8-1.4); POTASSIUM 3.8 MMOL/L (3.6-5.0); PROTHROMBIN TIME PATIENT 12.4 SEC (12.2-14.7); SODIUM 140 MMOL/L (135-145)
[2020-02-24 03:27] LABS: CALCIUM 9.3 MG/DL (8.5-10.1)
[2020-02-24 03:28] LABS: GLUCOSE 124 MG/DL (70-105)
[2020-02-24 03:29] LABS: TOTAL PROTEIN 7.3 GM/DL (6.4-8.2)
[2020-02-24 03:30] LABS: BILIRUBIN,TOTAL 0.5 MG/DL (0.1-1.0); CARBON DIOXIDE 23 MMOL/L (21-32)
[2020-02-24 03:32] LABS: ALKALINE PHOSPHATASE 92 U/L (40-136); CREATININE SERUM 0.84 MG/DL (0.60-1.30); GFR ESTIMATED > 60
[2020-02-24 03:33] LABS: BUN/CREATININE RATIO 18
[2020-02-24 03:35] LABS: ALANINE AMINOTRANSFERASE 21 U/L (0-55); MAGNESIUM 1.7 MG/DL (1.6-2.4)
[2020-02-24 03:36] LABS: LIPASE 20 U/L (8-78)
[2020-02-24] MEDS ORDERED: NS 100 ML (IVPB) BAG IV ONE (04:30)
[2020-02-24] MEDS ORDERED: IOHEXOL 350 MG/ML 150 ML (OMNIPAQUE 350) VIAL IV ONE (04:30)
[2020-02-24] MEDS ORDERED: HOLD METFORMIN - RECEIVED CONTRAST 20 ML VIAL IV SCH (04:30)
--- NOTE | 2020-02-24 05:35 | Diagnostic Imaging Report ---
INDICATION: Dizziness and chest pain. Comparison made with prior examination 03/07/2011 FINDINGS: The heart size, mediastinal configuration, and pulmonary vascularity are within normal limits. There is no pleural effusion, pneumothorax, or pneumonia. The osseous structures are unremarkable. IMPRESSION: No acute cardiopulmonary abnormality. Dictated by: Dictated on workstation # [id number]
[2020-02-24] MEDS ORDERED: FAMOTIDINE 20 MG (PEPCID) TABLET PO STA (05:38)
[2020-02-24] MEDS ORDERED: LIDOCAINE 2% VISCOUS 15 ML UDC PO ONE (05:45)
[2020-02-24] MEDS ORDERED: ANTACID SUSP 30 ML UDC (MYLANTA) PO ONE (05:45)
--- NOTE | 2020-02-24 05:46 | Diagnostic Imaging Report ---
PROCEDURE: CT angiography of the chest with contrast. TECHNIQUE: Multiple contiguous axial images were obtained through the chest after uneventful bolus administration of intravenous contrast. 3D reconstructed CTA MIP acquisitions were also performed. Auto Exposure Controls were utilized during the CT exam to meet ALARA standards for radiation dose reduction. INDICATION: Chest pain, tightness, and dizziness. FINDINGS: There are no primary nodules, masses, or infiltrates. There is no pleural or pericardial fluid. There is no pneumothorax. There is no pathologically enlarged adenopathy in the chest. The thoracic aorta is normal in caliber and without evidence of dissection. There are no filling defects seen within the pulmonary arteries to suggest a pulmonary embolism. The visualized intraabdominal structures are unremarkable. The osseous structures are unremarkable. IMPRESSION: No acute abnormality in the chest. Specifically, there is no evidence of a pulmonary embolism or aortic dissection. Dictated by: Dictated on workstation # [id number]
[2020-02-24] MEDS ORDERED: OMEP40CA27 PO (06:05)
[2020-02-24] MEDS ORDERED: SUCR1TAB36 PO (06:05)
[2020-02-24 06:13] VITALS: BP 125/89
== END 2020-02-24 06:18 | disposition home or self-care (01) ==
LOC: EDUNIT# 02:52 → ER 02:55
DX: K21.9 Gastro-esophageal reflux disease without esophagitis (principal); F32.9 Major depressive disorder, single episode, unspecified; G89.29 Other chronic pain; M54.9 Dorsalgia, unspecified; Z79.891 Long term (current) use of opiate analgesic; Z87.891 Personal history of nicotine dependence
CPT/HCPCS: 36415; 71045; 71275; 80053; 83690; 83735; 83874; 83880; 84484; 85025; 85379; 85610; 85730; 93005; 93041

== ENCOUNTER → 2020-03-20 | Outpatient (CLI) | payer OTHER ==
[~2020-03-20] MED LIST changes: +OMEP40CA27 PO; +SUCR1TAB36 PO
== END ==
LOC: CARD 10:32
PROVIDERS: ATTEND Internal Medicine Cardiovascular Disease
DX: I10 Essential (primary) hypertension (principal); R07.89 Other chest pain; R06.02 Shortness of breath; Z87.891 Personal history of nicotine dependence
CPT/HCPCS: 93306

== ENCOUNTER → 2020-03-28 | Outpatient (CLI) | payer OTHER ==
[~2020-03-28] VITALS: Ht 158 cm; Wt 103.0 kg
[~2020-03-28] MED LIST changes: +CATHETER FLUSH 10 ML SYR IV PRN; +REGADENOSON 0.4 MG/5 ML SYR (LEXISCAN) IV ONE
[2020-03-28 08:53] VITALS: BP 134/77
--- NOTE | 2020-03-28 13:41 | STRESS TEST ---
DATE OF SERVICE: 03/28/2020 RESTING AND POST REGADENOSON TECHNETIUM-99M TETROFOSMIN SPECT CT IMAGING ORDERING PHYSICIAN: Dr. Jackson. PRIMARY PHYSICIAN: [facility]. CLINICAL DIAGNOSES: Chest discomfort, shortness of breath. Baseline images were carried out after injection of 10.96 mCi of technetium-99m Tetrofosmin. This was followed by 0.4 mg Regadenoson and 29.2 mCi of technetium-99m Tetrofosmin for stress imaging. The patient noted some shortness of breath following Regadenoson infusion, which resolved in a few minutes. The electrocardiogram did not change with the Regadenoson infusion. Review of images at rest and following stress does not indicate any significant perfusion defects consistent with myocardial ischemia or infarction. Gated images show normal global left ventricular systolic function with normal regional wall motion. Left ventricular ejection fraction is calculated to be 74%. Left ventricular end diastolic volume is 62 mL. TID is absent (0.97). CONCLUSIONS: 1. No evidence of any significant myocardial ischemia or infarction on this study. 2. Normal regional wall motion. 3. Normal global left ventricular systolic function with a calculated ejection fraction of 74%. Job ID: [id number] DocumentID: [id number] Dictated Date: 03/28/2020 13:17:08 [employer] Dashboard Developer Date: 03/28/2020 13:40:39 Dictated By: CLIVE JACKSON MD, MA, FACP, FACC, MTDD
== END ==
LOC: CARD 06:57
PROVIDERS: ATTEND Internal Medicine Cardiovascular Disease
DX: I10 Essential (primary) hypertension (principal); Z87.891 Personal history of nicotine dependence
CPT/HCPCS: 78452; 93017; A9502